=== PATIENT | male | born 1935 ===

== ENCOUNTER 2016-07-08 00:30 | Inpatient (IN) | payer MEDICARE ==
[2016-07-08] MEDS ORDERED: Phenylephrine 1% Nasal Spray (15 ml) ONE (00:44)
[2016-07-08 01:32] LABS: INR 1.1
[2016-07-08 01:35] LABS: BASO % 0.2 % (0.0-2.0); EOS % 0.2 % (0.0-4.0); HEMATOCRIT 38.2 % (35.0-51.0); LYMPH # 0.5 K/uL (1.0-4.3); LYMPH % 7.1 % (20.0-40.0); MEAN CELL VOLUME 94.1 fL (80.0-94.0); MEAN PLATELET VOLUME 8.5 fL (7.2-11.7); MONO # 0.5 K/uL (0.0-0.8); MONO % 6.3 % (0.0-10.0); NRBC % 0.1 % (0.0-2.0); PLATELET COUNT 200 K/uL (130-400); RED CELL DISTRIBUTION WIDTH 13.8 % (11.5-14.5); WHITE BLOOD COUNT 7.7 K/uL (4.8-10.8)
[2016-07-08] MEDS ORDERED: Bacitracin 500 Units/gm Oint Foilpak UD ONE (01:35)
[2016-07-08 01:38] LABS: CHLORIDE 97 mmol/L (98-107); POTASSIUM 4.9 mmol/L (3.6-5.2); SODIUM 140 mmol/L (132-148)
[2016-07-08 01:40] LABS: ALKALINE PHOSPHATASE 60 U/L (38-126); ALT/SGPT 26 U/L (21-72); AST/SGOT 28 U/L (17-59); BILIRUBIN,TOTAL 0.4 mg/dL (0.2-1.3); BLOOD UREA NITROGEN 18 mg/dL (9-20); CARBON DIOXIDE 27 mmol/L (22-30); GFR AFRICAN-AMERICAN > 60; TOTAL PROTEIN 7.7 g/dL (6.3-8.3)
[2016-07-08 01:41] LABS: CALCIUM 8.6 mg/dl (8.6-10.4); GLUCOSE,RANDOM 126 mg/dL (75-110)
--- NOTE | 2016-07-08 01:46 | C.PDOC ---
History Of Present Illness 80 year old patient presents to the ED complaining of epistaxis that began prior to arrival. Patient states he is currently taking Plavix. Patient denies shortness of breath, throat pain, cough, or vomiting. Time Seen by Provider: 07/08/16 01:06 Chief Complaint (Nursing): ENT Problem History Per: Patient History/Exam Limitations: None Onset/Duration Of Symptoms: Mins (prior to arrival) Current Symptoms Are (Timing): Still Present Symptoms Have Been: Continuous Severity: Mild Pain Scale Rating Of: 3 Past Medical History Reviewed: Historical Data, Nursing Documentation, Vital Signs Vital Signs: Last Vital Signs Temp 98.4 F 07/08/16 00:42 Pulse 82 07/08/16 05:12 Resp 18 07/08/16 05:12 BP 148/74 07/08/16 05:12 Pulse Ox 97 07/08/16 04:53 - Medical History PMH: HTN, Hypercholesterolemia Family History: States: Unknown Family Hx - Social History Hx Tobacco Use: No Hx Alcohol Use: No Hx Substance Use: No - Immunization History Hx Influenza Vaccination: Yes Review Of Systems Except As Marked, All Systems Reviewed And Found Negative. ENT: Positive for: Other (epistaxis). Negative for: Throat Pain Respiratory: Negative for: Cough, Shortness of Breath Gastrointestinal: Negative for: Vomiting Physical Exam - Physical Exam Appears: Non-toxic, No Acute Distress Skin: Warm, Dry Head: Atraumatic, Normacephalic Eye(s): bilateral: Normal Inspection, PERRL, EOMI Ear(s): Bilateral: Normal Nose: Epistaxis (left nare interiorly), No Deformity, No Septal Hematoma Oral Mucosa: Moist Tongue: Normal Appearing Lips: Normal Appearing Throat: Normal, No Erythema, No Exudate Neck: Normal ROM, Supple Chest: Symmetrical Cardiovascular: Rhythm Regular Respiratory: Normal Breath Sounds, No Rales, No Rhonchi, No Wheezing ED Course And Treatment - Laboratory Results Result Diagrams: 07/08/16 04:39 07/08/16 01:20 ECG: Interpreted By Me, Viewed By Me ECG Rhythm: Sinus Rhythm Rate From EC (bpm) O2 Sat by Pulse Oximetry: 97 (RA) Pulse Ox Interpretation: Normal Progress Note: Plan: -Labs. Progress: Topical Neosynephrine is used. Pressure is applied. Merocel nasal tampon used in left nostril. Bleeding is controlled. Patient notes he is feeling dizzing. Systolic pressure is 80 due to the bleeding from the left nostril. Balloon inserted to stop bleeding. Repeated EKG. 500 cc saline given. Blood pressure increased. 7.5 Rhino Rocket placed. Patient has subsequent bleeding. Patient has hypertension, systolic at 82. Case discussed with Dr. Tavarez, the ENT, who is notified and will try to follow up with the patient in the ED. Dr. Tavarez saw the patient and applied a posterior nasal packing. Case discussed the case with Ras Simmons who is aware of the plan and will evaluate the patient. She will admit the patient to the ICU. Disposition Discussed With Dr.: Lan Regalado Doctor Will See Patient In The: Hospital Counseled Patient/Family Regarding: Diagnosis - Disposition Disposition: HOSPITALIZED Disposition Time: 03:37 Condition: STABLE - POA Present On Arrival: None - Clinical Impression Clinical Impression: Nasal bleeding - Scribe Statement The provider has reviewed the documentation as recorded by the Tashi Matias Provider Attestation: All medical record entries made by the Tashi were at my direction and personally dictated by me. I have reviewed the chart and agree that the record accurately reflects my personal performance of the history, physical exam, medical decision making, and the department course for this patient. I have also personally directed, reviewed, and agree with the discharge instructions and disposition.
[2016-07-08] MEDS ORDERED: Sodium Chloride 0.9% 1,000 ML ONE (01:52)
[2016-07-08 02:37] LABS: BASO % 0.2 % (0.0-2.0); EOS % 0.2 % (0.0-4.0); HEMATOCRIT 33.9 % (35.0-51.0); LYMPH # 0.5 K/uL (1.0-4.3); MEAN CELL VOLUME 93.7 fL (80.0-94.0); MEAN CORPUSCULAR HEMOGLOBIN 31.2 pg (27.0-31.0); MEAN CORPUSCULAR HGB CONC 33.3 g/dL (33.0-37.0); MEAN PLATELET VOLUME 8.2 fL (7.2-11.7); MONO # 0.5 K/uL (0.0-0.8); MONO % 6.3 % (0.0-10.0); NRBC % 0.1 % (0.0-2.0); RED CELL DISTRIBUTION WIDTH 13.8 % (11.5-14.5); WHITE BLOOD COUNT 8.5 K/uL (4.8-10.8)
--- NOTE | 2016-07-08 04:23 | CP.PCM.HP ---
<Velma Albarado - Last Filed: 07/08/16 04:15> History of Present Illness - History of Present Illness History of Present Illness: CC: "nose bleed" HPI: Patient is an 80 year old male with medical history significant for CAD s/ p CABG in 2003, hypertension and BPH who presented to the ED due to uncontrolled epistaxis. Patient states he was going to take a shower at 11:00 PM on 07/07/16 when epistaxis occurred. Bleeding did not resolve which prompted patient to come to the hospital. He notes previous episode of epistaxis 4 years ago. Patient found to be hypotensive, 82/42, in ED and given bolus of normal saline. Patient takes Plavix and Aspirin daily since CABG in 2003. He denies dizziness, lightheadedness, chest pain, palpitations, shortness of breath, nausea, vomiting, abdominal pain. In ED, Merocel tampon placed to nostril and balloon inserted and inflated. 7.5 Rhino Rocket placed. Patient continues to actively have epistaxis. ENT, Dr. Tavarez, notified and will see patient. PMD: Dr. York PMH: as above Medications: ASA 162 mg po daily, Plavix 75 mg po daily, Atorvastatin 20 mg po daily, Metoprolol 50 mg po daily, Valsartan 80 mg po daily, Doxazosin 4 mg po daily Allergies: NKDA Surgical Hx: CABG 2003 Social: Previous smoker 1ppd, quit 2003. Denies alcohol and illicit drug use. Present on Admission - Present on Admission Any Indicators Present on Admission: No History of DVT/PE: No History of Uncontrolled Diabetes: No Urinary Catheter: No Decubitus Ulcer Present: No Review of Systems - Constitutional Constitutional: absent: Anorexia, Chills - EENT Additional comments: nasal bleed - Cardiovascular Cardiovascular: absent: Chest Pain, Dyspnea - Respiratory Respiratory: absent: Cough, Dyspnea, Dyspnea on Exertion - Gastrointestinal Gastrointestinal: absent: Abdominal Pain, Cramping, Nausea, Vomiting - Genitourinary Genitourinary: Other Additional comments: BPH - Musculoskeletal Musculoskeletal: absent: Arthralgias, Muscle Weakness - Integumentary Integumentary: absent: Changing Lesions, New Lesions - Neurological Neurological: Other Additional comments: decreased hearing Past Patient History - Past Social History Smoking Status: Former Smoker - CARDIAC Hx Hypercholesterolemia: Yes Hx Hypertension: Yes - PSYCHIATRIC Hx Substance Use: No - SURGICAL HISTORY Hx Surgeries: Yes Hx Open Heart Surgery: Yes (2004 bypass) - ANESTHESIA Hx Anesthesia: Yes Hx Anesthesia Reactions: No Meds Allergies/Adverse Reactions: Allergies Allergy/AdvReac Type Severity Reaction Status Date / Time No Known Allergies Allergy Verified 07/08/16 00:53 Physical Exam - Constitutional Appears: Non-toxic, Other Additional comments: active epistaxis - Head Exam Head Exam: ATRAUMATIC - Eye Exam Eye Exam: EOMI, Normal appearance, PERRL - ENT Exam ENT Exam: Mucous Membranes Moist Additional comments: active epistaxis from right nostril - Neck Exam Neck exam: Positive for: Normal Inspection - Respiratory Exam Respiratory Exam: Clear to Auscultation Bilateral, NORMAL BREATHING PATTERN - Cardiovascular Exam Cardiovascular Exam: +S1, +S2. absent: Tachycardia - GI/Abdominal Exam GI & Abdominal Exam: Normal Bowel Sounds, Soft. absent: Distended, Guarding - Extremities Exam Extremities exam: Positive for: normal inspection, pedal pulses present - Neurological Exam Neurological exam: Alert, Oriented x3 - Psychiatric Exam Psychiatric exam: Anxious Results - Vital Signs Recent Vital Signs: Last Vital Signs Temp 98.4 F 07/08/16 00:42 Pulse 90 07/08/16 03:34 Resp 16 07/08/16 03:34 BP 120/63 07/08/16 03:34 Pulse Ox 97 07/08/16 03:46 - Labs Result Diagrams: 07/08/16 02:35 07/08/16 01:20 Assessment & Plan - Assessment and Plan (Free Text) Assessment: 1. Epistaxis Rhino Rocket in place Initial hemoglobin 12.6 , repeat 11.3 Stat CBC, pending hemoglobin will transfuse Type and Screen ENT, Dr. Tavarez, consulted Monitor 2. Hypotension likely secondary to epistaxis 82/40 Normal Saline bolus given in ED Blood pressure improved to 142/72 Monitor 3. CAD s/p CABG 2003 ASA 162 mg po daily - held Plavix 25 mg po daily - held Atorvastatin 20 mg po daily Metoprolol Succinate 50 mg po daily, Valsartan 80 mg po daily - held due to hypotension 4. BPH Continue home medication Doxazosin 4 mg po daily 5. Prophylaxis SCD VTE CI due to epistaxis - Date & Time Date: 07/08/16 Time: 04:34 <Lan Regalado - Last Filed: 07/08/16 06:38> Results - Vital Signs Recent Vital Signs: Last Vital Signs Temp 97.4 F L 07/08/16 05:44 Pulse 84 07/08/16 05:44 Resp 16 07/08/16 05:44 BP 153/81 H 07/08/16 05:44 Pulse Ox 100 07/08/16 05:44 - Labs Result Diagrams: 07/08/16 04:39 07/08/16 01:20 Labs: Laboratory Results - last 24 hr 07/08/16 07/08/16 04:18 04:39 WBC 9.5 RBC 3.42 L Hgb 10.8 L Hct 32.3 L MCV 94.4 H MCH 31.5 H MCHC 33.4 RDW 13.8 Plt Count 189 MPV 8.2 Neut % (Auto) 85.9 H Lymph % (Auto) 6.7 L [place] % (Auto) 7.0 Eos % (Auto) 0.1 Baso % (Auto) 0.3 Neut # 8.2 H Lymph # 0.6 L [place] # 0.7 Eos # 0.0 Baso # 0.0 Blood Type A POSITIVE Blood Type Confirm A POSITIVE Antibody Screen Negative Assessment & Plan - Date & Time Date: 07/08/16 (I have seen and examined the patient. I agree with the findings and plan of care as documented by Dr. Albarado. Patient with epistaxis. History of CAD. Hold plavix and Aspirin. Dr. Tavarez Consulted. ICU consult due to hypotension and continued loss of blood. Type and cross 2 units. Transfuse as necessary. Hypotension improved with IV bolus. Monitor for acute changes.) Time: 06:36 Attending/Attestation - Attestation I have personally seen and examined this patient.: Yes I have fully participated in the care of the patient.: Yes I have reviewed all pertinent clinical information: Yes
[2016-07-08 04:45] LABS: BASO % 0.3 % (0.0-2.0); EOS % 0.1 % (0.0-4.0); HEMATOCRIT 32.3 % (35.0-51.0); LYMPH # 0.6 K/uL (1.0-4.3); LYMPH % 6.7 % (20.0-40.0); MEAN CELL VOLUME 94.4 fL (80.0-94.0); MEAN CORPUSCULAR HEMOGLOBIN 31.5 pg (27.0-31.0); MEAN CORPUSCULAR HGB CONC 33.4 g/dL (33.0-37.0); MEAN PLATELET VOLUME 8.2 fL (7.2-11.7); MONO # 0.7 K/uL (0.0-0.8); RED CELL DISTRIBUTION WIDTH 13.8 % (11.5-14.5); WHITE BLOOD COUNT 9.5 K/uL (4.8-10.8)
[2016-07-08] MEDS ORDERED: Tramadol 25 mg PO PRN (04:55)
[2016-07-08] MEDS ORDERED: Sodium Chloride 0.9% 1,000 ML IV ONE (05:54)
--- NOTE | 2016-07-08 06:32 | CP.PCM.CON ---
History of Present Illness - History of Present Illness History of Present Illness: This is an 80 year old male who comes to the hospital for epistaxis that started in this afternoon, despite maneuvers used in ER epistaxis continued. 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 BP and HR have been good, except for one episode of hypotension that I do not think is related to blood loss. There is a mild drop of hb, but patient feels well and vital sings are wnl. He takes plavix and aspirin at home for CABAG done in 2013. He denies any other cardiac interventions. 10 complete review of systems asked and negative except for above. PMH: CAD with CABAG in 2013 HTN Artritis on daily prednisone for the past 6 months FH: denies heart disease in the family social: ex-smoker, stopped in 2013 allergies: NKDA pe: bp 153/81 mmhg, hr 84 bpm, t 97.6 f, rr 16, O2 100% on room air aaox3 elderly male in excellent shape for his age, sitting in bed calm s1, s2 rrr lungs good bilateral air of entry abdomen global, soft, non tender good muscle tone strength a/p: epistaxis: hold anticoagulation, do not remove packing, ok for liquid diet, not desaturating, monitor cbc daily for now, no need for frequent checks, ok to start toprol since only one episode of low bp, hold diovan and imdur for now. HTN: BP wnl for now, monitor CAD: continue lipitor and toprol only. Arthritis: continue daily prednisone Past Patient History - Past Social History Smoking Status: Former Smoker - CARDIAC Hx Hypercholesterolemia: Yes Hx Hypertension: Yes - PSYCHIATRIC Hx Substance Use: No - SURGICAL HISTORY Hx Surgeries: Yes Hx Open Heart Surgery: Yes (2004 bypass) - ANESTHESIA Hx Anesthesia: Yes Hx Anesthesia Reactions: No Meds Allergies/Adverse Reactions: Allergies Allergy/AdvReac Type Severity Reaction Status Date / Time No Known Allergies Allergy Verified 07/08/16 00:53 - Medications Medications: Current Medications Acetaminophen (Tylenol 325mg Tab) 650 mg PO Q6 PRN PRN Reason: Pain, Mild (1-3) Doxazosin Mesylate (Cardura) 4 mg PO DAILY [facility] Cefazolin Sodium 500 mg/ (Sodium Chloride) 50 mls @ 100 mls/hr IVPB Q8H [facility] Last Admin: 07/08/16 05:30 Dose: 100 mls/hr Sodium Chloride (Sodium Chloride 0.9%) 1,000 mls @ 1,000 mls/hr IV .Q1H ONE Stop: 07/08/16 06:53 Last Admin: 07/08/16 03:15 Dose: 1,000 mls/hr Metoprolol Tartrate (Lopressor) 25 mg PO Q12H [facility] Rosuvastatin Calcium (Crestor) 10 mg PO HS [facility] Results - Vital Signs Recent Vital Signs: Last Vital Signs Temp 97.4 F L 07/08/16 05:44 Pulse 84 07/08/16 05:44 Resp 16 07/08/16 05:44 BP 153/81 H 07/08/16 05:44 Pulse Ox 100 07/08/16 05:44 - Labs Result Diagrams: 07/08/16 04:39 07/08/16 01:20 Labs: Laboratory Results - last 24 hr 07/08/16 07/08/16 04:18 04:39 WBC 9.5 RBC 3.42 L Hgb 10.8 L Hct 32.3 L MCV 94.4 H MCH 31.5 H MCHC 33.4 RDW 13.8 Plt Count 189 MPV 8.2 Neut % (Auto) 85.9 H Lymph % (Auto) 6.7 L [place] % (Auto) 7.0 Eos % (Auto) 0.1 Baso % (Auto) 0.3 Neut # 8.2 H Lymph # 0.6 L [place] # 0.7 Eos # 0.0 Baso # 0.0 Blood Type A POSITIVE Blood Type Confirm A POSITIVE Antibody Screen Negative
--- NOTE | 2016-07-08 08:31 | OP ---
PROCEDURE DATE: 07/08/2016 PREOPERATIVE DIAGNOSIS: Posterior epistaxis. POSTOPERATIVE DIAGNOSIS: Posterior epistaxis. SIGNIFICANT FINDINGS: Posterior packing. DESCRIPTION OF PROCEDURE: The patient was placed in a seated position. A Craft catheter was inserte d into the nasal cavity on the left. The balloon was inflated in the nasopharynx. The Vaseline gauz e was used to pack the nose on the left going from posterior to anterior direction. Vaseline gauze w as also used to pack the nose on the right side going from posterior to anterior direction. A clamp was placed on the Craft in order to secure it in place. Care was taken to make sure the clamp was no t touching the nasal ala. Bleeding was controlled. The patient tolerated the procedure. Stephon Tavarez MD cc: [phone] TT: 07/08/2016 08:31:19 ak
--- NOTE | 2016-07-08 09:18 | CP.PCM.PN ---
Subjective - Date & Time of Evaluation Date of Evaluation: 07/08/16 Time of Evaluation: 09:15 - Subjective Subjective: Medical Attending Note: Follow-up: Recurrent epistaxis, acute anemia secondary to acute blood loss, symptomatic hypotension secondary to blood loss, hx of CABG in 2003, hypelipidemeia Patient seen and examined at bedside. is present at bedside. Patient has nasal packing bilateral nares with catheter over left nostril and clamped with plier. Patient denies headache, denies dizziness, denies lightheadedness, denies cough, denies shortness of breathe, denies chest pain, denies palpitations, denies abdominal pain, denies nausea, denies vomitting, denies dysuria. patient is on aspirin/plavix given prior CABG 2003. Patient reports last episode of epistaxis was about 4 years ago. Objective - Vital Signs/Intake and Output Vital Signs (last 24 hours): Temp Pulse Resp BP Pulse Ox 97.7 F 90 18 142/70 98 07/08/16 08:00 07/08/16 09:00 07/08/16 09:00 07/08/16 09:00 07/08/16 09:00 Intake and Output: 07/08/16 07/08/16 06:59 18:59 Intake Total 1100 Output Total 750 0 Balance 350 0 - Medications Medications: Current Medications Acetaminophen (Tylenol 325mg Tab) 650 mg PO Q6 PRN PRN Reason: Pain, Mild (1-3) Last Admin: 07/08/16 07:58 Dose: 650 mg Doxazosin Mesylate (Cardura) 4 mg PO DAILY [facility] Cefazolin Sodium 500 mg/ (Sodium Chloride) 50 mls @ 100 mls/hr IVPB Q8H [facility] Last Admin: 07/08/16 05:30 Dose: 100 mls/hr Metoprolol Tartrate (Lopressor) 25 mg PO Q12H [facility] Last Admin: 07/08/16 08:06 Dose: 25 mg Prednisone (Prednisone Tab) 10 mg PO DAILY [facility] Rosuvastatin Calcium (Crestor) 10 mg PO HS [facility] - Labs Labs: 07/08/16 04:39 PT 12.0 SECONDS (9.7-12.2) 07/08/16 01:20 INR 1.1 07/08/16 01:20 APTT 30 SECONDS (21-34) 07/08/16 01:20 - Constitutional Appears: Non-toxic, No Acute Distress - Head Exam Head Exam: NORMAL INSPECTION - ENT Exam Additional comments: Nasal packing bilateral; has catheter from left nare, and clamped; dried blood - Respiratory Exam Respiratory Exam: Clear to Ausculation Bilateral, NORMAL BREATHING PATTERN. absent: Rales, Rhonchi - Cardiovascular Exam Cardiovascular Exam: REGULAR RHYTHM, +S1, +S2 - GI/Abdominal Exam GI & Abdominal Exam: Soft, Normal Bowel Sounds. absent: Distended, Firm, Guarding, Rigid, Tenderness, Rebound - Neurological Exam Neurological Exam: Alert, Awake, Oriented x3 - Psychiatric Exam Psychiatric exam: Normal Affect, Normal Mood - Skin Skin Exam: Dry, Normal Color, Warm Assessment and Plan (1) Epistaxis, recurrent Assessment & Plan: Posterior epistaxis Had posterior packing by ENT 07/08/16 Monitor H/H Patient is off aspirin/Plavix Cefazolin 500mg IV Q 6 hours (active since 07/08/16) Status: Acute (2) Acute blood loss anemia Assessment & Plan: Secondary to posterior epistaxis Patient denies hx of hypertension Patient went from hgb 11.7-->10.8 Monitor H/H Will check iron studies, b12, folate, hapto, ferritin Status: Acute (3) Symptomatic anemia Assessment & Plan: Secondary to posterior epistaxis Patient went from hgb 11.7-->10.8 Status: Acute (4) History of coronary artery bypass graft Assessment & Plan: In 2003 Crestor 10mg PO HS Off aspirin/plavix secondary to acute blood loss this morning (patient has a card at bedside of all meds) Lopressor 50mg PO bid Status: Chronic (5) CAD (coronary artery disease) Assessment & Plan: Crestor 10mg PO qHS Status: Chronic (6) Prophylactic measure Assessment & Plan: Pepcid 20mg IV Q 12hours VTE contraindications secondary to acute blood loss secondary to posterior epistaxis Status: Acute
[2016-07-08 09:30] LABS: NEUTROPHIL 81 % (50-75); TOTAL CELLS COUNTED 100
[2016-07-08 10:18] LABS: IRON 72 ug/dL (49-181)
[2016-07-08] MEDS: Saccharomyces Boulardi 250 mg Cap PO SCH ×2 (10:33→18:37)
[2016-07-08] MEDS: Vitamins A & D Oint UD Foilpak TOP PRN (10:33)
[2016-07-08 11:59] LABS: FOLATE 7.7 ng/mL
[2016-07-08] MEDS ORDERED: Oxycodone/Acetaminophen 5/325 mg Tab PO PRN (13:49)
[2016-07-08] MEDS ORDERED: Metoprolol 1 mg/ml Inj IVP ONE (22:15)
[2016-07-09] MEDS: Vitamins A & D Oint UD Foilpak TOP PRN (10:30)
[2016-07-09] MEDS: Saccharomyces Boulardi 250 mg Cap PO SCH ×2 (10:31→17:56)
[2016-07-09 11:02] LABS: BASO % 0.1 % (0.0-2.0); HEMATOCRIT 28.8 % (35.0-51.0); LYMPH % 6.8 % (20.0-40.0); MEAN CELL VOLUME 92.7 fL (80.0-94.0); MEAN CORPUSCULAR HEMOGLOBIN 30.9 pg (27.0-31.0); MEAN CORPUSCULAR HGB CONC 33.4 g/dL (33.0-37.0); MEAN PLATELET VOLUME 8.5 fL (7.2-11.7); MONO # 1.3 K/uL (0.0-0.8); MONO % 9.1 % (0.0-10.0); PLATELET COUNT 183 K/uL (130-400); WHITE BLOOD COUNT 13.9 K/uL (4.8-10.8)
[2016-07-09 11:07] LABS: CHLORIDE 96 mmol/L (98-107); SODIUM 138 mmol/L (132-148)
[2016-07-09 11:09] LABS: AST/SGOT 26 U/L (17-59); BILIRUBIN,TOTAL 0.7 mg/dL (0.2-1.3); CARBON DIOXIDE 30 mmol/L (22-30); GFR AFRICAN-AMERICAN > 60; TOTAL PROTEIN 6.7 g/dL (6.3-8.3)
[2016-07-09 11:10] LABS: ALKALINE PHOSPHATASE 52 U/L (38-126); ALT/SGPT 33 U/L (21-72); BLOOD UREA NITROGEN 28 mg/dL (9-20); CALCIUM 8.5 mg/dl (8.6-10.4); GLUCOSE,RANDOM 97 mg/dL (75-110); MAGNESIUM 2.1 mg/dL (1.6-2.3); PHOSPHOROUS 2.5 mg/dL (2.5-4.5)
[2016-07-09 11:47] LABS: NEUTROPHIL 83 % (50-75); REACTIVE LYMPHOCYTES 2 % (0-0); TOTAL CELLS COUNTED 100
--- NOTE | 2016-07-09 11:53 | CP.PCM.PN ---
Objective - Vital Signs/Intake and Output Vital Signs (last 24 hours): Temp Pulse Resp BP Pulse Ox 98.6 F 91 H 20 154/67 H 99 07/09/16 07:59 07/09/16 11:29 07/09/16 07:59 07/09/16 11:29 07/09/16 07:59 - Medications Medications: Current Medications Doxazosin Mesylate (Cardura) 4 mg PO DAILY [facility] Last Admin: 07/09/16 10:31 Dose: 4 mg Famotidine (Pepcid) 20 mg IVP Q12 [facility] Last Admin: 07/09/16 10:31 Dose: 20 mg Cefazolin Sodium 500 mg/ (Sodium Chloride) 50 mls @ 100 mls/hr IVPB Q8H [facility] Last Admin: 07/09/16 05:55 Dose: 100 mls/hr Losartan Potassium (Cozaar) 50 mg PO DAILY [facility] Last Admin: 07/09/16 10:31 Dose: 50 mg Metoprolol Tartrate (Lopressor) 25 mg PO Q12H [facility] Last Admin: 07/09/16 05:56 Dose: 25 mg Oxycodone/Acetaminophen (Percocet 5/325 Mg Tab) 1 tab PO Q6H PRN PRN Reason: Pain, moderate (4-7) Stop: 07/11/16 13:50 Last Admin: 07/08/16 13:54 Dose: 1 tab Rosuvastatin Calcium (Crestor) 10 mg PO HS [facility] Last Admin: 07/08/16 21:47 Dose: 10 mg Saccharomyces Boulardii (Florastor) 250 mg PO BID [facility] Last Admin: 07/09/16 10:31 Dose: 250 mg Saliva Substitute (Mouth Kote 236 Ml) 1 ml MM Q4H [facility] Last Admin: 07/09/16 10:40 Dose: 1 spray Vitamin A (Vitamin A & D Oint Ud Foilpak) 0.5 ea TOP Q4 PRN PRN Reason: Dry skin Last Admin: 07/09/16 10:30 Dose: 0.5 ea - Labs Labs: 07/09/16 10:48 07/09/16 10:48 PT 12.0 SECONDS (9.7-12.2) 07/08/16 01:20 INR 1.1 07/08/16 01:20 APTT 30 SECONDS (21-34) 07/08/16 01:20
--- NOTE | 2016-07-09 11:57 | CP.PCM.PN ---
Addendum entered and electronically signed by Annie Sullivan DO 07/09/16 17:12: patient to have nasal cauterization Thursday- echo ordered, cards consulted for cardiac clearance. Original Note: <Annie Sullivan - Last Filed: 07/09/16 15:20> Subjective - Date & Time of Evaluation Date of Evaluation: 07/09/16 Time of Evaluation: 07:45 - Subjective Subjective: Internal medicine progress note for Dr. Partida- Annie Sullivan, PGY-1 Pt [facility] & E at beside- daughter present to provide addition history. Daughter reports that yesterday evening, pt was given percocet with some agitation after administration, pt had brief recurrence of epistaxis. Pt uncomfortable with large clamp in place for tamponade. Complaining of SOB and dry mouth. Denies N/V/F/C, chest pain, abdominal pain. Tolerating liquid diet. 9:30am - pt reported transitent substernal "burning sensation" - told nursing. When re-evaluated, was not having symptoms - ordered EKG and ZHANNA. 10:30am- Per nursing, pt with recurrence of 4-5ml epistaxis. 1530: Patient had recurrence of bleeding from left nares- 3-5 mls - bright red, packing still in place, also coughed up 2 dime size dark clots Objective - Vital Signs/Intake and Output Vital Signs (last 24 hours): Temp Pulse Resp BP Pulse Ox 98.6 F 91 H 20 154/67 H 99 07/09/16 07:59 07/09/16 11:29 07/09/16 07:59 07/09/16 11:29 07/09/16 07:59 - Medications Medications: Current Medications Doxazosin Mesylate (Cardura) 4 mg PO DAILY [facility] Last Admin: 07/09/16 10:31 Dose: 4 mg Famotidine (Pepcid) 20 mg IVP Q12 [facility] Last Admin: 07/09/16 10:31 Dose: 20 mg Cefazolin Sodium 500 mg/ (Sodium Chloride) 50 mls @ 100 mls/hr IVPB Q8H [facility] Last Admin: 07/09/16 05:55 Dose: 100 mls/hr Losartan Potassium (Cozaar) 50 mg PO DAILY [facility] Last Admin: 07/09/16 10:31 Dose: 50 mg Metoprolol Tartrate (Lopressor) 25 mg PO Q12H [facility] Last Admin: 07/09/16 05:56 Dose: 25 mg Oxycodone/Acetaminophen (Percocet 5/325 Mg Tab) 1 tab PO Q6H PRN PRN Reason: Pain, moderate (4-7) Stop: 07/11/16 13:50 Last Admin: 07/08/16 13:54 Dose: 1 tab Rosuvastatin Calcium (Crestor) 10 mg PO HS [facility] Last Admin: 07/08/16 21:47 Dose: 10 mg Saccharomyces Boulardii (Florastor) 250 mg PO BID [facility] Last Admin: 07/09/16 10:31 Dose: 250 mg Saliva Substitute (Mouth Kote 236 Ml) 1 ml MM Q4H [facility] Last Admin: 07/09/16 10:40 Dose: 1 spray Vitamin A (Vitamin A & D Oint Ud Foilpak) 0.5 ea TOP Q4 PRN PRN Reason: Dry skin Last Admin: 07/09/16 10:30 Dose: 0.5 ea - Labs Labs: 07/09/16 10:48 07/09/16 10:48 PT 12.0 SECONDS (9.7-12.2) 07/08/16 01:20 INR 1.1 07/08/16 01:20 APTT 30 SECONDS (21-34) 07/08/16 01:20 - Constitutional Appears: Non-toxic, No Acute Distress - Head Exam Head Exam: ATRAUMATIC, NORMAL INSPECTION, NORMOCEPHALIC Additional comments: Vaso-occlusive dressings occluding nares, straight catheter in right nares with large forceps clamp in place at opening of nares. Some oxidized blood visible in posterior lata-pharynx and posterior tongue. - Eye Exam Eye Exam: EOMI, Normal appearance, PERRL Pupil Exam: NORMAL ACCOMODATION, PERRL - ENT Exam ENT Exam: Mucous Membranes Moist, Normal Exam - Neck Exam Neck Exam: Full ROM, Normal Inspection - Respiratory Exam Respiratory Exam: Clear to Ausculation Bilateral, NORMAL BREATHING PATTERN. absent: Rales, Rhonchi, Wheezes - Cardiovascular Exam Cardiovascular Exam: REGULAR RHYTHM, +S1, +S2 - GI/Abdominal Exam GI & Abdominal Exam: Soft, Normal Bowel Sounds. absent: Distended, Firm, Guarding, Rigid, Tenderness - Extremities Exam Extremities Exam: Full ROM, Normal Inspection. absent: Pedal Edema, Tenderness - Back Exam Back Exam: NORMAL INSPECTION - Neurological Exam Neurological Exam: Alert, Awake, CN II-XII Intact, Oriented x3 - Psychiatric Exam Psychiatric exam: Normal Affect, Normal Mood - Skin Skin Exam: Dry, Intact, Normal Color, Warm Assessment and Plan - Assessment and Plan (Free Text) Assessment: 1. Epistaxis Posterior packing in place by by ENT 07/08/16 Monitor H/H Off aspirin/Plavix Cefazolin 500mg IV Q 6 hours (active since 07/08/16) Florastor Saliva substitute FU CT head FU ENT recs 2. Chest pain EKG- no changes since previous EKG ZHANNA 0.069 Monitor 3. Acute blood loss anemia due to posterior epistaxis Hgb 9.6 from 10.8 Folate 7.7 B12 level 370 Fe 72 TIBC 352 % sat 29 Ferritin 40.7 Monitor 4. Symptomatic anemia due to posterior epistaxis Monitor 5. Hx CABG (2003) Crestor 10mg PO HS Off aspirin/plavix secondary to acute blood loss 6. HTN Lopressor 50mg PO bid Cozaar 50mg daily Doxazosin 4mg daily 7. CAD Crestor 10mg PO HS Lopressor 25mg Q12H 8. GI/DVT ppx Pepcid 20mg IV Q 12hours VTE contraindications secondary to acute blood loss secondary to posterior epistaxis 9. Dispo Awaiting ENT recs regarding epistaxis DW attending <Mariposa Partida V - Last Filed: 07/10/16 10:00> Objective - Vital Signs/Intake and Output Vital Signs (last 24 hours): Temp Pulse Resp BP Pulse Ox 98.7 F 90 20 174/71 H 97 07/10/16 07:22 07/10/16 09:10 07/10/16 07:22 07/10/16 09:10 07/10/16 07:22 Intake and Output: 07/10/16 07/10/16 06:59 18:59 Intake Total 350 Output Total 850 Balance -500 - Medications Medications: Current Medications Doxazosin Mesylate (Cardura) 4 mg PO DAILY [facility] Last Admin: 07/10/16 09:08 Dose: 4 mg Famotidine (Pepcid) 20 mg IVP Q12 [facility] Last Admin: 07/10/16 09:09 Dose: 20 mg Cefazolin Sodium 500 mg/ (Sodium Chloride) 100 mls @ 100 mls/hr IVPB Q8H [facility] Last Admin: 07/10/16 05:23 Dose: 100 mls/hr Losartan Potassium (Cozaar) 50 mg PO DAILY [facility] Last Admin: 07/10/16 09:12 Dose: 50 mg Metoprolol Tartrate (Lopressor) 25 mg PO Q12H [facility] Last Admin: 07/10/16 05:33 Dose: 25 mg Oxycodone/Acetaminophen (Percocet 5/325 Mg Tab) 1 tab PO Q6H PRN PRN Reason: Pain, moderate (4-7) Stop: 07/11/16 13:50 Last Admin: 07/08/16 13:54 Dose: 1 tab Rosuvastatin Calcium (Crestor) 10 mg PO HS [facility] Last Admin: 07/09/16 21:30 Dose: 10 mg Saccharomyces Boulardii (Florastor) 250 mg PO BID [facility] Last Admin: 07/10/16 09:08 Dose: 250 mg Saliva Substitute (Mouth Kote 236 Ml) 1 ml MM Q4H [facility] Last Admin: 07/10/16 09:07 Dose: 1 spray Vitamin A (Vitamin A & D Oint Ud Foilpak) 0.5 ea TOP Q4 PRN PRN Reason: Dry skin Last Admin: 07/09/16 10:30 Dose: 0.5 ea - Labs Labs: 07/10/16 08:01 07/10/16 08:01 PT 12.0 SECONDS (9.7-12.2) 07/08/16 01:20 INR 1.1 07/08/16 01:20 APTT 30 SECONDS (21-34) 07/08/16 01:20 Assessment and Plan (1) Epistaxis, recurrent Status: Acute (2) Acute blood loss anemia Status: Acute (3) Symptomatic anemia Status: Acute (4) History of coronary artery bypass graft Status: Chronic (5) CAD (coronary artery disease) Status: Chronic (6) Prophylactic measure Status: Acute Attending/Attestation - Attestation I have personally seen and examined this patient.: Yes I have fully participated in the care of the patient.: Yes I have reviewed all pertinent clinical information, including history, physical exam and plan: Yes Notes (Text): This is late computer entry for 07/09/16. Patient seen, examined and case discussed with day-time resident. Patient seen at bedside with family. Per overnight, patient had an episode of epistaxis and this morning, had second episode of epistaxis which resolved after few minutes. Patient has been off anticoagulation for 2 days. Patient appeared to have dressing coming out from left nare during my evaluation in the morning. Patient also reported episode of angina in the morning which had resolved. EKG ordered no changes compared to prior EKG. Troponin negative. During the day, patient continued to have additional episode of epistaxis. Ordered for CBC to trend. May need additional blood transfusion. Discussed with ENT, patient to have cauterization tomorrow. Patient ordered for CT head w/o contrast. No acute intracranial bleeding. Patient noted to have septal nasal fracture. ENT already on board. Recommended for cardiac clearance prior to ENT procedure. Echocardiogram ordered. Patient is considered high risk prior to cautherization given age, hx of CABG 2003, and abnormal heart rhythm.
--- NOTE | 2016-07-09 12:02 | CON ---
DATE: 07/09/2016 REASON FOR CONSULTATION AND FOLLOWUP HISTORY: This is an 80-year-old male who had a posterior pack d one by me yesterday morning. The patient reports one episode of mild bleeding out the left, which st opped by itself. No further episodes of bleeding. It was mild and this happened once and lasted 5 m inutes. PAST MEDICAL HISTORY: As noted on the chart by me. MEDICATIONS: As noted on the chart by me. PHYSICAL EXAMINATION: HEAD: Atraumatic, normocephalic. FACE: Good facial movements bilaterally. CONSTITUTIONAL: Well-developed, well-nourished. COMMUNICATION: Communicates very appropriately. EXTERNAL NOSE AND EARS: No masses, no lesions, no erythema, no edema. INTERNAL NOSE: Pack is noted. No epistaxis. ORAL CAVITY, OROPHARYNX: No bloody postnasal drip. No masses, no lesions, no erythema, no edema. LIPS, GUMS: No masses, no lesions, no erythema, no edema. NECK: Supple. THYROID: No thyromegaly, no goiter. LYMPH NODES: No lymphadenopathy of the neck. ASSESSMENT: Epistaxis, controlled. PLAN: Continue pack. We will remove pack in 2 days once more of the Plavix and aspirin have washed out of his system. Stephon Tavarez MD cc: [id number] TT: 07/09/2016 12:01:52 Confirmation # [id number] Dictation # [id number]
--- NOTE | 2016-07-09 14:34 | CT ---
PROCEDURE: CT HEAD WITHOUT CONTRAST. HISTORY: epistaxis COMPARISON: None available. TECHNIQUE: Axial computed tomography images were obtained through the head/brain without intravenous contrast. Radiation dose: Total exam DLP = 901.4 mGy-cm. FINDINGS: HEMORRHAGE: No intracranial hemorrhage. BRAIN: No mass effect or edema. No atrophy or chronic microvascular ischemic changes. VENTRICLES: Unremarkable. No hydrocephalus. CALVARIUM: Unremarkable. PARANASAL SINUSES: Air-fluid level seen in the left maxillary sinus. Partial opacification of the ethmoids and sphenoid sinuses. There is opacification of the nasal cavity. There is catheter in the left nasal cavity with inflated by alone at the posterior aspect of the nasal cavity. MASTOID AIR CELLS: Unremarkable as visualized. No inflammatory changes. OTHER FINDINGS: None. IMPRESSION: No evidence of acute intracranial pathology. Air-fluid level at the left maxillary sinus. Possible nasal septal fracture . Partial opacification of the ethmoid sinuses and sphenoid sinuses. Opacification of the nasal cavity and catheter with inflated balloon extending to the posterior aspect of the nasal cavity
[2016-07-09 17:07] LABS: HEMATOCRIT 28.1 % (35.0-51.0); MEAN CELL VOLUME 93.5 fL (80.0-94.0); MEAN CORPUSCULAR HEMOGLOBIN 30.6 pg (27.0-31.0); MEAN CORPUSCULAR HGB CONC 32.7 g/dL (33.0-37.0); MEAN PLATELET VOLUME 8.6 fL (7.2-11.7); RED CELL DISTRIBUTION WIDTH 14.2 % (11.5-14.5); WHITE BLOOD COUNT 12.2 K/uL (4.8-10.8)
--- NOTE | 2016-07-09 17:17 | CARD ---
APPROVED REPORT EKG Measurement Heart [id number] <Conclusion> Sinus rhythm with short AL Left axis deviation Incomplete right bundle branch block Nonspecific ST and T wave abnormality Abnormal ECG
[2016-07-10] MEDS ORDERED: Metoprolol 1 mg/ml Inj IVP ONE (01:20)
[2016-07-10 02:06] LABS: BASO # 0.1 K/uL (0.0-0.2); BASO % 0.6 % (0.0-2.0); EOS % 0.1 % (0.0-4.0); HEMATOCRIT 26.7 % (35.0-51.0); LYMPH # 0.9 K/uL (1.0-4.3); LYMPH % 7.6 % (20.0-40.0); MEAN CELL VOLUME 93.5 fL (80.0-94.0); MEAN CORPUSCULAR HEMOGLOBIN 31.8 pg (27.0-31.0); MEAN PLATELET VOLUME 8.1 fL (7.2-11.7); MONO # 0.9 K/uL (0.0-0.8); MONO % 7.5 % (0.0-10.0); PLATELET COUNT 162 K/uL (130-400); RED CELL DISTRIBUTION WIDTH 13.8 % (11.5-14.5); WHITE BLOOD COUNT 11.4 K/uL (4.8-10.8)
[2016-07-10 02:56] LABS: NEUTROPHIL 77 % (50-75); REACTIVE LYMPHOCYTES 2 % (0-0); TOTAL CELLS COUNTED 100
--- NOTE | 2016-07-10 04:52 | CP.PCM.PN ---
Subjective - Date & Time of Evaluation Date of Evaluation: 07/10/16 Time of Evaluation: 04:45 - Subjective Subjective: House Doctor Note Rapid Response Time: 1:44 AM Patient is an 80 y/o male with history of hypertension admitted for epistaxis. Patient currently has posterior packing in place. Rapid response was called by nurse due to active bleeding from nose and mouth. Patient vitals were stable: Temp 98.8, Pulse 88, Respirations 20, BP 158/76, and oxygen saturation 98%. Stat CBC was ordered. Hemoglobin stable at 9.1. Dr. Tavarez was called and message left to inform him of bleed. Will monitor. Objective - Vital Signs/Intake and Output Vital Signs (last 24 hours): Temp Pulse Resp BP Pulse Ox 98.8 F 82 20 157/70 H 97 07/10/16 02:20 07/10/16 02:20 07/10/16 02:20 07/10/16 02:20 07/10/16 02:20 Intake and Output: 07/09/16 07/10/16 18:59 06:59 Intake Total 400 150 Output Total 300 Balance 400 -150 - Medications Medications: Current Medications Doxazosin Mesylate (Cardura) 4 mg PO DAILY [facility] Last Admin: 07/09/16 10:31 Dose: 4 mg Famotidine (Pepcid) 20 mg IVP Q12 [facility] Last Admin: 07/09/16 21:29 Dose: 20 mg Cefazolin Sodium 500 mg/ (Sodium Chloride) 100 mls @ 100 mls/hr IVPB Q8H [facility] Last Admin: 07/09/16 20:37 Dose: 100 mls/hr Losartan Potassium (Cozaar) 50 mg PO DAILY [facility] Last Admin: 07/09/16 10:31 Dose: 50 mg Metoprolol Tartrate (Lopressor) 25 mg PO Q12H [facility] Last Admin: 07/09/16 17:56 Dose: 25 mg Oxycodone/Acetaminophen (Percocet 5/325 Mg Tab) 1 tab PO Q6H PRN PRN Reason: Pain, moderate (4-7) Stop: 07/11/16 13:50 Last Admin: 07/08/16 13:54 Dose: 1 tab Rosuvastatin Calcium (Crestor) 10 mg PO HS [facility] Last Admin: 07/09/16 21:30 Dose: 10 mg Saccharomyces Boulardii (Florastor) 250 mg PO BID [facility] Last Admin: 07/09/16 17:56 Dose: 250 mg Saliva Substitute (Mouth Kote 236 Ml) 1 ml MM Q4H [facility] Last Admin: 07/10/16 02:23 Dose: 1 spray Vitamin A (Vitamin A & D Oint Ud Foilpak) 0.5 ea TOP Q4 PRN PRN Reason: Dry skin Last Admin: 07/09/16 10:30 Dose: 0.5 ea - Labs Labs: 07/10/16 02:03 07/09/16 10:48 PT 12.0 SECONDS (9.7-12.2) 07/08/16 01:20 INR 1.1 07/08/16 01:20 APTT 30 SECONDS (21-34) 07/08/16 01:20 - Constitutional Appears: Non-toxic, No Acute Distress - Head Exam Head Exam: ATRAUMATIC, NORMAL INSPECTION, NORMOCEPHALIC - Eye Exam Eye Exam: EOMI, Normal appearance, PERRL - ENT Exam Additional comments: posterior packing in place, actively bleeding from nose - Respiratory Exam Respiratory Exam: Clear to Ausculation Bilateral, NORMAL BREATHING PATTERN. absent: Rales, Rhonchi, Wheezes - Cardiovascular Exam Cardiovascular Exam: +S1, +S2. absent: Tachycardia - GI/Abdominal Exam GI & Abdominal Exam: Soft, Normal Bowel Sounds - Extremities Exam Extremities Exam: Normal Inspection - Neurological Exam Neurological Exam: Alert, Awake, Oriented x3 - Psychiatric Exam Psychiatric exam: Anxious
[2016-07-10 08:13] LABS: BASO % 0.2 % (0.0-2.0); EOS % 0.1 % (0.0-4.0); HEMATOCRIT 26.6 % (35.0-51.0); LYMPH # 1.1 K/uL (1.0-4.3); LYMPH % 9.2 % (20.0-40.0); MEAN PLATELET VOLUME 8.5 fL (7.2-11.7); MONO # 1.2 K/uL (0.0-0.8); PLATELET COUNT 161 K/uL (130-400); RED CELL DISTRIBUTION WIDTH 14.2 % (11.5-14.5); WHITE BLOOD COUNT 11.7 K/uL (4.8-10.8)
[2016-07-10 08:39] LABS: CHLORIDE 96 mmol/L (98-107); POTASSIUM 4.1 mmol/L (3.6-5.2); SODIUM 138 mmol/L (132-148)
[2016-07-10 08:41] LABS: BILIRUBIN,TOTAL 0.6 mg/dL (0.2-1.3); GFR AFRICAN-AMERICAN > 60
[2016-07-10 08:42] LABS: ALB/GLOB RATIO 0.9 (1.0-2.1); ALKALINE PHOSPHATASE 49 U/L (38-126); ALT/SGPT 30 U/L (21-72); AST/SGOT 43 U/L (17-59); BLOOD UREA NITROGEN 20 mg/dL (9-20); CALCIUM 8.2 mg/dl (8.6-10.4); CARBON DIOXIDE 31 mmol/L (22-30); GLUCOSE,RANDOM 95 mg/dL (75-110); TOTAL PROTEIN 6.5 g/dL (6.3-8.3)
[2016-07-10 08:43] LABS: MAGNESIUM 2.1 mg/dL (1.6-2.3)
--- NOTE | 2016-07-10 09:04 | CP.PCM.CON ---
History of Present Illness - History of Present Illness History of Present Illness: Cardiology Consult for Dr. Noel Reason for Consult: Cardiac surgical clearance This is an 80Y M with PMH of HTN, HLD, BPH, CAD s/p CABG x 3 (last one 2003) admitted for recurrent epistaxis. The patient will need an cauterization for his epistaxis. He was noted to have anemia secondary to the epistaxis. His plavix and ASA are on hold for the past 5 days. Upon interview, patient reports feeling well. He denies having chest pain, SOB, palpitations, leg edema, vision changes. He reports having irritation where the packing is placed. Patient reports he can walk 3 blocks and up a flight of stairs without feeling SOB. Last EKG was noted to show incomplete RBBB, and L axis deviation. Could not find records of last echo. PMH: CAD, HLD, HTN, BPH PSH: CABG x 3 (2003) Home Meds: ASA, Plavix, Lipitor, Lopressor, Valsartan, Doxazosin All: NKDA SH: quit smoking 13yrs ago, denies drug or alcohol use Review of Systems - Review of Systems All systems: reviewed and no additional remarkable complaints except Review of Systems: as per HPI Past Patient History - Past Medical History & Family History Past Medical History?: Yes - Past Social History Smoking Status: Former Smoker Alcohol: None Drugs: Denies - CARDIAC Hx Hypercholesterolemia: Yes Hx Hypertension: Yes - HEENT Hx Epistaxis: Yes - MUSCULOSKELETAL/RHEUMATOLOGICAL Hx Falls: No - PSYCHIATRIC Hx Substance Use: No - SURGICAL HISTORY Hx Surgeries: Yes Hx Open Heart Surgery: Yes (2003 bypass) - ANESTHESIA Hx Anesthesia: Yes Hx Anesthesia Reactions: No Meds Allergies/Adverse Reactions: Allergies Allergy/AdvReac Type Severity Reaction Status Date / Time No Known Allergies Allergy Verified 07/08/16 00:53 - Medications Medications: Current Medications Doxazosin Mesylate (Cardura) 4 mg PO DAILY [facility] Last Admin: 07/09/16 10:31 Dose: 4 mg Famotidine (Pepcid) 20 mg IVP Q12 [facility] Last Admin: 07/09/16 21:29 Dose: 20 mg Cefazolin Sodium 500 mg/ (Sodium Chloride) 100 mls @ 100 mls/hr IVPB Q8H [facility] Last Admin: 07/10/16 05:23 Dose: 100 mls/hr Losartan Potassium (Cozaar) 50 mg PO DAILY [facility] Last Admin: 07/09/16 10:31 Dose: 50 mg Metoprolol Tartrate (Lopressor) 25 mg PO Q12H [facility] Last Admin: 07/10/16 05:33 Dose: 25 mg Oxycodone/Acetaminophen (Percocet 5/325 Mg Tab) 1 tab PO Q6H PRN PRN Reason: Pain, moderate (4-7) Stop: 07/11/16 13:50 Last Admin: 07/08/16 13:54 Dose: 1 tab Rosuvastatin Calcium (Crestor) 10 mg PO HS [facility] Last Admin: 07/09/16 21:30 Dose: 10 mg Saccharomyces Boulardii (Florastor) 250 mg PO BID [facility] Last Admin: 07/09/16 17:56 Dose: 250 mg Saliva Substitute (Mouth Kote 236 Ml) 1 ml MM Q4H [facility] Last Admin: 07/10/16 05:21 Dose: 1 spray Vitamin A (Vitamin A & D Oint Ud Foilpak) 0.5 ea TOP Q4 PRN PRN Reason: Dry skin Last Admin: 07/09/16 10:30 Dose: 0.5 ea Physical Exam - Constitutional Appears: No Acute Distress - Head Exam Head Exam: ATRAUMATIC, NORMAL INSPECTION, NORMOCEPHALIC - Eye Exam Eye Exam: Normal appearance Pupil Exam: NORMAL ACCOMODATION - ENT Exam Additional comments: Packing in bilateral nares with drain in L nare - Neck Exam Neck exam: Positive for: Normal Inspection - Respiratory Exam Respiratory Exam: Clear to Auscultation Bilateral, NORMAL BREATHING PATTERN. absent: Rhonchi, Wheezes, Respiratory Distress, Stridor - Cardiovascular Exam Cardiovascular Exam: REGULAR RHYTHM, +S1, +S2. absent: Gallop, Rubs, Systolic Murmur - GI/Abdominal Exam GI & Abdominal Exam: Normal Bowel Sounds, Soft. absent: Guarding, Mass, Rigid, Tenderness - Extremities Exam Extremities exam: Positive for: normal inspection. Negative for: calf tenderness, pedal edema - Neurological Exam Neurological exam: Alert, CN II-XII Intact, Oriented x3 - Psychiatric Exam Psychiatric exam: Normal Affect, Normal Mood - Skin Skin Exam: Dry, Intact Results - Vital Signs Recent Vital Signs: Last Vital Signs Temp 98.7 F 07/10/16 07:22 Pulse 89 07/10/16 07:22 Resp 20 07/10/16 07:22 BP 168/69 H 07/10/16 07:22 Pulse Ox 97 07/10/16 07:22 - Labs Result Diagrams: 07/10/16 08:01 07/10/16 08:01 Labs: Laboratory Results - last 24 hr 07/08/16 07/09/16 07/09/16 09:57 09:26 10:48 WBC 13.9 H RBC 3.10 L Hgb 9.6 L Hct 28.8 L MCV 92.7 MCH 30.9 MCHC 33.4 RDW 14.0 Plt Count 183 MPV 8.5 Neut % (Auto) 84.0 H Lymph % (Auto) 6.8 L Beckham % (Auto) 9.1 Eos % (Auto) 0.0 Baso % (Auto) 0.1 Neut # 11.7 H Lymph # 1.0 Beckham # 1.3 H Eos # 0.0 Baso # 0.0 Neutrophils % (Manual) 83 H Band Neutrophils % 3 H Lymphocytes % (Manual) 5 L Reactive Lymphs % 2 H Monocytes % (Manual) 7 Platelet Estimate Normal Ovalocytes Slight Sodium 138 Potassium 4.0 Chloride 96 L Carbon Dioxide 30 Anion Gap 16 BUN 28 H Creatinine 0.8 Est GFR ( Amer) > 60 Est GFR (Non-Af Amer) > 60 Random Glucose 97 Hemoglobin A1c 6.4 Calcium 8.5 L Phosphorus 2.5 Magnesium 2.1 Total Bilirubin 0.7 AST 26 ALT 33 Alkaline Phosphatase 52 Total Creatine Kinase 188 H CK-MB (Mass) 2.14 Troponin I, Quant 0.0690 Total Protein 6.7 Albumin 3.3 L Globulin 3.4 Albumin/Globulin Ratio 1.0 07/09/16 07/10/16 07/10/16 17:01 02:03 08:01 WBC 12.2 H 11.4 H 11.7 H RBC 3.01 L 2.85 L 2.83 L Hgb 9.2 L 9.1 L 9.1 L Hct 28.1 L 26.7 L 26.6 L MCV 93.5 93.5 94.0 MCH 30.6 31.8 H 32.0 H MCHC 32.7 L 34.0 34.0 RDW 14.2 13.8 14.2 Plt Count 171 162 161 MPV 8.6 8.1 8.5 Neut % (Auto) 84.2 H 80.5 H Lymph % (Auto) 7.6 L 9.2 L Beckham % (Auto) 7.5 10.0 Eos % (Auto) 0.1 0.1 Baso % (Auto) 0.6 0.2 Neut # 9.6 H 9.4 H Lymph # 0.9 L 1.1 Beckham # 0.9 H 1.2 H Eos # 0.0 0.0 Baso # 0.1 0.0 Neutrophils % (Manual) 77 H Band Neutrophils % 2 Lymphocytes % (Manual) 8 L Reactive Lymphs % 2 H Monocytes % (Manual) 11 H Platelet Estimate Normal Ovalocytes Sodium 138 Potassium 4.1 Chloride 96 L Carbon Dioxide 31 H Anion Gap 15 BUN 20 Creatinine 0.9 Est GFR ( Amer) > 60 Est GFR (Non-Af Amer) > 60 Random Glucose 95 Hemoglobin A1c Calcium 8.2 L Phosphorus 3.0 Magnesium 2.1 Total Bilirubin 0.6 AST 43 ALT 30 Alkaline Phosphatase 49 Total Creatine Kinase CK-MB (Mass) Troponin I, Quant Total Protein 6.5 Albumin 3.1 L Globulin 3.4 Albumin/Globulin Ratio 0.9 L Assessment & Plan - Assessment and Plan (Free Text) Assessment: This is an 80Y M with PMH of HTN, HLD, BPH, CAD s/p CABG x 3 (last one 2003) admitted for 1) Recurrent epistaxis 2) Anemia 3) HTN 4) CAD Plan: - Pt has Revised Cardiac Risk Index score of 1 for his history of ischemic heart disease- risk of 0.9% for major cardiac complications for non-cardiac surgery - Mets > 4 - good functional status - last echo unknown - Patient can proceed with procedure - ASA, Plavix on hold - Continue Crestor, Cozaar, Lopressor GI ppx: Protonix DVT ppx: SCDs Case seen, reviewed and discussed with attending - Date & Time Date: 07/10/16 Time: 09:35
[2016-07-10] MEDS: Saccharomyces Boulardi 250 mg Cap PO SCH ×2 (09:08→17:39)
--- NOTE | 2016-07-10 09:23 | CP.PCM.PN ---
Subjective - Date & Time of Evaluation Date of Evaluation: 07/10/16 Time of Evaluation: 07:00 - Subjective Subjective: Internal medicine progress note for Dr. Laith Sullivan, PGY-1 Pt S & E at bedside. Per nursing- pt with epistaxis overnight, OR RN was called. Pt w/BP in 190's - given Lopressor PO and IV, with decrease in BP. Pt reports continued SOB and difficulty eating due to nasal packing. Continues to cough out blood clots. Denies N/V/F/C, CP, abdominal pain- is tolerating at liquid diet. Slept ok. Objective - Vital Signs/Intake and Output Vital Signs (last 24 hours): Temp Pulse Resp BP Pulse Ox 98.7 F 89 20 168/69 H 97 07/10/16 07:22 07/10/16 07:22 07/10/16 07:22 07/10/16 07:22 07/10/16 07:22 Intake and Output: 07/10/16 07/10/16 06:59 18:59 Intake Total 350 Output Total 850 Balance -500 - Medications Medications: Current Medications Doxazosin Mesylate (Cardura) 4 mg PO DAILY [facility] Last Admin: 07/10/16 09:08 Dose: 4 mg Famotidine (Pepcid) 20 mg IVP Q12 [facility] Last Admin: 07/10/16 09:09 Dose: 20 mg Cefazolin Sodium 500 mg/ (Sodium Chloride) 100 mls @ 100 mls/hr IVPB Q8H [facility] Last Admin: 07/10/16 05:23 Dose: 100 mls/hr Losartan Potassium (Cozaar) 50 mg PO DAILY [facility] Last Admin: 07/10/16 09:12 Dose: 50 mg Metoprolol Tartrate (Lopressor) 25 mg PO Q12H [facility] Last Admin: 07/10/16 05:33 Dose: 25 mg Oxycodone/Acetaminophen (Percocet 5/325 Mg Tab) 1 tab PO Q6H PRN PRN Reason: Pain, moderate (4-7) Stop: 07/11/16 13:50 Last Admin: 07/08/16 13:54 Dose: 1 tab Rosuvastatin Calcium (Crestor) 10 mg PO HS [facility] Last Admin: 07/09/16 21:30 Dose: 10 mg Saccharomyces Boulardii (Florastor) 250 mg PO BID [facility] Last Admin: 07/10/16 09:08 Dose: 250 mg Saliva Substitute (Mouth Kote 236 Ml) 1 ml MM Q4H [facility] Last Admin: 07/10/16 09:07 Dose: 1 spray Vitamin A (Vitamin A & D Oint Ud Foilpak) 0.5 ea TOP Q4 PRN PRN Reason: Dry skin Last Admin: 07/09/16 10:30 Dose: 0.5 ea - Labs Labs: 07/10/16 08:01 07/10/16 08:01 PT 12.0 SECONDS (9.7-12.2) 07/08/16 01:20 INR 1.1 07/08/16 01:20 APTT 30 SECONDS (21-34) 07/08/16 01:20 - Constitutional Appears: Non-toxic, No Acute Distress - Head Exam Head Exam: NORMOCEPHALIC Additional comments: Nares with vaso-occlusive packing in place bilaterally, right nares with crandall catheter and large forceps clamp in place. Dried blood on dressing/packing, over lower face/chin/chest. Posterior lata-pharynx with oxidized blood. - Eye Exam Eye Exam: EOMI, Normal appearance, PERRL Pupil Exam: NORMAL ACCOMODATION, PERRL - ENT Exam ENT Exam: Mucous Membranes Moist, Normal Exam - Neck Exam Neck Exam: Full ROM, Normal Inspection - Respiratory Exam Respiratory Exam: Clear to Ausculation Bilateral, NORMAL BREATHING PATTERN - Cardiovascular Exam Cardiovascular Exam: REGULAR RHYTHM, +S1, +S2 - GI/Abdominal Exam GI & Abdominal Exam: Soft, Normal Bowel Sounds. absent: Distended, Firm, Guarding, Rigid, Tenderness - Extremities Exam Extremities Exam: Normal Inspection. absent: Pedal Edema, Tenderness - Neurological Exam Neurological Exam: Alert, Awake, CN II-XII Intact, Oriented x3 - Psychiatric Exam Psychiatric exam: Normal Affect, Normal Mood - Skin Skin Exam: Dry, Intact, Normal Color, Warm Assessment and Plan - Assessment and Plan (Free Text) Assessment: 1. Epistaxis Posterior packing in place by by ENT 07/08/16 Monitor H/H Off aspirin/Plavix Cefazolin 500mg IV Q 6 hours (active since 07/08/16) Florastor Saliva substitute CT head w/No evidence of acute intracranial pathology. Air-fluid level at the left maxillary sinus. Possible nasal septal fracture . Partial opacification of the ethmoid sinuses and sphenoid sinuses. Opacification of the nasal cavity and catheter with inflated balloon extending to the posterior aspect of the nasal cavity ENT recs- cauterization today after cardiac clearance 2. Chest pain- resolved EKG- no changes since previous EKG ZHANNA 0.069 Monitor FU cards recs 3. Acute blood loss anemia due to posterior epistaxis Hgb 9.1 from 9.6 Folate 7.7 B12 level 370 Fe 72 TIBC 352 % sat 29 Ferritin 40.7 Monitor 4. Symptomatic anemia due to posterior epistaxis Monitor 5. Hx CABG (2003) Crestor 10mg PO HS Off aspirin/plavix secondary to acute blood loss 6. HTN Lopressor 50mg PO bid Cozaar 50mg daily Doxazosin 4mg daily Started Imdur -gave 10mg 7. CAD Crestor 10mg PO HS Lopressor 25mg Q12H 8. GI/DVT ppx Pepcid 20mg IV Q 12hours VTE contraindications secondary to acute blood loss secondary to posterior epistaxis 9. Dispo For cauterization at 5:30pm today NPO CESAR attending
--- NOTE | 2016-07-10 10:22 | CARD ---
APPROVED REPORT EKG Measurement Heart [id number] MT [id number] <Conclusion> Sinus rhythm with short MT Left axis deviation RSR' or QR pattern in V1 suggests right ventricular conduction delay Abnormal ECG
[2016-07-10 11:32] LABS: NEUTROPHIL 84 % (50-75); TOTAL CELLS COUNTED 100
[2016-07-10 12:53] LABS: FUNCTIONING PLTS 96 K/uL; PLT BASE COUNT 159 K/uL; PLT(ADP) 63 K/uL
--- NOTE | 2016-07-10 16:04 | CARD ---
APPROVED REPORT EXAM: Two-dimensional and M-mode echocardiogram with Doppler and color Doppler. INDICATION CAD CABG, HYPOTENSIVE 2D DIMENSIONS LVOT Diameter2.0 (1.8-2.4cm) M-Mode DIMENSIONS RVDd1.70 (2.1-3.2cm)Left Atrium (MM)4.03 (2.5-4.0cm) IVSd1.25 (0.7-1.1cm)Aortic Root3.19 (2.2-3.7cm) LVDd4.79 (4.0-5.6cm)Aortic Cusp Exc.1.35 (1.5-2.0cm) PWd1.25 (0.7-1.1cm)FS (%) 57 % LVDs2.08 (2.0-3.8cm)LVEF (%)87 (>50%) Aortic Valve AoV Peak Lpegnmah885.1cm/sAoV VTI52.0cmAO Peak GR.35mmHg LVOT Peak Nxxzhnck644.9cm/sLVOT VTI26.92cmAO Mean GR.16mmHg OCTAVIO (VMAX)1.91ly2AWF (VTI)1.59cm2 Mitral Valve MV E Bxnrrtuk18.1cm/sMV A Gtsbnvto352.8cm/sE/A ratio0.7 TDI E/Lateral E'0.0E/Medial E'0.0 Tricuspid Valve TR Peak Ywhvrnys078dz/sTR Peak Gr.88qcVtGNTG65cnJs LEFT VENTRICLE The left ventricle is normal size. There is mild to moderate concentric left ventricular hypertrophy. The left ventricular ejection fraction is within the normal range. Septal hypokinesis Transmitral Doppler flow pattern is Grade I-abnormal relaxation pattern. RIGHT VENTRICLE The right ventricle is normal size. There is normal right ventricular wall thickness. The right ventricular systolic function is normal. ATRIA The left atrium is borderline dilated. The right atrium size is normal. AORTIC VALVE The aortic valve is moderately sclerotic. There is mild valvular aortic stenosis. MITRAL VALVE The mitral valve is mildly thickened. TRICUSPID VALVE There is trace tricuspid regurgitation. There is mild pulmonary hypertension. GREAT VESSELS The aortic root is normal in size. The IVC is normal in size and collapses >50% with inspiration. <Conclusion> The left ventricle is normal size. There is mild to moderate concentric left ventricular hypertrophy. The left ventricular ejection fraction is within the normal range. Septal hypokinesis Transmitral Doppler flow pattern is Grade I-abnormal relaxation pattern. The aortic valve is moderately sclerotic. There is mild valvular aortic stenosis. There is mild pulmonary hypertension.
[2016-07-10] MEDS ORDERED: Propofol 10 mg/ml Inj (20 ML) ONE (17:58)
[2016-07-10] MEDS ORDERED: Oxymetazoline 0.05% Nasal Spray (30 ml) NS ONE (18:07)
[2016-07-10] MEDS ORDERED: HYDROmorphone 0.5 mg/0.5 ml ISec IVP PRN (19:02)
--- NOTE | 2016-07-10 20:13 | OP ---
PROCEDURE DATE: 07/10/2016 PREOPERATIVE DIAGNOSIS: Left epistaxis. POSTOPERATIVE DIAGNOSIS: Left epistaxis. PROCEDURE: Endoscopic cauterization of epistaxis, endoscopic inferior turbinate reduction. PROCEDURE: The patient was brought in room, placed in supine position. Anesthesia was initiated thr ough an ET tube. The patient was draped in the usual manner. The posterior pack was removed. Afrin -soaked pledgets were inserted in the left nasal cavity and remained there for at least 5 minutes, th en removed. The posterior portion of the inferior turbinate was reduced using a straight scissdeandre liao from an inferior to superior, anterior to posterior direction. Suction cautery was used to caut erize the posterior lateral wall in order to cauterize the area of the sphenopalatine artery. The se ptum was also cauterized in the mid septum superiorly due to the fact that possible bleeding areas we re noted there. No bleeding was noted. The scope was removed. The patient was taken off anesthesia and taken to recovery room in stable manner. Stephon Tavarez MD cc: [phone] TT: 07/10/2016 20:13:00 jn
[2016-07-10 22:51] LABS: HEPATITIS C VIRAL RNA QUAL Not detected (())
[2016-07-11 07:05] LABS: CHLORIDE 98 mmol/L (98-107); POTASSIUM 4.1 mmol/L (3.6-5.2); SODIUM 135 mmol/L (132-148)
[2016-07-11 07:07] LABS: ALKALINE PHOSPHATASE 45 U/L (38-126); AST/SGOT 33 U/L (17-59); BILIRUBIN,TOTAL 0.6 mg/dL (0.2-1.3); BLOOD UREA NITROGEN 22 mg/dL (9-20); CARBON DIOXIDE 29 mmol/L (22-30); GFR AFRICAN-AMERICAN > 60; TOTAL PROTEIN 5.6 g/dL (6.3-8.3)
--- NOTE | 2016-07-11 07:07 | CP.PCM.PN ---
Subjective - Date & Time of Evaluation Date of Evaluation: 07/11/16 Time of Evaluation: 07:05 - Subjective Subjective: s/p cauterization of epistaxis nose: no bleeding, deviated septum a/p: epistaxis controled deviated septum ok to d/c home from ent point. f/u in office [address] on antibiotics (augmentin) for 1 week as well as nasal saline spray 3 sprays each side tid for 1 week Objective - Vital Signs/Intake and Output Vital Signs (last 24 hours): Temp Pulse Resp BP Pulse Ox 99.8 F H 93 H 20 119/52 L 95 07/11/16 04:33 07/11/16 05:45 07/11/16 04:33 07/11/16 05:51 07/11/16 04:33 Intake and Output: 07/11/16 07/11/16 06:59 18:59 Intake Total 160 Balance 160 - Medications Medications: Current Medications Doxazosin Mesylate (Cardura) 4 mg PO DAILY [facility] Last Admin: 07/10/16 09:08 Dose: 4 mg Famotidine (Pepcid) 20 mg IVP Q12 [facility] Last Admin: 07/10/16 21:45 Dose: 20 mg Cefazolin Sodium 500 mg/ (Sodium Chloride) 100 mls @ 100 mls/hr IVPB Q8H [facility] Last Admin: 07/11/16 04:23 Dose: 100 mls/hr Isosorbide Dinitrate (Isordil) 10 mg PO 0800 [facility] Isosorbide Dinitrate (Isordil) 20 mg PO 2000 [facility] Losartan Potassium (Cozaar) 50 mg PO DAILY [facility] Last Admin: 07/10/16 09:12 Dose: 50 mg Metoprolol Tartrate (Lopressor) 25 mg PO Q12H [facility] Last Admin: 07/11/16 05:51 Dose: 25 mg Oxycodone/Acetaminophen (Percocet 5/325 Mg Tab) 1 tab PO Q6H PRN PRN Reason: Pain, moderate (4-7) Stop: 07/11/16 13:50 Last Admin: 07/08/16 13:54 Dose: 1 tab Rosuvastatin Calcium (Crestor) 10 mg PO HS [facility] Last Admin: 07/10/16 21:45 Dose: 10 mg Saccharomyces Boulardii (Florastor) 250 mg PO BID [facility] Last Admin: 07/10/16 17:39 Dose: Not Given Saliva Substitute (Mouth Kote 236 Ml) 1 ml MM Q4H [facility] Last Admin: 07/11/16 05:16 Dose: 1 spray Vitamin A (Vitamin A & D Oint Ud Foilpak) 0.5 ea TOP Q4 PRN PRN Reason: Dry skin Last Admin: 07/09/16 10:30 Dose: 0.5 ea - Labs Labs: 07/10/16 08:01 07/10/16 08:01 PT 12.0 SECONDS (9.7-12.2) 07/08/16 01:20 INR 1.1 07/08/16 01:20 APTT 30 SECONDS (21-34) 07/08/16 01:20
[2016-07-11 07:08] LABS: ALT/SGPT 28 U/L (21-72); CALCIUM 7.6 mg/dl (8.6-10.4); GLUCOSE,RANDOM 74 mg/dL (75-110); PHOSPHOROUS 3.5 mg/dL (2.5-4.5)
[2016-07-11 07:20] LABS: BASO % 0.2 % (0.0-2.0); EOS % 0.2 % (0.0-4.0); HEMATOCRIT 23.1 % (35.0-51.0); LYMPH # 0.9 K/uL (1.0-4.3); LYMPH % 12.5 % (20.0-40.0); MEAN PLATELET VOLUME 8.8 fL (7.2-11.7); MONO # 0.7 K/uL (0.0-0.8); MONO % 9.8 % (0.0-10.0); NRBC % 0.1 % (0.0-2.0); RED CELL DISTRIBUTION WIDTH 14.3 % (11.5-14.5)
--- NOTE | 2016-07-11 08:31 | CP.PCM.PN ---
Subjective - Date & Time of Evaluation Date of Evaluation: 07/11/16 Time of Evaluation: 08:30 - Subjective Subjective: Cardiology Progress Note for Dr. Noel Patient seen and examined at bedside. There were no acute overnight events. He is POD #1 s/p nasal cauterization. There were no complications during the procedure. He reports feeling well. He denies having CP, SOB, n/v/d, numbness/ tingling, vision changes. He reports his L nare is still mildly bleeding. Objective - Vital Signs/Intake and Output Vital Signs (last 24 hours): Temp Pulse Resp BP Pulse Ox 98.6 F 85 20 141/62 95 07/11/16 07:00 07/11/16 07:00 07/11/16 07:00 07/11/16 07:00 07/11/16 07:00 Intake and Output: 07/11/16 07/11/16 06:59 18:59 Intake Total 500 Output Total 350 Balance 150 - Medications Medications: Current Medications Doxazosin Mesylate (Cardura) 4 mg PO DAILY [facility] Last Admin: 07/10/16 09:08 Dose: 4 mg Famotidine (Pepcid) 20 mg IVP Q12 [facility] Last Admin: 07/10/16 21:45 Dose: 20 mg Cefazolin Sodium 500 mg/ (Sodium Chloride) 100 mls @ 100 mls/hr IVPB Q8H [facility] Last Admin: 07/11/16 04:23 Dose: 100 mls/hr Isosorbide Dinitrate (Isordil) 10 mg PO 0800 [facility] Isosorbide Dinitrate (Isordil) 20 mg PO 2000 [facility] Losartan Potassium (Cozaar) 50 mg PO DAILY [facility] Last Admin: 07/10/16 09:12 Dose: 50 mg Metoprolol Tartrate (Lopressor) 25 mg PO Q12H [facility] Last Admin: 07/11/16 05:51 Dose: 25 mg Oxycodone/Acetaminophen (Percocet 5/325 Mg Tab) 1 tab PO Q6H PRN PRN Reason: Pain, moderate (4-7) Stop: 07/11/16 13:50 Last Admin: 07/08/16 13:54 Dose: 1 tab Rosuvastatin Calcium (Crestor) 10 mg PO HS [facility] Last Admin: 07/10/16 21:45 Dose: 10 mg Saccharomyces Boulardii (Florastor) 250 mg PO BID [facility] Last Admin: 07/10/16 17:39 Dose: Not Given Saliva Substitute (Mouth Kote 236 Ml) 1 ml MM Q4H [facility] Last Admin: 07/11/16 05:16 Dose: 1 spray Vitamin A (Vitamin A & D Oint Ud Foilpak) 0.5 ea TOP Q4 PRN PRN Reason: Dry skin Last Admin: 07/09/16 10:30 Dose: 0.5 ea - Labs Labs: 07/11/16 06:39 07/11/16 06:39 PT 12.0 SECONDS (9.7-12.2) 07/08/16 01:20 INR 1.1 07/08/16 01:20 APTT 30 SECONDS (21-34) 07/08/16 01:20 - Constitutional Appears: No Acute Distress - Head Exam Head Exam: ATRAUMATIC, NORMAL INSPECTION, NORMOCEPHALIC - Eye Exam Eye Exam: Normal appearance, PERRL Pupil Exam: NORMAL ACCOMODATION - ENT Exam ENT Exam: Mucous Membranes Moist Additional comments: L nostril has dried blood around the opening - Neck Exam Neck Exam: Full ROM, Normal Inspection - Respiratory Exam Respiratory Exam: Clear to Ausculation Bilateral, NORMAL BREATHING PATTERN. absent: Rales, Rhonchi, Wheezes - Cardiovascular Exam Cardiovascular Exam: REGULAR RHYTHM, +S1, +S2. absent: Gallop, Rubs, Murmur - GI/Abdominal Exam GI & Abdominal Exam: Soft, Normal Bowel Sounds. absent: Rigid, Tenderness, Mass , Rebound - Extremities Exam Extremities Exam: Normal Inspection. absent: Calf Tenderness, Pedal Edema - Neurological Exam Neurological Exam: Alert, Awake, CN II-XII Intact, Oriented x3 - Psychiatric Exam Psychiatric exam: Normal Affect, Normal Mood - Skin Skin Exam: Dry, Intact, Normal Color, Warm Assessment and Plan - Assessment and Plan (Free Text) Assessment: This is an 80Y M with PMH of HTN, HLD, BPH, CAD s/p CABG x 3 (last one 2003) admitted for 1) Recurrent epistaxis s/p Cauterization 2) Anemia 3) HTN 4) CAD Plan: - POD #1 s/p cauterization - Echo showed EF of 87%, septal hypokinesis, mild-mod LVH, moderate aortic sclerosis with mild aortic stenosis and mild pulmonary HTN - ASA, Plavix on hold - Hgb noted to drop from 9.1 to 7.6 after procedure - Continue Crestor, Cozaar, Lopressor GI ppx: Protonix DVT ppx: SCDs Case seen, reviewed and discussed with Dr. Bert Viveros PGY1
[2016-07-11] MEDS ORDERED: Sodium Chloride 0.9% 1,000 ML IV ONE (09:50)
[2016-07-11 10:44] LABS: BASO % 0.3 % (0.0-2.0); EOS % 0.3 % (0.0-4.0); HEMATOCRIT 23.2 % (35.0-51.0); LYMPH # 1.3 K/uL (1.0-4.3); LYMPH % 14.5 % (20.0-40.0); MEAN CELL VOLUME 92.8 fL (80.0-94.0); MEAN CORPUSCULAR HEMOGLOBIN 31.2 pg (27.0-31.0); MEAN CORPUSCULAR HGB CONC 33.7 g/dL (33.0-37.0); MEAN PLATELET VOLUME 8.8 fL (7.2-11.7); MONO # 0.8 K/uL (0.0-0.8); MONO % 9.7 % (0.0-10.0); NRBC % 0.1 % (0.0-2.0); RED CELL DISTRIBUTION WIDTH 13.9 % (11.5-14.5); WHITE BLOOD COUNT 8.7 K/uL (4.8-10.8)
[2016-07-11 10:53] LABS: CHLORIDE 98 mmol/L (98-107)
[2016-07-11 10:54] LABS: POTASSIUM 3.4 mmol/L (3.6-5.2); SODIUM 136 mmol/L (132-148)
[2016-07-11] MEDS: Saccharomyces Boulardi 250 mg Cap PO SCH ×2 (10:54→17:47)
[2016-07-11 10:56] LABS: AST/SGOT 41 U/L (17-59); BILIRUBIN,TOTAL 0.3 mg/dL (0.2-1.3); BLOOD UREA NITROGEN 25 mg/dL (9-20); CARBON DIOXIDE 26 mmol/L (22-30); GFR AFRICAN-AMERICAN > 60; TOTAL PROTEIN 5.6 g/dL (6.3-8.3)
[2016-07-11 10:57] LABS: ALKALINE PHOSPHATASE 41 U/L (38-126); ALT/SGPT 26 U/L (21-72); CALCIUM 7.5 mg/dl (8.6-10.4); GLUCOSE,RANDOM 122 mg/dL (75-110)
--- NOTE | 2016-07-11 16:17 | CP.PCM.PN ---
<Marcello Ramachandran - Last Filed: 07/11/16 16:12> Subjective - Date & Time of Evaluation Date of Evaluation: 07/11/16 Time of Evaluation: 16:14 - Subjective Subjective: PGY-1 note for medicine service Pt seen and examined this morning. He states that his only complaint is that he cant breathe out of his nose well. He also reports that he had some blood on his towel from the night. He thought that he might have felt some blood going down the back of this throat as well. He denies any headaches, dizziness, chest pain, palpitations, sob, nausea or vomiting. FIELD NURSE called at 09:33 Reason: Syncopal episode A rapid response was called after I had seen the pt for a syncopal episode that occurred while the pt was sitting on the toilet. Of note, he had a marked drop in hgb this morning, down to 7.6 from 9.1 yesterday. He states that he remembers bearing down and then nothing after that until he woke up on the floor. Staff was there with the pt and helped him down to the floor avoiding any trauma. The pts vital signs remained stable with systolic BP maintained in the 120's and HR in the 80's. He was saturating well throughout the whole code > 94%. His BG was >150 and his respirations were unlabored. Pt was given a bolus of IV fluids. Labs were obtained including a type a screen with orders for transfusion of 2 units. Pt was stable at the resolution of the rapid response. Objective - Vital Signs/Intake and Output Vital Signs (last 24 hours): Temp Pulse Resp BP Pulse Ox 98.3 F 79 20 166/70 H 98 07/11/16 15:52 07/11/16 15:52 07/11/16 15:52 07/11/16 15:52 07/11/16 15:52 Intake and Output: 07/11/16 07/11/16 06:59 18:59 Intake Total 500 1500 Output Total 350 Balance 150 1500 - Medications Medications: Current Medications Doxazosin Mesylate (Cardura) 4 mg PO DAILY [facility] Last Admin: 07/11/16 10:46 Dose: Not Given Famotidine (Pepcid) 20 mg IVP Q12 [facility] Last Admin: 07/11/16 10:54 Dose: 20 mg Cefazolin Sodium 500 mg/ (Sodium Chloride) 100 mls @ 100 mls/hr IVPB Q8H [facility] Last Admin: 07/11/16 13:50 Dose: 100 mls/hr Isosorbide Dinitrate (Isordil) 10 mg PO 0800 [facility] Last Admin: 07/11/16 08:41 Dose: 10 mg Isosorbide Dinitrate (Isordil) 20 mg PO 2000 [facility] Losartan Potassium (Cozaar) 50 mg PO DAILY [facility] Last Admin: 07/11/16 10:46 Dose: Not Given Metoprolol Tartrate (Lopressor) 25 mg PO Q12H [facility] Last Admin: 07/11/16 05:51 Dose: 25 mg Rosuvastatin Calcium (Crestor) 10 mg PO HS [facility] Last Admin: 07/10/16 21:45 Dose: 10 mg Saccharomyces Boulardii (Florastor) 250 mg PO BID [facility] Last Admin: 07/11/16 10:54 Dose: 250 mg Saliva Substitute (Mouth Kote 236 Ml) 1 ml MM Q4H [facility] Last Admin: 07/11/16 13:49 Dose: 1 spray Vitamin A (Vitamin A & D Oint Ud Foilpak) 0.5 ea TOP Q4 PRN PRN Reason: Dry skin Last Admin: 07/09/16 10:30 Dose: 0.5 ea - Labs Labs: 07/11/16 10:34 07/11/16 10:34 PT 12.0 SECONDS (9.7-12.2) 07/08/16 01:20 INR 1.1 07/08/16 01:20 APTT 30 SECONDS (21-34) 07/08/16 01:20 - Constitutional Appears: Non-toxic, No Acute Distress - Head Exam Head Exam: ATRAUMATIC, NORMOCEPHALIC - Eye Exam Eye Exam: Normal appearance Pupil Exam: PERRL - ENT Exam ENT Exam: Mucous Membranes Moist - Respiratory Exam Respiratory Exam: Clear to Ausculation Bilateral, NORMAL BREATHING PATTERN - Cardiovascular Exam Cardiovascular Exam: +S1, +S2 - GI/Abdominal Exam GI & Abdominal Exam: Soft, Normal Bowel Sounds - Extremities Exam Extremities Exam: Normal Capillary Refill, Normal Inspection - Neurological Exam Neurological Exam: Alert, Awake - Skin Skin Exam: Dry, Pallor Assessment and Plan - Assessment and Plan (Free Text) Assessment: 1. Epistaxis POD #1 from nasal cauterization Hgb 7.6, down from 9.1 Transfusing 2 units today Off aspirin/Plavix Cefazolin 500mg IV Q 6 hours (active since 07/08/16) Florastor Saliva substitute CT head w/No evidence of acute intracranial pathology. Air-fluid level at the left maxillary sinus. Possible nasal septal fracture . Partial opacification of the ethmoid sinuses and sphenoid sinuses. Opacification of the nasal cavity and catheter with inflated balloon extending to the posterior aspect of the nasal cavity ENT cleared pt fro discharge home but also unaware of FIELD NURSE and drop in Hgb. Called placed, will wait for further recs - help appreciated 2. Chest pain- resolved EKG- no changes since previous EKG ZHANNA 0.069 Monitor FU cards recs - continue present regimen 3. Acute blood loss anemia due to posterior epistaxis Hgb 7.6 from 9.1 Transfusing 2 units today Folate 7.7 B12 level 370 Fe 72 TIBC 352 % sat 29 Ferritin 40.7 Monitor 4. Symptomatic anemia due to posterior epistaxis Monitor 5. Hx CABG (2003) Crestor 10mg PO HS Off aspirin/plavix secondary to acute blood loss 6. HTN Lopressor 50mg PO bid Cozaar 50mg daily Doxazosin 4mg daily Started Imdur -gave 10mg 7. CAD Crestor 10mg PO HS Lopressor 25mg Q12H 8. GI/DVT ppx Pepcid 20mg IV Q 12hours VTE contraindications secondary to acute blood loss secondary to posterior epistaxis <Marshall Lyons - Last Filed: 07/12/16 10:53> Objective - Vital Signs/Intake and Output Vital Signs (last 24 hours): Temp Pulse Resp BP Pulse Ox 98.0 F 76 20 154/63 H 96 07/12/16 07:47 07/12/16 07:47 07/12/16 07:47 07/12/16 07:47 07/12/16 07:47 Intake and Output: 07/12/16 07/12/16 06:59 18:59 Intake Total 1225 Output Total 840 Balance 385 - Medications Medications: Current Medications Doxazosin Mesylate (Cardura) 4 mg PO DAILY [facility] Last Admin: 07/12/16 09:40 Dose: 4 mg Famotidine (Pepcid) 20 mg IVP Q12 [facility] Last Admin: 07/12/16 09:40 Dose: 20 mg Cefazolin Sodium 500 mg/ (Sodium Chloride) 100 mls @ 100 mls/hr IVPB Q8H [facility] Last Admin: 07/12/16 04:10 Dose: 100 mls/hr Isosorbide Dinitrate (Isordil) 10 mg PO 0800 [facility] Last Admin: 07/12/16 08:41 Dose: 10 mg Isosorbide Dinitrate (Isordil) 20 mg PO 2000 [facility] Last Admin: 07/11/16 20:38 Dose: 20 mg Losartan Potassium (Cozaar) 50 mg PO DAILY [facility] Last Admin: 07/12/16 09:40 Dose: 50 mg Metoprolol Tartrate (Lopressor) 25 mg PO Q12H [facility] Last Admin: 07/12/16 05:35 Dose: 25 mg Rosuvastatin Calcium (Crestor) 10 mg PO HS [facility] Last Admin: 07/11/16 21:44 Dose: 10 mg Saccharomyces Boulardii (Florastor) 250 mg PO BID [facility] Last Admin: 07/12/16 09:40 Dose: 250 mg Saliva Substitute (Mouth Kote 236 Ml) 1 ml MM Q4H [facility] Last Admin: 07/12/16 10:01 Dose: 1 spray Vitamin A (Vitamin A & D Oint Ud Foilpak) 0.5 ea TOP Q4 PRN PRN Reason: Dry skin Last Admin: 07/09/16 10:30 Dose: 0.5 ea - Labs Labs: 07/12/16 07:45 07/12/16 07:45 PT 12.0 SECONDS (9.7-12.2) 07/08/16 01:20 INR 1.1 07/08/16 01:20 APTT 30 SECONDS (21-34) 07/08/16 01:20 Attending/Attestation - Attestation I have personally seen and examined this patient.: Yes I have fully participated in the care of the patient.: Yes I have reviewed all pertinent clinical information, including history, physical exam and plan: Yes Notes (Text): Patient with CAD s/p CABG (2003), htn, admitted with severe epistaxis; underwent successful endoscopic cauterization yesterday; Today had FIELD NURSE called after brief syncopal episode in bathroom, did not fall but was helped down; possibly just vasovagal; otherwise hemodynamically stable; Hgb found to have dropped from 9.1 -> 7.6, no significant overt bleeding reported; drop likely reflects previous losses; -2 u prbc ordered -holding am BP meds (losartan and cardura, imdur already given earlier) -restart ASA and plavix when cleared by ENT
[2016-07-12 00:25] VITALS: RESP 20
[2016-07-12 07:57] LABS: BASO % 0.3 % (0.0-2.0); EOS % 0.6 % (0.0-4.0); HEMATOCRIT 29.1 % (35.0-51.0); LYMPH % 14.3 % (20.0-40.0); MEAN CELL VOLUME 91.2 fL (80.0-94.0); MEAN PLATELET VOLUME 8.1 fL (7.2-11.7); MONO # 0.7 K/uL (0.0-0.8); MONO % 9.9 % (0.0-10.0); NRBC % 0.1 % (0.0-2.0); RED CELL DISTRIBUTION WIDTH 14.9 % (11.5-14.5); WHITE BLOOD COUNT 6.9 K/uL (4.8-10.8)
[2016-07-12 08:06] LABS: CHLORIDE 99 mmol/L (98-107); POTASSIUM 3.8 mmol/L (3.6-5.2); SODIUM 139 mmol/L (132-148)
--- NOTE | 2016-07-12 08:06 | CP.PCM.PN ---
Subjective - Date & Time of Evaluation Date of Evaluation: 07/12/16 Time of Evaluation: 07:48 Objective - Vital Signs/Intake and Output Vital Signs (last 24 hours): Temp Pulse Resp BP Pulse Ox 98.0 F 76 20 154/63 H 96 07/12/16 07:47 07/12/16 07:47 07/12/16 07:47 07/12/16 07:47 07/12/16 07:47 Intake and Output: 07/12/16 07/12/16 06:59 18:59 Intake Total 1225 Output Total 840 Balance 385 - Medications Medications: Current Medications Doxazosin Mesylate (Cardura) 4 mg PO DAILY [facility] Last Admin: 07/11/16 10:46 Dose: Not Given Famotidine (Pepcid) 20 mg IVP Q12 [facility] Last Admin: 07/11/16 21:45 Dose: 20 mg Cefazolin Sodium 500 mg/ (Sodium Chloride) 100 mls @ 100 mls/hr IVPB Q8H [facility] Last Admin: 07/12/16 04:10 Dose: 100 mls/hr Isosorbide Dinitrate (Isordil) 10 mg PO 0800 [facility] Last Admin: 07/11/16 08:41 Dose: 10 mg Isosorbide Dinitrate (Isordil) 20 mg PO 2000 [facility] Last Admin: 07/11/16 20:38 Dose: 20 mg Losartan Potassium (Cozaar) 50 mg PO DAILY [facility] Last Admin: 07/11/16 10:46 Dose: Not Given Metoprolol Tartrate (Lopressor) 25 mg PO Q12H [facility] Last Admin: 07/12/16 05:35 Dose: 25 mg Rosuvastatin Calcium (Crestor) 10 mg PO HS [facility] Last Admin: 07/11/16 21:44 Dose: 10 mg Saccharomyces Boulardii (Florastor) 250 mg PO BID [facility] Last Admin: 07/11/16 17:47 Dose: 250 mg Saliva Substitute (Mouth Kote 236 Ml) 1 ml MM Q4H [facility] Last Admin: 07/12/16 05:35 Dose: 1 spray Vitamin A (Vitamin A & D Oint Ud Foilpak) 0.5 ea TOP Q4 PRN PRN Reason: Dry skin Last Admin: 07/09/16 10:30 Dose: 0.5 ea - Labs Labs: 07/12/16 07:45 07/11/16 10:34 PT 12.0 SECONDS (9.7-12.2) 07/08/16 01:20 INR 1.1 07/08/16 01:20 APTT 30 SECONDS (21-34) 07/08/16 01:20
[2016-07-12 08:08] LABS: ALKALINE PHOSPHATASE 46 U/L (38-126); AST/SGOT 43 U/L (17-59); BILIRUBIN,TOTAL 0.5 mg/dL (0.2-1.3); CARBON DIOXIDE 28 mmol/L (22-30); GFR AFRICAN-AMERICAN > 60; TOTAL PROTEIN 5.8 g/dL (6.3-8.3)
[2016-07-12 08:09] LABS: ALT/SGPT 25 U/L (21-72); BLOOD UREA NITROGEN 16 mg/dL (9-20); CALCIUM 7.7 mg/dl (8.6-10.4); GLUCOSE,RANDOM 72 mg/dL (75-110); MAGNESIUM 2.1 mg/dL (1.6-2.3); PHOSPHOROUS 3.1 mg/dL (2.5-4.5)
[2016-07-12] MEDS: Saccharomyces Boulardi 250 mg Cap PO SCH ×2 (09:40→17:54)
[2016-07-12] MEDS ORDERED: Amoxicillin-Clav 875-125 mg Tab PO SCH (11:00)
[2016-07-12] MEDS: Sodium Chloride Nasal 0.65% Soln (30ml) NAS SCH ×3 (12:20→17:55)
[2016-07-12 17:25] VITALS: PULSE 92; TEMP 98.7; O2SAT 95
[2016-07-12 17:54] VITALS: BP 123/76
--- NOTE | 2016-07-12 20:50 | CP.PCM.DIS ---
Provider - Provider Date of Admission: 07/08/16 03:44 Attending physician: Lan Regalado MD Time Spent in preparation of Discharge (in minutes): 35 Hospital Course - Lab Results Lab Results: Most Recent Lab Values WBC 6.9 K/uL (4.8-10.8) 07/12/16 07:45 RBC 3.19 Mil/uL (4.40-5.90) L 07/12/16 07:45 Hgb 9.9 g/dL (12.0-18.0) L D 07/12/16 07:45 Hct 29.1 % (35.0-51.0) L 07/12/16 07:45 MCV 91.2 fL (80.0-94.0) 07/12/16 07:45 MCH 31.0 pg (27.0-31.0) 07/12/16 07:45 MCHC 34.0 g/dL (33.0-37.0) 07/12/16 07:45 RDW 14.9 % (11.5-14.5) H 07/12/16 07:45 Plt Count 137 K/uL (130-400) 07/12/16 07:45 MPV 8.1 fL (7.2-11.7) 07/12/16 07:45 Neut % (Auto) 74.9 % (50.0-75.0) 07/12/16 07:45 Lymph % (Auto) 14.3 % (20.0-40.0) L 07/12/16 07:45 Citrus % (Auto) 9.9 % (0.0-10.0) 07/12/16 07:45 Eos % (Auto) 0.6 % (0.0-4.0) 07/12/16 07:45 Baso % (Auto) 0.3 % (0.0-2.0) 07/12/16 07:45 Neut # 5.2 K/uL (1.8-7.0) 07/12/16 07:45 Lymph # 1.0 K/uL (1.0-4.3) 07/12/16 07:45 Citrus # 0.7 K/uL (0.0-0.8) 07/12/16 07:45 Eos # 0.0 K/uL (0.0-0.7) 07/12/16 07:45 Baso # 0.0 K/uL (0.0-0.2) 07/12/16 07:45 Neutrophils % (Manual) 84 % (50-75) H 07/10/16 08:01 Band Neutrophils % 2 % (0-2) 07/10/16 02:03 Lymphocytes % (Manual) 8 % (20-40) L 07/10/16 08:01 Reactive Lymphs % 2 % (0-0) H 07/10/16 02:03 Monocytes % (Manual) 8 % (0-10) 07/10/16 08:01 Platelet Estimate Normal (NORMAL) 07/10/16 08:01 RBC Morphology Normal 07/10/16 08:01 Ovalocytes Slight 07/09/16 10:48 PT 12.0 SECONDS (9.7-12.2) 07/08/16 01:20 INR 1.1 07/08/16 01:20 APTT 30 SECONDS (21-34) 07/08/16 01:20 Plt Function Assay 96 K/uL 07/10/16 12:42 Sodium 139 mmol/L (132-148) 07/12/16 07:45 Potassium 3.8 mmol/L (3.6-5.2) 07/12/16 07:45 Chloride 99 mmol/L (98-107) 07/12/16 07:45 Carbon Dioxide 28 mmol/L (22-30) 07/12/16 07:45 Anion Gap 17 (10-20) 07/12/16 07:45 BUN 16 mg/dL (9-20) 07/12/16 07:45 Creatinine 0.9 MG/DL (0.8-1.5) 07/12/16 07:45 Est GFR ( Amer) > 60 07/12/16 07:45 Est GFR (Non-Af Amer) > 60 07/12/16 07:45 POC Glucose (mg/dL) 157 mg/dL (65-110) H 07/11/16 09:37 Random Glucose 72 mg/dL (75-110) L 07/12/16 07:45 Hemoglobin A1c 6.4 % (4.2-6.5) 07/08/16 09:57 Calcium 7.7 mg/dl (8.6-10.4) L 07/12/16 07:45 Phosphorus 3.1 mg/dL (2.5-4.5) 07/12/16 07:45 Magnesium 2.1 mg/dL (1.6-2.3) 07/12/16 07:45 Iron 72 ug/dL (49-181) 07/08/16 09:57 TIBC 252 ug/dL (250-450) 07/08/16 09:57 % Saturation 29 (20-55) 07/08/16 09:57 Ferritin 40.7 ng/mL 07/08/16 09:57 Total Bilirubin 0.5 mg/dL (0.2-1.3) 07/12/16 07:45 AST 43 U/L (17-59) 07/12/16 07:45 ALT 25 U/L (21-72) 07/12/16 07:45 Alkaline Phosphatase 46 U/L (38-126) 07/12/16 07:45 Total Creatine Kinase 420 U/L (55-170) H 07/11/16 16:24 CK-MB (Mass) 2.71 ng/mL (0.0-3.38) 07/11/16 16:24 Troponin I < 0.0120 ng/mL (0.00-0.120) 07/08/16 01:20 Troponin I, Quant 0.0990 ng/mL (0.00-0.120) 07/11/16 16:24 Total Protein 5.8 g/dL (6.3-8.3) L 07/12/16 07:45 Albumin 3.0 g/dL (3.5-5.0) L 07/12/16 07:45 Globulin 2.9 gm/dL (2.2-3.9) 07/12/16 07:45 Albumin/Globulin Ratio 1.0 (1.0-2.1) 07/12/16 07:45 Triglycerides 63 mg/dL (0-149) 07/08/16 09:57 Cholesterol 118 mg/dL (0-199) 07/08/16 09:57 LDL Cholesterol Direct 61 mg/dL (0-129) 07/08/16 09:57 HDL Cholesterol 39 mg/dL (30-70) 07/08/16 09:57 Vitamin B12 370 pg/mL (239-931) 03/14/17 09:57 Folate 7.7 ng/mL 07/08/16 09:57 Hepatitis C Antibody Negative (NEGATIVE) 07/08/16 11:50 HCV RNA Qual (TMA) Not detected (()) 07/08/16 11:50 Blood Type A POSITIVE 07/11/16 10:34 Blood Type Confirm A POSITIVE 07/08/16 04:18 Antibody Screen Negative 07/11/16 10:34 - Hospital Course Hospital Course: Patient is an 80 year old male with medical history significant for CAD s/p CABG in 2003, hypertension and BPH who presented to the ED due to uncontrolled epistaxis. Patient found to be hypotensive, 82/42, in ED and given bolus of normal saline. In ED, Merocel tampon placed to nostril and balloon inserted and inflated. ENT, Dr. Tavarez, notified and will see patient. Nasal Cauterization scheduled for Thursday the . CT head showed no evidence of acute intracranial pathology. His surgery was uneventful. The next day a rapid response was called for a syncopal episode in the bathroom. His Hgb at that time was 7.6, down from 9.1. 2 units were transfused. The next day, patient had not complaints and was medically stable for discharge and advised to f/u with his PMD, [employer], and ENT. - Date & Time of H&P Date of H&P: 07/12/16 Time of H&P: 09:40 Discharge Exam - Head Exam Head Exam: ATRAUMATIC, NORMOCEPHALIC - Eye Exam Eye Exam: EOMI, Normal appearance - ENT Exam ENT Exam: Mucous Membranes Moist - Respiratory Exam Respiratory Exam: Clear to PA & Lateral, NORMAL BREATHING PATTERN - Cardiovascular Exam Cardiovascular Exam: +S1, +S2 - GI/Abdominal Exam GI & Abdominal Exam: Normal Bowel Sounds, Soft - Back Exam Back exam: NORMAL INSPECTION - Neurological Exam Neurological exam: Alert, Oriented x3 - Psychiatric Exam Psychiatric exam: Normal Affect, Normal Mood - Skin Skin Exam: Dry, Intact, Normal Color, Warm Discharge Plan - Discharge Medications Prescriptions: Amoxicillin/Clavulanate [Augmentin 875 MG-125 MG] 1 tab PO BID #14 tab Sodium Chloride [Saline Nasal [place]] 90 ml NS TID #1 spray - Follow Up Plan Condition: STABLE Disposition: HOME/ ROUTINE Instructions: Nosebleed (GEN), Anemia (DC) Additional Instructions: Patient is medically stable to be discharged home. Please follow up with your primary care doctor within 1 week. Please follow up with [facility], Dr. Tavarez within 1 week. Please follow up with your credit collections rep within as soon as possible. You can resume your aspirin and Plavix on Thursday, but please follow up with your credit collections rep. Please fill the following prescriptions: 1. Augmentin 875mg, please take two times daily for 1 week. 2. Saline Nasal spray, please use 1 spray in each nostril three times a day for 5 days Please return to the hospital if your symptoms return or any other concerning symptoms arise. Referrals: Stephon Tavarez MD [Staff Provider] -
--- NOTE | 2016-07-13 23:51 | CARD ---
APPROVED REPORT EKG Measurement Heart [id number] MD 130P57 [id number] <Conclusion> Sinus rhythm with premature supraventricular complexes Left axis deviation Incomplete right bundle branch block Nonspecific T wave abnormality Prolonged QT Abnormal ECG
== END 2016-07-12 19:38 | disposition home or self-care (01) | DRG 133 ==
LOC: C.ER 00:30 → C.6T 03:44 → C.9I 05:38 → C.6T 16:30
PROVIDERS: ADMIT Family Medicine; ATTEND Family Medicine
PROC: 0W3Q7ZZ Control Bleeding in Respiratory Tract, Via Natural or Artificial Opening (ICD-10-PCS; principal; 2016-07-08)
PROC: 2Y41X5Z Packing of Nasal Region using Packing Material (ICD-10-PCS; 2016-07-08)
PROC: 09TL8ZZ Resection of Nasal Turbinate, Via Natural or Artificial Opening Endoscopic (ICD-10-PCS; 2016-07-10)
PROC: 30233N1 Transfusion of Nonautologous Red Blood Cells into Peripheral Vein, Percutaneous Approach (ICD-10-PCS; 2016-07-11)
DX: R04.0 Epistaxis (principal); D62 Acute posthemorrhagic anemia; I95.89 Other hypotension; T45.525A Adverse effect of antithrombotic drugs, initial encounter; J34.2 Deviated nasal septum; R07.2 Precordial pain; R55 Syncope and collapse; I25.10 Atherosclerotic heart disease of native coronary artery without angina pectoris; I10 Essential (primary) hypertension; M19.90 Unspecified osteoarthritis, unspecified site; E78.00 Pure hypercholesterolemia, unspecified; N40.0 Benign prostatic hyperplasia without lower urinary tract symptoms; Z79.02 Long term (current) use of antithrombotics/antiplatelets; Z95.1 Presence of aortocoronary bypass graft; Z79.82 Long term (current) use of aspirin; Z87.891 Personal history of nicotine dependence

== ENCOUNTER 2016-11-24 12:43 | Emergency (ER) | payer MEDICARE, OTHER ==
[2016-11-24 14:34] LABS: BASO % 0.4 % (0.0-2.0); EOS % 0.6 % (0.0-4.0); HEMATOCRIT 33.2 % (35.0-51.0); LYMPH # 0.8 K/uL (1.0-4.3); LYMPH % 10.7 % (20.0-40.0); MEAN CELL VOLUME 85.3 fL (80.0-94.0); MEAN CORPUSCULAR HEMOGLOBIN 27.9 pg (27.0-31.0); MEAN CORPUSCULAR HGB CONC 32.7 g/dL (33.0-37.0); MEAN PLATELET VOLUME 7.7 fL (7.2-11.7); MONO # 0.7 K/uL (0.0-0.8); MONO % 9.2 % (0.0-10.0); NRBC % 0.1 % (0.0-2.0); RED CELL DISTRIBUTION WIDTH 17.4 % (11.5-14.5); WHITE BLOOD COUNT 7.6 K/uL (4.8-10.8)
[2016-11-24 14:42] LABS: INR 1.1
[2016-11-24 14:50] LABS: CHLORIDE 95 mmol/L (98-107); SODIUM 134 mmol/L (132-148)
[2016-11-24 14:52] LABS: ALB/GLOB RATIO 0.9 (1.0-2.1); ALKALINE PHOSPHATASE 69 U/L (38-126); AST/SGOT 39 U/L (17-59); BILIRUBIN,TOTAL 0.6 mg/dL (0.2-1.3); BLOOD UREA NITROGEN 17 mg/dL (9-20); CARBON DIOXIDE 27 mmol/L (22-30); CHOLESTEROL 109 mg/dL (0-199); GFR AFRICAN-AMERICAN > 60
[2016-11-24 14:53] LABS: ALT/SGPT 23 U/L (21-72); CALCIUM 8.2 mg/dl (8.6-10.4); GLUCOSE,RANDOM 95 mg/dL (75-110)
--- NOTE | 2016-11-24 14:54 | RAD ---
HISTORY: syncope COMPARISON: Chest x-ray performed 03/08/15 TECHNIQUE: Chest, one view. FINDINGS: Examination limited by habitus. LUNGS: No focal consolidation. Please note that chest x-ray has limited sensitivity for the detection of pulmonary masses. PLEURA: No significant pleural effusion identified. No definite pneumothorax . CARDIOVASCULAR: Median sternotomy wires. Cardiomegaly. Atherosclerotic calcifications of the aorta. OSSEOUS STRUCTURES: Degenerative changes. VISUALIZED UPPER ABDOMEN: Unremarkable. OTHER FINDINGS: None. IMPRESSION: Cardiomegaly.
[2016-11-24 14:56] LABS: POTASSIUM 4.5 mmol/L (3.6-5.2)
[2016-11-24 15:21] VITALS: O2SAT 100
--- NOTE | 2016-11-24 15:30 | CT ---
PROCEDURE: CT HEAD WITHOUT CONTRAST. HISTORY: SYNCOPE, no JONES, +HTN, plavix COMPARISON: None available. TECHNIQUE: Axial computed tomography images were obtained through the head/brain without intravenous contrast. Radiation dose: Total exam DLP = 954.72 MGy-cm. This CT exam was performed using one or more of the following dose reduction techniques: Automated exposure control, adjustment of the mA and/or kV according to patient size, and/or use of iterative reconstruction technique. FINDINGS: HEMORRHAGE: No intracranial hemorrhage. BRAIN: Diffuse atrophy with prominence of the ventricles and sulci noted. No mass effect or edema. Intracranial atherosclerosis. Scattered periventricular and subcortical white matter hypodensities, which are nonspecific, but often seen with chronic microvascular ischemic disease. Please note that MRI with diffusion imaging is more sensitive in the detection of acute ischemic event. VENTRICLES: No hydrocephalus. CALVARIUM: Unremarkable. PARANASAL SINUSES: Partial opacification of the left maxillary sinus with evidence of high-density material. Partial opacification of the posterior right ethmoid air cells. MASTOID AIR CELLS: Unremarkable as visualized. No inflammatory changes. OTHER FINDINGS: None. IMPRESSION: Generalized atrophy. Nonspecific white matter changes. Partial opacification of the left maxillary sinus and posterior right ethmoid air cells. Increased attenuation of the left maxillary sinus contents may indicate proteinaceous material or fungal colonization.Correlate clinically for sinusitis.
--- NOTE | 2016-11-24 15:53 | C.PDOC ---
History Of Present Illness 81 y/o male brought to ED by ems s/p syncope episode at [facility]. Patient states he was sitting during [employer] and 5 min into service felt dizzy and then woke up with epistaxis to nares . Patient denies palpitations, chest pain, fever, n/v/d, trauma or any other complaint at this time. Time Seen by Provider: 11/24/16 13:48 Chief Complaint (Nursing): Syncope History Per: Patient History/Exam Limitations: no limitations Onset/Duration Of Symptoms: Hrs Past Medical History Reviewed: Historical Data, Nursing Documentation, Vital Signs Vital Signs: Last Vital Signs Temp 98.7 F 11/24/16 15:55 Pulse 65 11/24/16 15:55 Resp 16 11/24/16 15:55 BP 103/50 L 11/24/16 16:00 Pulse Ox 100 11/24/16 17:28 - Medical History PMH: HTN, Hypercholesterolemia - [facility] Procedures CONTROL BLEEDING IN RESPIRATORY TRACT, VIA OPENING (07/08/16) PACKING OF NASAL REGION USING PACKING MATERIAL (07/08/16) RESECTION OF NASAL TURBINATE, ENDO (07/08/16) TRANSFUSE NONAUT RED BLOOD CELLS IN PERIPH VEIN, PERC (07/08/16) Family History: States: Unknown Family Hx - Social History Hx Tobacco Use: No Hx Alcohol Use: No Hx Substance Use: No - Immunization History Hx Influenza Vaccination: Yes Review Of Systems Except As Marked, All Systems Reviewed And Found Negative. Constitutional: Negative for: Fever, Chills Eyes: Negative for: Vision Change Cardiovascular: Negative for: Chest Pain Respiratory: Negative for: Shortness of Breath Gastrointestinal: Negative for: Nausea, Vomiting, Diarrhea Neurological: Negative for: Weakness, Numbness, Dizziness Physical Exam - Physical Exam Appears: Non-toxic, No Acute Distress Skin: Normal Color, Warm Head: Atraumatic, Normacephalic Eye(s): bilateral: Normal Inspection, EOMI Nose: Other (Dried blood to left nares) Oral Mucosa: Moist Throat: Normal, No Erythema Chest: Symmetrical Cardiovascular: Rhythm Regular Respiratory: Normal Breath Sounds, No Rales, No Rhonchi, No Wheezing Gastrointestinal/Abdominal: Soft, No Tenderness, No Guarding, No Rebound Neurological/Psych: Oriented x3, Normal Speech, Normal Cognition ED Course And Treatment - Laboratory Results Result Diagrams: 11/24/16 14:29 11/24/16 14:29 Lab Interpretation: Normal (trop neg.) ECG: Interpreted By Me ECG Rhythm: Sinus Rhythm, R BBB ECG Interpretation: Normal O2 Sat by Pulse Oximetry: 100 (RA) Pulse Ox Interpretation: Normal - Radiology CXR: Interpreted by Me CXR Interpretation: Yes: No Acute Disease - Other Rad head CT X-Ray: Interpreted by Me, Read By Radiologist (no acute brain injury, ? fungus/ blood L max sinus. Prob blood from epistaxis today) Medical Decision Making Medical Decision Making: brief near-syncope @ [employer] with L nares epistaxis also noted blood in L max sinus on head CT On Plavix chronically- continue same as bleeding controlled. ok to d/c home Disposition Doctor Will See Patient In The: Office Counseled Patient/Family Regarding: Studies Performed, Diagnosis - Disposition Referrals: Ned York [Staff Provider] - Disposition: HOME/ ROUTINE Disposition Time: 15:55 Condition: GOOD Additional Instructions: sigue robert medicamentos ismael normal Sigue con Dr. York y Dr. Tavarez (ENT) Instructions: Nosebleed (ED), Near Syncope (ED) Forms: [facility] (Syrian) Print Language: SLOVENIAN - Clinical Impression Clinical Impression: Near syncope, Epistaxis, recurrent - Scribe Statement The provider has reviewed the documentation as recorded by the Gerardoibjuve Peña All medical record entries made by the Scribjuve were at my direction and personally dictated by me. I have reviewed the chart and agree that the record accurately reflects my personal performance of the history, physical exam, medical decision making, and the department course for this patient. I have also personally directed, reviewed, and agree with the discharge instructions and disposition.
[2016-11-24 16:05] VITALS: PULSE 65; RESP 16
[2016-11-24 16:11] VITALS: BP 103/50; TEMP 98.7
--- NOTE | 2016-11-25 19:04 | CARD ---
APPROVED REPORT EKG Measurement Heart [id number] [place] 130P54 [id number] <Conclusion> Normal sinus rhythm Incomplete right bundle branch block Left anterior fascicular block Abnormal ECG
== END 2016-11-24 16:11 | disposition home or self-care (01) ==
LOC: C.ER 12:43
DX: R55 Syncope and collapse (principal); R04.0 Epistaxis

== ENCOUNTER 2017-06-18 20:08 | Emergency (ER) | payer MEDICARE ==
[2017-06-18 20:51] VITALS: TEMP 98.2
--- NOTE | 2017-06-18 20:59 | C.PDOC ---
History Of Present Illness The patient presents to the ED for evaluation of cough and shortness of breath. Patient was evaluated by his PMD for cough 4 days ago and prescribed antibiotic treatment. Patient's family noticed he seemed fatigued today and brought him to the ED for further evaluation. Patient is speaking in complete sentences and denies fever, chills, nausea, vomiting, chest pain, and palpitations. Time Seen by Provider: 06/18/17 20:58 Chief Complaint (Nursing): Shortness Of Breath History Per: Patient History/Exam Limitations: no limitations Onset/Duration Of Symptoms: Hrs Current Symptoms Are (Timing): Still Present Quality: denies: "Pain" Current Respiratory Medications: See Home Med List Severity: None Pain Scale Rating Of: 0 Associated Symptoms: Productive Cough. denies: Fever, Chills Recent travel outside of the [place]: No Additional History Per: Patient Past Medical History Reviewed: Historical Data, Nursing Documentation, Vital Signs Vital Signs: Last Vital Signs Temp 98.2 F 06/18/17 20:46 Pulse 88 06/18/17 21:33 Resp 20 06/18/17 21:33 BP 196/89 H 06/18/17 21:33 Pulse Ox 98 06/18/17 22:19 - Medical History PMH: HTN, Hypercholesterolemia Surgical History: No Surg Hx - [facility] Procedures CONTROL BLEEDING IN RESPIRATORY TRACT, VIA OPENING (07/08/16) PACKING OF NASAL REGION USING PACKING MATERIAL (07/08/16) RESECTION OF NASAL TURBINATE, ENDO (07/08/16) TRANSFUSE NONAUT RED BLOOD CELLS IN PERIPH VEIN, PERC (07/08/16) Family History: States: Unknown Family Hx - Social History Hx Tobacco Use: No Hx Alcohol Use: No Hx Substance Use: No - Immunization History Hx Influenza Vaccination: Yes Review Of Systems Constitutional: Positive for: Other (fatigue). Negative for: Fever, Chills Eyes: Negative for: Redness ENT: Negative for: Throat Pain Cardiovascular: Negative for: Chest Pain, Palpitations Respiratory: Positive for: Cough, Shortness of Breath Gastrointestinal: Negative for: Nausea, Abdominal Pain, Diarrhea Skin: Negative for: Rash, Lesions, Jaundice, Bruising Neurological: Negative for: Weakness, Numbness Psych: Negative for: Anxiety Physical Exam - Physical Exam Appears: Non-toxic, No Acute Distress Skin: Warm, Dry Head: Normacephalic Eye(s): bilateral: Normal Inspection Oral Mucosa: Moist Throat: No Erythema Neck: Trachea Midline, Supple Chest: Symmetrical, No Deformity, No Tenderness, Other (CABG scar) Cardiovascular: Rhythm Regular, No Murmur Respiratory: No Rales, Rhonchi (scattered, right>left ), No Wheezing Gastrointestinal/Abdominal: Bowel Sounds (present ), Soft, No Tenderness, No Guarding, No Rebound Back: No CVA Tenderness Extremity: Normal ROM, Capillary Refill (less than 2 seconds ) Extremity: Bilateral: Atraumatic Pulses: Left Dorsalis Pedis: Normal, Right Dorsalis Pedis: Normal Neurological/Psych: Oriented x3 Gait: Steady ED Course And Treatment - Laboratory Results Result Diagrams: 06/18/17 21:22 06/18/17 21:22 ECG: Interpreted By Me, Viewed By Me ECG Rhythm: Sinus Rhythm (66), Nonspecific Changes (lad) O2 Sat by Pulse Oximetry: 98 (on RA) Pulse Ox Interpretation: Normal Progress Note: Bloodwork, urinalysis, CXR, EKG, Flu swab ordered and reviewed. Reevaluation Time: 22:35 Reassessment Condition: Improved Disposition Counseled Patient/Family Regarding: Studies Performed, Diagnosis, Need For Followup - Disposition Referrals: Ned York [Staff Provider] - Disposition: HOME/ ROUTINE Disposition Time: 20:58 Condition: FAIR Additional Instructions: Please return if symptoms recur Instructions: Shortness of Breath (Dyspnea) (DC) Forms: [facility] (Bulgarian) - Clinical Impression Clinical Impression: Dyspnea, URI (upper respiratory infection) - Scribe Statement The provider has reviewed the documentation as recorded by the Scribe (Kayli Matias) Provider Attestation: All medical record entries made by the Scribe were at my direction and personally dictated by me. I have reviewed the chart and agree that the record accurately reflects my personal performance of the history, physical exam, medical decision making, and the department course for this patient. I have also personally directed, reviewed, and agree with the discharge instructions and disposition.
[2017-06-18 21:26] LABS: BASO % 0.2 % (0.0-2.0); EOS % 0.5 % (0.0-4.0); HEMOGLOBIN 11.7 g/dL (12.0-18.0); LYMPH # 0.6 K/uL (1.0-4.3); LYMPH % 9.9 % (20.0-40.0); MEAN CELL VOLUME 88.7 fL (80.0-94.0); MEAN CORPUSCULAR HEMOGLOBIN 30.1 pg (27.0-31.0); MEAN CORPUSCULAR HGB CONC 33.9 g/dL (33.0-37.0); MEAN PLATELET VOLUME 8.1 fL (7.2-11.7); MONO # 0.4 K/uL (0.0-0.8); MONO % 7.3 % (0.0-10.0); NEUT # 4.8 K/uL (1.8-7.0); NEUT % 82.1 % (50.0-75.0); PLATELET COUNT 191 K/uL (130-400); RBC 3.88 Mil/uL (4.40-5.90); WHITE BLOOD COUNT 5.8 K/uL (4.8-10.8)
[2017-06-18 21:36] LABS: INR 1.1; PROTHROMBIN TIME 12.5 SECONDS (9.7-12.2)
[2017-06-18 21:40] LABS: ALB/GLOB RATIO 0.9 (1.0-2.1); ALBUMIN 3.7 g/dL (3.5-5.0); ALT/SGPT 31 U/L (21-72); AST/SGOT 32 U/L (17-59); BLOOD UREA NITROGEN 19 mg/dL (9-20); CALCIUM 8.7 mg/dl (8.6-10.4); GFR AFRICAN-AMERICAN > 60; GFR NON-AFRICAN AMERICAN > 60; MAGNESIUM 2.1 mg/dL (1.6-2.3)
[2017-06-18 21:51] LABS: ANISOCYTOSIS SLIGHT; LYMPHOCYTE 9 % (20-40); MONOCYTE 7 % (0-10); NEUTROPHIL 84 % (50-75); PLATELET ESTIMATE NORMAL (NORMAL); TOTAL CELLS COUNTED 100
[2017-06-18 21:54] LABS: VENOUS BLOOD GAS BASE EXCESS 2.9 mmol/L (0.0-2.0); VENOUS BLOOD GAS PCO2 54 mmHg (40-60); VENOUS BLOOD GAS PO2 18 mm/Hg (30-55); VENOUS BLOOD PH 7.35 (7.32-7.43)
[2017-06-18 22:44] VITALS: BP 185/86; PULSE 65; RESP 22; O2SAT 97
--- NOTE | 2017-06-19 08:51 | RAD ---
PROCEDURE: CHEST RADIOGRAPH, 1 VIEW HISTORY: SOB COMPARISON: 11/24/2016 FINDINGS: LUNGS: Clear. PLEURA: No pneumothorax or pleural fluid seen. CARDIOVASCULAR: Normal heart size. Sternotomy wires. Possible prior CABG. No congestive change. OSSEOUS STRUCTURES: No significant abnormalities. VISUALIZED UPPER ABDOMEN: Normal. OTHER FINDINGS: None. IMPRESSION: No active disease.
--- NOTE | 2017-06-19 13:46 | CARD ---
APPROVED REPORT EKG Measurement Heart [id number] [place] 132P66 [id number] <Conclusion> Normal sinus rhythm Possible Left atrial enlargement Left axis deviation Abnormal ECG
== END 2017-06-18 22:43 | disposition home or self-care (01) ==
LOC: C.ER 20:08
DX: J06.9 Acute upper respiratory infection, unspecified (principal); R06.00 Dyspnea, unspecified; I10 Essential (primary) hypertension; E78.00 Pure hypercholesterolemia, unspecified

== ENCOUNTER 2017-08-30 15:09 | Inpatient (IN) | payer MEDICARE ==
[2017-08-30 15:42] LABS: BASO % 0.2 % (0.0-2.0); HEMOGLOBIN 10.5 g/dL (12.0-18.0); LYMPH # 0.2 K/uL (1.0-4.3); LYMPH % 2.8 % (20.0-40.0); MEAN CELL VOLUME 89.2 fL (80.0-94.0); MEAN CORPUSCULAR HEMOGLOBIN 30.7 pg (27.0-31.0); MEAN CORPUSCULAR HGB CONC 34.4 g/dL (33.0-37.0); MEAN PLATELET VOLUME 8.3 fL (7.2-11.7); MONO # 0.5 K/uL (0.0-0.8); MONO % 5.8 % (0.0-10.0); NEUT # 7.2 K/uL (1.8-7.0); NEUT % 91.2 % (50.0-75.0); PLATELET COUNT 157 K/uL (130-400); RBC 3.42 Mil/uL (4.40-5.90); RED CELL DISTRIBUTION WIDTH 15.3 % (11.5-14.5); WHITE BLOOD COUNT 7.9 K/uL (4.8-10.8)
[2017-08-30 15:46] LABS: VENOUS BLOOD GAS BASE EXCESS 1.5 mmol/L (0.0-2.0); VENOUS BLOOD GAS PCO2 39 mmHg (40-60); VENOUS BLOOD GAS PO2 35 mm/Hg (30-55); VENOUS BLOOD PH 7.43 (7.32-7.43)
[2017-08-30 15:53] LABS: ALB/GLOB RATIO 0.8 (1.0-2.1); ALBUMIN 3.1 g/dL (3.5-5.0); ALT/SGPT 13 U/L (21-72); AST/SGOT 38 U/L (17-59); BLOOD UREA NITROGEN 22 mg/dL (9-20); CALCIUM 7.9 mg/dl (8.6-10.4); GFR AFRICAN-AMERICAN > 60; GFR NON-AFRICAN AMERICAN > 60
--- NOTE | 2017-08-30 15:59 | CT ---
PROCEDURE: CT HEAD WITHOUT CONTRAST. HISTORY: Dizziness COMPARISON: Made with prior study 11/24/2016. TECHNIQUE: Axial computed tomography images were obtained through the head/brain without intravenous contrast. Radiation dose: Total exam DLP = 796.21 move mGy-cm. This CT exam was performed using one or more of the following dose reduction techniques: Automated exposure control, adjustment of the mA and/or kV according to patient size, and/or use of iterative reconstruction technique. FINDINGS: HEMORRHAGE: No acute parenchymal, subarachnoid or extra-axial hemorrhage. BRAIN: No evidence of large acute infarct. Mild chronic periventricular white matter ischemic changes seen extending peripherally into the deep white matter both cerebral hemispheres. Changes are most conspicuous in the perifrontal horn white matter. There are also a few scattered chronic bilateral basal nuclei lacunar type infarcts as well. . Note however that the possibility of a small hyperacute infarct cannot be excluded on this study. Ventricular and sulcal size are within range of normal for this patient's stated age. Vascular calcifications involving the cavernous carotid and vertebral arteries again noted. VENTRICLES: No obstructive hydrocephalus. CALVARIUM: There are no acute calvarial fractures. PARANASAL SINUSES: Frontal sinuses are slightly underpneumatized. Remaining visualized paranasal sinuses well-developed. There is mild mucosal thickening right maxillary antrum as well as several ethmoid air cells. Minor mucosal thickening also seen in the left chamber sphenoid sinus. MASTOID AIR CELLS: Unremarkable as visualized. No inflammatory changes. OTHER FINDINGS: Orbits and contents unremarkable. IMPRESSION: No acute intracranial hemorrhage or large acute infarct seen. . Mild chronic periventricular white matter ischemic changes seen extending peripherally into the deep white matter both cerebral hemispheres. Changes are most conspicuous in the perifrontal horn white matter. There are also a few scattered chronic bilateral basal nuclei lacunar type infarcts as well. . Note however that the possibility of a small hyperacute infarct cannot be excluded on this study.
--- NOTE | 2017-08-30 16:02 | RAD ---
PROCEDURE: CHEST RADIOGRAPH, 1 VIEW HISTORY: SOB COMPARISON: 08/04/2017. FINDINGS: LUNGS: There may be some minor bibasilar linear atelectasis or scarring. Lung rubio otherwise clear. PLEURA: No pneumothorax or pleural fluid seen. CARDIOVASCULAR: Heart remains enlarged. Sternotomy wires again noted. OSSEOUS STRUCTURES: No significant abnormalities. VISUALIZED UPPER ABDOMEN: Normal. OTHER FINDINGS: None. IMPRESSION: There may be some minor bibasilar linear atelectasis or scarring. Lung rubio otherwise clear. Cardiomegaly.
--- NOTE | 2017-08-30 16:05 | C.PDOC ---
History Of Present Illness 82 year old male is brought to ED by family for evaluation of syncopal episode in the bathroom today. Family reports fever of 101. Notes he recently had indwelling crandall placed. Pt denies SOB, chest pain, or any other symptoms at present time. Time Seen by Provider: 08/30/17 15:10 Chief Complaint (Nursing): Syncope History Per: Patient History/Exam Limitations: no limitations Onset/Duration Of Symptoms: Days Current Symptoms Are (Timing): Still Present Recent travel outside of the [place]: No Additional History Per: Family Past Medical History Reviewed: Historical Data, Nursing Documentation, Vital Signs Vital Signs: Last Vital Signs Temp 98.7 F 08/30/17 16:28 Pulse 72 08/30/17 16:28 Resp 18 08/30/17 16:28 BP 150/57 L 08/30/17 16:28 Pulse Ox 98 08/30/17 16:32 - Medical History PMH: Benign Prostatic Hyperplasia, HTN, Hypercholesterolemia - [facility] Procedures CONTROL BLEEDING IN RESPIRATORY TRACT, VIA OPENING (07/08/16) PACKING OF NASAL REGION USING PACKING MATERIAL (07/08/16) RESECTION OF NASAL TURBINATE, ENDO (07/08/16) TRANSFUSE NONAUT RED BLOOD CELLS IN PERIPH VEIN, PERC (07/08/16) Family History: States: Unknown Family Hx - Social History Hx Tobacco Use: No Hx Alcohol Use: No Hx Substance Use: No - Immunization History Hx Tetanus Toxoid Vaccination: No Hx Influenza Vaccination: Yes Hx Pneumococcal Vaccination: No Review Of Systems Except As Marked, All Systems Reviewed And Found Negative. Constitutional: Positive for: Fever Cardiovascular: Negative for: Chest Pain, Palpitations Respiratory: Negative for: Cough, Shortness of Breath Neurological: Positive for: Other (syncope). Negative for: Weakness, Numbness, Headache, Dizziness Physical Exam - Physical Exam Appears: Non-toxic, No Acute Distress Skin: Normal Color, Warm, Dry Head: Atraumatic, Normacephalic Eye(s): bilateral: Normal Inspection Oral Mucosa: Moist Chest: Symmetrical Cardiovascular: Rhythm Regular, No Murmur Respiratory: Normal Breath Sounds, No Rales, No Rhonchi, No Wheezing Gastrointestinal/Abdominal: Soft, No Tenderness Male Genital: Other ((+)indwelling crandall in place) Extremity: Normal ROM Neurological/Psych: Oriented x3, Normal Speech ED Course And Treatment - Laboratory Results Result Diagrams: 08/30/17 15:36 08/30/17 15:36 ECG: Interpreted By Me, Viewed By Me ECG Rhythm: Sinus Rhythm Interpretation Of ECG: incomplete RBBB, left anterior fascicular block. No ST/T wave changes. Rate From EC (bpm) O2 Sat by Pulse Oximetry: 98 (RA) Pulse Ox Interpretation: Normal - CT Scan/US Head CT Other Rad Studies (CT/US): Read By Radiologist, Radiology Report Reviewed CT/US Interpretation: IMPRESSION: No acute intracranial hemorrhage or large acute infarct seen. . Mild chronic periventricular white matter ischemic changes seen extending peripherally into the deep white matter both cerebral hemispheres. Changes are most conspicuous in the perifrontal horn white matter. There are also a few scattered chronic bilateral basal nuclei lacunar type infarcts as well. . Note however that the possibility of a small hyperacute infarct cannot be excluded on this study. Medical Decision Making Medical Decision Making: Plan: Blood work Urinalysis EKG CXR Head CT Reassess Case discussed with Dr. Patino who agrees upon telemetry admission for NSTEMI and syncope. Disposition Discussed With Dr.: Earnest Matias Doctor Will See Patient In The: Hospital Counseled Patient/Family Regarding: Studies Performed, Diagnosis - Disposition Disposition: HOSPITALIZED Disposition Time: 16:32 Condition: FAIR Forms: [facility] (Kyrgyz) - Clinical Impression Clinical Impression: Syncope, NSTEMI (non-ST elevated myocardial infarction) - Scribe Statement The provider has reviewed the documentation as recorded by the Scribe Courtney Matias All medical record entries made by the Scribe were at my direction and personally dictated by me. I have reviewed the chart and agree that the record accurately reflects my personal performance of the history, physical exam, medical decision making, and the department course for this patient. I have also personally directed, reviewed, and agree with the discharge instructions and disposition.
[2017-08-30 16:10] LABS: BANDS 8 % (0-2); LYMPHOCYTE 2 % (20-40); MONOCYTE 5 % (0-10); NEUTROPHIL 85 % (50-75); PLATELET ESTIMATE NORMAL (NORMAL); TOTAL CELLS COUNTED 100
[2017-08-30 16:11] LABS: ANISOCYTOSIS SLIGHT; HYPOCHROMIC SLIGHT; LARGE PLATELETS PRESENT; POLYCHROMIC SLIGHT
[2017-08-30] MEDS ORDERED: cefTRIAXone IV 1 gm in Dextros 50 ML IVPB ONE (16:37)
[2017-08-30] MEDS ORDERED: Heparin25000 units/250ml 1/2NS 25,000 UNITS/250 ML BAG IV ONE (16:49)
[2017-08-30 16:59] LABS: SQUAMOUS EPITHIAL 1 /hpf (0-5); URINE BACTERIA MANY (<OCC); URINE BILIRUBIN NEGATIVE (NEGATIVE); URINE BLOOD 3+ (NEGATIVE); URINE CLARITY Hazy (Clear); URINE COLOR YELLOW (YELLOW); URINE GLUCOSE (UA) NORMAL (Normal); URINE LEUKOCYTE ESTERASE 2+ Leu/uL (Negative); URINE PROTEIN 2+ mg/dL (NEGATIVE); URINE UROBILINOGEN NORMAL mg/dL (0.2-1.0)
[2017-08-30 17:01] LABS: INR 1.5
[2017-08-30] MEDS: Heparin25000 units/250ml 1/2NS 25,000 UNITS/250 ML BAG IV PRN (17:16)
--- NOTE | 2017-08-30 19:58 | CP.PCM.HP ---
History of Present Illness - History of Present Illness History of Present Illness: CC: syncope HPI: Patient is an 82 y/o M with PMHx of CABG 2003, HTN, HLD, BPH who presents today for syncope. Patient yesterday got up to go to the bathroom and felt everything get dark and he slumped to the floor. Patient did not lose consciousness. Today family was more worried about him and when he tried to get up from his chair at about noon they went over to help him and he lost consciousness for a few seconds and they helped get him down to the floor. Patient did not remember what happened. Patient says he was not dizzy or lightheaded before he passed out and says it just happened randomly. Family also checked patient's temperature today which was 101. Patient does not feel like he has been having any fevers or chills recently. Patient had a urinary stent and crandall placed on by Dr. Noreen Wilson for BPH. Patient says he has not noticed any hematuria. Patient had one loose stool this morning but said it was normal in color with no blood. Patient denies abdominal pain. Patient denies any shortness of breath, chest pain, palpitations, headaches, vision changes, nausea, vomiting, constipation. Patient did not eat anything today because he had no appetite. PMD: Dr. York Cardio: Dr. Caban Uro: Dr. Cody Wilson PMHx: CABG 2003, HTN, HLD, BPH Psurg: CABG 2003, urinary stent 08/27/17, indwelling crandall 08/27/17 Fam hx: father's side: CAD Social: 50 years of 1.5 packs of cigarettes per day - quit in 2003, no alcohol, no drugs, lives with in [facility] community performs ADLs home meds: morning: Isosorbide 30mg, Toprol XL 50mg. Noon: Plavix 75mg, diovan 80mg, ASA 162mg, Evening: flomax .4mg bedtime: lipitor 20mg nexium 40mg Present on Admission - Present on Admission Any Indicators Present on Admission: No History of DVT/PE: No History of Uncontrolled Diabetes: No Urinary Catheter: No Decubitus Ulcer Present: No Review of Systems - Constitutional Constitutional: Fatigue, Fever, Lethargy. absent: Chills, Headache - EENT Eyes: absent: Blurred Vision, Change in Vision Ears: absent: Decreased Hearing, Dizziness - Cardiovascular Cardiovascular: Syncope. absent: Chest Pain, Dyspnea, Leg Edema, Palpitations, Pedal Edema - Respiratory Respiratory: absent: Cough, Dyspnea, Dyspnea on Exertion, Wheezing, Stridor, Chest Congestion - Gastrointestinal Gastrointestinal: Loose Stools. absent: Constipation, Hematochezia, Melena, Nausea, Vomiting - Genitourinary Genitourinary: Difficulty Urinating. absent: Dysuria, Hematuria - Musculoskeletal Musculoskeletal: absent: Numbness, Tingling - Integumentary Integumentary: absent: Rash - Neurological Neurological: Syncope. absent: Tingling, Weakness Past Patient History - Past Medical History & Family History Past Medical History?: Yes - Past Social History Smoking Status: Former Smoker - CARDIAC Hx Hypercholesterolemia: Yes Hx Hypertension: Yes - HEENT Hx HEENT Problems: Yes Hx Epistaxis: Yes - MUSCULOSKELETAL/RHEUMATOLOGICAL Hx Falls: No - PSYCHIATRIC Hx Substance Use: No - SURGICAL HISTORY Hx Surgeries: Yes Hx Open Heart Surgery: Yes (2004 bypass) - ANESTHESIA Hx Anesthesia: Yes Hx Anesthesia Reactions: No Meds Allergies/Adverse Reactions: Allergies Allergy/AdvReac Type Severity Reaction Status Date / Time No Known Allergies Allergy Verified 08/30/17 15:21 Physical Exam - Constitutional Appears: Non-toxic, No Acute Distress - Head Exam Head Exam: ATRAUMATIC, NORMAL INSPECTION, NORMOCEPHALIC - Eye Exam Eye Exam: EOMI, Normal appearance - ENT Exam ENT Exam: Mucous Membranes Moist - Respiratory Exam Respiratory Exam: Clear to Auscultation Bilateral, NORMAL BREATHING PATTERN. absent: Rales, Rhonchi, Wheezes, Respiratory Distress, Stridor - Cardiovascular Exam Cardiovascular Exam: REGULAR RHYTHM, RRR, +S1, +S2 - GI/Abdominal Exam GI & Abdominal Exam: Normal Bowel Sounds, Soft. absent: Tenderness - Exam Additional comments: indwelling crandall catheter hypospadias - Extremities Exam Extremities exam: Positive for: normal inspection. Negative for: pedal edema, tenderness - Back Exam Back exam: NORMAL INSPECTION. absent: rash noted - Neurological Exam Neurological exam: Alert, Oriented x3 - Psychiatric Exam Psychiatric exam: Normal Affect, Normal Mood - Skin Skin Exam: Intact, Normal Color, Warm Results - Vital Signs Recent Vital Signs: Last Vital Signs Temp 98.0 F 08/30/17 18:23 Pulse 76 08/30/17 18:23 Resp 18 08/30/17 18:23 BP 140/56 L 08/30/17 18:23 Pulse Ox 99 08/30/17 18:23 - Labs Result Diagrams: 08/31/17 05:59 08/31/17 05:59 Labs: Laboratory Results - last 24 hr 08/30/17 08/30/17 08/30/17 15:36 15:36 15:39 WBC 7.9 RBC 3.42 L Hgb 10.5 L Hct 30.5 L MCV 89.2 MCH 30.7 MCHC 34.4 RDW 15.3 H Plt Count 157 MPV 8.3 Neut % (Auto) 91.2 H Lymph % (Auto) 2.8 L [place] % (Auto) 5.8 Eos % (Auto) 0.0 Baso % (Auto) 0.2 Neut # (Auto) 7.2 H Lymph # (Auto) 0.2 L [place] # (Auto) 0.5 Eos # (Auto) 0.0 Baso # (Auto) 0.0 Neutrophils % (Manual) 85 H Band Neutrophils % 8 H Lymphocytes % (Manual) 2 L Monocytes % (Manual) 5 Platelet Estimate Normal Large Platelets Present Polychromasia Slight Hypochromasia (manual) Slight Anisocytosis (manual) Slight PT INR APTT pO2 35 VBG pH 7.43 VBG pCO2 39 L VBG HCO3 25.3 VBG Total CO2 27.1 VBG O2 Sat (Calc) 72.7 H VBG Base Excess 1.5 VBG Potassium 3.0 L Glucose 123 H Lactate 1.4 Sodium 137 135.0 Potassium 3.4 L Chloride 99 102.0 Carbon Dioxide 27 Anion Gap 14 BUN 22 H Creatinine 1.1 Est GFR ( Amer) > 60 Est GFR (Non-Af Amer) > 60 Random Glucose 121 H Calcium 7.9 L Total Bilirubin 0.7 AST 38 ALT 13 L D Alkaline Phosphatase 68 Troponin I 0.2820 H* NT-Pro-B Natriuret Pep Total Protein 6.9 Albumin 3.1 L Globulin 3.8 Albumin/Globulin Ratio 0.8 L Venous Blood Potassium 3.0 L Urine Color Urine Clarity Urine pH Ur Specific Lambert Urine Protein Urine Glucose (UA) Urine Ketones Urine Blood Urine Nitrate Urine Bilirubin Urine Urobilinogen Ur Leukocyte Esterase Urine WBC (Auto) Urine RBC (Auto) Ur Squamous Epith Cells Urine Bacteria 08/30/17 08/30/17 08/30/17 16:17 16:30 16:50 WBC RBC Hgb Hct MCV MCH MCHC RDW Plt Count MPV Neut % (Auto) Lymph % (Auto) [place] % (Auto) Eos % (Auto) Baso % (Auto) Neut # (Auto) Lymph # (Auto) [place] # (Auto) Eos # (Auto) Baso # (Auto) Neutrophils % (Manual) Band Neutrophils % Lymphocytes % (Manual) Monocytes % (Manual) Platelet Estimate Large Platelets Polychromasia Hypochromasia (manual) Anisocytosis (manual) PT 16.0 H INR 1.5 APTT 32 pO2 VBG pH VBG pCO2 VBG HCO3 VBG Total CO2 VBG O2 Sat (Calc) VBG Base Excess VBG Potassium Glucose Lactate Sodium Potassium Chloride Carbon Dioxide Anion Gap BUN Creatinine Est GFR ( Amer) Est GFR (Non-Af Amer) Random Glucose Calcium Total Bilirubin AST ALT Alkaline Phosphatase Troponin I NT-Pro-B Natriuret Pep 5550 H Total Protein Albumin Globulin Albumin/Globulin Ratio Venous Blood Potassium Urine Color Yellow Urine Clarity Hazy Urine pH 5.0 Ur Specific [place] 1.028 Urine Protein 2+ H Urine Glucose (UA) Normal Urine Ketones Negative Urine Blood 3+ H Urine Nitrate Negative Urine Bilirubin Negative Urine Urobilinogen Normal Ur Leukocyte Esterase 2+ H Urine WBC (Auto) 484 H Urine RBC (Auto) 51 H Ur Squamous Epith Cells 1 Urine Bacteria Many H Assessment & Plan - Assessment and Plan (Free Text) Assessment: Syncope MRA head and neck MRI brain ECHO EEG TSH + T4 RPR Vit B12, Folate Dr. Keane, neuro, consulted- help appreciated fall precautions, seizure precautions Elevated Troponin Trop I .2820 ZHANNA x 3 with EKGs Heparin Drip Cardio consulted, Dr. Ron, help appreciated Hypertensive Urgency Labetalol 5mg iv given in ED BP came down to 182/100 Hypokalemia 3.4 KDUR 40 meq given monitor Anemia 2/2 ? stool occult stat iron panel peripheral blood smear Left shift with increased bands blood culture, urine culture Vanco x 1 dose given, beginnings of sepsis? ICU evaluation as per Dr. Urrutia, help appreciated UA positive- start Rocephin 1g q24h CXR: no acute process Abnormal EKG Findings L atrial enlargement with incomplete RBBB on ekg unchanged from 06/18/17 ECHO Indwelling Crandall for Hx BPH Urology consulted, Dr. Noreen Wilson, help appreciated f/u urine culture continue Flomax .4mg po daily HTN continue home meds: Isosorbide Mononitrate 30 mg daily at 7pm Diovan NF, Cozaar 50mg po daily at 1pm Metoprolol 50mg po daily at 7am HLD Crestor 10mg po HS CAD continue home meds: Isosorbide Mononitrate 30 mg daily at 7pm Diovan NF, Cozaar 50mg po daily at 1pm Metoprolol 50mg po daily at 7am Plavix 75mg po daily ECHO GERD Pepcid 20mg po BID Prophylaxis Florastor BID on Heparin Drip Pepcid 20mg po BID Heart Healthy diet low sodium and low carb
[2017-08-30] MEDS ORDERED: Ipratropium 0.02% Inhal Soln (0.5 mg/2.5 ml) UD IH ONE ×2 (20:07→20:17)
[2017-08-30] MEDS ORDERED: Labetalol 25mg/5ml Syringe IVP STA (20:07)
[2017-08-30] MEDS ORDERED: Vancomycin 1 gm/NS 200 ml 1 GM/200 ML BAG IVPB ONE (20:31)
[2017-08-30 21:37] LABS: CK-MB 1.25 ng/mL (0.0-3.38); TROPONIN I 0.22 ng/mL (0.00-0.120)
--- NOTE | 2017-08-30 22:05 | CP.PCM.CON ---
History of Present Illness - History of Present Illness History of Present Illness: Patient is an 82 y/o M with PMHx of CABG 2004, HTN, HLD, BPH who presents today for syncope. patient was unsteady today, family assisted him to sit,he lost consciousness for a few seconds. Patient did not remember what happened. Patient says he was not dizzy or lightheaded before he passed out and says it just happened randomly.Yesterday got up to go to the bathroom and felt everything get dark and he slumped to the floor. Patient did not lose consciousness. Family also checked patient's temperature today which was 101. Patient does not feel like he has been having any fevers or chills recently. Patient had a crandall placed on by Dr. Noreen Wilson for BPH. Patient says he has not noticed any hematuria. Patient had one loose stool this morning but said it was normal in color with no blood. Patient denies abdominal pain, chest pain,difficulty breathing,palpitations, headaches, vision changes, nausea , vomiting, constipation. Patient did not eat anything today because he had no appetite. Labs revealked elevated troponin,started on heparin.Ct head negative Review of Systems - Constitutional Constitutional: Fatigue, Fever, Weakness. absent: Frequent Falls - EENT Eyes: absent: Change in Vision, Pain Ears: absent: Decreased Hearing, Dizziness Nose/Mouth/Throat: absent: Nasal Congestion, Nasal Discharge, Hoarsness, Sore Throat, Neck Pain - Cardiovascular Cardiovascular: absent: Chest Pain, Dyspnea, Leg Edema, Palpitations - Respiratory Respiratory: absent: Cough, Dyspnea - Gastrointestinal Gastrointestinal: absent: Abdominal Pain, Heartburn, Nausea, Vomiting - Genitourinary Genitourinary: Change in Urinary Stream. absent: Dysuria - Musculoskeletal Musculoskeletal: absent: Joint Swelling, Neck Pain - Integumentary Integumentary: absent: Dry Skin, Swelling - Neurological Neurological: Weakness. absent: Dizziness - Endocrine Endocrine: absent: Polydipsia, Polyphagia - Hematologic/Lymphatic Hematologic: absent: Easy Bleeding Past Patient History - Past Medical History & Family History Past Medical History?: Yes - Past Social History Smoking Status: Former Smoker Alcohol: None Drugs: Denies Home Situation {Lives}: With Family - CARDIAC Hx Hypercholesterolemia: Yes Hx Hypertension: Yes - HEENT Hx HEENT Problems: Yes Hx Epistaxis: Yes - MUSCULOSKELETAL/RHEUMATOLOGICAL Hx Falls: No - PSYCHIATRIC Hx Substance Use: No - SURGICAL HISTORY Hx Surgeries: Yes Hx Open Heart Surgery: Yes (2004 bypass) - ANESTHESIA Hx Anesthesia: Yes Hx Anesthesia Reactions: No Meds Allergies/Adverse Reactions: Allergies Allergy/AdvReac Type Severity Reaction Status Date / Time No Known Allergies Allergy Verified 08/30/17 15:21 - Medications Medications: Current Medications Aspirin (Aspirin Chewable) 162 mg PO DAILY [facility] Clopidogrel Bisulfate (Plavix) 75 mg PO DAILY [facility] Famotidine (Pepcid) 20 mg PO BID [facility] Ceftriaxone Sodium (Rocephin Iv 1 Gm Duplex) 50 mls @ 100 mls/hr IVPB DAILY [facility] PRN Reason: Protocol Vancomycin/Sodium Chloride (Vancomycin 1 Gm/Ns 200 Ml) 1 gm in 200 mls @ 133 mls/hr IVPB ONCE ONE PRN Reason: Protocol Stop: 08/30/17 22:01 Last Admin: 08/30/17 21:11 Dose: 133 mls/hr Ipratropium Haynes (Atrovent) 0.5 mg IH RQ6 PRN PRN Reason: Shortness of Breath Isosorbide Mononitrate (Imdur Er) 30 mg PO Q24H [facility] Losartan Potassium (Cozaar) 50 mg PO Q24H [facility] Metoprolol Succinate (Toprol Xl) 50 mg PO Q24H [facility] Potassium Chloride (K-Dur 20 Meq Er Tab) 40 meq PO ONCE ONE Stop: 08/31/17 20:17 Rosuvastatin Calcium (Crestor) 10 mg PO [facility] Last Admin: 08/30/17 21:11 Dose: 10 mg Saccharomyces Boulardii (Florastor) 250 mg PO BID [facility] Tamsulosin HCl (Flomax) 0.4 mg PO DAILY [facility] Physical Exam - Constitutional Appears: No Acute Distress - Head Exam Head Exam: ATRAUMATIC, NORMAL INSPECTION, NORMOCEPHALIC - Eye Exam Eye Exam: EOMI, Normal appearance, PERRL - ENT Exam ENT Exam: Mucous Membranes Moist - Neck Exam Neck exam: Positive for: Normal Inspection. Negative for: Tenderness - Respiratory Exam Respiratory Exam: Clear to Auscultation Bilateral, NORMAL BREATHING PATTERN - Cardiovascular Exam Cardiovascular Exam: Tachycardia. absent: JVD - GI/Abdominal Exam GI & Abdominal Exam: Normal Bowel Sounds, Soft. absent: Tenderness - Extremities Exam Extremities exam: Positive for: normal inspection. Negative for: calf tenderness, pedal edema - Back Exam Back exam: NORMAL INSPECTION - Neurological Exam Neurological exam: Alert, Oriented x3 - Psychiatric Exam Psychiatric exam: Normal Affect - Skin Skin Exam: Normal Color, Warm Results - Vital Signs Recent Vital Signs: Last Vital Signs Temp 102.9 F H 08/30/17 21:53 Pulse 106 H 08/30/17 21:53 Resp 26 H 08/30/17 21:53 BP 150/69 08/30/17 21:53 Pulse Ox 96 08/30/17 21:53 - Labs Result Diagrams: 08/30/17 15:36 08/30/17 15:36 Labs: Laboratory Results - last 24 hr 08/30/17 08/30/17 08/30/17 15:36 15:36 15:39 WBC 7.9 RBC 3.42 L Hgb 10.5 L Hct 30.5 L MCV 89.2 MCH 30.7 MCHC 34.4 RDW 15.3 H Plt Count 157 MPV 8.3 Neut % (Auto) 91.2 H Lymph % (Auto) 2.8 L [place] % (Auto) 5.8 Eos % (Auto) 0.0 Baso % (Auto) 0.2 Neut # (Auto) 7.2 H Lymph # (Auto) 0.2 L [place] # (Auto) 0.5 Eos # (Auto) 0.0 Baso # (Auto) 0.0 Neutrophils % (Manual) 85 H Band Neutrophils % 8 H Lymphocytes % (Manual) 2 L Monocytes % (Manual) 5 Platelet Estimate Normal Large Platelets Present Polychromasia Slight Hypochromasia (manual) Slight Anisocytosis (manual) Slight PT INR APTT pO2 35 VBG pH 7.43 VBG pCO2 39 L VBG HCO3 25.3 VBG Total CO2 27.1 VBG O2 Sat (Calc) 72.7 H VBG Base Excess 1.5 VBG Potassium 3.0 L Glucose 123 H Lactate 1.4 Sodium 137 135.0 Potassium 3.4 L Chloride 99 102.0 Carbon Dioxide 27 Anion Gap 14 BUN 22 H Creatinine 1.1 Est GFR ( Amer) > 60 Est GFR (Non-Af Amer) > 60 Random Glucose 121 H Calcium 7.9 L Phosphorus Total Bilirubin 0.7 AST 38 ALT 13 L D Alkaline Phosphatase 68 Total Creatine Kinase CK-MB (Mass) Troponin I 0.2820 H* NT-Pro-B Natriuret Pep Total Protein 6.9 Albumin 3.1 L Globulin 3.8 Albumin/Globulin Ratio 0.8 L TSH 3rd Generation Venous Blood Potassium 3.0 L Urine Color Urine Clarity Urine pH Ur Specific Combs Urine Protein Urine Glucose (UA) Urine Ketones Urine Blood Urine Nitrate Urine Bilirubin Urine Urobilinogen Ur Leukocyte Esterase Urine WBC (Auto) Urine RBC (Auto) Ur Squamous Epith Cells Urine Bacteria Influenza Typ A,B (EIA) 08/30/17 08/30/17 08/30/17 16:17 16:30 16:50 WBC RBC Hgb Hct MCV MCH MCHC RDW Plt Count MPV Neut % (Auto) Lymph % (Auto) [place] % (Auto) Eos % (Auto) Baso % (Auto) Neut # (Auto) Lymph # (Auto) [place] # (Auto) Eos # (Auto) Baso # (Auto) Neutrophils % (Manual) Band Neutrophils % Lymphocytes % (Manual) Monocytes % (Manual) Platelet Estimate Large Platelets Polychromasia Hypochromasia (manual) Anisocytosis (manual) PT 16.0 H INR 1.5 APTT 32 pO2 VBG pH VBG pCO2 VBG HCO3 VBG Total CO2 VBG O2 Sat (Calc) VBG Base Excess VBG Potassium Glucose Lactate Sodium Potassium Chloride Carbon Dioxide Anion Gap BUN Creatinine Est GFR ( Amer) Est GFR (Non-Af Amer) Random Glucose Calcium Phosphorus Total Bilirubin AST ALT Alkaline Phosphatase Total Creatine Kinase CK-MB (Mass) Troponin I NT-Pro-B Natriuret Pep 5550 H Total Protein Albumin Globulin Albumin/Globulin Ratio TSH 3rd Generation Venous Blood Potassium Urine Color Yellow Urine Clarity Hazy Urine pH 5.0 Ur Specific [place] 1.028 Urine Protein 2+ H Urine Glucose (UA) Normal Urine Ketones Negative Urine Blood 3+ H Urine Nitrate Negative Urine Bilirubin Negative Urine Urobilinogen Normal Ur Leukocyte Esterase 2+ H Urine WBC (Auto) 484 H Urine RBC (Auto) 51 H Ur Squamous Epith Cells 1 Urine Bacteria Many H Influenza Typ A,B (EIA) 08/30/17 08/30/17 20:14 21:02 WBC RBC Hgb Hct MCV MCH MCHC RDW Plt Count MPV Neut % (Auto) Lymph % (Auto) [place] % (Auto) Eos % (Auto) Baso % (Auto) Neut # (Auto) Lymph # (Auto) [place] # (Auto) Eos # (Auto) Baso # (Auto) Neutrophils % (Manual) Band Neutrophils % Lymphocytes % (Manual) Monocytes % (Manual) Platelet Estimate Large Platelets Polychromasia Hypochromasia (manual) Anisocytosis (manual) PT INR APTT pO2 VBG pH VBG pCO2 VBG HCO3 VBG Total CO2 VBG O2 Sat (Calc) VBG Base Excess VBG Potassium Glucose Lactate Sodium Potassium Chloride Carbon Dioxide Anion Gap BUN Creatinine Est GFR ( Amer) Est GFR (Non-Af Amer) Random Glucose Calcium Phosphorus 3.2 Total Bilirubin AST ALT Alkaline Phosphatase Total Creatine Kinase 512 H CK-MB (Mass) 1.25 Troponin I 0.2200 H* NT-Pro-B Natriuret Pep Total Protein Albumin Globulin Albumin/Globulin Ratio TSH 3rd Generation 1.68 Venous Blood Potassium Urine Color Urine Clarity Urine pH Ur Specific Combs Urine Protein Urine Glucose (UA) Urine Ketones Urine Blood Urine Nitrate Urine Bilirubin Urine Urobilinogen Ur Leukocyte Esterase Urine WBC (Auto) Urine RBC (Auto) Ur Squamous Epith Cells Urine Bacteria Influenza Typ A,B (EIA) Negative for flu a/b - EKG Data EKG Interpreted by: Myself - Imaging and Cardiology CT scan - head Status: Image reviewed by me, Report reviewed by me Assessment & Plan - Assessment and Plan (Free Text) Assessment: 1.CAD/CABG/HTN/Hyperlipidemia,elevated troponin on IV heparin continue current meds 2.Syncope MRI pending 3.Fever,leucocytosis with left shift,Urinary retension,BPH with crandall catheter Possible UTI on antibiotics f/u cultures 4.Anemia 5.Hypokalemia potassium replaced,f/u lytes
[2017-08-31 01:25] LABS: CK-MB 1.95 ng/mL (0.0-3.38)
[2017-08-31 01:30] LABS: TROPONIN I 0.32 ng/mL (0.00-0.120)
[2017-08-31] MEDS ORDERED: cefTRIAXone IV 1 gm in Dextros 50 ML IVPB SCH ×2 (05:00→10:00)
[2017-08-31 06:12] LABS: BASO % 0.3 % (0.0-2.0); LYMPH # 0.1 K/uL (1.0-4.3); LYMPH % 1.6 % (20.0-40.0); MEAN CELL VOLUME 89.4 fL (80.0-94.0); MEAN CORPUSCULAR HEMOGLOBIN 30.4 pg (27.0-31.0); MEAN PLATELET VOLUME 8.7 fL (7.2-11.7); MONO # 0.1 K/uL (0.0-0.8); MONO % 1.9 % (0.0-10.0); NEUT # 3.6 K/uL (1.8-7.0); NEUT % 96.2 % (50.0-75.0); PLATELET COUNT 143 K/uL (130-400); RBC 3.61 Mil/uL (4.40-5.90); RED CELL DISTRIBUTION WIDTH 15.6 % (11.5-14.5); WHITE BLOOD COUNT 3.8 K/uL (4.8-10.8)
[2017-08-31 06:28] LABS: IRON 10 ug/dL (49-181)
[2017-08-31] MEDS: Metoprolol Succinate 50 mg XL Tab PO SCH (06:31)
[2017-08-31 06:38] LABS: % IRON SATURATION 5 (20-55); TOTAL IRON BINDING CAPACITY 208 ug/dL (250-450)
[2017-08-31 06:39] LABS: LDL CHOLESTEROL 37 mg/dL (0-129)
[2017-08-31 06:52] LABS: ALB/GLOB RATIO 0.8 (1.0-2.1); ALBUMIN 3.1 g/dL (3.5-5.0); ALT/SGPT 28 U/L (21-72); AST/SGOT 61 U/L (17-59); BLOOD UREA NITROGEN 23 mg/dL (9-20); GFR AFRICAN-AMERICAN > 60; GFR NON-AFRICAN AMERICAN 58; HDL CHOLESTEROL 17 mg/dL (30-70)
[2017-08-31 08:21] LABS: CK-MB 4.48 ng/mL (0.0-3.38)
[2017-08-31 08:34] LABS: BANDS 11 % (0-2); HYPOCHROMIC SLIGHT; LYMPHOCYTE 2 % (20-40); MONOCYTE 1 % (0-10); NEUTROPHIL 86 % (50-75); PLATELET ESTIMATE NORMAL (NORMAL); TOTAL CELLS COUNTED 100
--- NOTE | 2017-08-31 08:44 | CP.PCM.PN ---
Subjective - Date & Time of Evaluation Date of Evaluation: 08/31/17 Time of Evaluation: 08:40 - Subjective Subjective: Medical Attending: Patient denies headache, denies chest pain, denies palpitations, denies lightheadedness, denies abdominal pain, denies nausea, denies vomitting, denies dysuria, denies frequency. Patient has not been out of bed since coming into the hospital yesterday. Patient is pending follow-up with urology on 09/17. Patient reports he had completed stress with Dr Caban in July 2017. Patient switched to Dr. Caban about 6 weeks ago. Patient used to see a different certified ophthalmic medical technician but recently switched due to distance. Objective - Vital Signs/Intake and Output Vital Signs (last 24 hours): Temp Pulse Resp BP Pulse Ox 98.4 F 88 22 139/71 99 08/31/17 04:00 08/31/17 07:00 08/31/17 07:00 08/31/17 06:59 08/31/17 07:00 Intake and Output: 08/31/17 08/31/17 06:59 18:59 Intake Total 442 154 Output Total 420 70 Balance 22 84 - Medications Medications: Current Medications Aspirin (Aspirin Chewable) 162 mg PO DAILY [facility] Clopidogrel Bisulfate (Plavix) 75 mg PO DAILY [facility] Famotidine (Pepcid) 20 mg PO BID [facility] Heparin Sodium/Sodium Chloride (Heparin 82652 Units/250ml 1/2 Normal Saline) 25 ,000 units in 250 mls @ 8.981 mls/hr IV .Q24H PRN; Protocol; 12 UNITS/KG/HR PRN Reason: PROTOCOL Last Titration: 08/31/17 08:25 Dose: 14 units/kg/hr, 10.478 mls/hr Ceftriaxone Sodium (Rocephin Iv 1 Gm Duplex) 50 mls @ 100 mls/hr IVPB Q12H [facility] PRN Reason: Protocol Last Admin: 08/31/17 04:26 Dose: 100 mls/hr Ipratropium Tea (Atrovent) 0.5 mg IH RQ6 PRN PRN Reason: Shortness of Breath Isosorbide Mononitrate (Imdur Er) 30 mg PO Q24H [facility] Losartan Potassium (Cozaar) 50 mg PO Q24H [facility] Metoprolol Succinate (Toprol Xl) 50 mg PO Q24H [facility] Last Admin: 08/31/17 06:31 Dose: 50 mg Potassium Chloride (K-Dur 20 Meq Er Tab) 40 meq PO ONCE ONE Stop: 08/31/17 20:17 Rosuvastatin Calcium (Crestor) 10 mg PO HS [facility] Last Admin: 08/30/17 21:11 Dose: 10 mg Saccharomyces Boulardii (Florastor) 250 mg PO BID [facility] Tamsulosin HCl (Flomax) 0.4 mg PO DAILY [facility] - Labs Labs: 08/31/17 05:59 08/31/17 05:59 PT 16.0 SECONDS (9.7-12.2) H 08/30/17 16:50 INR 1.5 08/30/17 16:50 APTT 44 SECONDS (21-34) H 08/31/17 05:59 - Constitutional Appears: Non-toxic, No Acute Distress - Head Exam Head Exam: NORMAL INSPECTION - Eye Exam Eye Exam: EOMI - ENT Exam ENT Exam: Mucous Membranes Moist - Respiratory Exam Respiratory Exam: Clear to Ausculation Bilateral, NORMAL BREATHING PATTERN. absent: Rales, Rhonchi, Wheezes - Cardiovascular Exam Cardiovascular Exam: REGULAR RHYTHM, +S1, +S2 - GI/Abdominal Exam GI & Abdominal Exam: Soft, Normal Bowel Sounds. absent: Distended, Firm, Guarding, Rigid, Tenderness, Rebound - Extremities Exam Extremities Exam: absent: Pedal Edema, Tenderness - Neurological Exam Neurological Exam: Alert, Awake, Oriented x3 - Psychiatric Exam Psychiatric exam: Normal Affect, Normal Mood - Skin Skin Exam: Dry, Normal Color, Warm Assessment and Plan (1) Syncope Status: Acute (2) NSTEMI (non-ST elevated myocardial infarction) Status: Acute (3) CAD (coronary artery disease) Status: Chronic (4) History of coronary artery bypass graft Status: Chronic (5) Prophylactic measure Status: Acute Attending/Attestation - Attestation I have personally seen and examined this patient.: Yes I have fully participated in the care of the patient.: Yes I have reviewed all pertinent clinical information, including history, physical exam and plan: Yes Notes (Text): Assessment/Plan 1) Syncope Assessment/Plan * Cardiology (Dr. Ron) on the case-->help appreciated * Neurology (Dr. Keane) on the case-->help appreciated * CT Head (08/30/17): no acute intracrnial hemorrhage, or large acute infract seen. Mild chronic perventricular white matter ischemic changes seen estending peripherally into the deep white matter both cerebral hemisphere. few scatter chronic bilateral basal nuclei lacunar type infarcts as well. * Troponins: 0.2820, 0.2200, 0.3200, 0.3240 * pending: MRA head and neck, MRI brain, ECHO, EEG * TSH, Free T4 within normal limits * RPR * Vit B12: 917 * Folate: 5.0 * Fall precautions, seizure precautions 2) Nonstemi * Cardiology consulted, Dr. Ron, help appreciated * L atrial enlargement with incomplete RBBB on ekg unchanged from 06/18/17 * Heparin Drip * Troponins: 0.2820, 0.2200, 0.3200, 0.3240 * Aspirin 162mg PO daily (Home medication) * Plavix 75mg PO daily * Has had a recent stress test in July 2017 completed-->will need to follow-up for reports. 3) Uncontrolled Hypertension * Cardiology (Dr. Ron) on the case-->help appreciated * Labetalol 5mg iv given in ED on admission * IMdur 30mg PO Q24H * Cozaar 50mg PO Q24H * Toprol XL 50mg PO24H 4) Hypokalemia * Normalized 5) Anemia * low iron, low iron stores; ferritin normal * Vit B12: 917 , Folate: 5.0 * Patient is on Aspirin and Plavix, known hx of cabg and triple bypass 6) , Neutropenia, Bandemia * Monitor for possible sepsis * Pending blood culture, urine culture * UA positive- start Rocephin 1g q24h * CXR: no acute process 7) Indwelling Craft for Hx BPH Recent urologic procedure with urologic stent * Urology consulted, Dr. 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
[2017-08-31] MEDS ORDERED: Iodixanol 320 MG/ML 100 ML BOTTLE IV ONE (08:57)
[2017-08-31] MEDS: Saccharomyces Boulardi 250 mg Cap PO SCH ×2 (09:59→18:13)
[2017-08-31] MEDS ORDERED: Home Med 1 UNIT (Esomeprazole Magnesium [Nexium] 40 MG) PO SCH (10:00)
--- NOTE | 2017-08-31 10:38 | CT ---
COMPARISON: Comparison made CT scan brain dated 08/30/2017 TECHNIQUE: Contiguous helical/transaxial images of the neck were obtained from the level of the skull-base to the superior mediastinum in the arteriographic phase of enhancement. Coronal and sagittal reformats or also generated. IV contrast dose: 100 cc Visipaque 320 Radiation Dose - DLP: 593.03 mGy-cm This CT exam was performed using one or more of the following dose reduction techniques: Automated exposure control, adjustment of the mA and/or kV according to patient size, and/or use of iterative reconstruction technique. . . FINDINGS: There are several pulmonary emboli seen in the right middle and right lower lobe lobar and proximal segmental branches of the pulmonary arteries. Additionally, there are also filling defects seen within the left upper and lower lobe branches as well. Note these findings were discussed with ICU physician Dr. Flores at 10:13 a.m. with written down and read back verification. The aortic arch exhibits partially calcified atherosclerotic plaque which extend into the origins of the left subclavian and common trunk from which arise the right brachiocephalic and left common carotid artery. Both common carotid arteries are patent throughout despite some minor calcified atherosclerotic plaque along the mid left common carotid artery and bifurcation as well as right distal common carotid artery and bifurcation. Plaque changes extending to the proximal margins of both internal carotid artery. There is mild narrowing at the level of the proximal margins of both internal carotid artery's carotid artery due to the aforementioned plaque. Carotid Doppler could be performed for further assessment. . Minor calcified plaque also seen along the distal internal carotid arteries before and just as they enter the petrous canal. There are partially calcified plaque changes seen along the cavernous carotid arteries. . 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 The distal branches of the anterior cerebral arteries appear symmetric. The middle cerebral arteries are also patent with symmetric appearing distal branches the. The vertebral arteries are patent throughout and appear relatively symmetric. The basilar artery is patent. There is origin of the right posterior cerebral artery with mild asymmetry of the P1 segments right-sided which is slightly smaller in caliber than the left. Distal branches are patent. No evidence of large aneurysm nor vascular malformation. Postoperative changes left nasal cavity which includes resection of the left inferior turbinate and antrostomy defect medial wall left maxillary antrum. Note also made of mild mucosal thickening in the left maxillary sinus as well as multiple ethmoid air cells with aerosolized mucosal thickening left chamber sphenoid sinus IMPRESSION: pulmonary emboli as detailed above. Findings discussed with ICU physician Dr. Liu at 10:15 a.m. with written down and read back verification. Mild partially calcified atherosclerotic plaque seen along the aortic arch, origins of the great vessels as above. There are also mild croup partially calcified plaque changes seen along the left common carotid artery, both distal common carotid arteries with extension into the bifurcations and internal carotid arteries. . No evidence of occlusion however there is narrowing of both proximal internal carotid arteries. Consider follow-up carotid Doppler for further assessment seen along the distal internal carotid arteries just before and as they enter the petrous canal as well as both cavernous carotid segments.
[2017-08-31] MEDS: Sodium Chloride 0.9% 1,000 ML IV SCH (11:05)
--- NOTE | 2017-08-31 11:33 | CP.CCUPN ---
CCU Subjective - Physician Review Subjective (Free Text): Patient seen and examined at bedside. No overnight events reported. Patient has no complaints at this time. He denies any fever, chills, SOB, chest pain, palpitations, abdominal pain, changes in bowel habits or urinary symptoms. CCU Objective - Vital Signs / Intake & Output Vital Signs (Last 4 hours): Vital Signs Temp Pulse Resp BP Pulse Ox 08/31/17 10:00 78 21 98 08/31/17 09:59 79 16 133/66 97 08/31/17 09:00 93 H 23 96 08/31/17 08:58 90 21 147/66 96 08/31/17 08:00 99.5 F Intake and Output (Last 8hrs): Intake & Output 08/30/17 08/31/17 08/31/17 22:59 06:59 14:59 Intake Total 442 435.5 Output Total 420 190 Balance 22 245.5 Weight 165 lb 163 lb 2.273 oz Intake: IV 136 Intake, IV Amount 72 49.5 left AC 72 49.5 Oral 370 250 Output: Urine 420 190 Urethral (Craft) 420 190 Other: Voiding Method Indwelling Catheter # Bowel Movements 0 0 - Physical Exam Head: Positive for: Atraumatic, Normocephalic Extroacular Muscles: Positive for: EOMI Conjunctiva: Positive for: Normal Mouth: Positive for: Moist Mucous Membranes Respiratory/Chest: Positive for: Clear to Auscultation. Negative for: Accessory Muscle Use, Wheezes, Rales, Rhonchi Cardiovascular: Positive for: Regular Rate and Rhythm, Normal S1, S2 Abdomen: Positive for: Normal Bowel Sounds. Negative for: Tenderness Neurological: Positive for: GCS=15 Skin: Positive for: Warm, Dry, Normal Color Psychiatric: Positive for: Alert, Oriented x 3 - Medications Active Medications: Active Medications Generic Name Dose Route Start Last Admin Trade Name Freq PRN Reason Stop Dose Admin Aspirin 162 mg 08/31/17 10:00 08/31/17 09:59 Aspirin Chewable PO 162 mg DAILY BIRGIT Administration Clopidogrel Bisulfate 75 mg 08/31/17 10:00 08/31/17 09:59 Plavix PO 75 mg DAILY BIRGIT Administration Famotidine 20 mg 08/31/17 10:00 08/31/17 10:00 Pepcid PO 20 mg BID BIRGIT Administration Heparin Sodium/Sodium Chloride 25,000 units in 250 mls @ 8.981 mls/hr 22:45 08/31/17 08:25 Heparin 65550 Units/250ml 1/2 Normal Saline IV 14 units/kg/hr .Q24H PRN 10.478 mls/hr PROTOCOL Titration Protocol 12 UNITS/KG/HR Imipenem/Cilastatin Sodium 500 100 mls @ 100 mls/hr 08/31/17 11:00 mg/ Sodium Chloride IVPB Q8H BIRGIT Protocol Sodium Chloride 1,000 mls @ 75 mls/hr 08/31/17 11:00 08/31/17 11:05 Sodium Chloride 0.9% IV 75 mls/hr .[id number] BIRGIT Administration Ipratropium [place] 0.5 mg 08/30/17 21:10 Atrovent IH RQ6 PRN Shortness of Breath Isosorbide Mononitrate 30 mg 08/31/17 19:00 Imdur Er PO Q24H BIRGIT Losartan Potassium 50 mg 08/31/17 13:00 Cozaar PO Q24H BIRGIT Metoprolol Succinate 50 mg 08/31/17 07:00 08/31/17 06:31 Toprol Xl PO 50 mg Q24H BIRGIT Administration Potassium Chloride 40 meq 08/31/17 20:16 K-Dur 20 Meq Er Tab PO 08/31/17 20:17 ONCE ONE Rosuvastatin Calcium 10 mg 08/30/17 22:00 08/30/17 21:11 Crestor PO 10 mg HS BIRGIT Administration Saccharomyces Boulardii 250 mg 08/31/17 10:00 08/31/17 09:59 Florastor PO 250 mg BID BIRGIT Administration Tamsulosin HCl 0.4 mg 08/31/17 10:00 08/31/17 09:58 Flomax PO 0.4 mg DAILY BIRGIT Administration - Patient Studies Lab Studies: Microbiology Studies 08/30/17 15:35 Urine Culture - Preliminary Urine,Catheterized Gram Negative Matthew 08/30/17 16:10 Gram Stain - Final Blood Lab Studies 08/31/17 08/31/17 08/31/17 Range/Units 05:59 05:59 05:59 WBC (4.8-10.8) K/uL RBC (4.40-5.90) Mil/uL Hgb (12.0-18.0) g/dL Hct (35.0-51.0) % MCV (80.0-94.0) fL MCH (27.0-31.0) pg MCHC (33.0-37.0) g/dL RDW (11.5-14.5) % Plt Count (130-400) K/uL MPV (7.2-11.7) fL Neut % (Auto) (50.0-75.0) % Lymph % (Auto) (20.0-40.0) % [place] % (Auto) (0.0-10.0) % Eos % (Auto) (0.0-4.0) % Baso % (Auto) (0.0-2.0) % Neut # (Auto) (1.8-7.0) K/uL Lymph # (Auto) (1.0-4.3) K/uL [place] # (Auto) (0.0-0.8) K/uL Eos # (Auto) (0.0-0.7) K/uL Baso # (Auto) (0.0-0.2) K/uL Neutrophils % (Manual) (50-75) % Band Neutrophils % (0-2) % Lymphocytes % (Manual) (20-40) % Monocytes % (Manual) (0-10) % Platelet Estimate (NORMAL) Large Platelets Polychromasia Hypochromasia (manual) Anisocytosis (manual) PT (9.7-12.2) SECONDS INR APTT 44 H (21-34) SECONDS pO2 (30-55) mm/Hg VBG pH (7.32-7.43) VBG pCO2 (40-60) mmHg VBG HCO3 mmol/L VBG Total CO2 (22-28) mmol/L VBG O2 Sat (Calc) (40-65) % VBG Base Excess (0.0-2.0) mmol/L VBG Potassium (3.6-5.2) mmol/L Glucose (75-110) mg/dl Lactate (0.7-2.1) mmol/L Sodium (132-148) mmol/L Potassium (3.6-5.2) mmol/L Chloride (98-107) mmol/L Carbon Dioxide (22-30) mmol/L Anion Gap (10-20) BUN (9-20) mg/dL Creatinine (0.8-1.5) mg/dL Est GFR ( Amer) Est GFR (Non-Af Amer) Random Glucose (75-110) mg/dL Calcium (8.6-10.4) mg/dl Phosphorus (2.5-4.5) mg/dL Magnesium (1.6-2.3) mg/dL Iron 10 L (49-181) ug/dL TIBC 208 L (250-450) ug/dL % Saturation 5 L (20-55) Ferritin ng/mL Total Bilirubin (0.2-1.3) mg/dL AST (17-59) U/L ALT (21-72) U/L Alkaline Phosphatase (38-126) U/L Total Creatine Kinase (55-170) U/L CK-MB (Mass) (0.0-3.38) ng/mL Troponin I (0.00-0.120) ng/mL NT-Pro-B Natriuret Pep (0-900) pg/mL Total Protein (6.3-8.3) g/dL Albumin (3.5-5.0) g/dL Globulin (2.2-3.9) gm/dL Albumin/Globulin Ratio (1.0-2.1) Triglycerides (0-149) mg/dL Cholesterol (0-199) mg/dL LDL Cholesterol Direct (0-129) mg/dL HDL Cholesterol (30-70) mg/dL Vitamin B12 (239-931) pg/mL Folate ng/mL Free T4 1.38 (0.78-2.19) ng/dL TSH 3rd Generation (0.46-4.68) mIU/L Venous Blood Potassium (3.6-5.2) mmol/L Urine Color (YELLOW) Urine Clarity (Clear) Urine pH (5.0-8.0) Ur Specific [place] (1.003-1.030) Urine Protein (NEGATIVE) mg/dL Urine Glucose (UA) (Normal) mg/dL Urine Ketones (NEGATIVE) mg/dL Urine Blood (NEGATIVE) Urine Nitrate (NEGATIVE) Urine Bilirubin (NEGATIVE) Urine Urobilinogen (0.2-1.0) mg/dL Ur Leukocyte Esterase (Negative) Virginie/uL Urine WBC (Auto) (0-5) /hpf Urine RBC (Auto) (0-3) /hpf Ur Squamous Epith Cells (0-5) /hpf Urine Bacteria (<OCC) Influenza Typ A,B (EIA) (NEGATIVE) 08/31/17 08/31/17 08/31/17 Range/Units 05:59 05:59 00:43 WBC 3.8 L D (4.8-10.8) K/uL RBC 3.61 L (4.40-5.90) Mil/uL Hgb 11.0 L (12.0-18.0) g/dL Hct 32.3 L (35.0-51.0) % MCV 89.4 (80.0-94.0) fL MCH 30.4 (27.0-31.0) pg MCHC 34.0 (33.0-37.0) g/dL RDW 15.6 H (11.5-14.5) % Plt Count 143 (130-400) K/uL MPV 8.7 (7.2-11.7) fL Neut % (Auto) 96.2 H (50.0-75.0) % Lymph % (Auto) 1.6 L (20.0-40.0) % [place] % (Auto) 1.9 (0.0-10.0) % Eos % (Auto) 0.0 (0.0-4.0) % Baso % (Auto) 0.3 (0.0-2.0) % Neut # (Auto) 3.6 (1.8-7.0) K/uL Lymph # (Auto) 0.1 L (1.0-4.3) K/uL [place] # (Auto) 0.1 (0.0-0.8) K/uL Eos # (Auto) 0.0 (0.0-0.7) K/uL Baso # (Auto) 0.0 (0.0-0.2) K/uL Neutrophils % (Manual) 86 H (50-75) % Band Neutrophils % 11 H* (0-2) % Lymphocytes % (Manual) 2 L (20-40) % Monocytes % (Manual) 1 (0-10) % Platelet Estimate Normal (NORMAL) Large Platelets Polychromasia Hypochromasia (manual) Slight Anisocytosis (manual) PT (9.7-12.2) SECONDS INR APTT (21-34) SECONDS pO2 (30-55) mm/Hg VBG pH (7.32-7.43) VBG pCO2 (40-60) mmHg VBG HCO3 mmol/L VBG Total CO2 (22-28) mmol/L VBG O2 Sat (Calc) (40-65) % VBG Base Excess (0.0-2.0) mmol/L VBG Potassium (3.6-5.2) mmol/L Glucose (75-110) mg/dl Lactate (0.7-2.1) mmol/L Sodium 136 (132-148) mmol/L Potassium 4.0 (3.6-5.2) mmol/L Chloride 97 L (98-107) mmol/L Carbon Dioxide 29 (22-30) mmol/L Anion Gap 14 (10-20) BUN 23 H (9-20) mg/dL Creatinine 1.2 (0.8-1.5) mg/dL Est GFR ( Amer) > 60 Est GFR (Non-Af Amer) 58 Random Glucose 121 H (75-110) mg/dL Calcium 8.0 L (8.6-10.4) mg/dl Phosphorus 3.2 (2.5-4.5) mg/dL Magnesium 2.1 (1.6-2.3) mg/dL Iron (49-181) ug/dL TIBC (250-450) ug/dL % Saturation (20-55) Ferritin 360.0 ng/mL Total Bilirubin 0.6 (0.2-1.3) mg/dL AST 61 H D (17-59) U/L ALT 28 (21-72) U/L Alkaline Phosphatase 76 (38-126) U/L Total Creatine Kinase 1368 H 879 H (55-170) U/L CK-MB (Mass) 4.48 H 1.95 (0.0-3.38) ng/mL Troponin I 0.3240 H* 0.3200 H* (0.00-0.120) ng/mL NT-Pro-B Natriuret Pep (0-900) pg/mL Total Protein 6.9 (6.3-8.3) g/dL Albumin 3.1 L (3.5-5.0) g/dL Globulin 3.8 (2.2-3.9) gm/dL Albumin/Globulin Ratio 0.8 L (1.0-2.1) Triglycerides 94 D (0-149) mg/dL Cholesterol 86 (0-199) mg/dL LDL Cholesterol Direct 37 (0-129) mg/dL HDL Cholesterol 17 L (30-70) mg/dL Vitamin B12 (239-931) pg/mL Folate 5.0 ng/mL Free T4 (0.78-2.19) ng/dL TSH 3rd Generation (0.46-4.68) mIU/L Venous Blood Potassium (3.6-5.2) mmol/L Urine Color (YELLOW) Urine Clarity (Clear) Urine pH (5.0-8.0) Ur Specific [place] (1.003-1.030) Urine Protein (NEGATIVE) mg/dL Urine Glucose (UA) (Normal) mg/dL Urine Ketones (NEGATIVE) mg/dL Urine Blood (NEGATIVE) Urine Nitrate (NEGATIVE) Urine Bilirubin (NEGATIVE) Urine Urobilinogen (0.2-1.0) mg/dL Ur Leukocyte Esterase (Negative) Virginie/uL Urine WBC (Auto) (0-5) /hpf Urine RBC (Auto) (0-3) /hpf Ur Squamous Epith Cells (0-5) /hpf Urine Bacteria (<OCC) Influenza Typ A,B (EIA) (NEGATIVE) 08/31/17 08/30/17 08/30/17 Range/Units 00:43 21:02 21:02 WBC (4.8-10.8) K/uL RBC (4.40-5.90) Mil/uL Hgb (12.0-18.0) g/dL Hct (35.0-51.0) % MCV (80.0-94.0) fL MCH (27.0-31.0) pg MCHC (33.0-37.0) g/dL RDW (11.5-14.5) % Plt Count (130-400) K/uL MPV (7.2-11.7) fL Neut % (Auto) (50.0-75.0) % Lymph % (Auto) (20.0-40.0) % [place] % (Auto) (0.0-10.0) % Eos % (Auto) (0.0-4.0) % Baso % (Auto) (0.0-2.0) % Neut # (Auto) (1.8-7.0) K/uL Lymph # (Auto) (1.0-4.3) K/uL [place] # (Auto) (0.0-0.8) K/uL Eos # (Auto) (0.0-0.7) K/uL Baso # (Auto) (0.0-0.2) K/uL Neutrophils % (Manual) (50-75) % Band Neutrophils % (0-2) % Lymphocytes % (Manual) (20-40) % Monocytes % (Manual) (0-10) % Platelet Estimate (NORMAL) Large Platelets Polychromasia Hypochromasia (manual) Anisocytosis (manual) PT (9.7-12.2) SECONDS INR APTT 47 H D (21-34) SECONDS pO2 (30-55) mm/Hg VBG pH (7.32-7.43) VBG pCO2 (40-60) mmHg VBG HCO3 mmol/L VBG Total CO2 (22-28) mmol/L VBG O2 Sat (Calc) (40-65) % VBG Base Excess (0.0-2.0) mmol/L VBG Potassium (3.6-5.2) mmol/L Glucose (75-110) mg/dl Lactate (0.7-2.1) mmol/L Sodium (132-148) mmol/L Potassium (3.6-5.2) mmol/L Chloride (98-107) mmol/L Carbon Dioxide (22-30) mmol/L Anion Gap (10-20) BUN (9-20) mg/dL Creatinine (0.8-1.5) mg/dL Est GFR ( Amer) Est GFR (Non-Af Amer) Random Glucose (75-110) mg/dL Calcium (8.6-10.4) mg/dl Phosphorus 3.2 (2.5-4.5) mg/dL Magnesium (1.6-2.3) mg/dL Iron (49-181) ug/dL TIBC (250-450) ug/dL % Saturation (20-55) Ferritin ng/mL Total Bilirubin (0.2-1.3) mg/dL AST (17-59) U/L ALT (21-72) U/L Alkaline Phosphatase (38-126) U/L Total Creatine Kinase 512 H (55-170) U/L CK-MB (Mass) 1.25 (0.0-3.38) ng/mL Troponin I 0.2200 H* (0.00-0.120) ng/mL NT-Pro-B Natriuret Pep (0-900) pg/mL Total Protein (6.3-8.3) g/dL Albumin (3.5-5.0) g/dL Globulin (2.2-3.9) gm/dL Albumin/Globulin Ratio (1.0-2.1) Triglycerides (0-149) mg/dL Cholesterol (0-199) mg/dL LDL Cholesterol Direct (0-129) mg/dL HDL Cholesterol (30-70) mg/dL Vitamin B12 917 (239-931) pg/mL Folate ng/mL Free T4 (0.78-2.19) ng/dL TSH 3rd Generation 1.68 (0.46-4.68) mIU/L Venous Blood Potassium (3.6-5.2) mmol/L Urine Color (YELLOW) Urine Clarity (Clear) Urine pH (5.0-8.0) Ur Specific [place] (1.003-1.030) Urine Protein (NEGATIVE) mg/dL Urine Glucose (UA) (Normal) mg/dL Urine Ketones (NEGATIVE) mg/dL Urine Blood (NEGATIVE) Urine Nitrate (NEGATIVE) Urine Bilirubin (NEGATIVE) Urine Urobilinogen (0.2-1.0) mg/dL Ur Leukocyte Esterase (Negative) Virginie/uL Urine WBC (Auto) (0-5) /hpf Urine RBC (Auto) (0-3) /hpf Ur Squamous Epith Cells (0-5) /hpf Urine Bacteria (<OCC) Influenza Typ A,B (EIA) (NEGATIVE) 08/30/17 08/30/17 08/30/17 Range/Units 20:14 16:50 16:30 WBC (4.8-10.8) K/uL RBC (4.40-5.90) Mil/uL Hgb (12.0-18.0) g/dL Hct (35.0-51.0) % MCV (80.0-94.0) fL MCH (27.0-31.0) pg MCHC (33.0-37.0) g/dL RDW (11.5-14.5) % Plt Count (130-400) K/uL MPV (7.2-11.7) fL Neut % (Auto) (50.0-75.0) % Lymph % (Auto) (20.0-40.0) % [place] % (Auto) (0.0-10.0) % Eos % (Auto) (0.0-4.0) % Baso % (Auto) (0.0-2.0) % Neut # (Auto) (1.8-7.0) K/uL Lymph # (Auto) (1.0-4.3) K/uL [place] # (Auto) (0.0-0.8) K/uL Eos # (Auto) (0.0-0.7) K/uL Baso # (Auto) (0.0-0.2) K/uL Neutrophils % (Manual) (50-75) % Band Neutrophils % (0-2) % Lymphocytes % (Manual) (20-40) % Monocytes % (Manual) (0-10) % Platelet Estimate (NORMAL) Large Platelets Polychromasia Hypochromasia (manual) Anisocytosis (manual) PT 16.0 H (9.7-12.2) SECONDS INR 1.5 APTT 32 (21-34) SECONDS pO2 (30-55) mm/Hg VBG pH (7.32-7.43) VBG pCO2 (40-60) mmHg VBG HCO3 mmol/L VBG Total CO2 (22-28) mmol/L VBG O2 Sat (Calc) (40-65) % VBG Base Excess (0.0-2.0) mmol/L VBG Potassium (3.6-5.2) mmol/L Glucose (75-110) mg/dl Lactate (0.7-2.1) mmol/L Sodium (132-148) mmol/L Potassium (3.6-5.2) mmol/L Chloride (98-107) mmol/L Carbon Dioxide (22-30) mmol/L Anion Gap (10-20) BUN (9-20) mg/dL Creatinine (0.8-1.5) mg/dL Est GFR ( Amer) Est GFR (Non-Af Amer) Random Glucose (75-110) mg/dL Calcium (8.6-10.4) mg/dl Phosphorus (2.5-4.5) mg/dL Magnesium (1.6-2.3) mg/dL Iron (49-181) ug/dL TIBC (250-450) ug/dL % Saturation (20-55) Ferritin ng/mL Total Bilirubin (0.2-1.3) mg/dL AST (17-59) U/L ALT (21-72) U/L Alkaline Phosphatase (38-126) U/L Total Creatine Kinase (55-170) U/L CK-MB (Mass) (0.0-3.38) ng/mL Troponin I (0.00-0.120) ng/mL NT-Pro-B Natriuret Pep (0-900) pg/mL Total Protein (6.3-8.3) g/dL Albumin (3.5-5.0) g/dL Globulin (2.2-3.9) gm/dL Albumin/Globulin Ratio (1.0-2.1) Triglycerides (0-149) mg/dL Cholesterol (0-199) mg/dL LDL Cholesterol Direct (0-129) mg/dL HDL Cholesterol (30-70) mg/dL Vitamin B12 (239-931) pg/mL Folate ng/mL Free T4 (0.78-2.19) ng/dL TSH 3rd Generation (0.46-4.68) mIU/L Venous Blood Potassium (3.6-5.2) mmol/L Urine Color Yellow (YELLOW) Urine Clarity Hazy (Clear) Urine pH 5.0 (5.0-8.0) Ur Specific [place] 1.028 (1.003-1.030) Urine Protein 2+ H (NEGATIVE) mg/dL Urine Glucose (UA) Normal (Normal) mg/dL Urine Ketones Negative (NEGATIVE) mg/dL Urine Blood 3+ H (NEGATIVE) Urine Nitrate Negative (NEGATIVE) Urine Bilirubin Negative (NEGATIVE) Urine Urobilinogen Normal (0.2-1.0) mg/dL Ur Leukocyte Esterase 2+ H (Negative) Virginie/uL Urine WBC (Auto) 484 H (0-5) /hpf Urine RBC (Auto) 51 H (0-3) /hpf Ur Squamous Epith Cells 1 (0-5) /hpf Urine Bacteria Many H (<OCC) Influenza Typ A,B (EIA) Negative for flu a/b (NEGATIVE) 08/30/17 08/30/17 08/30/17 Range/Units 16:17 15:39 15:36 WBC 7.9 (4.8-10.8) K/uL RBC 3.42 L (4.40-5.90) Mil/uL Hgb 10.5 L (12.0-18.0) g/dL Hct 30.5 L (35.0-51.0) % MCV 89.2 (80.0-94.0) fL MCH 30.7 (27.0-31.0) pg MCHC 34.4 (33.0-37.0) g/dL RDW 15.3 H (11.5-14.5) % Plt Count 157 (130-400) K/uL MPV 8.3 (7.2-11.7) fL Neut % (Auto) 91.2 H (50.0-75.0) % Lymph % (Auto) 2.8 L (20.0-40.0) % [place] % (Auto) 5.8 (0.0-10.0) % Eos % (Auto) 0.0 (0.0-4.0) % Baso % (Auto) 0.2 (0.0-2.0) % Neut # (Auto) 7.2 H (1.8-7.0) K/uL Lymph # (Auto) 0.2 L (1.0-4.3) K/uL [place] # (Auto) 0.5 (0.0-0.8) K/uL Eos # (Auto) 0.0 (0.0-0.7) K/uL Baso # (Auto) 0.0 (0.0-0.2) K/uL Neutrophils % (Manual) 85 H (50-75) % Band Neutrophils % 8 H (0-2) % Lymphocytes % (Manual) 2 L (20-40) % Monocytes % (Manual) 5 (0-10) % Platelet Estimate Normal (NORMAL) Large Platelets Present Polychromasia Slight Hypochromasia (manual) Slight Anisocytosis (manual) Slight PT (9.7-12.2) SECONDS INR APTT (21-34) SECONDS pO2 35 (30-55) mm/Hg VBG pH 7.43 (7.32-7.43) VBG pCO2 39 L (40-60) mmHg VBG HCO3 25.3 mmol/L VBG Total CO2 27.1 (22-28) mmol/L VBG O2 Sat (Calc) 72.7 H (40-65) % VBG Base Excess 1.5 (0.0-2.0) mmol/L VBG Potassium 3.0 L (3.6-5.2) mmol/L Glucose 123 H (75-110) mg/dl Lactate 1.4 (0.7-2.1) mmol/L Sodium 135.0 (132-148) mmol/L Potassium (3.6-5.2) mmol/L Chloride 102.0 (98-107) mmol/L Carbon Dioxide (22-30) mmol/L Anion Gap (10-20) BUN (9-20) mg/dL Creatinine (0.8-1.5) mg/dL Est GFR ( Amer) Est GFR (Non-Af Amer) Random Glucose (75-110) mg/dL Calcium (8.6-10.4) mg/dl Phosphorus (2.5-4.5) mg/dL Magnesium (1.6-2.3) mg/dL Iron (49-181) ug/dL TIBC (250-450) ug/dL % Saturation (20-55) Ferritin ng/mL Total Bilirubin (0.2-1.3) mg/dL AST (17-59) U/L ALT (21-72) U/L Alkaline Phosphatase (38-126) U/L Total Creatine Kinase (55-170) U/L CK-MB (Mass) (0.0-3.38) ng/mL Troponin I (0.00-0.120) ng/mL NT-Pro-B Natriuret Pep 5550 H (0-900) pg/mL Total Protein (6.3-8.3) g/dL Albumin (3.5-5.0) g/dL Globulin (2.2-3.9) gm/dL Albumin/Globulin Ratio (1.0-2.1) Triglycerides (0-149) mg/dL Cholesterol (0-199) mg/dL LDL Cholesterol Direct (0-129) mg/dL HDL Cholesterol (30-70) mg/dL Vitamin B12 (239-931) pg/mL Folate ng/mL Free T4 (0.78-2.19) ng/dL TSH 3rd Generation (0.46-4.68) mIU/L Venous Blood Potassium 3.0 L (3.6-5.2) mmol/L Urine Color (YELLOW) Urine Clarity (Clear) Urine pH (5.0-8.0) Ur Specific [place] (1.003-1.030) Urine Protein (NEGATIVE) mg/dL Urine Glucose (UA) (Normal) mg/dL Urine Ketones (NEGATIVE) mg/dL Urine Blood (NEGATIVE) Urine Nitrate (NEGATIVE) Urine Bilirubin (NEGATIVE) Urine Urobilinogen (0.2-1.0) mg/dL Ur Leukocyte Esterase (Negative) Virginie/uL Urine WBC (Auto) (0-5) /hpf Urine RBC (Auto) (0-3) /hpf Ur Squamous Epith Cells (0-5) /hpf Urine Bacteria (<OCC) Influenza Typ A,B (EIA) (NEGATIVE) 08/30/17 Range/Units 15:36 WBC (4.8-10.8) K/uL RBC (4.40-5.90) Mil/uL Hgb (12.0-18.0) g/dL Hct (35.0-51.0) % MCV (80.0-94.0) fL MCH (27.0-31.0) pg MCHC (33.0-37.0) g/dL RDW (11.5-14.5) % Plt Count (130-400) K/uL MPV (7.2-11.7) fL Neut % (Auto) (50.0-75.0) % Lymph % (Auto) (20.0-40.0) % [place] % (Auto) (0.0-10.0) % Eos % (Auto) (0.0-4.0) % Baso % (Auto) (0.0-2.0) % Neut # (Auto) (1.8-7.0) K/uL Lymph # (Auto) (1.0-4.3) K/uL [place] # (Auto) (0.0-0.8) K/uL Eos # (Auto) (0.0-0.7) K/uL Baso # (Auto) (0.0-0.2) K/uL Neutrophils % (Manual) (50-75) % Band Neutrophils % (0-2) % Lymphocytes % (Manual) (20-40) % Monocytes % (Manual) (0-10) % Platelet Estimate (NORMAL) Large Platelets Polychromasia Hypochromasia (manual) Anisocytosis (manual) PT (9.7-12.2) SECONDS INR APTT (21-34) SECONDS pO2 (30-55) mm/Hg VBG pH (7.32-7.43) VBG pCO2 (40-60) mmHg VBG HCO3 mmol/L VBG Total CO2 (22-28) mmol/L VBG O2 Sat (Calc) (40-65) % VBG Base Excess (0.0-2.0) mmol/L VBG Potassium (3.6-5.2) mmol/L Glucose (75-110) mg/dl Lactate (0.7-2.1) mmol/L Sodium 137 (132-148) mmol/L Potassium 3.4 L (3.6-5.2) mmol/L Chloride 99 (98-107) mmol/L Carbon Dioxide 27 (22-30) mmol/L Anion Gap 14 (10-20) BUN 22 H (9-20) mg/dL Creatinine 1.1 (0.8-1.5) mg/dL Est GFR ( Amer) > 60 Est GFR (Non-Af Amer) > 60 Random Glucose 121 H (75-110) mg/dL Calcium 7.9 L (8.6-10.4) mg/dl Phosphorus (2.5-4.5) mg/dL Magnesium (1.6-2.3) mg/dL Iron (49-181) ug/dL TIBC (250-450) ug/dL % Saturation (20-55) Ferritin ng/mL Total Bilirubin 0.7 (0.2-1.3) mg/dL AST 38 (17-59) U/L ALT 13 L D (21-72) U/L Alkaline Phosphatase 68 (38-126) U/L Total Creatine Kinase (55-170) U/L CK-MB (Mass) (0.0-3.38) ng/mL Troponin I 0.2820 H* (0.00-0.120) ng/mL NT-Pro-B Natriuret Pep (0-900) pg/mL Total Protein 6.9 (6.3-8.3) g/dL Albumin 3.1 L (3.5-5.0) g/dL Globulin 3.8 (2.2-3.9) gm/dL Albumin/Globulin Ratio 0.8 L (1.0-2.1) Triglycerides (0-149) mg/dL Cholesterol (0-199) mg/dL LDL Cholesterol Direct (0-129) mg/dL HDL Cholesterol (30-70) mg/dL Vitamin B12 (239-931) pg/mL Folate ng/mL Free T4 (0.78-2.19) ng/dL TSH 3rd Generation (0.46-4.68) mIU/L Venous Blood Potassium (3.6-5.2) mmol/L Urine Color (YELLOW) Urine Clarity (Clear) Urine pH (5.0-8.0) Ur Specific [place] (1.003-1.030) Urine Protein (NEGATIVE) mg/dL Urine Glucose (UA) (Normal) mg/dL Urine Ketones (NEGATIVE) mg/dL Urine Blood (NEGATIVE) Urine Nitrate (NEGATIVE) Urine Bilirubin (NEGATIVE) Urine Urobilinogen (0.2-1.0) mg/dL Ur Leukocyte Esterase (Negative) [place]ie/uL Urine WBC (Auto) (0-5) /hpf Urine RBC (Auto) (0-3) /hpf Ur Squamous Epith Cells (0-5) /hpf Urine Bacteria (<OCC) Influenza Typ A,B (EIA) (NEGATIVE) Laboratory Results - last 24 hr 08/30/17 08/30/17 08/30/17 15:36 15:36 15:39 WBC 7.9 RBC 3.42 L Hgb 10.5 L Hct 30.5 L MCV 89.2 MCH 30.7 MCHC 34.4 RDW 15.3 H Plt Count 157 MPV 8.3 Neut % (Auto) 91.2 H Lymph % (Auto) 2.8 L [place] % (Auto) 5.8 Eos % (Auto) 0.0 Baso % (Auto) 0.2 Neut # (Auto) 7.2 H Lymph # (Auto) 0.2 L [place] # (Auto) 0.5 Eos # (Auto) 0.0 Baso # (Auto) 0.0 Neutrophils % (Manual) 85 H Band Neutrophils % 8 H Lymphocytes % (Manual) 2 L Monocytes % (Manual) 5 Platelet Estimate Normal Large Platelets Present Polychromasia Slight Hypochromasia (manual) Slight Anisocytosis (manual) Slight PT INR APTT pO2 35 VBG pH 7.43 VBG pCO2 39 L VBG HCO3 25.3 VBG Total CO2 27.1 VBG O2 Sat (Calc) 72.7 H VBG Base Excess 1.5 VBG Potassium 3.0 L Glucose 123 H Lactate 1.4 Sodium 137 135.0 Potassium 3.4 L Chloride 99 102.0 Carbon Dioxide 27 Anion Gap 14 BUN 22 H Creatinine 1.1 Est GFR ( Amer) > 60 Est GFR (Non-Af Amer) > 60 Random Glucose 121 H Calcium 7.9 L Phosphorus Magnesium Iron TIBC % Saturation Ferritin Total Bilirubin 0.7 AST 38 ALT 13 L D Alkaline Phosphatase 68 Total Creatine Kinase CK-MB (Mass) Troponin I 0.2820 H* NT-Pro-B Natriuret Pep Total Protein 6.9 Albumin 3.1 L Globulin 3.8 Albumin/Globulin Ratio 0.8 L Triglycerides Cholesterol LDL Cholesterol Direct HDL Cholesterol Vitamin B12 Folate Free T4 TSH 3rd Generation Venous Blood Potassium 3.0 L Urine Color Urine Clarity Urine pH Ur Specific [place] Urine Protein Urine Glucose (UA) Urine Ketones Urine Blood Urine Nitrate Urine Bilirubin Urine Urobilinogen Ur Leukocyte Esterase Urine WBC (Auto) Urine RBC (Auto) Ur Squamous Epith Cells Urine Bacteria Influenza Typ A,B (EIA) 08/30/17 08/30/17 08/30/17 16:17 16:30 16:50 WBC RBC Hgb Hct MCV MCH MCHC RDW Plt Count MPV Neut % (Auto) Lymph % (Auto) [place] % (Auto) Eos % (Auto) Baso % (Auto) Neut # (Auto) Lymph # (Auto) [place] # (Auto) Eos # (Auto) Baso # (Auto) Neutrophils % (Manual) Band Neutrophils % Lymphocytes % (Manual) Monocytes % (Manual) Platelet Estimate Large Platelets Polychromasia Hypochromasia (manual) Anisocytosis (manual) PT 16.0 H INR 1.5 APTT 32 pO2 VBG pH VBG pCO2 VBG HCO3 VBG Total CO2 VBG O2 Sat (Calc) VBG Base Excess VBG Potassium Glucose Lactate Sodium Potassium Chloride Carbon Dioxide Anion Gap BUN Creatinine Est GFR ( Amer) Est GFR (Non-Af Amer) Random Glucose Calcium Phosphorus Magnesium Iron TIBC % Saturation Ferritin Total Bilirubin AST ALT Alkaline Phosphatase Total Creatine Kinase CK-MB (Mass) Troponin I NT-Pro-B Natriuret Pep 5550 H Total Protein Albumin Globulin Albumin/Globulin Ratio Triglycerides Cholesterol LDL Cholesterol Direct HDL Cholesterol Vitamin B12 Folate Free T4 TSH 3rd Generation Venous Blood Potassium Urine Color Yellow Urine Clarity Hazy Urine pH 5.0 Ur Specific [place] 1.028 Urine Protein 2+ H Urine Glucose (UA) Normal Urine Ketones Negative Urine Blood 3+ H Urine Nitrate Negative Urine Bilirubin Negative Urine Urobilinogen Normal Ur Leukocyte Esterase 2+ H Urine WBC (Auto) 484 H Urine RBC (Auto) 51 H Ur Squamous Epith Cells 1 Urine Bacteria Many H Influenza Typ A,B (EIA) 08/30/17 08/30/17 08/30/17 20:14 21:02 21:02 WBC RBC Hgb Hct MCV MCH MCHC RDW Plt Count MPV Neut % (Auto) Lymph % (Auto) [place] % (Auto) Eos % (Auto) Baso % (Auto) Neut # (Auto) Lymph # (Auto) [place] # (Auto) Eos # (Auto) Baso # (Auto) Neutrophils % (Manual) Band Neutrophils % Lymphocytes % (Manual) Monocytes % (Manual) Platelet Estimate Large Platelets Polychromasia Hypochromasia (manual) Anisocytosis (manual) PT INR APTT pO2 VBG pH VBG pCO2 VBG HCO3 VBG Total CO2 VBG O2 Sat (Calc) VBG Base Excess VBG Potassium Glucose Lactate Sodium Potassium Chloride Carbon Dioxide Anion Gap BUN Creatinine Est GFR ( Amer) Est GFR (Non-Af Amer) Random Glucose Calcium Phosphorus 3.2 Magnesium Iron TIBC % Saturation Ferritin Total Bilirubin AST ALT Alkaline Phosphatase Total Creatine Kinase 512 H CK-MB (Mass) 1.25 Troponin I 0.2200 H* NT-Pro-B Natriuret Pep Total Protein Albumin Globulin Albumin/Globulin Ratio Triglycerides Cholesterol LDL Cholesterol Direct HDL Cholesterol Vitamin B12 917 Folate Free T4 TSH 3rd Generation 1.68 Venous Blood Potassium Urine Color Urine Clarity Urine pH Ur Specific [place] Urine Protein Urine Glucose (UA) Urine Ketones Urine Blood Urine Nitrate Urine Bilirubin Urine Urobilinogen Ur Leukocyte Esterase Urine WBC (Auto) Urine RBC (Auto) Ur Squamous Epith Cells Urine Bacteria Influenza Typ A,B (EIA) Negative for flu a/b 08/31/17 08/31/17 08/31/17 00:43 00:43 05:59 WBC 3.8 L D RBC 3.61 L Hgb 11.0 L Hct 32.3 L MCV 89.4 MCH 30.4 MCHC 34.0 RDW 15.6 H Plt Count 143 MPV 8.7 Neut % (Auto) 96.2 H Lymph % (Auto) 1.6 L [place] % (Auto) 1.9 Eos % (Auto) 0.0 Baso % (Auto) 0.3 Neut # (Auto) 3.6 Lymph # (Auto) 0.1 L [place] # (Auto) 0.1 Eos # (Auto) 0.0 Baso # (Auto) 0.0 Neutrophils % (Manual) 86 H Band Neutrophils % 11 H* Lymphocytes % (Manual) 2 L Monocytes % (Manual) 1 Platelet Estimate Normal Large Platelets Polychromasia Hypochromasia (manual) Slight Anisocytosis (manual) PT INR APTT 47 H D pO2 VBG pH VBG pCO2 VBG HCO3 VBG Total CO2 VBG O2 Sat (Calc) VBG Base Excess VBG Potassium Glucose Lactate Sodium Potassium Chloride Carbon Dioxide Anion Gap BUN Creatinine Est GFR ( Amer) Est GFR (Non-Af Amer) Random Glucose Calcium Phosphorus Magnesium Iron TIBC % Saturation Ferritin Total Bilirubin AST ALT Alkaline Phosphatase Total Creatine Kinase 879 H CK-MB (Mass) 1.95 Troponin I 0.3200 H* NT-Pro-B Natriuret Pep Total Protein Albumin Globulin Albumin/Globulin Ratio Triglycerides Cholesterol LDL Cholesterol Direct HDL Cholesterol Vitamin B12 Folate Free T4 TSH 3rd Generation Venous Blood Potassium Urine Color Urine Clarity Urine pH Ur Specific [place] Urine Protein Urine Glucose (UA) Urine Ketones Urine Blood Urine Nitrate Urine Bilirubin Urine Urobilinogen Ur Leukocyte Esterase Urine WBC (Auto) Urine RBC (Auto) Ur Squamous Epith Cells Urine Bacteria Influenza Typ A,B (EIA) 08/31/17 08/31/17 08/31/17 05:59 05:59 05:59 WBC RBC Hgb Hct MCV MCH MCHC RDW Plt Count MPV Neut % (Auto) Lymph % (Auto) [place] % (Auto) Eos % (Auto) Baso % (Auto) Neut # (Auto) Lymph # (Auto) [place] # (Auto) Eos # (Auto) Baso # (Auto) Neutrophils % (Manual) Band Neutrophils % Lymphocytes % (Manual) Monocytes % (Manual) Platelet Estimate Large Platelets Polychromasia Hypochromasia (manual) Anisocytosis (manual) PT INR APTT pO2 VBG pH VBG pCO2 VBG HCO3 VBG Total CO2 VBG O2 Sat (Calc) VBG Base Excess VBG Potassium Glucose Lactate Sodium 136 Potassium 4.0 Chloride 97 L Carbon Dioxide 29 Anion Gap 14 BUN 23 H Creatinine 1.2 Est GFR ( Amer) > 60 Est GFR (Non-Af Amer) 58 Random Glucose 121 H Calcium 8.0 L Phosphorus 3.2 Magnesium 2.1 Iron 10 L TIBC 208 L % Saturation 5 L Ferritin 360.0 Total Bilirubin 0.6 AST 61 H D ALT 28 Alkaline Phosphatase 76 Total Creatine Kinase 1368 H CK-MB (Mass) 4.48 H Troponin I 0.3240 H* NT-Pro-B Natriuret Pep Total Protein 6.9 Albumin 3.1 L Globulin 3.8 Albumin/Globulin Ratio 0.8 L Triglycerides 94 D Cholesterol 86 LDL Cholesterol Direct 37 HDL Cholesterol 17 L Vitamin B12 Folate 5.0 Free T4 1.38 TSH 3rd Generation Venous Blood Potassium Urine Color Urine Clarity Urine pH Ur Specific [place] Urine Protein Urine Glucose (UA) Urine Ketones Urine Blood Urine Nitrate Urine Bilirubin Urine Urobilinogen Ur Leukocyte Esterase Urine WBC (Auto) Urine RBC (Auto) Ur Squamous Epith Cells Urine Bacteria Influenza Typ A,B (EIA) 08/31/17 05:59 WBC RBC Hgb Hct MCV MCH MCHC RDW Plt Count MPV Neut % (Auto) Lymph % (Auto) [place] % (Auto) Eos % (Auto) Baso % (Auto) Neut # (Auto) Lymph # (Auto) [place] # (Auto) Eos # (Auto) Baso # (Auto) Neutrophils % (Manual) Band Neutrophils % Lymphocytes % (Manual) Monocytes % (Manual) Platelet Estimate Large Platelets Polychromasia Hypochromasia (manual) Anisocytosis (manual) PT INR APTT 44 H pO2 VBG pH VBG pCO2 VBG HCO3 VBG Total CO2 VBG O2 Sat (Calc) VBG Base Excess VBG Potassium Glucose Lactate Sodium Potassium Chloride Carbon Dioxide Anion Gap BUN Creatinine Est GFR ( Amer) Est GFR (Non-Af Amer) Random Glucose Calcium Phosphorus Magnesium Iron TIBC % Saturation Ferritin Total Bilirubin AST ALT Alkaline Phosphatase Total Creatine Kinase CK-MB (Mass) Troponin I NT-Pro-B Natriuret Pep Total Protein Albumin Globulin Albumin/Globulin Ratio Triglycerides Cholesterol LDL Cholesterol Direct HDL Cholesterol Vitamin B12 Folate Free T4 TSH 3rd Generation Venous Blood Potassium Urine Color Urine Clarity Urine pH Ur Specific [place] Urine Protein Urine Glucose (UA) Urine Ketones Urine Blood Urine Nitrate Urine Bilirubin Urine Urobilinogen Ur Leukocyte Esterase Urine WBC (Auto) Urine RBC (Auto) Ur Squamous Epith Cells Urine Bacteria Influenza Typ A,B (EIA) EKG/Cardiology Studies: Cardiology / EKG Studies 08/30/17 15:17 ELECTROCARDIOGRAM Stat Comment: Mode Of Transportation: BED Reason For Exam: SOB 08/30/17 15:22 ELECTROCARDIOGRAM Stat Comment: Mode Of Transportation: BED Reason For Exam: SOB 08/30/17 19:48 EKG [ELECTROCARDIOGRAM] Q4H Comment: Mode Of Transportation: Reason For Exam: r/o ACS 08/30/17 23:48 EKG [ELECTROCARDIOGRAM] Q4H Comment: Mode Of Transportation: Reason For Exam: r/o ACS 08/31/17 03:48 EKG [ELECTROCARDIOGRAM] Q4H Comment: Mode Of Transportation: Reason For Exam: r/o ACS Review of Systems - Review of Systems All systems: reviewed and no additional remarkable complaints except (As per HPI ) Review of Systems: As per HPI Critical Care Progress Note - Nutrition Nutrition: Nutrition Category Date Time Status Heart Healthy Diet [DIET] Diets 08/30/17 Dinner Active Assessment/Plan - Assessment and Plan (Free Text) Assessment: 82 y/o M with PMHx of CABG 2004, HTN, HLD, BPH admitted presented with syncope. Admitted to ICU for evaluation and treatment of NSTEMI and PE. Plan: Neuro: A: Syncopy CT Head (08/30/17): no acute intracrnial hemorrhage, or large acute infract seen. Mild chronic perventricular white matter ischemic changes seen estending peripherally into the deep white matter both cerebral hemisphere. few scatter chronic bilateral basal nuclei lacunar type infarcts as well. CTA (Head/Neck): PE found. Carotid Plaques with no occlusion. Doppler Recommended. Head/Neck MRA: PENDING GSC 15 Sedation: None Neurology Consulted (Dr. Keane), Recs Appreciated. Cardio A: NSTEMI, HTN, HLD Troponins 0.33>0.32>0.324 Cardiolog Consulted (Dr. Ron), Recs Appreciated Cont. Home Metoprolol 50 Daily Cont. Losartan 50mg PO Daily Cont. Home ASA/Plavix /Crestor 10 HS Stress Test Faxed from Dr. Caban's Office revealed Preserved EF @ 68%. Impression: There is no definite evidence of reversible myocardial ischemia noted in this study. Imdur ER 30mg PO Q24H Pulm A: PE On therapeutic Heparin Cont. PRN Atrovent Venous Duplex to rule out DVT GI A: HLD : A: BPH, UTI UC: Gram Negative Rods Cont. Home Flomax Urology Consulted. Nephro/electrolytes A: Hypokalemia: Potassium Replenished. I/O: 1313/[id number] ID A: UTI, Bacteremia UC: Gram Negative Rods Blood Cultures: Gram Negative Rods F/U Sensitivity Start Primaxin (Imipenem/Cilastatin) 500mg Q8H NS @ 75mls/hr Endo TSH/Free T4 WNL MSK A: Distal lower extremity and upper extremity join pain. 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) Toradol 30 Q6H PRN Prophylaxis On Heparin Drip for PE/NSTEMI Florastor Pepcid BID Heart Healthy Diet Patient seen and discussed with ICU Attending Ilda Boyer, PGY-1
--- NOTE | 2017-08-31 16:17 | CARD ---
APPROVED REPORT EKG Measurement Heart [id number] 126P26 [id number] <Conclusion> Sinus tachycardia with premature atrial complexes Incomplete right bundle branch block Left anterior fascicular block Abnormal ECG
--- NOTE | 2017-08-31 16:18 | CARD ---
APPROVED REPORT EKG Measurement Heart [id number] CT 116P31 [id number] <Conclusion> Normal sinus rhythm Incomplete right bundle branch block Left anterior fascicular block Abnormal ECG
--- NOTE | 2017-08-31 17:11 | CARD ---
APPROVED REPORT EXAM: Two-dimensional and M-mode echocardiogram with Doppler and color Doppler. Other Information Quality : GoodRhythm : INDICATION Syncope Surgery/Intervention CABD DIMENSIONS IVSd1.3 (0.7-1.1cm)LVDd4.3 (3.9-5.9cm) LVOT Diameter2.1 (1.8-2.4cm)PWd1.0 (0.7-1.1cm) LVDs3.5 (2.5-4.0cm)FS (%) 19.4 % M-Mode DIMENSIONS RVDd1.89 (2.1-3.2cm)Left Atrium (MM)3.76 (2.5-4.0cm) IVSd1.32 (0.7-1.1cm)Aortic Root2.50 (2.2-3.7cm) LVDd5.10 (4.0-5.6cm)Aortic Cusp Exc.1.39 (1.5-2.0cm) PWd1.39 (0.7-1.1cm)FS (%) 37 % LVDs3.21 (2.0-3.8cm)LVEF (%)67 (>50%) Aortic Valve AoV Peak Iiwpfunf427.9cm/sAoV VTI46.3cmAO Peak GR.23mmHg LVOT Peak Xxbkfmyy38.4cm/sLVOT VTI18.50cmAO Mean GR.11mmHg OCTAVIO (VMAX)1.74ng3VZL (VTI)1.39cm2 Mitral Valve MV E Umjaabbb78.6cm/sMV A Zrjwrsno37.7cm/sE/A ratio0.8 TDI E/Lateral E'0.0E/Medial E'0.0 Tricuspid Valve TR Peak Opxfnqaw443di/sTR Peak Gr.63crExTIUO65auZn LEFT VENTRICLE The left ventricle is normal size. There is mild concentric left ventricular hypertrophy. The Ejection Fraction is 55-60%. There is normal LV segmental wall motion. Transmitral Doppler flow pattern is Grade I-abnormal relaxation pattern. RIGHT VENTRICLE The right ventricle is normal size. The right ventricular systolic function is normal. ATRIA The left atrium size is normal. The right atrium size is normal. suspicious for pfo AORTIC VALVE The aortic valve is trileaflet. The aortic valve is moderately calcified. There is trace aortic regurgitation. There is mild valvular aortic stenosis. Calculated aortic valve area is 1.3 cm2 with maximum pressure gradient of 23 mmHg and mean pressure gradient of 11 mmHg. MITRAL VALVE Mitral annular calcification is moderate. Mitral regurgitation is mild. TRICUSPID VALVE The tricuspid valve is normal in structure. There is moderate tricuspid regurgitation. Right ventricular systolic pressure is estimated at 50 mmHg. There is moderate pulmonary hypertension. PULMONIC VALVE The pulmonary valve is normal in structure. There is trace pulmonic valvular regurgitation. GREAT VESSELS The aortic root is normal in size. The aortic root displays moderate sclerocalcific changes of the aortic root. ivc is mildly dilated. PERICARDIAL EFFUSION There is no pericardial effusion. <Conclusion> The left ventricle is normal size. There is mild concentric left ventricular hypertrophy. The Ejection Fraction is 55-60%. Transmitral Doppler flow pattern is Grade I-abnormal relaxation pattern. suspicious for pfo There is mild valvular aortic stenosis. Calculated aortic valve area is 1.3 cm2 with maximum pressure gradient of 23 mmHg and mean pressure gradient of 11 mmHg. The aortic valve is trileaflet. The aortic valve is moderately calcified. There is trace aortic regurgitation. Mitral annular calcification is moderate. Mitral regurgitation is mild. There is moderate tricuspid regurgitation. Right ventricular systolic pressure is estimated at 50 mmHg. There is moderate pulmonary hypertension. The aortic root is normal in size. The aortic root displays moderate sclerocalcific changes of the aortic root. ivc is mildly dilated.
[2017-08-31] MEDS: Ipratropium 0.02% Inhal Soln (0.5 mg/2.5 ml) UD IH PRN (18:31)
[2017-08-31] MEDS ORDERED: Potassium Chloride 20 mEq ER Tab PO ONE (20:16)
[2017-08-31] MEDS: Heparin25000 units/250ml 1/2NS 25,000 UNITS/250 ML BAG IV PRN (21:26)
--- NOTE | 2017-08-31 21:41 | CARD ---
APPROVED REPORT EKG Measurement Heart [id number] LA 124P45 [id number] <Conclusion> Normal sinus rhythm Left anterior fascicular block Abnormal ECG
[2017-08-31] MEDS ORDERED: Heparin25000 units/250ml 1/2NS 25,000 UNITS/250 ML BAG IV PRN (22:19)
--- NOTE | 2017-08-31 22:59 | CON ---
DATE: REASON FOR CONSULTATION: Recurrent falls and elevated troponin as well as coronary artery disease. HISTORY OF PRESENT ILLNESS: The patient is an 82-year-old male who has a history of hypertension, coronary artery disease, status post triple bypass surgery in 2003 at [facility]. Since then, the patient did not require any coronary intervention, and he has been doing well. The patient presented because of two falling episodes on the day of admission. The patient has got the first one at around 7 a.m. when he got dizzy, and his assisted him to fall on his buttocks, but did not lose consciousness. Few hours later around noon time, another episode was witnessed by the patient's daughter as the patient walking to the bathroom in the hallway of the house. Again, it is the advice of his daughter and , he felt dizzy and sought help. They came and assisted him back to the floor. Apparently, the patient lost consciousness for few seconds but recovered immediately after he was lying on the floor. There was no speech difficulty. No seizure activity and no incontinence. The patient denies any chest pain during the entire time. The patient last week went to Dr. Wilson's office and required a Craft catheter insertion. The patient is reported to have a low-grade fever. SOCIAL HISTORY: Nonsmoker. , lives with his . MEDICATIONS: Aspirin 162 mg once a day, Atrovent inhaler every 6 hours, Cozaar 50 mg once a day, Crestor 10 mg once a day, Flomax 0.4 mg once a day, intravenous heparin in a therapeutic regimen for acute coronary syndrome protocol, imipenem 500 mg intravenously every 8 hours, K-Dur 40 mEq given single dose today, Toprol XL 50 mg daily, normal saline 75 mL an hour. REVIEW OF SYSTEMS: No hematuria. The patient does have benign prostatic hypertrophy. No history of cancer. No prior history of DVT or pulmonary embolus. PHYSICAL EXAMINATION: GENERAL: The patient is an elderly male who does not appear to be in acute distress. VITAL SIGNS: Blood pressure 150/66, heart rate 93, respirations 21, temperature 99.5. HEENT: Normocephalic. CHEST: Clear. HEART: S1 and S2, regular. ABDOMEN: Soft. EXTREMITIES: No edema. LABORATORY DATA: Hemoglobin and Hematocrit 11 and 32.3. White count 3.8, platelet count 143,000. SMA-7: Sodium 136, potassium 4, chloride 97, CO2 of 29, glucose 121, BUN 23, creatinine 1.2. Troponin was 0.22, 0.32, and 0.324 respectively. TSH level is within normal limits at 1.68. Most recent PTT is 44. INR is 1.5. EKG, reveals sinus rhythm with APCs, incomplete right bundle branch block, left anterior fascicular block. Head CT scan without contrast, no acute intracranial hemorrhage or large acute infarct seen. Mild chronic periventricular white matter ischemic changes. Head and neck CTA, reported pulmonary emboli, mild partial calcified atherosclerotic plaque along the aortic arch. ASSESSMENT: 1. Recurrent falls. 2. Pulmonary embolism. 3. Coronary artery disease, status post coronary triple bypass surgery in 2003. 4. Hypertension. 5. Bladder neck obstruction. 6. Fever and gram negative bacteremia. RECOMMENDATION: Continue current intravenous heparin at therapeutic regimen. Continue aspirin 162 mg once a day, Toprol-XL 60 mg once a day, Plavix 75 mg once a day. Continue IV Imipenem. Obtain bedside echocardiographic study as well as venous Doppler of lower extremities. I recommend having a full CT angio study for complete visualization of the entire pulmonary vasculature as the reported ELISA was only limited to visualizing the upper parts of both lungs. Klever Ron MD
--- NOTE | 2017-08-31 23:26 | PCM.EEG ---
Electroencephalogram Report - Electroencephalogram Report Procedure Date: 08/31/17 Interpretation: Prelim report. EEG shows normal posterior dominantrhythm. NOrmal sleep Impression: THis EEG shows metabolic encephalopathy. there were no seizures or interictal discharges noted,
--- NOTE | 2017-09-01 00:28 | CP.PCM.CON ---
Past Patient History - Past Medical History & Family History Past Medical History?: Yes - Past Social History Smoking Status: Former Smoker - CARDIAC Hx Hypercholesterolemia: Yes Hx Hypertension: Yes - PULMONARY Hx Respiratory Disorders: No - NEUROLOGICAL Hx Neurological Disorder: Yes Hx Syncope: Yes - HEENT Hx HEENT Problems: Yes Hx Epistaxis: Yes - RENAL Hx Chronic Kidney Disease: No - ENDOCRINE/METABOLIC Hx Endocrine Disorders: No - HEMATOLOGICAL/ONCOLOGICAL Hx Blood Disorders: Yes Hx Anemia: Yes Hx Blood Transfusions: Yes Other/Comment: uncontrolled epistaxis 2017 - INTEGUMENTARY Hx Dermatological Problems: No - MUSCULOSKELETAL/RHEUMATOLOGICAL Hx Falls: No - GASTROINTESTINAL Hx Gastrointestinal Disorders: No - GENITOURINARY/GYNECOLOGICAL Hx Genitourinary Disorders: Yes Other/Comment: BPH,. unable to void for 36 hours -had FC inserted last by Dr. Wilson - PSYCHIATRIC Hx Substance Use: No - SURGICAL HISTORY Hx Surgeries: Yes Hx Open Heart Surgery: Yes (2004 bypass) - ANESTHESIA Hx Anesthesia: Yes Hx Anesthesia Reactions: No Meds Allergies/Adverse Reactions: Allergies Allergy/AdvReac Type Severity Reaction Status Date / Time No Known Allergies Allergy Verified 08/30/17 15:21 - Medications Medications: Current Medications Aspirin (Aspirin Chewable) 162 mg PO DAILY [facility] Last Admin: 08/31/17 09:59 Dose: 162 mg Clopidogrel Bisulfate (Plavix) 75 mg PO DAILY [facility] Last Admin: 08/31/17 09:59 Dose: 75 mg Famotidine (Pepcid) 20 mg PO BID [facility] Last Admin: 08/31/17 18:13 Dose: 20 mg Imipenem/Cilastatin Sodium 500 (mg/ Sodium Chloride) 100 mls @ 100 mls/hr IVPB Q8H [facility] PRN Reason: Protocol Last Admin: 08/31/17 18:13 Dose: 100 mls/hr Sodium Chloride (Sodium Chloride 0.9%) 1,000 mls @ 75 mls/hr IV .[id number] [facility] Last Admin: 08/31/17 11:05 Dose: 75 mls/hr Heparin Sodium/Sodium Chloride (Heparin 26249 Units/250ml 1/2 Normal Saline) 25 ,000 units in 250 mls @ 9.434 mls/hr IV .Q24H PRN; Protocol; 14 UNITS/KG/HR PRN Reason: PROTOCOL Ipratropium [place] (Atrovent) 0.5 mg IH RQ6 PRN PRN Reason: Shortness of Breath Last Admin: 08/31/17 18:31 Dose: 0.5 mg Isosorbide Mononitrate (Imdur Er) 30 mg PO Q24H [facility] Last Admin: 08/31/17 18:13 Dose: 30 mg Losartan Potassium (Cozaar) 50 mg PO Q24H [facility] Last Admin: 08/31/17 21:39 Dose: 50 mg Metoprolol Succinate (Toprol Xl) 50 mg PO Q24H [facility] Last Admin: 08/31/17 06:31 Dose: 50 mg Rosuvastatin Calcium (Crestor) 10 mg PO HS [facility] Last Admin: 08/31/17 21:39 Dose: 10 mg Saccharomyces Boulardii (Florastor) 250 mg PO BID [facility] Last Admin: 08/31/17 18:13 Dose: 250 mg Tamsulosin HCl (Flomax) 0.4 mg PO DAILY [facility] Last Admin: 08/31/17 09:58 Dose: 0.4 mg Results - Vital Signs Recent Vital Signs: Last Vital Signs Temp 97.9 F 08/31/17 20:00 Pulse 94 H 08/31/17 22:00 Resp 20 08/31/17 22:00 BP 108/51 L 08/31/17 21:55 Pulse Ox 99 08/31/17 22:00 - Labs Result Diagrams: 08/31/17 05:59 08/31/17 05:59 Labs: Laboratory Results - last 24 hr 08/31/17 08/31/17 08/31/17 00:43 00:43 05:59 WBC 3.8 L D RBC 3.61 L Hgb 11.0 L Hct 32.3 L MCV 89.4 MCH 30.4 MCHC 34.0 RDW 15.6 H Plt Count 143 MPV 8.7 Neut % (Auto) 96.2 H Lymph % (Auto) 1.6 L [place] % (Auto) 1.9 Eos % (Auto) 0.0 Baso % (Auto) 0.3 Neut # (Auto) 3.6 Lymph # (Auto) 0.1 L [place] # (Auto) 0.1 Eos # (Auto) 0.0 Baso # (Auto) 0.0 Neutrophils % (Manual) 86 H Band Neutrophils % 11 H* Lymphocytes % (Manual) 2 L Monocytes % (Manual) 1 Platelet Estimate Normal Hypochromasia (manual) Slight APTT 47 H D Sodium Potassium Chloride Carbon Dioxide Anion Gap BUN Creatinine Est GFR ( Amer) Est GFR (Non-Af Amer) Random Glucose Calcium Phosphorus Magnesium Iron TIBC % Saturation Ferritin Total Bilirubin AST ALT Alkaline Phosphatase Total Creatine Kinase 879 H CK-MB (Mass) 1.95 Troponin I 0.3200 H* Total Protein Albumin Globulin Albumin/Globulin Ratio Triglycerides Cholesterol LDL Cholesterol Direct HDL Cholesterol Folate Free T4 Stool Occult Blood RPR 08/31/17 08/31/17 08/31/17 05:59 05:59 05:59 WBC RBC Hgb Hct MCV MCH MCHC RDW Plt Count MPV Neut % (Auto) Lymph % (Auto) [place] % (Auto) Eos % (Auto) Baso % (Auto) Neut # (Auto) Lymph # (Auto) [place] # (Auto) Eos # (Auto) Baso # (Auto) Neutrophils % (Manual) Band Neutrophils % Lymphocytes % (Manual) Monocytes % (Manual) Platelet Estimate Hypochromasia (manual) APTT Sodium 136 Potassium 4.0 Chloride 97 L Carbon Dioxide 29 Anion Gap 14 BUN 23 H Creatinine 1.2 Est GFR ( Amer) > 60 Est GFR (Non-Af Amer) 58 Random Glucose 121 H Calcium 8.0 L Phosphorus 3.2 Magnesium 2.1 Iron TIBC % Saturation Ferritin 360.0 Total Bilirubin 0.6 AST 61 H D ALT 28 Alkaline Phosphatase 76 Total Creatine Kinase 1368 H CK-MB (Mass) 4.48 H Troponin I 0.3240 H* Total Protein 6.9 Albumin 3.1 L Globulin 3.8 Albumin/Globulin Ratio 0.8 L Triglycerides 94 D Cholesterol 86 LDL Cholesterol Direct 37 HDL Cholesterol 17 L Folate 5.0 Free T4 1.38 Stool Occult Blood RPR Nonreactive 08/31/17 08/31/17 08/31/17 05:59 05:59 14:28 WBC RBC Hgb Hct MCV MCH MCHC RDW Plt Count MPV Neut % (Auto) Lymph % (Auto) [place] % (Auto) Eos % (Auto) Baso % (Auto) Neut # (Auto) Lymph # (Auto) [place] # (Auto) Eos # (Auto) Baso # (Auto) Neutrophils % (Manual) Band Neutrophils % Lymphocytes % (Manual) Monocytes % (Manual) Platelet Estimate Hypochromasia (manual) APTT 44 H Sodium Potassium Chloride Carbon Dioxide Anion Gap BUN Creatinine Est GFR ( Amer) Est GFR (Non-Af Amer) Random Glucose Calcium Phosphorus Magnesium Iron 10 L TIBC 208 L % Saturation 5 L Ferritin Total Bilirubin AST ALT Alkaline Phosphatase Total Creatine Kinase CK-MB (Mass) Troponin I Total Protein Albumin Globulin Albumin/Globulin Ratio Triglycerides Cholesterol LDL Cholesterol Direct HDL Cholesterol Folate Free T4 Stool Occult Blood Negative RPR 08/31/17 08/31/17 14:28 20:55 WBC RBC Hgb Hct MCV MCH MCHC RDW Plt Count MPV Neut % (Auto) Lymph % (Auto) [place] % (Auto) Eos % (Auto) Baso % (Auto) Neut # (Auto) Lymph # (Auto) [place] # (Auto) Eos # (Auto) Baso # (Auto) Neutrophils % (Manual) Band Neutrophils % Lymphocytes % (Manual) Monocytes % (Manual) Platelet Estimate Hypochromasia (manual) APTT 55 H D 48 H D Sodium Potassium Chloride Carbon Dioxide Anion Gap BUN Creatinine Est GFR ( Amer) Est GFR (Non-Af Amer) Random Glucose Calcium Phosphorus Magnesium Iron TIBC % Saturation Ferritin Total Bilirubin AST ALT Alkaline Phosphatase Total Creatine Kinase CK-MB (Mass) Troponin I Total Protein Albumin Globulin Albumin/Globulin Ratio Triglycerides Cholesterol LDL Cholesterol Direct HDL Cholesterol Folate Free T4 Stool Occult Blood RPR Assessment & Plan - Assessment and Plan (Free Text) Assessment: IMP: urinary retention BPH UTI Anemia Syncope Coronay artery disease Rec/p: Craft catheter ICU care Antibiotic RX Blood and urine cultures Plan: see above - Date & Time Date: 08/31/17 Time: 10:20
[2017-09-01] MEDS: Sodium Chloride 0.9% 1,000 ML IV SCH ×2 (02:39→18:25)
[2017-09-01 06:24] LABS: BASO % 0.1 % (0.0-2.0); EOS % 0.2 % (0.0-4.0); LYMPH # 0.3 K/uL (1.0-4.3); LYMPH % 6.3 % (20.0-40.0); MEAN CELL VOLUME 89.4 fL (80.0-94.0); MEAN CORPUSCULAR HGB CONC 34.7 g/dL (33.0-37.0); MONO # 0.5 K/uL (0.0-0.8); MONO % 12.3 % (0.0-10.0); NEUT # 3.5 K/uL (1.8-7.0); NEUT % 81.1 % (50.0-75.0); PLATELET COUNT 125 K/uL (130-400); RBC 3.23 Mil/uL (4.40-5.90); RED CELL DISTRIBUTION WIDTH 15.8 % (11.5-14.5); WHITE BLOOD COUNT 4.3 K/uL (4.8-10.8)
[2017-09-01] MEDS: Metoprolol Succinate 50 mg XL Tab PO SCH (06:39)
[2017-09-01 06:46] LABS: ALB/GLOB RATIO 0.7 (1.0-2.1); ALBUMIN 2.5 g/dL (3.5-5.0); ALT/SGPT 25 U/L (21-72); AST/SGOT 61 U/L (17-59); BLOOD UREA NITROGEN 20 mg/dL (9-20); CALCIUM 7.3 mg/dl (8.6-10.4); GFR AFRICAN-AMERICAN > 60; GFR NON-AFRICAN AMERICAN 58
[2017-09-01] MEDS: Heparin25000 units/250ml 1/2NS 25,000 UNITS/250 ML BAG IV PRN (07:30)
[2017-09-01 08:36] LABS: ANISOCYTOSIS SLIGHT; BANDS 8 % (0-2); BURR CELLS SLIGHT; HYPOCHROMIC SLIGHT; LYMPHOCYTE 4 % (20-40); MONOCYTE 11 % (0-10); NEUTROPHIL 77 % (50-75); PLATELET ESTIMATE SLIGHTLY DECREASED (NORMAL); POIKILOCYTOSIS SLIGHT; TOTAL CELLS COUNTED 100
[2017-09-01 08:37] LABS: OVALOCYTES SLIGHT
[2017-09-01] MEDS: Saccharomyces Boulardi 250 mg Cap PO SCH ×2 (11:04→18:27)
[2017-09-01] MEDS ORDERED: Iodixanol 320 MG/ML 100 ML BOTTLE IV ONE (13:21)
--- NOTE | 2017-09-01 14:51 | CT ---
PROCEDURE: CT Chest with contrast (Pulmonary Angiogram) HISTORY: pe (noted in ct head and neck) COMPARISON: None available. TECHNIQUE: Axial computed tomography images were obtained of the chest in the pulmonary arterial phase of enhancement. Coronal and sagittal reformatted images were created and reviewed. Intravenous contrast dose: 433.30 Radiation dose: Total exam DLP = mGy-cm. This CT exam was performed using one or more of the following dose reduction techniques: Automated exposure control, adjustment of the mA and/or kV according to patient size, and/or use of iterative reconstruction technique. FINDINGS: PULMONARY ARTERIES: Bilateral pulmonary arterial filling defects including anterior and posterior segments of the right upper lobe, left lower lobe and anterior and apical posterior segments of the left upper lobe. No large central pulmonary embolus. AORTA: No acute findings. No thoracic aortic aneurysm. LUNGS: Centrilobular pulmonary emphysema. No pulmonary infiltrate. No pulmonary mass. PLEURAL SPACES: Minimal dependent bilateral pleural thickening. No pleural effusion or pneumothorax. HEART: Cardiomegaly. CABG. LYMPH NODES: No lymphadenopathy. BONES, CHEST WALL: Unremarkable. No fracture or destructive lesion OTHER FINDINGS: Unremarkable. IMPRESSION: Bilateral pulmonary embolism. No evidence of pulmonary infiltrate or pulmonary infarction. Mild centrilobular pulmonary emphysema. Cardiomegaly. CABG.
--- NOTE | 2017-09-01 16:35 | CP.PCM.PN ---
Subjective - Date & Time of Evaluation Date of Evaluation: 09/01/17 Time of Evaluation: 14:45 - Subjective Subjective: Medical Attending Note: Patient seen and examined at bedside this afternoon. Patient present with , son-in-law, and daughter at bedside. Patient report he had bowel movement yesterday. Patient denies acute complaints. He reports he worked with physical therapy this morning. Patient reports he is feeling better. Discussed CT head/neck/chest findings with the family; we are awaiting blood culture results to finalize. Discussed with patient is on blood thinner and patient about to have venous doppler at bedside. Objective - Vital Signs/Intake and Output Vital Signs (last 24 hours): Temp Pulse Resp BP Pulse Ox 98.7 F 78 15 147/70 98 09/01/17 04:00 09/01/17 15:55 09/01/17 15:55 09/01/17 15:55 09/01/17 15:55 Intake and Output: 09/01/17 09/01/17 06:59 18:59 Intake Total 1687.2 Output Total 540 Balance 1147.2 - Medications Medications: Current Medications Aspirin (Aspirin Chewable) 162 mg PO DAILY [facility] Last Admin: 09/01/17 11:05 Dose: 162 mg Famotidine (Pepcid) 20 mg PO BID [facility] Last Admin: 09/01/17 11:04 Dose: 20 mg Imipenem/Cilastatin Sodium 500 (mg/ Sodium Chloride) 100 mls @ 100 mls/hr IVPB Q8H [facility] PRN Reason: Protocol Last Admin: 09/01/17 11:18 Dose: 100 mls/hr Sodium Chloride (Sodium Chloride 0.9%) 1,000 mls @ 75 mls/hr IV .[id number] [facility] Last Admin: 09/01/17 02:39 Dose: 75 mls/hr Heparin Sodium/Sodium Chloride (Heparin 36765 Units/250ml 1/2 Normal Saline) 25 ,000 units in 250 mls @ 9.434 mls/hr IV .Q24H PRN; Protocol; 14 UNITS/KG/HR PRN Reason: PROTOCOL Ipratropium [place] (Atrovent) 0.5 mg IH RQ6 PRN PRN Reason: Shortness of Breath Last Admin: 08/31/17 18:31 Dose: 0.5 mg Isosorbide Mononitrate (Imdur Er) 30 mg PO Q24H [facility] Last Admin: 08/31/17 18:13 Dose: 30 mg Losartan Potassium (Cozaar) 50 mg PO Q24H [facility] Last Admin: 09/01/17 14:04 Dose: 50 mg Metoprolol Succinate (Toprol Xl) 50 mg PO Q24H [facility] Last Admin: 09/01/17 06:39 Dose: 50 mg Rosuvastatin Calcium (Crestor) 10 mg PO HS [facility] Last Admin: 08/31/17 21:39 Dose: 10 mg Saccharomyces Boulardii (Florastor) 250 mg PO BID [facility] Last Admin: 09/01/17 11:04 Dose: 250 mg Tamsulosin HCl (Flomax) 0.4 mg PO DAILY [facility] Last Admin: 09/01/17 11:04 Dose: 0.4 mg - Labs Labs: 09/01/17 06:05 09/01/17 06:05 PT 16.0 SECONDS (9.7-12.2) H 08/30/17 16:50 INR 1.5 08/30/17 16:50 APTT 52 SECONDS (21-34) H 09/01/17 06:05 - Constitutional Appears: Non-toxic, No Acute Distress - Head Exam Head Exam: NORMAL INSPECTION - Eye Exam Eye Exam: EOMI - ENT Exam ENT Exam: Mucous Membranes Moist - Respiratory Exam Respiratory Exam: Decreased Breath Sounds, NORMAL BREATHING PATTERN. absent: Rales, Rhonchi, Respiratory Distress - Cardiovascular Exam Cardiovascular Exam: REGULAR RHYTHM, +S1, +S2 - GI/Abdominal Exam GI & Abdominal Exam: Distended (obese habitus), Soft, Normal Bowel Sounds. absent: Firm, Guarding, Rigid, Tenderness, Rebound - Extremities Exam Extremities Exam: absent: Pedal Edema, Tenderness - Neurological Exam Neurological Exam: Alert, Awake, Oriented x3 Neuro motor strength exam: Left Upper Extremity: 5, Right Upper Extremity: 5, Left Lower Extremity: 5, Right Lower Extremity: 5 - Psychiatric Exam Psychiatric exam: Normal Affect, Normal Mood - Skin Skin Exam: Dry, Intact, Normal Color, Warm Assessment and Plan (1) Pulmonary embolus Status: Acute (2) Deep vein thrombosis Status: Acute (3) Syncope Status: Acute (4) NSTEMI (non-ST elevated myocardial infarction) Status: Acute (5) CAD (coronary artery disease) Status: Chronic (6) History of coronary artery bypass graft Status: Chronic (7) Prophylactic measure Status: Acute Attending/Attestation - Attestation I have personally seen and examined this patient.: Yes I have fully participated in the care of the patient.: Yes I have reviewed all pertinent clinical information, including history, physical exam and plan: Yes Notes (Text): 1) Pulmonary Embolus Deep Vein Thrombus Assessment/Plan * Pulmonary (Dr. Dsouza) on board-->help appreciated * Seen on CT head and neck * Completed CT Angio: bilateral PE * Dopplers venous: right peroneal DVT+ * On heparin drip * Risk: recent urologic procedure and fall 2) Neutropenia, Bandemia, Bacteremia * Monitor for possible sepsis * Awaiting for final blood cultures which are positive * CXR: no acute process * Blood culture (08/30/17): gram negative ary X2 * Urine culture (08/30/17): Ecoli * Primaxin 500mg IV Q 8H * Will repeat blood cultures in AM 3) Syncope Assessment/Plan * Cardiology (Dr. Ron) on the case-->help appreciated * Neurology (Dr. Keane) on the case-->help appreciated * CT Head (08/30/17): no acute intracrnial hemorrhage, or large acute infract seen. Mild chronic perventricular white matter ischemic changes seen estending peripherally into the deep white matter both cerebral hemisphere. few scatter chronic bilateral basal nuclei lacunar type infarcts as well. * Troponins: 0.2820, 0.2200, 0.3200, 0.3240 * pending: MRA head and neck, MRI brain, ECHO, EEG * TSH, Free T4 within normal limits * RPR * Vit B12: 917 * Folate: 5.0 * Fall precautions, seizure precautions 4) Nonstemi * Cardiology consulted, Dr. Ron, help appreciated * L atrial enlargement with incomplete RBBB on ekg unchanged from 06/18/17 * Heparin Drip * Troponins: 0.2820, 0.2200, 0.3200, 0.3240 * Aspirin 162mg PO daily (Home medication) * Plavix 75mg PO daily * Has had a recent stress test in July 2017 completed-->will need to follow-up for reports. 5) Uncontrolled Hypertension * Cardiology (Dr. Ron) on the case-->help appreciated * Labetalol 5mg iv given in ED on admission * IMdur 30mg PO Q24H * Cozaar 50mg PO Q24H * Toprol XL 50mg PO24H 6) Hypokalemia * Normalized 7) Anemia * low iron, low iron stores; ferritin normal * Vit B12: 917 , Folate: 5.0 * Patient is on Aspirin and Plavix, known hx of cabg and triple bypass 8) Indwelling Craft for Hx BPH Recent urologic procedure with urologic stent * Urology consulted, Dr. 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
--- NOTE | 2017-09-01 17:08 | CON ---
INPATIENT UROLOGY CONSULTATION DATE: 08/31/2017 LOCATION: The patient is currently in the ICU. HISTORY OF PRESENT ILLNESS: The patient is an 82-year-old male. The patient is admitted to the hospital with syncope. The patient is in otherwise fair health. The patient has history of BPH. He was treated with medication therapy for BPH. Last week, the patient developed urinary retention. A Craft catheter was inserted in the office with relief of retention. The retention was approximately 600 mL. At that time, the patient was able to void only small amount and was dribbling. The patient reports no recent fever or rigors. No abdominal pain. No flank pain. No hematuria. The patient developed syncope. He presented to the emergency room. He is admitted to the ICU now with possible sepsis. The patient has fair appetite. The patient reports that he is improving since admission. He reports that he is in fact feeling well. The chart is reviewed. Lab data reviewed. PHYSICAL EXAMINATION: GENERAL: The patient is a well-developed, well-nourished elderly male. The patient is awake and alert. The patient's family is in attendance including his and daughter. ABDOMEN: Soft, nontender, and nondistended. No mass or organomegaly. BACK: No CVA tenderness. GENITALIA: Without inflammation. Scrotal contents without inflammation. The urine is clear via the Craft catheter. IMPRESSION: Urinary retention. Benign prostatic hypertrophy. Urinary tract infection. Urosepsis. RECOMMENDATIONS/PLAN: Antibiotic therapy. Craft catheter indwelling. Further therapy to follow according to the patient's clinical course. Possible need for cystoscopy. Possible trial of voiding during this admission. I recommend Flomax 0.4 mg b.i.d. Thank you for recommending the patient for Urology consultation. Further therapy to follow according to the patient's clinical course as well as the results of above. Noreen Wilson MD
--- NOTE | 2017-09-01 17:18 | CP.CCUPN ---
<Ilda Boyer - Last Filed: 09/01/17 17:15> CCU Subjective - Physician Review Subjective (Free Text): Patient seen and examined at bedside. No overnight events reported. Patient has no complaints at this time. He denies any fever, chills, SOB, chest pain, palpitations, abdominal pain, changes in bowel habits or urinary symptoms. CCU Objective - Vital Signs / Intake & Output Vital Signs (Last 4 hours): Vital Signs Pulse Resp BP Pulse Ox 09/01/17 15:55 78 15 147/70 98 09/01/17 14:55 73 35 H 121/56 L 98 09/01/17 13:55 86 11 L 132/58 L 96 Intake and Output (Last 8hrs): Intake & Output 09/01/17 09/01/17 09/01/17 06:59 14:59 22:59 Intake Total 841.2 Output Total 350 Balance 491.2 Weight 148 lb 9 oz Intake: Intake, IV Amount 841.2 Right Antecubital 91.2 Right Hand 675 right hand 75 Output: Urine 350 Urethral (Craft) 350 Other: # Bowel Movements 0 - Physical Exam Head: Positive for: Atraumatic, Normocephalic Extroacular Muscles: Positive for: EOMI Conjunctiva: Positive for: Normal Mouth: Positive for: Moist Mucous Membranes Respiratory/Chest: Positive for: Clear to Auscultation. Negative for: Accessory Muscle Use, Wheezes, Rales, Rhonchi Cardiovascular: Positive for: Regular Rate and Rhythm, Normal S1, S2 Abdomen: Positive for: Normal Bowel Sounds. Negative for: Tenderness Neurological: Positive for: GCS=15 Skin: Positive for: Warm, Dry, Normal Color Psychiatric: Positive for: Alert, Oriented x 3 - Medications Active Medications: Active Medications Generic Name Dose Route Start Last Admin Trade Name Freq PRN Reason Stop Dose Admin Aspirin 162 mg 08/31/17 10:00 09/01/17 11:05 Aspirin Chewable PO 162 mg DAILY BIRGIT Administration Famotidine 20 mg 08/31/17 10:09/01/17 11:04 Pepcid PO 20 mg BID BIRGIT Administration Imipenem/Cilastatin Sodium 500 100 mls @ 100 mls/hr 08/31/17 11:00 09/01/17 11:18 mg/ Sodium Chloride IVPB 100 mls/hr Q8H BIRGIT Administration Protocol Sodium Chloride 1,000 mls @ 75 mls/hr 08/31/17 11:00 09/01/17 02:39 Sodium Chloride 0.9% IV 75 mls/hr .[id number] BIRGIT Administration Heparin Sodium/Sodium Chloride 25,000 units in 250 mls @ 9.434 mls/hr 22:47 Heparin 89628 Units/250ml 1/2 Normal Saline IV .Q24H PRN PROTOCOL Protocol 14 UNITS/KG/HR Ipratropium Ralph 0.5 mg 08/30/17 21:10 08/31/17 18:31 Atrovent IH 0.5 mg RQ6 PRN Administration Shortness of Breath Isosorbide Mononitrate 30 mg 08/31/17 19:00 08/31/17 18:13 Imdur Er PO 30 mg Q24H BIRGIT Administration Losartan Potassium 50 mg 08/31/17 13:00 09/01/17 14:04 Cozaar PO 50 mg Q24H BIRGIT Administration Metoprolol Succinate 50 mg 08/31/17 07:00 09/01/17 06:39 Toprol Xl PO 50 mg Q24H BIRGIT Administration Rosuvastatin Calcium 10 mg 08/30/17 22:00 08/31/17 21:39 Crestor PO 10 mg HS BIRGIT Administration Saccharomyces Boulardii 250 mg 08/31/17 10:00 09/01/17 11:04 Florastor PO 250 mg BID BIRGIT Administration Tamsulosin HCl 0.4 mg 08/31/17 10:00 09/01/17 11:04 Flomax PO 0.4 mg DAILY BIRGIT Administration - Patient Studies Lab Studies: Microbiology Studies 08/30/17 19:35 MRSA Culture (Admit) - Final Naris MRSA NOT DETECTED 08/30/17 15:35 Urine Culture - Final Urine,Catheterized Escherichia Coli 08/30/17 16:10 Blood Culture - Preliminary Blood Gram Negative Matthew Gram Stain - Final 08/30/17 15:30 Blood Culture - Preliminary Blood Gram Negative Matthew Gram Stain - Final Lab Studies 09/01/17 09/01/17 09/01/17 Range/Units 06:05 06:05 06:05 WBC 4.3 L (4.8-10.8) K/uL RBC 3.23 L (4.40-5.90) Mil/uL Hgb 10.0 L (12.0-18.0) g/dL Hct 28.9 L (35.0-51.0) % MCV 89.4 (80.0-94.0) fL MCH 31.0 (27.0-31.0) pg MCHC 34.7 (33.0-37.0) g/dL RDW 15.8 H (11.5-14.5) % Plt Count 125 L (130-400) K/uL MPV 9.0 (7.2-11.7) fL Neut % (Auto) 81.1 H (50.0-75.0) % Lymph % (Auto) 6.3 L (20.0-40.0) % [place] % (Auto) 12.3 H (0.0-10.0) % Eos % (Auto) 0.2 (0.0-4.0) % Baso % (Auto) 0.1 (0.0-2.0) % Neut # (Auto) 3.5 (1.8-7.0) K/uL Lymph # (Auto) 0.3 L (1.0-4.3) K/uL [place] # (Auto) 0.5 (0.0-0.8) K/uL Eos # (Auto) 0.0 (0.0-0.7) K/uL Baso # (Auto) 0.0 (0.0-0.2) K/uL Neutrophils % (Manual) 77 H (50-75) % Band Neutrophils % 8 H (0-2) % Lymphocytes % (Manual) 4 L (20-40) % Monocytes % (Manual) 11 H (0-10) % Platelet Estimate Slightly decreased L (NORMAL) Hypochromasia (manual) Slight Poikilocytosis (manual Slight Anisocytosis (manual) Slight Ovalocytes Slight Artur Cells Slight APTT 52 H (21-34) SECONDS Sodium 135 (132-148) mmol/L Potassium 3.9 (3.6-5.2) mmol/L Chloride 101 (98-107) mmol/L Carbon Dioxide 27 (22-30) mmol/L Anion Gap 12 (10-20) BUN 20 (9-20) mg/dL Creatinine 1.2 (0.8-1.5) mg/dL Est GFR ( Amer) > 60 Est GFR (Non-Af Amer) 58 Random Glucose 82 (75-110) mg/dL Calcium 7.3 L (8.6-10.4) mg/dl Phosphorus 2.0 L (2.5-4.5) mg/dL Magnesium 2.1 (1.6-2.3) mg/dL Total Bilirubin 0.4 (0.2-1.3) mg/dL AST 61 H (17-59) U/L ALT 25 (21-72) U/L Alkaline Phosphatase 55 (38-126) U/L Total Protein 6.0 L (6.3-8.3) g/dL Albumin 2.5 L (3.5-5.0) g/dL Globulin 3.4 (2.2-3.9) gm/dL Albumin/Globulin Ratio 0.7 L (1.0-2.1) RPR (NONREACTIVE) 08/31/17 08/31/17 Range/Units 20:55 05:59 WBC (4.8-10.8) K/uL RBC (4.40-5.90) Mil/uL Hgb (12.0-18.0) g/dL Hct (35.0-51.0) % MCV (80.0-94.0) fL MCH (27.0-31.0) pg MCHC (33.0-37.0) g/dL RDW (11.5-14.5) % Plt Count (130-400) K/uL MPV (7.2-11.7) fL Neut % (Auto) (50.0-75.0) % Lymph % (Auto) (20.0-40.0) % [place] % (Auto) (0.0-10.0) % Eos % (Auto) (0.0-4.0) % Baso % (Auto) (0.0-2.0) % Neut # (Auto) (1.8-7.0) K/uL Lymph # (Auto) (1.0-4.3) K/uL [place] # (Auto) (0.0-0.8) K/uL Eos # (Auto) (0.0-0.7) K/uL Baso # (Auto) (0.0-0.2) K/uL Neutrophils % (Manual) (50-75) % Band Neutrophils % (0-2) % Lymphocytes % (Manual) (20-40) % Monocytes % (Manual) (0-10) % Platelet Estimate (NORMAL) Hypochromasia (manual) Poikilocytosis (manual Anisocytosis (manual) Ovalocytes [place] Cells APTT 48 H D (21-34) SECONDS Sodium (132-148) mmol/L Potassium (3.6-5.2) mmol/L Chloride (98-107) mmol/L Carbon Dioxide (22-30) mmol/L Anion Gap (10-20) BUN (9-20) mg/dL Creatinine (0.8-1.5) mg/dL Est GFR ( Amer) Est GFR (Non-Af Amer) Random Glucose (75-110) mg/dL Calcium (8.6-10.4) mg/dl Phosphorus (2.5-4.5) mg/dL Magnesium (1.6-2.3) mg/dL Total Bilirubin (0.2-1.3) mg/dL AST (17-59) U/L ALT (21-72) U/L Alkaline Phosphatase (38-126) U/L Total Protein (6.3-8.3) g/dL Albumin (3.5-5.0) g/dL Globulin (2.2-3.9) gm/dL Albumin/Globulin Ratio (1.0-2.1) RPR Nonreactive (NONREACTIVE) Laboratory Results - last 24 hr 08/31/17 08/31/17 09/01/17 05:59 20:55 06:05 WBC RBC Hgb Hct MCV MCH MCHC RDW Plt Count MPV Neut % (Auto) Lymph % (Auto) [place] % (Auto) Eos % (Auto) Baso % (Auto) Neut # (Auto) Lymph # (Auto) [place] # (Auto) Eos # (Auto) Baso # (Auto) Neutrophils % (Manual) Band Neutrophils % Lymphocytes % (Manual) Monocytes % (Manual) Platelet Estimate Hypochromasia (manual) Poikilocytosis (manual Anisocytosis (manual) Ovalocytes Artur Cells APTT 48 H D 52 H Sodium Potassium Chloride Carbon Dioxide Anion Gap BUN Creatinine Est GFR ( Amer) Est GFR (Non-Af Amer) Random Glucose Calcium Phosphorus Magnesium Total Bilirubin AST ALT Alkaline Phosphatase Total Protein Albumin Globulin Albumin/Globulin Ratio RPR Nonreactive 09/01/17 09/01/17 06:05 06:05 WBC 4.3 L RBC 3.23 L Hgb 10.0 L Hct 28.9 L MCV 89.4 MCH 31.0 MCHC 34.7 RDW 15.8 H Plt Count 125 L MPV 9.0 Neut % (Auto) 81.1 H Lymph % (Auto) 6.3 L [place] % (Auto) 12.3 H Eos % (Auto) 0.2 Baso % (Auto) 0.1 Neut # (Auto) 3.5 Lymph # (Auto) 0.3 L [place] # (Auto) 0.5 Eos # (Auto) 0.0 Baso # (Auto) 0.0 Neutrophils % (Manual) 77 H Band Neutrophils % 8 H Lymphocytes % (Manual) 4 L Monocytes % (Manual) 11 H Platelet Estimate Slightly decreased L Hypochromasia (manual) Slight Poikilocytosis (manual Slight Anisocytosis (manual) Slight Ovalocytes Slight Artur Cells Slight APTT Sodium 135 Potassium 3.9 Chloride 101 Carbon Dioxide 27 Anion Gap 12 BUN 20 Creatinine 1.2 Est GFR ( Amer) > 60 Est GFR (Non-Af Amer) 58 Random Glucose 82 Calcium 7.3 L Phosphorus 2.0 L Magnesium 2.1 Total Bilirubin 0.4 AST 61 H ALT 25 Alkaline Phosphatase 55 Total Protein 6.0 L Albumin 2.5 L Globulin 3.4 Albumin/Globulin Ratio 0.7 L RPR Review of Systems - EENT Eyes: As Per HPI Ears: As Per HPI - Cardiovascular Cardiovascular: As Per HPI - Respiratory Respiratory: As Per HPI - Gastrointestinal Gastrointestinal: As Per HPI - Genitourinary Genitourinary: As Per HPI - Neurological Neurological: As Per HPI Critical Care Progress Note - Nutrition Nutrition: Nutrition Category Date Time Status Heart Healthy Diet [DIET] Diets 08/30/17 Dinner Active Assessment/Plan - Assessment and Plan (Free Text) Assessment: 82 y/o M with PMHx of CABG 2003, HTN, HLD, BPH admitted presented with syncope. Admitted to ICU for evaluation and treatment of NSTEMI and PE. Plan: Neuro: A: Syncopy CT Head (08/30/17): no acute intracrnial hemorrhage, or large acute infract seen. Mild chronic perventricular white matter ischemic changes seen estending peripherally into the deep white matter both cerebral hemisphere. few scatter chronic bilateral basal nuclei lacunar type infarcts as well. CTA (Head/Neck): PE found. Carotid Plaques with no occlusion. Doppler Recommended. Head/Neck MRA: PENDING GSC 15 Sedation: None Neurology Consulted (Dr. Keane), Recs Appreciated. Cardio A: NSTEMI, HTN, HLD Troponins 0.33>0.32>0.324 ECHO (08/30/17): Mild LVH, Mild Valvular aortic stenosis, EF=55-60% Cardiology Consulted (Dr. Ron), Recs Appreciated Cont. Home Metoprolol 50 Daily Cont. Losartan 50mg PO Daily Cont. Home ASA/Plavix /Crestor 10 HS Stress Test Faxed from Dr. aCban's Office revealed Preserved EF @ 68%. Impression: There is no definite evidence of reversible myocardial ischemia noted in this study. Imdur ER 30mg PO Q24H Venous Doppler (09/01/17): DVT in right perineal vein. Pulm A: PE CTA (09/01/17) On therapeutic Heparin Cont. PRN Atrovent GI A: HLD Cont. Crestor 10mg PO HS : A: BPH, UTI UC: Gram Negative Rods Cont. Home Flomax Urology Consulted. Nephro/electrolytes A: Hypokalemia: Potassium Replenished. I/O: [id number] ID A: UTI, Bacteremia UC: Gram Negative Rods Blood Cultures: Gram Negative Rods Start Primaxin (Imipenem/Cilastatin) 500mg Q8H NS @ 75mls/hr Endo TSH/Free T4 WNL MSK A: Distal lower extremity and upper extremity join pain. 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) Toradol 30 Q6H PRN Prophylaxis On Heparin Drip for PE/NSTEMI Florastor Pepcid BID Heart Healthy Diet Patient seen and discussed with ICU Attending Ilda Boyer, PGY-1 <Devin Dsouza S - Last Filed: 09/01/17 18:01> CCU Objective - Vital Signs / Intake & Output Vital Signs (Last 4 hours): Vital Signs Temp Pulse Resp BP Pulse Ox 09/01/17 16:55 74 27 H 153/68 H 98 09/01/17 16:00 98.6 F 100 09/01/17 15:55 78 15 147/70 98 09/01/17 14:55 73 35 H 121/56 L 98 Intake and Output (Last 8hrs): Intake & Output 09/01/17 09/01/17 09/01/17 06:59 14:59 22:59 Intake Total 841.2 598.5 256.5 Output Total 350 650 215 Balance 491.2 -51.5 41.5 Weight 148 lb 9 oz Intake: Intake, IV Amount 841.2 598.5 256.5 Right Antecubital 91.2 Right Distal Port Hand 73.5 31.5 Right Hand 675 525 225 right hand 75 Output: Urine 350 650 215 Urethral (Craft) 350 650 215 Other: # Bowel Movements 0 - Medications Active Medications: Active Medications Generic Name Dose Route Start Last Admin Trade Name Freq PRN Reason Stop Dose Admin Aspirin 162 mg 08/31/17 10:00 09/01/17 11:05 Aspirin Chewable PO 162 mg DAILY BIRGIT Administration Famotidine 20 mg 08/31/17 10:00 09/01/17 11:04 Pepcid PO 20 mg BID BIRGIT Administration Imipenem/Cilastatin Sodium 500 100 mls @ 100 mls/hr 08/31/17 11:00 09/01/17 11:18 mg/ Sodium Chloride IVPB 100 mls/hr Q8H BIRGIT Administration Protocol Sodium Chloride 1,000 mls @ 75 mls/hr 08/31/17 11:00 09/01/17 02:39 Sodium Chloride 0.9% IV 75 mls/hr .[id number] BIRGIT Administration Heparin Sodium/Sodium Chloride 25,000 units in 250 mls @ 9.434 mls/hr 22:47 09/01/17 07:30 Heparin 43067 Units/250ml 1/2 Normal Saline IV 15.58 units/kg/hr .Q24H PRN 10.5 mls/hr PROTOCOL Administration Protocol 14 UNITS/KG/HR Ipratropium Ralph 0.5 mg 08/30/17 21:10 08/31/17 18:31 Atrovent IH 0.5 mg RQ6 PRN Administration Shortness of Breath Isosorbide Mononitrate 30 mg 08/31/17 19:00 08/31/17 18:13 Imdur Er PO 30 mg Q24H BIRGIT Administration Losartan Potassium 50 mg 08/31/17 13:00 09/01/17 14:04 Cozaar PO 50 mg Q24H BIRGIT Administration Metoprolol Succinate 50 mg 08/31/17 07:00 09/01/17 06:39 Toprol Xl PO 50 mg Q24H BIRGIT Administration Rosuvastatin Calcium 10 mg 08/30/17 22:00 08/31/17 21:39 Crestor PO 10 mg HS BIRGIT Administration Saccharomyces Boulardii 250 mg 08/31/17 10:00 09/01/17 11:04 Florastor PO 250 mg BID BIRGIT Administration Tamsulosin HCl 0.4 mg 08/31/17 10:00 09/01/17 11:04 Flomax PO 0.4 mg DAILY BIRGIT Administration - Patient Studies Lab Studies: Microbiology Studies 08/30/17 19:35 MRSA Culture (Admit) - Final Naris MRSA NOT DETECTED 08/30/17 15:35 Urine Culture - Final Urine,Catheterized Escherichia Coli 08/30/17 16:10 Blood Culture - Preliminary Blood Gram Negative Matthew Gram Stain - Final 08/30/17 15:30 Blood Culture - Preliminary Blood Gram Negative Matthew Gram Stain - Final Lab Studies 09/01/17 09/01/17 09/01/17 Range/Units 06:05 06:05 06:05 WBC 4.3 L (4.8-10.8) K/uL RBC 3.23 L (4.40-5.90) Mil/uL Hgb 10.0 L (12.0-18.0) g/dL Hct 28.9 L (35.0-51.0) % MCV 89.4 (80.0-94.0) fL MCH 31.0 (27.0-31.0) pg MCHC 34.7 (33.0-37.0) g/dL RDW 15.8 H (11.5-14.5) % Plt Count 125 L (130-400) K/uL MPV 9.0 (7.2-11.7) fL Neut % (Auto) 81.1 H (50.0-75.0) % Lymph % (Auto) 6.3 L (20.0-40.0) % [place] % (Auto) 12.3 H (0.0-10.0) % Eos % (Auto) 0.2 (0.0-4.0) % Baso % (Auto) 0.1 (0.0-2.0) % Neut # (Auto) 3.5 (1.8-7.0) K/uL Lymph # (Auto) 0.3 L (1.0-4.3) K/uL [place] # (Auto) 0.5 (0.0-0.8) K/uL Eos # (Auto) 0.0 (0.0-0.7) K/uL Baso # (Auto) 0.0 (0.0-0.2) K/uL Neutrophils % (Manual) 77 H (50-75) % Band Neutrophils % 8 H (0-2) % Lymphocytes % (Manual) 4 L (20-40) % Monocytes % (Manual) 11 H (0-10) % Platelet Estimate Slightly decreased L (NORMAL) Hypochromasia (manual) Slight Poikilocytosis (manual Slight Anisocytosis (manual) Slight Ovalocytes Slight Artur Cells Slight APTT 52 H (21-34) SECONDS Sodium 135 (132-148) mmol/L Potassium 3.9 (3.6-5.2) mmol/L Chloride 101 (98-107) mmol/L Carbon Dioxide 27 (22-30) mmol/L Anion Gap 12 (10-20) BUN 20 (9-20) mg/dL Creatinine 1.2 (0.8-1.5) mg/dL Est GFR ( Amer) > 60 Est GFR (Non-Af Amer) 58 Random Glucose 82 (75-110) mg/dL Calcium 7.3 L (8.6-10.4) mg/dl Phosphorus 2.0 L (2.5-4.5) mg/dL Magnesium 2.1 (1.6-2.3) mg/dL Total Bilirubin 0.4 (0.2-1.3) mg/dL AST 61 H (17-59) U/L ALT 25 (21-72) U/L Alkaline Phosphatase 55 (38-126) U/L Total Protein 6.0 L (6.3-8.3) g/dL Albumin 2.5 L (3.5-5.0) g/dL Globulin 3.4 (2.2-3.9) gm/dL Albumin/Globulin Ratio 0.7 L (1.0-2.1) RPR (NONREACTIVE) 05/07/18 05/07/18 Range/Units 20:55 05:59 WBC (4.8-10.8) K/uL RBC (4.40-5.90) Mil/uL Hgb (12.0-18.0) g/dL Hct (35.0-51.0) % MCV (80.0-94.0) fL MCH (27.0-31.0) pg MCHC (33.0-37.0) g/dL RDW (11.5-14.5) % Plt Count (130-400) K/uL MPV (7.2-11.7) fL Neut % (Auto) (50.0-75.0) % Lymph % (Auto) (20.0-40.0) % [place] % (Auto) (0.0-10.0) % Eos % (Auto) (0.0-4.0) % Baso % (Auto) (0.0-2.0) % Neut # (Auto) (1.8-7.0) K/uL Lymph # (Auto) (1.0-4.3) K/uL [place] # (Auto) (0.0-0.8) K/uL Eos # (Auto) (0.0-0.7) K/uL Baso # (Auto) (0.0-0.2) K/uL Neutrophils % (Manual) (50-75) % Band Neutrophils % (0-2) % Lymphocytes % (Manual) (20-40) % Monocytes % (Manual) (0-10) % Platelet Estimate (NORMAL) Hypochromasia (manual) Poikilocytosis (manual Anisocytosis (manual) Ovalocytes [place] Cells APTT 48 H D (21-34) SECONDS Sodium (132-148) mmol/L Potassium (3.6-5.2) mmol/L Chloride (98-107) mmol/L Carbon Dioxide (22-30) mmol/L Anion Gap (10-20) BUN (9-20) mg/dL Creatinine (0.8-1.5) mg/dL Est GFR ( Amer) Est GFR (Non-Af Amer) Random Glucose (75-110) mg/dL Calcium (8.6-10.4) mg/dl Phosphorus (2.5-4.5) mg/dL Magnesium (1.6-2.3) mg/dL Total Bilirubin (0.2-1.3) mg/dL AST (17-59) U/L ALT (21-72) U/L Alkaline Phosphatase (38-126) U/L Total Protein (6.3-8.3) g/dL Albumin (3.5-5.0) g/dL Globulin (2.2-3.9) gm/dL Albumin/Globulin Ratio (1.0-2.1) RPR Nonreactive (NONREACTIVE) Laboratory Results - last 24 hr 08/31/17 08/31/17 09/01/17 05:59 20:55 06:05 WBC RBC Hgb Hct MCV MCH MCHC RDW Plt Count MPV Neut % (Auto) Lymph % (Auto) [place] % (Auto) Eos % (Auto) Baso % (Auto) Neut # (Auto) Lymph # (Auto) [place] # (Auto) Eos # (Auto) Baso # (Auto) Neutrophils % (Manual) Band Neutrophils % Lymphocytes % (Manual) Monocytes % (Manual) Platelet Estimate Hypochromasia (manual) Poikilocytosis (manual Anisocytosis (manual) Ovalocytes Artur Cells APTT 48 H D 52 H Sodium Potassium Chloride Carbon Dioxide Anion Gap BUN Creatinine Est GFR ( Amer) Est GFR (Non-Af Amer) Random Glucose Calcium Phosphorus Magnesium Total Bilirubin AST ALT Alkaline Phosphatase Total Protein Albumin Globulin Albumin/Globulin Ratio RPR Nonreactive 09/01/17 09/01/17 06:05 06:05 WBC 4.3 L RBC 3.23 L Hgb 10.0 L Hct 28.9 L MCV 89.4 MCH 31.0 MCHC 34.7 RDW 15.8 H Plt Count 125 L MPV 9.0 Neut % (Auto) 81.1 H Lymph % (Auto) 6.3 L [place] % (Auto) 12.3 H Eos % (Auto) 0.2 Baso % (Auto) 0.1 Neut # (Auto) 3.5 Lymph # (Auto) 0.3 L [place] # (Auto) 0.5 Eos # (Auto) 0.0 Baso # (Auto) 0.0 Neutrophils % (Manual) 77 H Band Neutrophils % 8 H Lymphocytes % (Manual) 4 L Monocytes % (Manual) 11 H Platelet Estimate Slightly decreased L Hypochromasia (manual) Slight Poikilocytosis (manual Slight Anisocytosis (manual) Slight Ovalocytes Slight [place] Cells Slight APTT Sodium 135 Potassium 3.9 Chloride 101 Carbon Dioxide 27 Anion Gap 12 BUN 20 Creatinine 1.2 Est GFR ( Amer) > 60 Est GFR (Non-Af Amer) 58 Random Glucose 82 Calcium 7.3 L Phosphorus 2.0 L Magnesium 2.1 Total Bilirubin 0.4 AST 61 H ALT 25 Alkaline Phosphatase 55 Total Protein 6.0 L Albumin 2.5 L Globulin 3.4 Albumin/Globulin Ratio 0.7 L RPR Critical Care Progress Note - Nutrition Nutrition: Nutrition Category Date Time Status Heart Healthy Diet [DIET] Diets 08/30/17 Dinner Active Attending/Attestation - Attestation I have personally seen and examined this patient.: Yes I have fully participated in the care of the patient.: Yes I have reviewed all pertinent clinical information: Yes Notes (Text): 09/01/17 18:00 patient seen and examined in the intensive care unit. CT angiogram consistent with bilateral pulmonary embolism Positive DVT Continue heparin Switch to Eliquis continue antibiotics for bacteremia
--- NOTE | 2017-09-01 19:31 | PN ---
DATE: 09/01/2017 SUBJECTIVE: The patient denies any chest pain or shortness of breath. PHYSICAL EXAMINATION: VITAL SIGNS: Blood pressure 125/53, heart rate 83, temperature 98.7, respirations 24. HEENT: Normocephalic. CHEST: Clear. HEART: S1, S2 regular. EXTREMITIES: No edema. LABORATORY DATA: Hemoglobin and hematocrit 10 and 28.9, white count 4.2, platelet count 125,000. Today's SMA-7 is within normal limits. Calcium slightly within normal at 7.3, normal at 2. Echocardiographic study revealed mild concentric LVH with normal ejection fraction, suspicious for PFO. Mild valvular aortic stenosis. [id number] pulmonary hypertension. ASSESSMENT: 1. Bilateral pulmonary embolism. 2. Dizziness and recurrent falls. 3. Coronary artery disease, status post coronary artery bypass surgery in 2003. 4. Anemia. 5. Mild thrombocytopenia today, the platelet count is 125. 6. Mild aortic stenosis. 7. [id number] pulmonary hypertension. 8. Possible patent foramen ovale. RECOMMENDATIONS: Continue current aspirin 162 mg once a day, Cozaar 60 mg once a day, Crestor 10 mg once a day, intravenous heparin in a therapeutic regimen. For pulmonary embolus, continue IV imipenem at 1000 mg every 8 hours, Toprol-XL at 50 mg once a day. Discontinue Plavix. I will follow venous Doppler of the lower extremities. Klever Ron MD
--- NOTE | 2017-09-01 23:18 | PCM.URO ---
Urology Progress Note - General General: No Complaints, Tolerating Diet - Subjective Abdominal Pain: No Flank Pain: No Nausea: No Vomiting: No Voiding Well: No (crandall cath in place) Hematuria: No Dsypnea: No Chest Pain: No Fever & Chills: No - Objective Lab Results Last 24 Hours: Laboratory Results - last 24 hr 09/01/17 09/01/17 09/01/17 06:05 06:05 06:05 WBC 4.3 L RBC 3.23 L Hgb 10.0 L Hct 28.9 L MCV 89.4 MCH 31.0 MCHC 34.7 RDW 15.8 H Plt Count 125 L MPV 9.0 Neut % (Auto) 81.1 H Lymph % (Auto) 6.3 L [place] % (Auto) 12.3 H Eos % (Auto) 0.2 Baso % (Auto) 0.1 Neut # (Auto) 3.5 Lymph # (Auto) 0.3 L [place] # (Auto) 0.5 Eos # (Auto) 0.0 Baso # (Auto) 0.0 Neutrophils % (Manual) 77 H Band Neutrophils % 8 H Lymphocytes % (Manual) 4 L Monocytes % (Manual) 11 H Platelet Estimate Slightly decreased L Hypochromasia (manual) Slight Poikilocytosis (manual Slight Anisocytosis (manual) Slight Ovalocytes Slight Artur Cells Slight APTT 52 H Sodium 135 Potassium 3.9 Chloride 101 Carbon Dioxide 27 Anion Gap 12 BUN 20 Creatinine 1.2 Est GFR ( Amer) > 60 Est GFR (Non-Af Amer) 58 Random Glucose 82 Calcium 7.3 L Phosphorus 2.0 L Magnesium 2.1 Total Bilirubin 0.4 AST 61 H ALT 25 Alkaline Phosphatase 55 Total Protein 6.0 L Albumin 2.5 L Globulin 3.4 Albumin/Globulin Ratio 0.7 L Intake & Output: Intake & Output 09/01/17 09/01/17 09/02/17 06:59 18:59 06:59 Intake Total 1687.2 965.5 342.0 Output Total 540 1090 225 Balance 1147.2 -124.5 117.0 Weight 148 lb 9 oz Intake: IV 114 Intake, IV Amount 1183.2 965.5 342.0 Right Antecubital 133.2 Right Distal Port Hand 115.5 42.0 Right Hand 975 850 300 right hand 75 Oral 390 Output: Urine 540 1090 225 Urethral (Crandall) 540 1090 225 Other: # Bowel Movements 0 0 Vital Signs: Vital Signs - 24 hr 08/31/17 09/01/17 09/01/17 23:54 00:00 00:55 Temperature 99.1 F Pulse Rate 97 H 99 H 96 H Respiratory 24 29 H 25 H Rate Blood Pressure 119/57 L 126/65 O2 Sat by Pulse 99 98 99 Oximetry 09/01/17 09/01/17 09/01/17 00:56 01:54 02:00 Temperature Pulse Rate 91 H 90 Respiratory 24 19 Rate Blood Pressure 120/52 L O2 Sat by Pulse 100 99 Oximetry 09/01/17 09/01/17 09/01/17 02:54 03:00 03:55 Temperature Pulse Rate 73 87 Respiratory 20 21 Rate Blood Pressure 123/56 L 128/64 O2 Sat by Pulse 99 Oximetry 09/01/17 09/01/17 09/01/17 04:00 04:54 05:00 Temperature 98.7 F Pulse Rate 96 H 99 H Respiratory 24 24 Rate Blood Pressure 123/60 O2 Sat by Pulse 99 99 Oximetry 09/01/17 09/01/17 09/01/17 05:55 06:00 06:55 Temperature Pulse Rate 78 83 Respiratory 26 H 15 Rate Blood Pressure 130/54 L 125/53 L O2 Sat by Pulse 98 98 Oximetry 09/01/17 09/01/17 09/01/17 07:54 08:00 09:00 Temperature 99.5 F Pulse Rate 77 83 Respiratory 19 13 Rate Blood Pressure 137/53 L O2 Sat by Pulse 99 100 98 Oximetry 09/01/17 09/01/17 09/01/17 09:55 10:14 10:55 Temperature Pulse Rate 75 95 H 89 Respiratory 20 20 22 Rate Blood Pressure 144/60 128/69 130/60 O2 Sat by Pulse 99 99 98 Oximetry 09/01/17 09/01/17 09/01/17 11:55 12:00 12:05 Temperature 99.1 F Pulse Rate 76 Respiratory 22 Rate Blood Pressure 138/62 O2 Sat by Pulse 100 100 100 Oximetry 09/01/17 09/01/17 09/01/17 12:54 13:55 14:55 Temperature Pulse Rate 86 86 73 Respiratory 21 11 L 35 H Rate Blood Pressure 133/70 132/58 L 121/56 L O2 Sat by Pulse 99 96 98 Oximetry 09/01/17 09/01/17 09/01/17 15:55 16:00 16:55 Temperature 98.6 F Pulse Rate 78 74 Respiratory 15 27 H Rate Blood Pressure 147/70 153/68 H O2 Sat by Pulse 98 100 98 Oximetry 09/01/17 09/01/17 09/01/17 17:55 18:55 19:00 Temperature Pulse Rate 79 82 84 Respiratory 23 24 30 H Rate Blood Pressure 160/73 H 181/70 H O2 Sat by Pulse 99 98 86 L Oximetry 09/01/17 09/01/17 09/01/17 19:18 19:55 20:00 Temperature 99.5 F Pulse Rate 95 H 90 Respiratory 21 13 Rate Blood Pressure 141/75 156/101 H O2 Sat by Pulse 97 99 Oximetry 09/01/17 09/01/17 09/01/17 20:55 21:00 21:56 Temperature Pulse Rate 101 H Respiratory 25 H Rate Blood Pressure 147/63 186/86 H O2 Sat by Pulse 100 Oximetry 09/01/17 22:00 Temperature Pulse Rate 108 H Respiratory 19 Rate Blood Pressure O2 Sat by Pulse 95 Oximetry - Physical Exam Abdominal Exam: Soft, Non-Tender, Non-Distended Back: No CVA Tenderness Genitalia: Without Inflammation Urinary Catheter Draining Well: Yes Urine Color: Clear, Yellow - Male Phallus: Normal Scrotum: Normal Testes: Normal: Bilateral - Plan Intake & Output: Yes Additional Information: Imp: UTI. Retention. Pulmonary embolus. BPH. Rec/p : Flomax. Trial of voiding. Discussed w ICU staff. - Date & Time of Note Date: 09/01/17 Time: 10:40
[2017-09-02] MEDS: Heparin25000 units/250ml 1/2NS 25,000 UNITS/250 ML BAG IV PRN (01:31)
[2017-09-02] MEDS: Ipratropium 0.02% Inhal Soln (0.5 mg/2.5 ml) UD IH PRN (02:35)
[2017-09-02] MEDS: Sodium Chloride 0.9% 1,000 ML IV SCH (03:00)
[2017-09-02] MEDS: Metoprolol Succinate 50 mg XL Tab PO SCH (06:20)
[2017-09-02 06:21] LABS: BASO % 0.3 % (0.0-2.0); EOS % 0.1 % (0.0-4.0); HEMOGLOBIN 9.6 g/dL (12.0-18.0); LYMPH # 0.4 K/uL (1.0-4.3); MEAN CELL VOLUME 89.7 fL (80.0-94.0); MEAN CORPUSCULAR HEMOGLOBIN 29.9 pg (27.0-31.0); MEAN CORPUSCULAR HGB CONC 33.3 g/dL (33.0-37.0); MEAN PLATELET VOLUME 8.8 fL (7.2-11.7); MONO # 0.7 K/uL (0.0-0.8); MONO % 13.8 % (0.0-10.0); NEUT % 78.8 % (50.0-75.0); PLATELET COUNT 122 K/uL (130-400); RED CELL DISTRIBUTION WIDTH 15.9 % (11.5-14.5); WHITE BLOOD COUNT 5.1 K/uL (4.8-10.8)
[2017-09-02 06:38] LABS: ALB/GLOB RATIO 0.8 (1.0-2.1); ALBUMIN 2.6 g/dL (3.5-5.0); ALT/SGPT 31 U/L (21-72); AST/SGOT 67 U/L (17-59); BLOOD UREA NITROGEN 18 mg/dL (9-20); CALCIUM 7.5 mg/dl (8.6-10.4); GFR AFRICAN-AMERICAN > 60; GFR NON-AFRICAN AMERICAN > 60; SQUAMOUS EPITHIAL 1 /hpf (0-5); URINE BACTERIA OCC (<OCC); URINE BILIRUBIN NEGATIVE (NEGATIVE); URINE BLOOD 3+ (NEGATIVE); URINE CLARITY Hazy (Clear); URINE COLOR Amber (YELLOW); URINE GLUCOSE (UA) 1+ mg/dL (Normal); URINE LEUKOCYTE ESTERASE TRACE Leu/uL (Negative); URINE PROTEIN 2+ mg/dL (NEGATIVE)
[2017-09-02 08:35] LABS: BANDS 2 % (0-2); LYMPHOCYTE 6 % (20-40); MONOCYTE 15 % (0-10); NEUTROPHIL 77 % (50-75); TOTAL CELLS COUNTED 100
[2017-09-02 08:36] LABS: ANISOCYTOSIS SLIGHT; HYPOCHROMIC SLIGHT; PLATELET ESTIMATE SLIGHTLY DECREASED (NORMAL); POIKILOCYTOSIS SLIGHT
[2017-09-02 08:37] LABS: OVALOCYTES SLIGHT; TARGET CELLS SLIGHT
--- NOTE | 2017-09-02 08:56 | CP.PCM.PN ---
Subjective - Date & Time of Evaluation Date of Evaluation: 09/02/17 Time of Evaluation: 08:50 - Subjective Subjective: Medical Attending Note: Patient seen and examined. Patient denies headache, denies chest pain, denies cough, denies shortness of breathe, denies abdominal pain, had a bowel movement this morning. Patient has crandall. Objective - Vital Signs/Intake and Output Vital Signs (last 24 hours): Temp Pulse Resp BP Pulse Ox 98.9 F 68 23 138/60 99 09/02/17 04:00 09/02/17 07:00 09/02/17 07:00 09/02/17 06:55 09/02/17 07:00 Intake and Output: 09/02/17 09/02/17 06:59 18:59 Intake Total 1461.5 Output Total 775 Balance 686.5 - Medications Medications: Current Medications Aspirin (Aspirin Chewable) 162 mg PO DAILY [facility] Last Admin: 09/01/17 11:05 Dose: 162 mg Famotidine (Pepcid) 20 mg PO BID [facility] Last Admin: 09/01/17 18:27 Dose: 20 mg Imipenem/Cilastatin Sodium 500 (mg/ Sodium Chloride) 100 mls @ 100 mls/hr IVPB Q8H [facility] PRN Reason: Protocol Last Admin: 09/02/17 02:26 Dose: 100 mls/hr Sodium Chloride (Sodium Chloride 0.9%) 1,000 mls @ 75 mls/hr IV .[id number] [facility] Last Admin: 09/02/17 03:00 Dose: Not Given Heparin Sodium/Sodium Chloride (Heparin 79841 Units/250ml 1/2 Normal Saline) 25 ,000 units in 250 mls @ 9.434 mls/hr IV .Q24H PRN; Protocol; 14 UNITS/KG/HR PRN Reason: PROTOCOL Last Admin: 09/02/17 01:31 Dose: 15.58 units/kg/hr, 10.5 mls/hr Ipratropium [place] (Atrovent) 0.5 mg IH RQ6 PRN PRN Reason: Shortness of Breath Last Admin: 09/02/17 02:35 Dose: 0.5 mg Isosorbide Mononitrate (Imdur Er) 30 mg PO Q24H [facility] Last Admin: 09/01/17 18:27 Dose: 30 mg Losartan Potassium (Cozaar) 50 mg PO Q24H [facility] Last Admin: 09/01/17 14:04 Dose: 50 mg Metoprolol Succinate (Toprol Xl) 50 mg PO Q24H [facility] Last Admin: 09/02/17 06:20 Dose: 50 mg Rosuvastatin Calcium (Crestor) 10 mg PO HS [facility] Last Admin: 09/01/17 21:34 Dose: 10 mg Saccharomyces Boulardii (Florastor) 250 mg PO BID [facility] Last Admin: 09/01/17 18:27 Dose: 250 mg Tamsulosin HCl (Flomax) 0.4 mg PO DAILY [facility] Last Admin: 09/01/17 11:04 Dose: 0.4 mg - Labs Labs: 09/02/17 06:14 09/02/17 06:14 PT 16.0 SECONDS (9.7-12.2) H 08/30/17 16:50 INR 1.5 08/30/17 16:50 APTT 55 SECONDS (21-34) H 09/02/17 06:14 - Constitutional Appears: Non-toxic, No Acute Distress - Head Exam Head Exam: NORMAL INSPECTION - Eye Exam Eye Exam: EOMI - ENT Exam ENT Exam: Mucous Membranes Moist - Respiratory Exam Respiratory Exam: Decreased Breath Sounds, NORMAL BREATHING PATTERN. absent: Rales, Rhonchi, Wheezes - Cardiovascular Exam Cardiovascular Exam: REGULAR RHYTHM, +S1, +S2 - GI/Abdominal Exam GI & Abdominal Exam: Soft, Normal Bowel Sounds. absent: Distended, Firm, Guarding, Rigid, Tenderness, Rebound - Extremities Exam Extremities Exam: absent: Pedal Edema, Tenderness - Neurological Exam Neurological Exam: Alert, Awake, Oriented x3 - Psychiatric Exam Psychiatric exam: Normal Affect, Normal Mood - Skin Skin Exam: Dry, Intact, Normal Color, Warm Assessment and Plan (1) Pulmonary embolus Status: Acute (2) Deep vein thrombosis Status: Acute (3) Syncope Status: Acute (4) NSTEMI (non-ST elevated myocardial infarction) Status: Acute (5) CAD (coronary artery disease) Status: Chronic (6) History of coronary artery bypass graft Status: Chronic (7) Prophylactic measure Status: Acute Attending/Attestation - Attestation I have personally seen and examined this patient.: Yes I have fully participated in the care of the patient.: Yes I have reviewed all pertinent clinical information, including history, physical exam and plan: Yes Notes (Text): 1) Pulmonary Embolus Right LLE Deep Vein Thrombus Assessment/Plan * Pulmonary (Dr. Dsouza) on board-->help appreciated * Seen on CT head and neck * Completed CT Angio: bilateral PE * Dopplers venous: right peroneal DVT+ * On heparin drip * Risk: recent urologic procedure and fall 2) Neutropenia Assessment/Plan * normalized today 3) Anemia Assessment/Plan * Stool occult blood: negative * Downtrending while on blood thinner * Low iron, low TIBC, low iron saturation, ferritin normal * Will order for reticulocyte count * Noted: patient has hematuria; has had in office procedure with urology last 4) Thrombocytopenia Assessment/Plan * Patient is on heparin drip for PE/DVT * Ordered for HIT and DALLIN since platelets are slowly coming down to rule out HIT 5) Sepsis E.Coli- Bacteremia Urinary Tract Infection-E.Coli * Criteria: 103.1 F, neutropenia source of infection: Bacteremia and urinary tract infection * ID consult: Dr. Contreras-->Awaiting consult * CXR: no acute process * Blood culture (08/30/17): E. Coli * Pending repeat blood cultures-->09/02/17 * Urine culture (08/30/17): Ecoli * Primaxin 500mg IV Q 8H * Echocardiogram (08/31/17): left ventricle is normal size, mild concentric left ventricular hypertrophy, EF: 55-60%, suspicious for PFO, mild valvular artoci stensosi, aortic valve moderately calcified, trace aortic regurgitation, moderate pulmonary hypertension 6) Syncope Assessment/Plan * Cardiology (Dr. Ron) on the case-->help appreciated * Neurology (Dr. Keaen) on the case-->help appreciated * CT Head (08/30/17): no acute intracrnial hemorrhage, or large acute infract seen. Mild chronic perventricular white matter ischemic changes seen estending peripherally into the deep white matter both cerebral hemisphere. few scatter chronic bilateral basal nuclei lacunar type infarcts as well. * Troponins: 0.2820, 0.2200, 0.3200, 0.3240 * pending: MRA head and neck, MRI brain, ECHO, EEG * TSH, Free T4 within normal limits * RPR * Vit B12: 917 * Folate: 5.0 * Fall precautions, seizure precautions 7) Nonstemi * Cardiology consulted, Dr. Ron, help appreciated * L atrial enlargement with incomplete RBBB on ekg unchanged from 06/18/17 * Heparin Drip * Troponins: 0.2820, 0.2200, 0.3200, 0.3240 * Aspirin 162mg PO daily (Home medication) * Cardiology advised to d/c Plavix 75mg PO daily * Has had a recent stress test in July 2017 completed-->copy in the chart 8) Hypertension * Cardiology (Dr. Ron) on the case-->help appreciated * Labetalol 5mg iv given in ED on admission * IMdur 30mg PO Q24H * Cozaar 50mg PO Q24H * Toprol XL 50mg PO24H 9) Hypokalemia * Normalized 10) Indwelling Crandall for Hx BPH Recent urologic procedure with urologic stent * Urology consulted, Dr. 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
--- NOTE | 2017-09-02 10:25 | CP.CCUPN ---
<MerlinPorschecheryl - Last Filed: 09/02/17 10:22> CCU Subjective - Physician Review Subjective (Free Text): Patient seen and examined at bedside. Patient was wheezing last night requiring nebulizer treatment. Patient has no complaints at this time. He denies any fever , chills, chest pain, palpitations, abdominal pain, changes in bowel habits or urinary symptoms. States that his Shortness of Breath has improved. Patient states he wants to go home. CCU Objective - Vital Signs / Intake & Output Vital Signs (Last 4 hours): Vital Signs Pulse Resp BP Pulse Ox 09/02/17 07:00 68 23 99 09/02/17 06:55 138/60 Intake and Output (Last 8hrs): Intake & Output 09/01/17 09/02/17 09/02/17 22:59 06:59 14:59 Intake Total 709.0 1119.5 Output Total 665 550 Balance 44.0 569.5 Intake: IV 250 Intake, IV Amount 709.0 869.5 Right Antecubital 100 Right Distal Port Hand 84.0 84.0 Right Hand 625 600 right AC 10.5 right hand 75 Output: Urine 665 550 Urethral (Craft) 665 550 Other: # Bowel Movements 0 0 - Physical Exam Head: Positive for: Atraumatic, Normocephalic Extroacular Muscles: Positive for: EOMI Conjunctiva: Positive for: Normal Mouth: Positive for: Moist Mucous Membranes Respiratory/Chest: Positive for: Wheezes. Negative for: Accessory Muscle Use, Rales, Rhonchi Cardiovascular: Positive for: Regular Rate and Rhythm, Normal S1, S2 Abdomen: Positive for: Normal Bowel Sounds. Negative for: Tenderness Neurological: Positive for: GCS=15 Skin: Positive for: Warm, Dry, Normal Color Psychiatric: Positive for: Alert, Oriented x 3 - Medications Active Medications: Active Medications Generic Name Dose Route Start Last Admin Trade Name Freq PRN Reason Stop Dose Admin Aspirin 162 mg 08/31/17 10:00 09/01/17 11:05 Aspirin Chewable PO 162 mg DAILY BIRGIT Administration Famotidine 20 mg 08/31/17 10:00 09/01/17 18:27 Pepcid PO 20 mg BID BIRGIT Administration Imipenem/Cilastatin Sodium 500 100 mls @ 100 mls/hr 08/31/17 11:00 09/02/17 02:26 mg/ Sodium Chloride IVPB 100 mls/hr Q8H BIRGIT Administration Protocol Heparin Sodium/Sodium Chloride 25,000 units in 250 mls @ 9.434 mls/hr 22:47 09/02/17 01:31 Heparin 47963 Units/250ml 1/2 Normal Saline IV 15.58 units/kg/hr .Q24H PRN 10.5 mls/hr PROTOCOL Administration Protocol 14 UNITS/KG/HR Ipratropium [place] 0.5 mg 08/30/17 21:10 09/02/17 02:35 Atrovent IH 0.5 mg RQ6 PRN Administration Shortness of Breath Isosorbide Mononitrate 30 mg 08/31/17 19:00 09/01/17 18:27 Imdur Er PO 30 mg Q24H BIRGIT Administration Losartan Potassium 50 mg 08/31/17 13:00 09/01/17 14:04 Cozaar PO 50 mg Q24H BIRGIT Administration Metoprolol Succinate 50 mg 08/31/17 07:00 09/02/17 06:20 Toprol Xl PO 50 mg Q24H BIRGIT Administration Rosuvastatin Calcium 10 mg 08/30/17 22:00 09/01/17 21:34 Crestor PO 10 mg HS BIRGIT Administration Saccharomyces Boulardii 250 mg 08/31/17 10:00 09/01/17 18:27 Florastor PO 250 mg BID BIRGIT Administration Tamsulosin HCl 0.4 mg 08/31/17 10:00 09/01/17 11:04 Flomax PO 0.4 mg DAILY BIRGIT Administration - Patient Studies Lab Studies: Microbiology Studies 08/30/17 16:10 Blood Culture - Final Blood Escherichia Coli Gram Stain - Final 08/30/17 15:30 Blood Culture - Final Blood Escherichia Coli Gram Stain - Final 08/30/17 19:35 MRSA Culture (Admit) - Final Naris MRSA NOT DETECTED 08/30/17 15:35 Urine Culture - Final Urine,Catheterized Escherichia Coli Lab Studies 09/02/17 09/02/17 09/02/17 Range/Units 06:14 06:14 06:14 WBC 5.1 (4.8-10.8) K/uL RBC 3.20 L (4.40-5.90) Mil/uL Hgb 9.6 L (12.0-18.0) g/dL Hct 28.7 L (35.0-51.0) % MCV 89.7 (80.0-94.0) fL MCH 29.9 (27.0-31.0) pg MCHC 33.3 (33.0-37.0) g/dL RDW 15.9 H (11.5-14.5) % Plt Count 122 L (130-400) K/uL MPV 8.8 (7.2-11.7) fL Neut % (Auto) 78.8 H (50.0-75.0) % Lymph % (Auto) 7.0 L (20.0-40.0) % [place] % (Auto) 13.8 H (0.0-10.0) % Eos % (Auto) 0.1 (0.0-4.0) % Baso % (Auto) 0.3 (0.0-2.0) % Neut # (Auto) 4.0 (1.8-7.0) K/uL Lymph # (Auto) 0.4 L (1.0-4.3) K/uL [place] # (Auto) 0.7 (0.0-0.8) K/uL Eos # (Auto) 0.0 (0.0-0.7) K/uL Baso # (Auto) 0.0 (0.0-0.2) K/uL Neutrophils % (Manual) 77 H (50-75) % Band Neutrophils % 2 (0-2) % Lymphocytes % (Manual) 6 L (20-40) % Monocytes % (Manual) 15 H (0-10) % Platelet Estimate Slightly decreased L (NORMAL) Hypochromasia (manual) Slight Poikilocytosis (manual Slight Anisocytosis (manual) Slight Target Cells Slight Ovalocytes Slight APTT 55 H (21-34) SECONDS Sodium 139 (132-148) mmol/L Potassium 3.6 (3.6-5.2) mmol/L Chloride 102 (98-107) mmol/L Carbon Dioxide 27 (22-30) mmol/L Anion Gap 14 (10-20) BUN 18 (9-20) mg/dL Creatinine 1.1 (0.8-1.5) mg/dL Est GFR ( Amer) > 60 Est GFR (Non-Af Amer) > 60 Random Glucose 79 (75-110) mg/dL Calcium 7.5 L (8.6-10.4) mg/dl Phosphorus 2.4 L (2.5-4.5) mg/dL Magnesium 2.3 (1.6-2.3) mg/dL Total Bilirubin 0.4 (0.2-1.3) mg/dL AST 67 H (17-59) U/L ALT 31 (21-72) U/L Alkaline Phosphatase 57 (38-126) U/L Total Protein 6.0 L (6.3-8.3) g/dL Albumin 2.6 L (3.5-5.0) g/dL Globulin 3.4 (2.2-3.9) gm/dL Albumin/Globulin Ratio 0.8 L (1.0-2.1) Urine Color (YELLOW) Urine Clarity (Clear) Urine pH (5.0-8.0) Ur Specific [place] (1.003-1.030) Urine Protein (NEGATIVE) mg/dL Urine Glucose (UA) (Normal) mg/dL Urine Ketones (NEGATIVE) mg/dL Urine Blood (NEGATIVE) Urine Nitrate (NEGATIVE) Urine Bilirubin (NEGATIVE) Urine Urobilinogen (0.2-1.0) mg/dL Ur Leukocyte Esterase (Negative) Virginie/uL Urine WBC (Auto) (0-5) /hpf Urine RBC (Auto) (0-3) /hpf Ur Squamous Epith Cells (0-5) /hpf Urine Bacteria (<OCC) Urine Yeast (Budding) (NEGATIVE) /hpf 09/02/17 Range/Units 06:14 WBC (4.8-10.8) K/uL RBC (4.40-5.90) Mil/uL Hgb (12.0-18.0) g/dL Hct (35.0-51.0) % MCV (80.0-94.0) fL MCH (27.0-31.0) pg MCHC (33.0-37.0) g/dL RDW (11.5-14.5) % Plt Count (130-400) K/uL MPV (7.2-11.7) fL Neut % (Auto) (50.0-75.0) % Lymph % (Auto) (20.0-40.0) % [place] % (Auto) (0.0-10.0) % Eos % (Auto) (0.0-4.0) % Baso % (Auto) (0.0-2.0) % Neut # (Auto) (1.8-7.0) K/uL Lymph # (Auto) (1.0-4.3) K/uL [place] # (Auto) (0.0-0.8) K/uL Eos # (Auto) (0.0-0.7) K/uL Baso # (Auto) (0.0-0.2) K/uL Neutrophils % (Manual) (50-75) % Band Neutrophils % (0-2) % Lymphocytes % (Manual) (20-40) % Monocytes % (Manual) (0-10) % Platelet Estimate (NORMAL) Hypochromasia (manual) Poikilocytosis (manual Anisocytosis (manual) Target Cells Ovalocytes APTT (21-34) SECONDS Sodium (132-148) mmol/L Potassium (3.6-5.2) mmol/L Chloride (98-107) mmol/L Carbon Dioxide (22-30) mmol/L Anion Gap (10-20) BUN (9-20) mg/dL Creatinine (0.8-1.5) mg/dL Est GFR ( Amer) Est GFR (Non-Af Amer) Random Glucose (75-110) mg/dL Calcium (8.6-10.4) mg/dl Phosphorus (2.5-4.5) mg/dL Magnesium (1.6-2.3) mg/dL Total Bilirubin (0.2-1.3) mg/dL AST (17-59) U/L ALT (21-72) U/L Alkaline Phosphatase (38-126) U/L Total Protein (6.3-8.3) g/dL Albumin (3.5-5.0) g/dL Globulin (2.2-3.9) gm/dL Albumin/Globulin Ratio (1.0-2.1) Urine Color Syl[place] (YELLOW) Urine Clarity Hazy (Clear) Urine pH 5.0 (5.0-8.0) Ur Specific [place] 1.029 (1.003-1.030) Urine Protein 2+ H (NEGATIVE) mg/dL Urine Glucose (UA) 1+ H (Normal) mg/dL Urine Ketones 1+ H (NEGATIVE) mg/dL Urine Blood 3+ H (NEGATIVE) Urine Nitrate Negative (NEGATIVE) Urine Bilirubin Negative (NEGATIVE) Urine Urobilinogen 4.0 (0.2-1.0) mg/dL Ur Leukocyte Esterase Trace (Negative) Virginie/uL Urine WBC (Auto) 53 H (0-5) /hpf Urine RBC (Auto) 1224 H (0-3) /hpf Ur Squamous Epith Cells 1 (0-5) /hpf Urine Bacteria Occ H (<OCC) Urine Yeast (Budding) Many H (NEGATIVE) /hpf Laboratory Results - last 24 hr 09/02/17 09/02/17 09/02/17 06:14 06:14 06:14 WBC 5.1 RBC 3.20 L Hgb 9.6 L Hct 28.7 L MCV 89.7 MCH 29.9 MCHC 33.3 RDW 15.9 H Plt Count 122 L MPV 8.8 Neut % (Auto) 78.8 H Lymph % (Auto) 7.0 L [place] % (Auto) 13.8 H Eos % (Auto) 0.1 Baso % (Auto) 0.3 Neut # (Auto) 4.0 Lymph # (Auto) 0.4 L [place] # (Auto) 0.7 Eos # (Auto) 0.0 Baso # (Auto) 0.0 Neutrophils % (Manual) 77 H Band Neutrophils % 2 Lymphocytes % (Manual) 6 L Monocytes % (Manual) 15 H Platelet Estimate Slightly decreased L Hypochromasia (manual) Slight Poikilocytosis (manual Slight Anisocytosis (manual) Slight Target Cells Slight Ovalocytes Slight APTT 55 H Sodium Potassium Chloride Carbon Dioxide Anion Gap BUN Creatinine Est GFR ( Amer) Est GFR (Non-Af Amer) Random Glucose Calcium Phosphorus Magnesium Total Bilirubin AST ALT Alkaline Phosphatase Total Protein Albumin Globulin Albumin/Globulin Ratio Urine Color Sylvia Urine Clarity Hazy Urine pH 5.0 Ur Specific [place] 1.029 Urine Protein 2+ H Urine Glucose (UA) 1+ H Urine Ketones 1+ H Urine Blood 3+ H Urine Nitrate Negative Urine Bilirubin Negative Urine Urobilinogen 4.0 Ur Leukocyte Esterase Trace Urine WBC (Auto) 53 H Urine RBC (Auto) 1224 H Ur Squamous Epith Cells 1 Urine Bacteria Occ H Urine Yeast (Budding) Many H 09/02/17 06:14 WBC RBC Hgb Hct MCV MCH MCHC RDW Plt Count MPV Neut % (Auto) Lymph % (Auto) [place] % (Auto) Eos % (Auto) Baso % (Auto) Neut # (Auto) Lymph # (Auto) [place] # (Auto) Eos # (Auto) Baso # (Auto) Neutrophils % (Manual) Band Neutrophils % Lymphocytes % (Manual) Monocytes % (Manual) Platelet Estimate Hypochromasia (manual) Poikilocytosis (manual Anisocytosis (manual) Target Cells Ovalocytes APTT Sodium 139 Potassium 3.6 Chloride 102 Carbon Dioxide 27 Anion Gap 14 BUN 18 Creatinine 1.1 Est GFR ( Amer) > 60 Est GFR (Non-Af Amer) > 60 Random Glucose 79 Calcium 7.5 L Phosphorus 2.4 L Magnesium 2.3 Total Bilirubin 0.4 AST 67 H ALT 31 Alkaline Phosphatase 57 Total Protein 6.0 L Albumin 2.6 L Globulin 3.4 Albumin/Globulin Ratio 0.8 L Urine Color Urine Clarity Urine pH Ur Specific [place] Urine Protein Urine Glucose (UA) Urine Ketones Urine Blood Urine Nitrate Urine Bilirubin Urine Urobilinogen Ur Leukocyte Esterase Urine WBC (Auto) Urine RBC (Auto) Ur Squamous Epith Cells Urine Bacteria Urine Yeast (Budding) Review of Systems - Constitutional Constitutional: absent: Fever, Chills - Cardiovascular Cardiovascular: absent: Chest Pain, Palpitations - Respiratory Respiratory: Dyspnea (Improved). absent: Pain on Inspiration - Gastrointestinal Gastrointestinal: absent: Abdominal Pain, Change in Bowel Habits - Genitourinary Genitourinary: absent: Difficulty Urinating, Dysuria - Psychiatric Psychiatric: UNREMARKABLE - Hematologic/Lymphatic Hematologic: UNREMARKABLE Critical Care Progress Note - Nutrition Nutrition: Nutrition Category Date Time Status Heart Healthy Diet [DIET] Diets 08/30/17 Dinner Active Assessment/Plan - Assessment and Plan (Free Text) Assessment: 82 y/o M with PMHx of CABG 2004, HTN, HLD, BPH admitted presented with syncope. Admitted to ICU for evaluation and treatment of NSTEMI and PE. Plan: Neuro: A: Syncopy CT Head (08/30/17): no acute intracrnial hemorrhage, or large acute infract seen. Mild chronic perventricular white matter ischemic changes seen estending peripherally into the deep white matter both cerebral hemisphere. few scatter chronic bilateral basal nuclei lacunar type infarcts as well. CTA (Head/Neck): PE found. Carotid Plaques with no occlusion. Doppler Recommended. Head/Neck MRA: PENDING GSC 15 Sedation: None Neurology Consulted (Dr. Keane), Recs Appreciated. MRI recommended by Neuro and Ordered Cardio A: NSTEMI, HTN, HLD Troponins 0.33>0.32>0.324 ECHO (08/30/17): Mild LVH, Mild Valvular aortic stenosis, EF=55-60% Cardiology Consulted (Dr. Ron), Recs Appreciated Cont. Home Metoprolol 50 Daily Cont. Losartan 50mg PO Daily Cont. Home ASA/Plavix /Crestor 10 HS Stress Test Faxed from Dr. Caban's Office revealed Preserved EF @ 68%. Impression: There is no definite evidence of reversible myocardial ischemia noted in this study. Imdur ER 30mg PO Q24H Venous Doppler (09/01/17): DVT in right perineal vein. Pulm A: PE, Emphysema (Mild) Chest CT(09/01/17): B/L PE, Mild Centrilobar Emphysema On therapeutic Heparin BIRGIT Duonebs today then PRN tomorrow DC'd Ipatropium. GI A: HLD Cont. Crestor 10mg PO HS /Nephro/electrolytes A: BPH, UTI, Hematuria UC: E.Coli Cont. Home Flomax Urology Consulted (Dr. Wilson), Recs Appreciated DC Venancio for voiding Trial . I/O: 2427/1865 Cont. Antibiotics ID A: UTI, Bacteremia UC: E.Coli Blood Cultures: E.Coli Continue Primaxin (Imipenem/Cilastatin) 500mg Q8H Endo TSH/Free T4 WNL MSK A: Distal lower extremity and upper extremity join pain. 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) Toradol 30 Q6H PRN Prophylaxis On Heparin Drip for PE/NSTEMI Florastor Pepcid BID Heart Healthy Diet Patient seen and discussed with ICU Attending Ilda Boyer, PGY-1 <Devin Dsouza S - Last Filed: 09/02/17 16:41> CCU Objective - Vital Signs / Intake & Output Vital Signs (Last 4 hours): Vital Signs Temp Pulse Resp BP Pulse Ox 09/02/17 16:30 72 16 174/71 H 96 09/02/17 16:16 90 17 173/74 H 96 09/02/17 16:15 77 16 173/74 H 97 09/02/17 16:01 81 12 166/74 H 09/02/17 16:00 99.3 F 92 H 13 166/74 H 96 09/02/17 13:56 75 16 163/63 H 95 09/02/17 12:55 72 17 146/63 100 Intake and Output (Last 8hrs): Intake & Output 09/02/17 09/02/17 09/02/17 06:59 14:59 22:59 Intake Total 1119.5 549.0 21.0 Output Total 550 410 Balance 569.5 139.0 21.0 Intake: IV 250 Intake, IV Amount 869.5 309.0 21.0 Right Antecubital 100 84.0 21.0 Right Distal Port Hand 84.0 Right Hand 600 225 right AC 10.5 right hand 75 Oral 240 Output: Urine 550 410 Urethral (Craft) 550 410 Other: # Bowel Movements 0 - Medications Active Medications: Active Medications Generic Name Dose Route Start Last Admin Trade Name Freq PRN Reason Stop Dose Admin Albuterol/Ipratropium 3 ml 09/02/17 14:00 09/02/17 13:26 Duoneb 3 Mg/0.5 Mg (3 Ml) Ud INH 09/03/17 02:01 3 ml RQ6 BIRGIT Administration Albuterol/Ipratropium 3 ml 09/03/17 10:00 09/02/17 16:12 Duoneb 3 Mg/0.5 Mg (3 Ml) Ud INH 3 ml RQ4 PRN Administration Shortness of Breath Aspirin 162 mg 08/31/17 10:00 09/02/17 10:29 Aspirin Chewable PO 162 mg DAILY BIRGIT Administration Famotidine 20 mg 08/31/17 10:00 09/02/17 10:29 Pepcid PO 20 mg BID BIRGIT Administration Imipenem/Cilastatin Sodium 500 100 mls @ 100 mls/hr 08/31/17 11:00 09/02/17 10:29 mg/ Sodium Chloride IVPB 100 mls/hr Q8H BIRGIT Administration Protocol Heparin Sodium/Sodium Chloride 25,000 units in 250 mls @ 9.434 mls/hr 22:47 09/02/17 01:31 Heparin 48726 Units/250ml 1/2 Normal Saline IV 15.58 units/kg/hr .Q24H PRN 10.5 mls/hr PROTOCOL Administration Protocol 14 UNITS/KG/HR Isosorbide Mononitrate 30 mg 08/31/17 19:00 09/01/17 18:27 Imdur Er PO 30 mg Q24H BIRGIT Administration Losartan Potassium 50 mg 08/31/17 13:00 09/01/17 14:04 Cozaar PO 50 mg Q24H BIRGIT Administration Metoprolol Succinate 50 mg 08/31/17 07:00 09/02/17 06:20 Toprol Xl PO 50 mg Q24H BIRGIT Administration Rosuvastatin Calcium 10 mg 08/30/17 22:00 09/01/17 21:34 Crestor PO 10 mg HS BIRGIT Administration Saccharomyces Boulardii 250 mg 08/31/17 10:00 09/02/17 10:29 Florastor PO 250 mg BID BIRGIT Administration Tamsulosin HCl 0.4 mg 09/02/17 18:00 Flomax PO BID BIRGIT - Patient Studies Lab Studies: Microbiology Studies 08/30/17 16:10 Blood Culture - Final Blood Escherichia Coli Gram Stain - Final 08/30/17 15:30 Blood Culture - Final Blood Escherichia Coli Gram Stain - Final Lab Studies 09/02/17 09/02/17 09/02/17 Range/Units 06:14 06:14 06:14 WBC 5.1 (4.8-10.8) K/uL RBC 3.20 L (4.40-5.90) Mil/uL Hgb 9.6 L (12.0-18.0) g/dL Hct 28.7 L (35.0-51.0) % MCV 89.7 (80.0-94.0) fL MCH 29.9 (27.0-31.0) pg MCHC 33.3 (33.0-37.0) g/dL RDW 15.9 H (11.5-14.5) % Plt Count 122 L (130-400) K/uL MPV 8.8 (7.2-11.7) fL Neut % (Auto) 78.8 H (50.0-75.0) % Lymph % (Auto) 7.0 L (20.0-40.0) % [place] % (Auto) 13.8 H (0.0-10.0) % Eos % (Auto) 0.1 (0.0-4.0) % Baso % (Auto) 0.3 (0.0-2.0) % Neut # (Auto) 4.0 (1.8-7.0) K/uL Lymph # (Auto) 0.4 L (1.0-4.3) K/uL [place] # (Auto) 0.7 (0.0-0.8) K/uL Eos # (Auto) 0.0 (0.0-0.7) K/uL Baso # (Auto) 0.0 (0.0-0.2) K/uL Neutrophils % (Manual) 77 H (50-75) % Band Neutrophils % 2 (0-2) % Lymphocytes % (Manual) 6 L (20-40) % Monocytes % (Manual) 15 H (0-10) % Platelet Estimate Slightly decreased L (NORMAL) Hypochromasia (manual) Slight Poikilocytosis (manual Slight Anisocytosis (manual) Slight Target Cells Slight Ovalocytes Slight APTT 55 H (21-34) SECONDS Sodium 139 (132-148) mmol/L Potassium 3.6 (3.6-5.2) mmol/L Chloride 102 (98-107) mmol/L Carbon Dioxide 27 (22-30) mmol/L Anion Gap 14 (10-20) BUN 18 (9-20) mg/dL Creatinine 1.1 (0.8-1.5) mg/dL Est GFR ( Amer) > 60 Est GFR (Non-Af Amer) > 60 Random Glucose 79 (75-110) mg/dL Calcium 7.5 L (8.6-10.4) mg/dl Phosphorus 2.4 L (2.5-4.5) mg/dL Magnesium 2.3 (1.6-2.3) mg/dL Total Bilirubin 0.4 (0.2-1.3) mg/dL AST 67 H (17-59) U/L ALT 31 (21-72) U/L Alkaline Phosphatase 57 (38-126) U/L Total Protein 6.0 L (6.3-8.3) g/dL Albumin 2.6 L (3.5-5.0) g/dL Globulin 3.4 (2.2-3.9) gm/dL Albumin/Globulin Ratio 0.8 L (1.0-2.1) Urine Color (YELLOW) Urine Clarity (Clear) Urine pH (5.0-8.0) Ur Specific [place] (1.003-1.030) Urine Protein (NEGATIVE) mg/dL Urine Glucose (UA) (Normal) mg/dL Urine Ketones (NEGATIVE) mg/dL Urine Blood (NEGATIVE) Urine Nitrate (NEGATIVE) Urine Bilirubin (NEGATIVE) Urine Urobilinogen (0.2-1.0) mg/dL Ur Leukocyte Esterase (Negative) Virginie/uL Urine WBC (Auto) (0-5) /hpf Urine RBC (Auto) (0-3) /hpf Ur Squamous Epith Cells (0-5) /hpf Urine Bacteria (<OCC) Urine Yeast (Budding) (NEGATIVE) /hpf 09/02/17 Range/Units 06:14 WBC (4.8-10.8) K/uL RBC (4.40-5.90) Mil/uL Hgb (12.0-18.0) g/dL Hct (35.0-51.0) % MCV (80.0-94.0) fL MCH (27.0-31.0) pg MCHC (33.0-37.0) g/dL RDW (11.5-14.5) % Plt Count (130-400) K/uL MPV (7.2-11.7) fL Neut % (Auto) (50.0-75.0) % Lymph % (Auto) (20.0-40.0) % [place] % (Auto) (0.0-10.0) % Eos % (Auto) (0.0-4.0) % Baso % (Auto) (0.0-2.0) % Neut # (Auto) (1.8-7.0) K/uL Lymph # (Auto) (1.0-4.3) K/uL [place] # (Auto) (0.0-0.8) K/uL Eos # (Auto) (0.0-0.7) K/uL Baso # (Auto) (0.0-0.2) K/uL Neutrophils % (Manual) (50-75) % Band Neutrophils % (0-2) % Lymphocytes % (Manual) (20-40) % Monocytes % (Manual) (0-10) % Platelet Estimate (NORMAL) Hypochromasia (manual) Poikilocytosis (manual Anisocytosis (manual) Target Cells Ovalocytes APTT (21-34) SECONDS Sodium (132-148) mmol/L Potassium (3.6-5.2) mmol/L Chloride (98-107) mmol/L Carbon Dioxide (22-30) mmol/L Anion Gap (10-20) BUN (9-20) mg/dL Creatinine (0.8-1.5) mg/dL Est GFR ( Amer) Est GFR (Non-Af Amer) Random Glucose (75-110) mg/dL Calcium (8.6-10.4) mg/dl Phosphorus (2.5-4.5) mg/dL Magnesium (1.6-2.3) mg/dL Total Bilirubin (0.2-1.3) mg/dL AST (17-59) U/L ALT (21-72) U/L Alkaline Phosphatase (38-126) U/L Total Protein (6.3-8.3) g/dL Albumin (3.5-5.0) g/dL Globulin (2.2-3.9) gm/dL Albumin/Globulin Ratio (1.0-2.1) Urine Color Sylvia (YELLOW) Urine Clarity Hazy (Clear) Urine pH 5.0 (5.0-8.0) Ur Specific [place] 1.029 (1.003-1.030) Urine Protein 2+ H (NEGATIVE) mg/dL Urine Glucose (UA) 1+ H (Normal) mg/dL Urine Ketones 1+ H (NEGATIVE) mg/dL Urine Blood 3+ H (NEGATIVE) Urine Nitrate Negative (NEGATIVE) Urine Bilirubin Negative (NEGATIVE) Urine Urobilinogen 4.0 (0.2-1.0) mg/dL Ur Leukocyte Esterase Trace (Negative) Virginie/uL Urine WBC (Auto) 53 H (0-5) /hpf Urine RBC (Auto) 1224 H (0-3) /hpf Ur Squamous Epith Cells 1 (0-5) /hpf Urine Bacteria Occ H (<OCC) Urine Yeast (Budding) Many H (NEGATIVE) /hpf Laboratory Results - last 24 hr 09/02/17 09/02/17 09/02/17 06:14 06:14 06:14 WBC 5.1 RBC 3.20 L Hgb 9.6 L Hct 28.7 L MCV 89.7 MCH 29.9 MCHC 33.3 RDW 15.9 H Plt Count 122 L MPV 8.8 Neut % (Auto) 78.8 H Lymph % (Auto) 7.0 L [place] % (Auto) 13.8 H Eos % (Auto) 0.1 Baso % (Auto) 0.3 Neut # (Auto) 4.0 Lymph # (Auto) 0.4 L [place] # (Auto) 0.7 Eos # (Auto) 0.0 Baso # (Auto) 0.0 Neutrophils % (Manual) 77 H Band Neutrophils % 2 Lymphocytes % (Manual) 6 L Monocytes % (Manual) 15 H Platelet Estimate Slightly decreased L Hypochromasia (manual) Slight Poikilocytosis (manual Slight Anisocytosis (manual) Slight Target Cells Slight Ovalocytes Slight APTT 55 H Sodium Potassium Chloride Carbon Dioxide Anion Gap BUN Creatinine Est GFR ( Amer) Est GFR (Non-Af Amer) Random Glucose Calcium Phosphorus Magnesium Total Bilirubin AST ALT Alkaline Phosphatase Total Protein Albumin Globulin Albumin/Globulin Ratio Urine Color Sylvia Urine Clarity Hazy Urine pH 5.0 Ur Specific [place] 1.029 Urine Protein 2+ H Urine Glucose (UA) 1+ H Urine Ketones 1+ H Urine Blood 3+ H Urine Nitrate Negative Urine Bilirubin Negative Urine Urobilinogen 4.0 Ur Leukocyte Esterase Trace Urine WBC (Auto) 53 H Urine RBC (Auto) 1224 H Ur Squamous Epith Cells 1 Urine Bacteria Occ H Urine Yeast (Budding) Many H 09/02/17 06:14 WBC RBC Hgb Hct MCV MCH MCHC RDW Plt Count MPV Neut % (Auto) Lymph % (Auto) [place] % (Auto) Eos % (Auto) Baso % (Auto) Neut # (Auto) Lymph # (Auto) [place] # (Auto) Eos # (Auto) Baso # (Auto) Neutrophils % (Manual) Band Neutrophils % Lymphocytes % (Manual) Monocytes % (Manual) Platelet Estimate Hypochromasia (manual) Poikilocytosis (manual Anisocytosis (manual) Target Cells Ovalocytes APTT Sodium 139 Potassium 3.6 Chloride 102 Carbon Dioxide 27 Anion Gap 14 BUN 18 Creatinine 1.1 Est GFR ( Amer) > 60 Est GFR (Non-Af Amer) > 60 Random Glucose 79 Calcium 7.5 L Phosphorus 2.4 L Magnesium 2.3 Total Bilirubin 0.4 AST 67 H ALT 31 Alkaline Phosphatase 57 Total Protein 6.0 L Albumin 2.6 L Globulin 3.4 Albumin/Globulin Ratio 0.8 L Urine Color Urine Clarity Urine pH Ur Specific [place] Urine Protein Urine Glucose (UA) Urine Ketones Urine Blood Urine Nitrate Urine Bilirubin Urine Urobilinogen Ur Leukocyte Esterase Urine WBC (Auto) Urine RBC (Auto) Ur Squamous Epith Cells Urine Bacteria Urine Yeast (Budding) Critical Care Progress Note - Nutrition Nutrition: Nutrition Category Date Time Status Heart Healthy Diet [DIET] Diets 08/30/17 Dinner Active Attending/Attestation - Attestation I have personally seen and examined this patient.: Yes I have fully participated in the care of the patient.: Yes I have reviewed all pertinent clinical information: Yes Notes (Text): 09/02/17 16:38 patient seen and examined in the intensive care unit. Status post IVC filter placement as pt has hematuria Seen by nephrology MRI of head eliquis once cleared by urology Continue to monitor in ICU
[2017-09-02] MEDS: Saccharomyces Boulardi 250 mg Cap PO SCH ×2 (10:29→18:19)
--- NOTE | 2017-09-02 10:56 | VASCLAB ---
PROCEDURE: Bilateral Lower Extremity Venous Duplex Exam. HISTORY: PE PRIORS: None. TECHNIQUE: Bilateral common femoral, femoral, popliteal and posterior tibial, peroneal and great saphenous veins were evaluated. Flow was assessed with color Doppler, compressibility, assessment of phasic flow and augmentation response. Report prepared by MALATHI Downing FINDINGS: RIGHT: 1. Common Femoral Vein: 1.1. Compressibility - Fully compressible: Thrombus - None : Flow - Phasic: Augmentation -Normal: Reflux - None. 2. Femoral Vein: 2.1. Compressibility - Fully compressible: Thrombus - None : Flow - Phasic: Augmentation -Normal: Reflux - None. 3. Popliteal Vein: 3.1. Compressibility - Fully compressible: Thrombus - None : Flow - Phasic: Augmentation -Normal: Reflux - None. 4. Posterior Tibial Vein: 4.1. Compressibility - Fully compressible: Thrombus - None: Flow - Phasic: Augmentation -Normal: Reflux - None. 5. Peroneal Vein: 5.1. Compressibility - Incompressible: Thrombus - Acute: Flow - Reduced : Augmentation -Normal: Reflux - None. 6. Great Saphenous Vein: 6.1. Compressibility - Fully compressible: Thrombus - None: Flow - Phasic: Augmentation - Normal: Reflux - None. LEFT: 1. Common Femoral Vein: 1.1. Compressibility - Fully compressible: Thrombus - None: Flow - Phasic: Augmentation -Normal: Reflux - None. 2. Femoral Vein: 2.1. Compressibility - Fully compressible: Thrombus - None: Flow - Phasic: Augmentation -Normal: Reflux - None. 3. Popliteal Vein: 3.1. Compressibility - Fully compressible: Thrombus - None : Flow - Phasic: Augmentation -Normal: Reflux - None. 4. Posterior Tibial Vein: 4.1. Compressibility - Fully compressible: Thrombus - None: Flow - Phasic: Augmentation -Normal: Reflux - None. 5. Peroneal Vein: 5.1. Compressibility - Fully compressible: Thrombus - None: Flow - Phasic: Augmentation -Normal: Reflux - None. 6. Great Saphenous Vein: 6.1. Compressibility - Fully compressible: Thrombus - None: Flow - Phasic: Augmentation - Normal: Reflux - None. OTHER FINDINGS: Findings were reported by the senior technologist to [facility] [place] at 4:10 p.m. IMPRESSION: Right: Acute deep vein thrombosis of the right peroneal veins, at the mid calf. Left: No evidence of deep or superficial vein thrombosis of the left lower extremity. Normal valve function noted of the left side.
[2017-09-02] MEDS ORDERED: Albuterol-Ipratrop 3 mg / 0.5 (3 ml) UD INH PRN (11:03)
--- NOTE | 2017-09-02 11:28 | PCM.URO ---
Urology Progress Note - Objective Lab Results Last 24 Hours: Laboratory Results - last 24 hr 09/02/17 09/02/17 09/02/17 06:14 06:14 06:14 WBC 5.1 RBC 3.20 L Hgb 9.6 L Hct 28.7 L MCV 89.7 MCH 29.9 MCHC 33.3 RDW 15.9 H Plt Count 122 L MPV 8.8 Neut % (Auto) 78.8 H Lymph % (Auto) 7.0 L [place] % (Auto) 13.8 H Eos % (Auto) 0.1 Baso % (Auto) 0.3 Neut # (Auto) 4.0 Lymph # (Auto) 0.4 L [place] # (Auto) 0.7 Eos # (Auto) 0.0 Baso # (Auto) 0.0 Neutrophils % (Manual) 77 H Band Neutrophils % 2 Lymphocytes % (Manual) 6 L Monocytes % (Manual) 15 H Platelet Estimate Slightly decreased L Hypochromasia (manual) Slight Poikilocytosis (manual Slight Anisocytosis (manual) Slight Target Cells Slight Ovalocytes Slight APTT 55 H Sodium Potassium Chloride Carbon Dioxide Anion Gap BUN Creatinine Est GFR ( Amer) Est GFR (Non-Af Amer) Random Glucose Calcium Phosphorus Magnesium Total Bilirubin AST ALT Alkaline Phosphatase Total Protein Albumin Globulin Albumin/Globulin Ratio Urine Color Sylvia Urine Clarity Hazy Urine pH 5.0 Ur Specific [place] 1.029 Urine Protein 2+ H Urine Glucose (UA) 1+ H Urine Ketones 1+ H Urine Blood 3+ H Urine Nitrate Negative Urine Bilirubin Negative Urine Urobilinogen 4.0 Ur Leukocyte Esterase Trace Urine WBC (Auto) 53 H Urine RBC (Auto) 1224 H Ur Squamous Epith Cells 1 Urine Bacteria Occ H Urine Yeast (Budding) Many H 09/02/17 06:14 WBC RBC Hgb Hct MCV MCH MCHC RDW Plt Count MPV Neut % (Auto) Lymph % (Auto) [place] % (Auto) Eos % (Auto) Baso % (Auto) Neut # (Auto) Lymph # (Auto) [place] # (Auto) Eos # (Auto) Baso # (Auto) Neutrophils % (Manual) Band Neutrophils % Lymphocytes % (Manual) Monocytes % (Manual) Platelet Estimate Hypochromasia (manual) Poikilocytosis (manual Anisocytosis (manual) Target Cells Ovalocytes APTT Sodium 139 Potassium 3.6 Chloride 102 Carbon Dioxide 27 Anion Gap 14 BUN 18 Creatinine 1.1 Est GFR ( Amer) > 60 Est GFR (Non-Af Amer) > 60 Random Glucose 79 Calcium 7.5 L Phosphorus 2.4 L Magnesium 2.3 Total Bilirubin 0.4 AST 67 H ALT 31 Alkaline Phosphatase 57 Total Protein 6.0 L Albumin 2.6 L Globulin 3.4 Albumin/Globulin Ratio 0.8 L Urine Color Urine Clarity Urine pH Ur Specific [place] Urine Protein Urine Glucose (UA) Urine Ketones Urine Blood Urine Nitrate Urine Bilirubin Urine Urobilinogen Ur Leukocyte Esterase Urine WBC (Auto) Urine RBC (Auto) Ur Squamous Epith Cells Urine Bacteria Urine Yeast (Budding) Intake & Output: Intake & Output 09/01/17 09/02/17 09/02/17 18:59 06:59 18:59 Intake Total 965.5 1461.5 Output Total 1090 775 Balance -124.5 686.5 Intake: IV 250 Intake, IV Amount 965.5 1211.5 Right Antecubital 100 Right Distal Port Hand 115.5 126.0 Right Hand 850 900 right AC 10.5 right hand 75 Output: Urine 1090 775 Urethral (Craft) 1090 775 Other: # Bowel Movements 0 Vital Signs: Vital Signs - 24 hr 09/01/17 09/01/17 09/01/17 11:55 12:00 12:05 Temperature 99.1 F Pulse Rate 76 Respiratory 22 Rate Blood Pressure 138/62 O2 Sat by Pulse 100 100 100 Oximetry 09/01/17 09/01/17 09/01/17 12:54 13:55 14:55 Temperature Pulse Rate 86 86 73 Respiratory 21 11 L 35 H Rate Blood Pressure 133/70 132/58 L 121/56 L O2 Sat by Pulse 99 96 98 Oximetry 09/01/17 09/01/17 09/01/17 15:55 16:00 16:55 Temperature 98.6 F Pulse Rate 78 74 Respiratory 15 27 H Rate Blood Pressure 147/70 153/68 H O2 Sat by Pulse 98 100 98 Oximetry 09/01/17 09/01/17 09/01/17 17:55 18:55 19:00 Temperature Pulse Rate 79 82 84 Respiratory 23 24 30 H Rate Blood Pressure 160/73 H 181/70 H O2 Sat by Pulse 99 98 86 L Oximetry 09/01/17 09/01/17 09/01/17 19:18 19:55 20:00 Temperature 99.5 F Pulse Rate 95 H 90 Respiratory 21 13 Rate Blood Pressure 141/75 156/101 H O2 Sat by Pulse 97 99 Oximetry 09/01/17 09/01/17 09/01/17 20:55 21:00 21:56 Temperature Pulse Rate 101 H Respiratory 25 H Rate Blood Pressure 147/63 186/86 H O2 Sat by Pulse 100 Oximetry 09/01/17 09/01/17 09/01/17 22:00 22:55 23:00 Temperature Pulse Rate 108 H 74 Respiratory 19 21 Rate Blood Pressure 140/51 L O2 Sat by Pulse 95 97 Oximetry 09/01/17 09/02/17 09/02/17 23:55 00:00 00:55 Temperature 98.7 F Pulse Rate 79 Respiratory 19 Rate Blood Pressure 162/72 H 152/64 H O2 Sat by Pulse 99 Oximetry 09/02/17 09/02/17 09/02/17 01:00 01:54 02:00 Temperature Pulse Rate 69 71 Respiratory 18 20 Rate Blood Pressure 137/52 L O2 Sat by Pulse 99 99 Oximetry 09/02/17 09/02/17 09/02/17 02:55 03:00 03:55 Temperature Pulse Rate 88 Respiratory 22 Rate Blood Pressure 143/53 L 119/52 L O2 Sat by Pulse 98 Oximetry 09/02/17 09/02/17 09/02/17 04:00 04:55 05:00 Temperature 98.9 F Pulse Rate 77 71 Respiratory 20 9 L Rate Blood Pressure 130/52 L O2 Sat by Pulse 99 99 Oximetry 09/02/17 09/02/17 09/02/17 05:55 06:00 06:55 Temperature Pulse Rate 82 Respiratory 22 Rate Blood Pressure 129/60 138/60 O2 Sat by Pulse 99 Oximetry 09/02/17 07:00 Temperature Pulse Rate 68 Respiratory 23 Rate Blood Pressure O2 Sat by Pulse 99 Oximetry
--- NOTE | 2017-09-02 12:34 | CP.PCM.CON ---
History of Present Illness - History of Present Illness History of Present Illness: Vascular Surgery- Dr. Baldwin 82M pmhx significant for CABG, HTN, HLD, BPH, admitted for syncope and diagnosed w/ NSTEMI and PE. Vascular surgery was consulted for IVC filter placement. +in dwelling [place]. Denies current: fevers, chills, nausea, vomiting, diarrhea PMH: HTN, HLD, CAD, BPH PSH: CABG (2003), urinary stent (2017), indwelling crandall (2018) ALL: NKDA SocialHx: former tobacco use 1.5ppd > 50+ years- quit 2003. denies ETOH and recreational drug use Review of Systems - Review of Systems All systems: reviewed and no additional remarkable complaints except - Constitutional Constitutional: As Per HPI Past Patient History - Past Medical History & Family History Past Medical History?: Yes - Past Social History Smoking Status: Former Smoker - CARDIAC Hx Hypercholesterolemia: Yes Hx Hypertension: Yes - PULMONARY Hx Respiratory Disorders: No - NEUROLOGICAL Hx Neurological Disorder: Yes Hx Syncope: Yes - HEENT Hx HEENT Problems: Yes Hx Epistaxis: Yes - RENAL Hx Chronic Kidney Disease: No - ENDOCRINE/METABOLIC Hx Endocrine Disorders: No - HEMATOLOGICAL/ONCOLOGICAL Hx Blood Disorders: Yes Hx Anemia: Yes Hx Blood Transfusions: Yes Other/Comment: uncontrolled epistaxis 2017 - INTEGUMENTARY Hx Dermatological Problems: No - MUSCULOSKELETAL/RHEUMATOLOGICAL Hx Falls: No - GASTROINTESTINAL Hx Gastrointestinal Disorders: No - GENITOURINARY/GYNECOLOGICAL Hx Genitourinary Disorders: Yes Other/Comment: BPH,. unable to void for 36 hours -had FC inserted last by Dr. Wilson - PSYCHIATRIC Hx Substance Use: No - SURGICAL HISTORY Hx Surgeries: Yes Hx Open Heart Surgery: Yes (2003 bypass) - ANESTHESIA Hx Anesthesia: Yes Hx Anesthesia Reactions: No Meds Allergies/Adverse Reactions: Allergies Allergy/AdvReac Type Severity Reaction Status Date / Time No Known Allergies Allergy Verified 08/30/17 15:21 - Medications Medications: Current Medications Albuterol/Ipratropium (Duoneb 3 Mg/0.5 Mg (3 Ml) Ud) 3 ml INH RQ6 BIRGIT Stop: 09/03/17 02:01 Albuterol/Ipratropium (Duoneb 3 Mg/0.5 Mg (3 Ml) Ud) 3 ml INH RQ4 PRN PRN Reason: Shortness of Breath Aspirin (Aspirin Chewable) 162 mg PO DAILY [facility] Last Admin: 09/02/17 10:29 Dose: 162 mg Famotidine (Pepcid) 20 mg PO BID [facility] Last Admin: 09/02/17 10:29 Dose: 20 mg Imipenem/Cilastatin Sodium 500 (mg/ Sodium Chloride) 100 mls @ 100 mls/hr IVPB Q8H [facility] PRN Reason: Protocol Last Admin: 09/02/17 10:29 Dose: 100 mls/hr Heparin Sodium/Sodium Chloride (Heparin 77134 Units/250ml 1/2 Normal Saline) 25 ,000 units in 250 mls @ 9.434 mls/hr IV .Q24H PRN; Protocol; 14 UNITS/KG/HR PRN Reason: PROTOCOL Last Admin: 09/02/17 01:31 Dose: 15.58 units/kg/hr, 10.5 mls/hr Isosorbide Mononitrate (Imdur Er) 30 mg PO Q24H [facility] Last Admin: 09/01/17 18:27 Dose: 30 mg Losartan Potassium (Cozaar) 50 mg PO Q24H [facility] Last Admin: 09/01/17 14:04 Dose: 50 mg Metoprolol Succinate (Toprol Xl) 50 mg PO Q24H [facility] Last Admin: 09/02/17 06:20 Dose: 50 mg Rosuvastatin Calcium (Crestor) 10 mg PO HS [facility] Last Admin: 09/01/17 21:34 Dose: 10 mg Saccharomyces Boulardii (Florastor) 250 mg PO BID [facility] Last Admin: 09/02/17 10:29 Dose: 250 mg Tamsulosin HCl (Flomax) 0.4 mg PO BID [facility] Physical Exam - Constitutional Appears: Non-toxic, No Acute Distress - Eye Exam Eye Exam: EOMI - Respiratory Exam Respiratory Exam: NORMAL BREATHING PATTERN. absent: Accessory Muscle Use, Respiratory Distress - Cardiovascular Exam Cardiovascular Exam: +S1, +S2. absent: Bradycardia, Tachycardia - GI/Abdominal Exam GI & Abdominal Exam: Soft. absent: Firm, Guarding, Rigid, Tenderness - Neurological Exam Neurological exam: Alert, Oriented x3 - Skin Skin Exam: Dry, Warm Results - Vital Signs Recent Vital Signs: Last Vital Signs Temp 98.9 F 09/02/17 04:00 Pulse 68 09/02/17 07:00 Resp 23 09/02/17 07:00 BP 138/60 09/02/17 06:55 Pulse Ox 99 09/02/17 07:00 - Labs Result Diagrams: 09/02/17 06:14 09/02/17 06:14 Labs: Laboratory Results - last 24 hr 09/02/17 09/02/17 09/02/17 06:14 06:14 06:14 WBC 5.1 RBC 3.20 L Hgb 9.6 L Hct 28.7 L MCV 89.7 MCH 29.9 MCHC 33.3 RDW 15.9 H Plt Count 122 L MPV 8.8 Neut % (Auto) 78.8 H Lymph % (Auto) 7.[address] [place] % (Auto) 13.8 H Eos % (Auto) 0.1 Baso % (Auto) 0.3 Neut # (Auto) 4.0 Lymph # (Auto) 0.[address] [place] # (Auto) 0.7 Eos # (Auto) 0.0 Baso # (Auto) 0.0 Neutrophils % (Manual) 77 H Band Neutrophils % 2 Lymphocytes % (Manual) 6 L Monocytes % (Manual) 15 H Platelet Estimate Slightly decreased L Hypochromasia (manual) Slight Poikilocytosis (manual Slight Anisocytosis (manual) Slight Target Cells Slight Ovalocytes Slight APTT 55 H Sodium Potassium Chloride Carbon Dioxide Anion Gap BUN Creatinine Est GFR ( Amer) Est GFR (Non-Af Amer) Random Glucose Calcium Phosphorus Magnesium Total Bilirubin AST ALT Alkaline Phosphatase Total Protein Albumin Globulin Albumin/Globulin Ratio Urine Color Sylvia Urine Clarity Hazy Urine pH 5.0 Ur Specific [place] 1.029 Urine Protein 2+ H Urine Glucose (UA) 1+ H Urine Ketones 1+ H Urine Blood 3+ H Urine Nitrate Negative Urine Bilirubin Negative Urine Urobilinogen 4.0 Ur Leukocyte Esterase Trace Urine WBC (Auto) 53 H Urine RBC (Auto) 1224 H Ur Squamous Epith Cells 1 Urine Bacteria Occ H Urine Yeast (Budding) Many H 09/02/17 06:14 WBC RBC Hgb Hct MCV MCH MCHC RDW Plt Count MPV Neut % (Auto) Lymph % (Auto) [place] % (Auto) Eos % (Auto) Baso % (Auto) Neut # (Auto) Lymph # (Auto) [place] # (Auto) Eos # (Auto) Baso # (Auto) Neutrophils % (Manual) Band Neutrophils % Lymphocytes % (Manual) Monocytes % (Manual) Platelet Estimate Hypochromasia (manual) Poikilocytosis (manual Anisocytosis (manual) Target Cells Ovalocytes APTT Sodium 139 Potassium 3.6 Chloride 102 Carbon Dioxide 27 Anion Gap 14 BUN 18 Creatinine 1.1 Est GFR ( Amer) > 60 Est GFR (Non-Af Amer) > 60 Random Glucose 79 Calcium 7.5 L Phosphorus 2.4 L Magnesium 2.3 Total Bilirubin 0.4 AST 67 H ALT 31 Alkaline Phosphatase 57 Total Protein 6.0 L Albumin 2.6 L Globulin 3.4 Albumin/Globulin Ratio 0.8 L Urine Color Urine Clarity Urine pH Ur Specific [place] Urine Protein Urine Glucose (UA) Urine Ketones Urine Blood Urine Nitrate Urine Bilirubin Urine Urobilinogen Ur Leukocyte Esterase Urine WBC (Auto) Urine RBC (Auto) Ur Squamous Epith Cells Urine Bacteria Urine Yeast (Budding) Assessment & Plan - Assessment and Plan (Free Text) Assessment: 82F hx of CAD, CABG, admitted for NSTEMI and PE on heparin drip Plan: - Plan for IVC filter placement today - NPO - discussed w/ Dr. Baldwin surgical attending PGY1
[2017-09-02] MEDS: Albuterol-Ipratrop 3 mg / 0.5 (3 ml) UD INH SCH ×2 (13:26→20:43)
[2017-09-02] MEDS ORDERED: Midazolam 2 MG/2 ML VIAL ONE (15:05)
--- NOTE | 2017-09-02 15:48 | PCM.SURG1 ---
Surgeon's Initial Post Op Note - Surgeon's Notes Surgeon: Dr. Baldwin Band Sawmill Operator: PGY1 Pre-Operative Diagnosis: DVT PE Operative Findings: renal veins and iliac confluence identified. for details see op note Post-Operative Diagnosis: as above Operation Performed: Inferior vena cava filter placement Specimen/Specimens Removed: none Estimated Blood Loss: EBL {In ML}: 5 Post-Op Condition: Good Date of Surgery/Procedure: 09/02/17 Time of Surgery/Procedure: 15:48
--- NOTE | 2017-09-02 16:09 | CP.PCM.CON ---
History of Present Illness - History of Present Illness History of Present Illness: 82 y/o M presented for syncope - when got up to go to the bathroom and felt everything get dark and he slumped to the floor. Patient did not lose consciousness. Family checked patient's temperature which was 101. Patient had a urinary stent and crandall placed on by Dr. Noreen Wilson for BPH. Patient was found to have GRAM NEG SEPSIS WITH E COLI IN URINE AND BLOOD PMHx: CABG 2003, HTN, HLD, BPH Psurg: CABG 2003, urinary stent 08/27/17, indwelling crandall 08/27/17 Fam hx: father's side: CAD Social: 50 years of 1.5 packs of cigarettes per day - quit in 2003, no alcohol, no drugs, lives with in care home community performs ADLs home meds: morning: Isosorbide 30mg, Toprol XL 50mg. Noon: Plavix 75mg, diovan 80mg, ASA 162mg, Evening: flomax .4mg bedtime: lipitor 20mg nexium 40mg Review of Systems - Review of Systems All systems: reviewed and no additional remarkable complaints except - Constitutional Constitutional: As Per HPI - EENT Eyes: absent: As Per HPI, Blind Spots, Blurred Vision, Change in Vision, Decreased Night Vision, Diplopia, Discharge, Dry Eye, Exophthalmos, Floaters, Irritation, Itchy Eyes, Loss of Peripheral Vision, Pain, Photophobia, Requires Corrective Lenses, Sees Flashes, Spots in Vision, Tunnel Vision, Other Visual Disturbances, Loss of Vision, Other Ears: absent: As Per HPI, Decreased Hearing, Ear Discharge, Ear Pain, Tinnitus, Abnormal Hearing, Disequilibrium, Dizziness, Other Nose/Mouth/Throat: absent: As Per HPI, Epistaxis, Nasal Congestion, Nasal Discharge, Nasal Obstruction, Nasal Trauma, Nose Pain, Post Nasal Drip, Sinus Pain, Sinus Pressure, Bleeding Gums, Change in Voice, Dental Pain, Dry Mouth, Dysphagia, Halitosis, Hoarsness, Lip Swelling, Mouth Lesions, Mouth Pain, Odynophagia, Sore Throat, Throat Swelling, Tongue Swelling, Facial Pain, Neck Pain, Neck Mass, Other - Cardiovascular Cardiovascular: As Per HPI - Respiratory Respiratory: absent: As Per HPI, Cough, Dyspnea, Hemoptysis, Dyspnea on Exertion , Wheezing, Snoring, Stridor, Pain on Inspiration, Chest Congestion, Excessive Mucous Production, Change in Mucous Color, Pain with Coughing, Other - Gastrointestinal Gastrointestinal: absent: As Per HPI, Abdominal Pain, Belching, Bloating, Change in Bowel Habits, Change in Stool Character, Coffee Ground Emesis, Constipation, Cramping, Diarrhea, Dyspepsia, Dysphagia, Early Satiety, Excessive Flatus, Fecal Incontinence, Heartburn, Hematemesis, Hematochezia, Loose Stools, Melena, Nausea, Odynophagia, Temesmus, Vomiting, Other - Genitourinary Genitourinary: As Per HPI - Musculoskeletal Musculoskeletal: absent: As Per HPI, Abnormal Gait, Arthralgias, Atrophy, Back Pain, Deformity, Joint Swelling, Limited Range of Motion, Loss of Height, Muscle Cramps, Muscle Weakness, Myalgias, Neck Pain, Numbness, Radiating Pain into Limb, Stiffness, Tingling, Other - Integumentary Integumentary: absent: As Per HPI, Acne, Alopecia, Bleeding Lesions, Change in Hair, Change in Nails, Change in Pigmentation, Changing Lesions, Dry Skin, Erythema, Furuncle, Hirsutism, Lesions, New Lesions, Non-Healing Lesions, Photosensitivity, Pruritus, Rash, Skin Pain, Skin Ulcer, Sores, Striae, Swelling , Unusual Bruising, Wounds, Jaundice, Other - Neurological Neurological: As Per HPI - Psychiatric Psychiatric: absent: As Per HPI, Abnormal Sleep Pattern, Anhedonia, Anxiety, Auditory Hallucinations, Behavioral Changes, Change in Appetite, Change in Libido, Confusion, Depression, Difficulty Concentrating, Hallucinations, Homicidal Ideation, Hopelessness, Irritability, Memory Loss, Mood Swings, Panic Attacks, Paranoia, Suicidal Ideation, Visual Hallucinations, Tactile Hallucinations, Other - Endocrine Endocrine: absent: As Per HPI, Change in Body Appearance, Change in Libido, Cold Intolorance, Deepening of Voice, Excessive Sweating, Fatigue, Flushing, Heat Intolorance, Increase in Ring/Shoe/Hat Size, Palpitations, Polydipsia, Polyphagia, Polyuria, Other - Hematologic/Lymphatic Hematologic: absent: As Per HPI, Easy Bleeding, Easy Bruising, Lymphadenopathy, Other Past Patient History - Past Medical History & Family History Past Medical History?: Yes - Past Social History Smoking Status: Former Smoker - CARDIAC Hx Hypercholesterolemia: Yes Hx Hypertension: Yes - PULMONARY Hx Respiratory Disorders: No - NEUROLOGICAL Hx Neurological Disorder: Yes Hx Syncope: Yes - HEENT Hx HEENT Problems: Yes Hx Epistaxis: Yes - RENAL Hx Chronic Kidney Disease: No - ENDOCRINE/METABOLIC Hx Endocrine Disorders: No - HEMATOLOGICAL/ONCOLOGICAL Hx Blood Disorders: Yes Hx Anemia: Yes Hx Blood Transfusions: Yes Other/Comment: uncontrolled epistaxis 2017 - INTEGUMENTARY Hx Dermatological Problems: No - MUSCULOSKELETAL/RHEUMATOLOGICAL Hx Falls: No - GASTROINTESTINAL Hx Gastrointestinal Disorders: No - GENITOURINARY/GYNECOLOGICAL Hx Genitourinary Disorders: Yes Other/Comment: BPH,. unable to void for 36 hours -had FC inserted last by Dr. Wilson - PSYCHIATRIC Hx Substance Use: No - SURGICAL HISTORY Hx Surgeries: Yes Hx Open Heart Surgery: Yes (2004 bypass) - ANESTHESIA Hx Anesthesia: Yes Hx Anesthesia Reactions: No Meds Allergies/Adverse Reactions: Allergies Allergy/AdvReac Type Severity Reaction Status Date / Time No Known Allergies Allergy Verified 08/30/17 15:21 - Medications Medications: Current Medications Albuterol/Ipratropium (Duoneb 3 Mg/0.5 Mg (3 Ml) Ud) 3 ml INH RQ6 [facility] Stop: 09/03/17 02:01 Last Admin: 09/02/17 13:26 Dose: 3 ml Albuterol/Ipratropium (Duoneb 3 Mg/0.5 Mg (3 Ml) Ud) 3 ml INH RQ4 PRN PRN Reason: Shortness of Breath Aspirin (Aspirin Chewable) 162 mg PO DAILY [facility] Last Admin: 09/02/17 10:29 Dose: 162 mg Famotidine (Pepcid) 20 mg PO BID [facility] Last Admin: 09/02/17 10:29 Dose: 20 mg Imipenem/Cilastatin Sodium 500 (mg/ Sodium Chloride) 100 mls @ 100 mls/hr IVPB Q8H [facility] PRN Reason: Protocol Last Admin: 09/02/17 10:29 Dose: 100 mls/hr Heparin Sodium/Sodium Chloride (Heparin 58190 Units/250ml 1/2 Normal Saline) 25 ,000 units in 250 mls @ 9.434 mls/hr IV .Q24H PRN; Protocol; 14 UNITS/KG/HR PRN Reason: PROTOCOL Last Admin: 09/02/17 01:31 Dose: 15.58 units/kg/hr, 10.5 mls/hr Isosorbide Mononitrate (Imdur Er) 30 mg PO Q24H [facility] Last Admin: 09/01/17 18:27 Dose: 30 mg Losartan Potassium (Cozaar) 50 mg PO Q24H [facility] Last Admin: 09/01/17 14:04 Dose: 50 mg Metoprolol Succinate (Toprol Xl) 50 mg PO Q24H [facility] Last Admin: 09/02/17 06:20 Dose: 50 mg Rosuvastatin Calcium (Crestor) 10 mg PO HS [facility] Last Admin: 09/01/17 21:34 Dose: 10 mg Saccharomyces Boulardii (Florastor) 250 mg PO BID [facility] Last Admin: 09/02/17 10:29 Dose: 250 mg Tamsulosin HCl (Flomax) 0.4 mg PO BID [facility] Physical Exam - Constitutional Appears: Non-toxic, Chronically Ill - Head Exam Head Exam: NORMOCEPHALIC - Eye Exam Eye Exam: PERRL. absent: Scleral icterus - ENT Exam ENT Exam: Mucous Membranes Dry - Neck Exam Neck exam: Negative for: Lymphadenopathy - Respiratory Exam Respiratory Exam: Decreased Breath Sounds - Cardiovascular Exam Cardiovascular Exam: REGULAR RHYTHM - GI/Abdominal Exam GI & Abdominal Exam: Diminished Bowel Sounds, Soft. absent: Tenderness - Rectal Exam Rectal Exam: Deferred - Exam Exam: NORMAL INSPECTION - Extremities Exam Extremities exam: Negative for: pedal edema - Back Exam Back exam: absent: CVA tenderness (L), CVA tenderness (R), paraspinal tenderness - Neurological Exam Neurological exam: Alert, CN II-XII Intact, Oriented x3, Reflexes Normal - Psychiatric Exam Psychiatric exam: Depressed - Skin Skin Exam: Dry, Intact Results - Vital Signs Recent Vital Signs: Last Vital Signs Temp 98.4 F 09/02/17 12:00 Pulse 75 09/02/17 13:56 Resp 16 09/02/17 13:56 BP 163/63 H 09/02/17 13:56 Pulse Ox 95 09/02/17 13:56 - Labs Result Diagrams: 09/02/17 06:14 09/02/17 06:14 Labs: Laboratory Results - last 24 hr 09/02/17 09/02/17 09/02/17 06:14 06:14 06:14 WBC 5.1 RBC 3.20 L Hgb 9.6 L Hct 28.7 L MCV 89.7 MCH 29.9 MCHC 33.3 RDW 15.9 H Plt Count 122 L MPV 8.8 Neut % (Auto) 78.8 H Lymph % (Auto) 7.0 L [place] % (Auto) 13.8 H Eos % (Auto) 0.1 Baso % (Auto) 0.3 Neut # (Auto) 4.0 Lymph # (Auto) 0.4 L [place] # (Auto) 0.7 Eos # (Auto) 0.0 Baso # (Auto) 0.0 Neutrophils % (Manual) 77 H Band Neutrophils % 2 Lymphocytes % (Manual) 6 L Monocytes % (Manual) 15 H Platelet Estimate Slightly decreased L Hypochromasia (manual) Slight Poikilocytosis (manual Slight Anisocytosis (manual) Slight Target Cells Slight Ovalocytes Slight APTT 55 H Sodium Potassium Chloride Carbon Dioxide Anion Gap BUN Creatinine Est GFR ( Amer) Est GFR (Non-Af Amer) Random Glucose Calcium Phosphorus Magnesium Total Bilirubin AST ALT Alkaline Phosphatase Total Protein Albumin Globulin Albumin/Globulin Ratio Urine Color Sylvia Urine Clarity Hazy Urine pH 5.0 Ur Specific [place] 1.029 Urine Protein 2+ H Urine Glucose (UA) 1+ H Urine Ketones 1+ H Urine Blood 3+ H Urine Nitrate Negative Urine Bilirubin Negative Urine Urobilinogen 4.0 Ur Leukocyte Esterase Trace Urine WBC (Auto) 53 H Urine RBC (Auto) 1224 H Ur Squamous Epith Cells 1 Urine Bacteria Occ H Urine Yeast (Budding) Many H 09/02/17 06:14 WBC RBC Hgb Hct MCV MCH MCHC RDW Plt Count MPV Neut % (Auto) Lymph % (Auto) [place] % (Auto) Eos % (Auto) Baso % (Auto) Neut # (Auto) Lymph # (Auto) [place] # (Auto) Eos # (Auto) Baso # (Auto) Neutrophils % (Manual) Band Neutrophils % Lymphocytes % (Manual) Monocytes % (Manual) Platelet Estimate Hypochromasia (manual) Poikilocytosis (manual Anisocytosis (manual) Target Cells Ovalocytes APTT Sodium 139 Potassium 3.6 Chloride 102 Carbon Dioxide 27 Anion Gap 14 BUN 18 Creatinine 1.1 Est GFR ( Amer) > 60 Est GFR (Non-Af Amer) > 60 Random Glucose 79 Calcium 7.5 L Phosphorus 2.4 L Magnesium 2.3 Total Bilirubin 0.4 AST 67 H ALT 31 Alkaline Phosphatase 57 Total Protein 6.0 L Albumin 2.6 L Globulin 3.4 Albumin/Globulin Ratio 0.8 L Urine Color Urine Clarity Urine pH Ur Specific [place] Urine Protein Urine Glucose (UA) Urine Ketones Urine Blood Urine Nitrate Urine Bilirubin Urine Urobilinogen Ur Leukocyte Esterase Urine WBC (Auto) Urine RBC (Auto) Ur Squamous Epith Cells Urine Bacteria Urine Yeast (Budding) Assessment & Plan (1) E coli bacteremia Status: Acute (2) Sepsis Status: Acute (3) Deep vein thrombosis Status: Acute (4) NSTEMI (non-ST elevated myocardial infarction) Status: Acute (5) Pulmonary embolus Status: Acute (6) Syncope Status: Acute (7) Acute blood loss anemia Status: Acute - Assessment and Plan (Free Text) Assessment: E COLI SEPSIS WITH SYNCOPE AND NSTEMI WELL DVT S/P IVC FILTER S/P CYSTO / STENT' 1 WEEK AGO CONT IV RX FOR MIN 14 DAYS CARDIO EVAL AND FOLLOW UP FOR POSSIBLE CAth when stable
[2017-09-02] MEDS: Albuterol-Ipratrop 3 mg / 0.5 (3 ml) UD INH PRN (16:12)
--- NOTE | 2017-09-02 18:28 | MRI ---
PROCEDURE: Magnetic Resonance Angiography Brain HISTORY: syncope COMPARISON: None available. TECHNIQUE: 3D time of flight MR angiography of the intracranial arteries was performed. Rotating maximum intensity projection images were generated. FINDINGS: INTERNAL CAROTID ARTERIES: Atherosclerotic changes with mild narrowing can be seen in the intra cavernous portions of the internal carotid arteries bilaterally. There is also a short segment stenosis in the left internal carotid at the junction of the vertical and horizontal segments ANTERIOR CEREBRAL ARTERIES: Unremarkable. A1 and A2 segments are widely patent. Smaller distal branches unremarkable, as visualized. MIDDLE CEREBRAL ARTERIES: Unremarkable. M1 and M2 segments are widely patent. Perisylvian branches grossly symmetric. POSTERIOR CIRCULATION: Basilar Artery: Unremarkable. Distal Vertebral Arteries: Unremarkable. Posterior Cerebral Arteries: Unremarkable. Posterior Inferior Cerebellar Arteries: Unremarkable. ANEURYSM/ VASCULAR MALFORMATIONS: None. OTHER FINDINGS: None. IMPRESSION: Atherosclerotic changes with mild narrowing can be seen in the intra cavernous portions of the internal carotid arteries bilaterally. There is also a short segment stenosis in the left internal carotid at the junction of the vertical and horizontal segments
--- NOTE | 2017-09-02 18:31 | MRI ---
PROCEDURE: MR Angiography of the neck without contrast HISTORY: syncope COMPARISON: None available. TECHNIQUE: 3D [id number] angiography of the neck was performed. Rotating maximum intensity projection images of the cervical carotid and vertebral arteries were generated. The origins of the common carotid arteries were not visualized, which is a limitation inherent to the non-contrast time of flight technique. There is some motion artifact on the study FINDINGS: RIGHT CAROTID ARTERIES: Mild atherosclerotic changes are seen with no significant stenosis LEFT CAROTID ARTERIES: Mild atherosclerotic changes are seen with no significant stenosis VERTEBRAL ARTERIES: Right Vertebral Artery: Normal. Left Vertebral Artery: Normal. OTHER FINDINGS: None. IMPRESSION: No significant stenosis
--- NOTE | 2017-09-02 20:27 | PN ---
DATE: 09/02/2017 SUBJECTIVE: The patient denied any chest pain or shortness of breath. Venous Doppler of lower extremity reported acute deep venous thrombosis of the right peroneal vein and at the mid calf. CT angio of the chest reported bilateral pulmonary embolus. No evidence of pulmonary infiltrate or pulmonary infarction. Mild centrilobular pulmonary emphysema, cardiomegaly, CABG. PHYSICAL EXAMINATION: VITAL SIGNS: Blood pressure 189/84, pulse of 82, respirations 14, temperature 99.3. HEENT: Normocephalic. CHEST: Clear. HEART: S1 and S2, regular. EXTREMITIES: No edema. LABORATORY DATA: Today's hemoglobin and hematocrit 9.6 and 28.7. White count 5.1, platelet count 122,000. SMA-7 today is within normal limit. Calcium is 7.5. PTT 55. ASSESSMENT: 1. Right peroneal vein and deep venous thrombosis and bilateral pulmonary emboli. 2. Coronary artery disease, status post coronary artery bypass surgery in 2003. 3. Mild thrombocytopenia. 4. Anemia. 5. Gram-negative urosepsis. RECOMMENDATIONS: Case was discussed with Dr. Baldwin. The patient will undergo IVC filter placement today. In the meantime, the patient will be resumed on his antihypertensive agents including Cozaar at 50 mg once a day and will be resumed on aspirin 162 mg orally daily, Toprol-XL at 50 mg once a day, and IV imipenem at 500 mg intravenously every 8 hours. Klever Ron MD
[2017-09-03] MEDS: Albuterol-Ipratrop 3 mg / 0.5 (3 ml) UD INH SCH (01:43)
[2017-09-03] MEDS: Albuterol-Ipratrop 3 mg / 0.5 (3 ml) UD INH PRN ×3 (05:51→19:29)
[2017-09-03 06:17] LABS: BASO % 0.2 % (0.0-2.0); EOS % 0.6 % (0.0-4.0); LYMPH # 0.6 K/uL (1.0-4.3); LYMPH % 8.8 % (20.0-40.0); MEAN CELL VOLUME 88.9 fL (80.0-94.0); MEAN CORPUSCULAR HEMOGLOBIN 30.1 pg (27.0-31.0); MEAN CORPUSCULAR HGB CONC 33.9 g/dL (33.0-37.0); MEAN PLATELET VOLUME 8.8 fL (7.2-11.7); MONO # 0.9 K/uL (0.0-0.8); MONO % 12.9 % (0.0-10.0); NEUT # 5.2 K/uL (1.8-7.0); NEUT % 77.5 % (50.0-75.0); NRBC % 0.1 % (0.0-2.0); PLATELET COUNT 119 K/uL (130-400); RBC 3.33 Mil/uL (4.40-5.90); RED CELL DISTRIBUTION WIDTH 16.3 % (11.5-14.5); WHITE BLOOD COUNT 6.7 K/uL (4.8-10.8)
[2017-09-03] MEDS: Metoprolol Succinate 50 mg XL Tab PO SCH (06:29)
[2017-09-03 06:35] LABS: ALB/GLOB RATIO 0.8 (1.0-2.1); ALBUMIN 2.8 g/dL (3.5-5.0); ALT/SGPT 33 U/L (21-72); AST/SGOT 81 U/L (17-59); BLOOD UREA NITROGEN 15 mg/dL (9-20); CALCIUM 7.7 mg/dl (8.6-10.4); GFR AFRICAN-AMERICAN > 60; GFR NON-AFRICAN AMERICAN > 60
[2017-09-03 08:21] LABS: EOSINOPHIL 1 % (0-4); LYMPHOCYTE 8 % (20-40); MONOCYTE 11 % (0-10); NEUTROPHIL 79 % (50-75); REACTIVE LYMPHOCYTES 1 % (0-0); TOTAL CELLS COUNTED 100
[2017-09-03 08:22] LABS: ANISOCYTOSIS SLIGHT; PLATELET ESTIMATE SLIGHTLY DECREASED (NORMAL)
[2017-09-03] MEDS ORDERED: Potassium Chloride 10 mEq ER Tab PO ONE (08:33)
[2017-09-03] MEDS: Heparin25000 units/250ml 1/2NS 25,000 UNITS/250 ML BAG IV PRN (08:51)
--- NOTE | 2017-09-03 09:07 | CP.PCM.PN ---
Subjective - Date & Time of Evaluation Date of Evaluation: 09/03/17 Time of Evaluation: 07:00 - Subjective Subjective: Vascular Surgery- Dr. Baldwin Pt S&E at bedside this AM. No acute events overnight. tolerated procedure well yesterday. Denies pain at site of incision. Dressing C/D/I. No sign of hematoma formation Denies fevers, chills, chest pain, shortness of breath, numbness/tingling in extremities Objective - Vital Signs/Intake and Output Vital Signs (last 24 hours): Temp Pulse Resp BP Pulse Ox 100.1 F H 91 H 20 166/67 H 96 09/03/17 09:00 09/03/17 09:00 09/03/17 09:00 09/03/17 09:00 09/03/17 09:00 Intake and Output: 09/03/17 09/03/17 06:59 18:59 Intake Total 656.0 Output Total 1050 Balance -394.0 - Medications Medications: Current Medications Albuterol/Ipratropium (Duoneb 3 Mg/0.5 Mg (3 Ml) Ud) 3 ml INH RQ4 PRN PRN Reason: Shortness of Breath Last Admin: 09/03/17 08:23 Dose: 3 ml Aspirin (Aspirin Chewable) 162 mg PO DAILY [facility] Last Admin: 09/02/17 10:29 Dose: 162 mg Famotidine (Pepcid) 20 mg PO BID [facility] Last Admin: 09/02/17 18:19 Dose: 20 mg Imipenem/Cilastatin Sodium 500 (mg/ Sodium Chloride) 100 mls @ 100 mls/hr IVPB Q8H [facility] PRN Reason: Protocol Last Admin: 09/03/17 03:44 Dose: 100 mls/hr Heparin Sodium/Sodium Chloride (Heparin 75124 Units/250ml 1/2 Normal Saline) 25 ,000 units in 250 mls @ 9.434 mls/hr IV .Q24H PRN; Protocol; 14 UNITS/KG/HR PRN Reason: PROTOCOL Last Admin: 09/03/17 08:51 Dose: 15.58 units/kg/hr, 10.5 mls/hr Isosorbide Mononitrate (Imdur Er) 30 mg PO Q24H [facility] Last Admin: 09/02/17 18:19 Dose: 30 mg Losartan Potassium (Cozaar) 50 mg PO Q24H [facility] Last Admin: 09/02/17 16:58 Dose: 50 mg Metoprolol Succinate (Toprol Xl) 50 mg PO Q24H [facility] Last Admin: 09/03/17 06:29 Dose: 50 mg Rosuvastatin Calcium (Crestor) 10 mg PO HS [facility] Last Admin: 09/02/17 22:57 Dose: 10 mg Saccharomyces Boulardii (Florastor) 250 mg PO BID [facility] Last Admin: 09/02/17 18:19 Dose: 250 mg Tamsulosin HCl (Flomax) 0.4 mg PO BID [facility] Last Admin: 09/02/17 18:21 Dose: 0.4 mg - Labs Labs: 09/03/17 06:10 09/03/17 06:11 PT 16.0 SECONDS (9.7-12.2) H 08/30/17 16:50 INR 1.5 08/30/17 16:50 APTT 47 SECONDS (21-34) H D 09/03/17 06:10 - Constitutional Appears: Non-toxic, No Acute Distress - Head Exam Head Exam: ATRAUMATIC - Eye Exam Eye Exam: EOMI - Respiratory Exam Respiratory Exam: NORMAL BREATHING PATTERN. absent: Accessory Muscle Use, Respiratory Distress - Cardiovascular Exam Cardiovascular Exam: +S1, +S2. absent: Bradycardia, Tachycardia - GI/Abdominal Exam GI & Abdominal Exam: Soft. absent: Distended, Firm, Guarding, Rigid, Tenderness - Extremities Exam Extremities Exam: Normal Inspection. absent: Calf Tenderness Additional comments: Right groin dressing C/D/I. no signs of hematoma - Neurological Exam Neurological Exam: Alert, Awake, Oriented x3 - Psychiatric Exam Psychiatric exam: Normal Affect - Skin Skin Exam: Intact, Warm Assessment and Plan - Assessment and Plan (Free Text) Assessment: 82M s/p IVCF placement POD#1 Plan: - dressing site clean, dry, and intact - no sign of hematoma formation - ok for MRI - no further acute surgical intervention at this time - discussed w/ Dr. Baldwin surgical attending PGY1
[2017-09-03] MEDS: Saccharomyces Boulardi 250 mg Cap PO SCH ×2 (10:39→17:47)
--- NOTE | 2017-09-03 12:58 | CP.PCM.PN ---
Subjective - Date & Time of Evaluation Date of Evaluation: 09/03/17 Time of Evaluation: 13:00 - Subjective Subjective: Medical Attending Note: Patient seen and examined at bedside. patients and son in law present. Patient denies headache, denies chest pain, denies shortness of breathe, denies abdominal pain, denies nausea, reports he is working with physical therapy. patient refuses MRI; I have explained to him why we ordered MRI in his syncope workup but he does not want. Patient need his crandall re-inserted overnight due to urinary retention. Patient downgraded to the floor. I spoke with son-in law who will speak with patient and family in regards to subacute rehab for physical deconditioning and possible IV antibiotics. Patient received IVC filter yesterday given hx of PE and DVT. I have spoke with the lab, repeat urine culture is pending to show urinary tract infection has cleared. Objective - Vital Signs/Intake and Output Vital Signs (last 24 hours): Temp Pulse Resp BP Pulse Ox 100.1 F H 95 H 12 156/63 H 89 L 09/03/17 09:00 09/03/17 10:34 09/03/17 10:34 09/03/17 10:34 09/03/17 10:34 Intake and Output: 09/03/17 09/03/17 06:59 18:59 Intake Total 656.0 622.0 Output Total 1050 300 Balance -394.0 322.0 - Medications Medications: Current Medications Albuterol/Ipratropium (Duoneb 3 Mg/0.5 Mg (3 Ml) Ud) 3 ml INH RQ4 PRN PRN Reason: Shortness of Breath Last Admin: 09/03/17 08:23 Dose: 3 ml Aspirin (Aspirin Chewable) 162 mg PO DAILY [facility] Last Admin: 09/03/17 10:39 Dose: 162 mg Famotidine (Pepcid) 20 mg PO BID [facility] Last Admin: 09/03/17 10:34 Dose: 20 mg Imipenem/Cilastatin Sodium 500 (mg/ Sodium Chloride) 100 mls @ 100 mls/hr IVPB Q8H [facility] PRN Reason: Protocol Last Admin: 09/03/17 03:44 Dose: 100 mls/hr Heparin Sodium/Sodium Chloride (Heparin 00036 Units/250ml 1/2 Normal Saline) 25 ,000 units in 250 mls @ 9.434 mls/hr IV .Q24H PRN; Protocol; 14 UNITS/KG/HR PRN Reason: PROTOCOL Last Admin: 09/03/17 08:51 Dose: 15.58 units/kg/hr, 10.5 mls/hr Isosorbide Mononitrate (Imdur Er) 30 mg PO Q24H [facility] Last Admin: 09/02/17 18:19 Dose: 30 mg Losartan Potassium (Cozaar) 50 mg PO Q24H [facility] Last Admin: 09/02/17 16:58 Dose: 50 mg Metoprolol Succinate (Toprol Xl) 50 mg PO Q24H [facility] Last Admin: 09/03/17 06:29 Dose: 50 mg Rosuvastatin Calcium (Crestor) 10 mg PO HS [facility] Last Admin: 09/02/17 22:57 Dose: 10 mg Saccharomyces Boulardii (Florastor) 250 mg PO BID [facility] Last Admin: 09/03/17 10:39 Dose: 250 mg Tamsulosin HCl (Flomax) 0.4 mg PO BID [facility] Last Admin: 09/03/17 10:34 Dose: 0.4 mg - Labs Labs: 09/03/17 06:10 09/03/17 06:11 PT 16.0 SECONDS (9.7-12.2) H 08/30/17 16:50 INR 1.5 08/30/17 16:50 APTT 47 SECONDS (21-34) H D 09/03/17 06:10 - Constitutional Appears: Non-toxic, No Acute Distress - Head Exam Head Exam: NORMAL INSPECTION - Eye Exam Eye Exam: EOMI - ENT Exam ENT Exam: Mucous Membranes Moist - Respiratory Exam Respiratory Exam: Clear to Ausculation Bilateral, NORMAL BREATHING PATTERN. absent: Rales, Rhonchi, Wheezes - Cardiovascular Exam Cardiovascular Exam: REGULAR RHYTHM, +S1, +S2 - GI/Abdominal Exam GI & Abdominal Exam: Distended, Soft, Normal Bowel Sounds. absent: Firm, Guarding, Rigid, Tenderness, Rebound - Extremities Exam Extremities Exam: absent: Pedal Edema, Tenderness - Neurological Exam Neurological Exam: Alert, Awake, Oriented x3 - Psychiatric Exam Psychiatric exam: Normal Affect, Normal Mood - Skin Skin Exam: Dry, Intact, Normal Color, Warm Assessment and Plan (1) Pulmonary embolus Status: Acute (2) Deep vein thrombosis Status: Acute (3) Syncope Status: Acute (4) NSTEMI (non-ST elevated myocardial infarction) Status: Acute (5) CAD (coronary artery disease) Status: Chronic (6) History of coronary artery bypass graft Status: Chronic (7) Prophylactic measure Status: Acute Attending/Attestation - Attestation I have personally seen and examined this patient.: Yes I have fully participated in the care of the patient.: Yes I have reviewed all pertinent clinical information, including history, physical exam and plan: Yes Notes (Text): 1) Pulmonary Embolus Right LLE Deep Vein Thrombus Assessment/Plan * Pulmonary (Dr. Dsouza) on board-->help appreciated * CT head and neck (08/31/17): pulmonary emboli as detailed above. No evidence of occlusion however there is narrowing of both proximal internal cartoid arteries. further findings per report * CT Angio r/o PE (09/01/17): bilateral pulmonary embolism. No evidence of pulmonary infiltrate or pulmonary infarction. Mild centrilobular pulmonary emphysema. caridomegaly. cabg. * Echocardiogram (08/31/17): left ventricle is normal size, mild concentric left ventricular hypertrophy, EF: 55-60%, suspicious for PFO, mild valvular artoci stensosi, aortic valve moderately calcified, trace aortic regurgitation, moderate pulmonary hypertension * Dopplers venous: right peroneal DVT+ * On heparin drip--->will f/u with urology for clearance and cardiology * Risk: recent urologic procedure and fall 2) Neutropenia--->normalized Assessment/Plan * normalized today 3) Anemia Assessment/Plan * Stool occult blood: negative * Stable in the tens * Low iron, low TIBC, low iron saturation, ferritin normal * Will order for reticulocyte count * Noted: patient has hematuria; has had in office procedure with urology last 4) Mild Thrombocytopenia Assessment/Plan * Patient is on heparin drip for PE/DVT * Ordered for HIT and DALLIN since platelets are slowly coming down to rule out HIT 5) Sepsis E.Coli- Bacteremia Urinary Tract Infection-E.Coli * Criteria: 103.1 F, neutropenia source of infection: Bacteremia and urinary tract infection * ID consult: Dr. Contreras-->help appreciated * CXR: no acute process * Blood culture (08/30/17): E. Coli * Blood culture (09/02/17): no growth after 24hours X2 * Urine culture (08/30/17): Ecoli * Awaiting urine culture (09/02/17)---> to result today * Primaxin 500mg IV Q 8H * Echocardiogram (08/31/17): left ventricle is normal size, mild concentric left ventricular hypertrophy, EF: 55-60%, suspicious for PFO, mild valvular artoci stensosi, aortic valve moderately calcified, trace aortic regurgitation, moderate pulmonary hypertension 6) Syncope Assessment/Plan * Cardiology (Dr. Ron) on the case-->help appreciated * Neurology (Dr. Keane) on the case-->help appreciated * CT Head (08/30/17): no acute intracrnial hemorrhage, or large acute infract seen. Mild chronic perventricular white matter ischemic changes seen peripherally into the deep white matter both cerebral hemisphere. few scatter chronic bilateral basal nuclei lacunar type infarcts as well. * Troponins: 0.2820, 0.2200, 0.3200, 0.3240 * Patient is refusing Brain MRI-->does not want it discussed risks and benefits with patient-->09/03/17 * Head and Neck MRI (09/02/17): atherosclerotic changes w mild narrowing can be seen in the intracavernous portions of the internal cartoid arteries bilaterally. There is also a short segment stenosis in the left internal cartoid at the junction of the vertical and horizontal segments * Echocardiogram (08/31/17): left ventricle is normal size, mild concentric left ventricular hypertrophy, EF: 55-60%, suspicious for PFO, mild valvular artoci stensosi, aortic valve moderately calcified, trace aortic regurgitation, moderate pulmonary hypertension * TSH, Free T4 within normal limits * RPR * Vit B12: 917 * Folate: 5.0 * Fall precautions, seizure precautions 7) Nonstemi * Cardiology consulted, Dr. Ron, help appreciated * L atrial enlargement with incomplete RBBB on ekg unchanged from 06/18/17 * Heparin Drip * Troponins: 0.2820, 0.2200, 0.3200, 0.3240 * Aspirin 162mg PO daily (Home medication) * Cardiology advised to d/c Plavix 75mg PO daily * Has had a recent stress test in July 2017 completed-->copy in the chart * Echocardiogram (08/31/17): left ventricle is normal size, mild concentric left ventricular hypertrophy, EF: 55-60%, suspicious for PFO, mild valvular artoci stensosi, aortic valve moderately calcified, trace aortic regurgitation, moderate pulmonary hypertension 8) Hypertension * Cardiology (Dr. Ron) on the case-->help appreciated * Labetalol 5mg iv given in ED on admission * IMdur 30mg PO Q24H * Cozaar 50mg PO Q24H * Toprol XL 50mg PO24H 9) Hypokalemia * Normalized 10) Indwelling Crandall for Hx BPH/urinary retention Recent urologic procedure--->no stent placed * Urology consulted, Dr. Noreen Wilson, help appreciated * Discussed with urology--->patient does not have urologic stent. 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 Ron suggests for Eliquis Will need to f/u lab for final result for Urine culture to determine if PO option is available for patient if urine culture repeat shows clear of infection Discussed with case management to discuss rehab options with the family today.
--- NOTE | 2017-09-03 17:52 | CP.PCM.PN ---
Subjective - Date & Time of Evaluation Date of Evaluation: 09/03/17 Time of Evaluation: 08:00 - Subjective Subjective: WEAK LETHARGIC AND BEDRIDDEN' NO FEVER TODAY Objective - Vital Signs/Intake and Output Vital Signs (last 24 hours): Temp Pulse Resp BP Pulse Ox 100.1 F H 95 H 12 156/63 H 89 L 09/03/17 09:00 09/03/17 10:34 09/03/17 10:34 09/03/17 10:34 09/03/17 10:34 Intake and Output: 09/03/17 09/03/17 06:59 18:59 Intake Total 656.0 1684.5 Output Total 1050 300 Balance -394.0 1384.5 - Medications Medications: Current Medications Albuterol/Ipratropium (Duoneb 3 Mg/0.5 Mg (3 Ml) Ud) 3 ml INH RQ4 PRN PRN Reason: Shortness of Breath Last Admin: 09/03/17 08:23 Dose: 3 ml Apixaban (Eliquis) 10 mg PO BID [facility] Stop: 09/11/17 10:01 Aspirin (Aspirin Chewable) 162 mg PO DAILY [facility] Last Admin: 09/03/17 10:39 Dose: 162 mg Famotidine (Pepcid) 20 mg PO BID [facility] Last Admin: 09/03/17 17:39 Dose: 20 mg Imipenem/Cilastatin Sodium 500 (mg/ Sodium Chloride) 100 mls @ 100 mls/hr IVPB Q8H [facility] PRN Reason: Protocol Last Admin: 09/03/17 13:04 Dose: 100 mls/hr Heparin Sodium/Sodium Chloride (Heparin 01795 Units/250ml 1/2 Normal Saline) 25 ,000 units in 250 mls @ 9.434 mls/hr IV .Q24H PRN; Protocol; 14 UNITS/KG/HR PRN Reason: PROTOCOL Stop: 09/04/17 00:01 Last Admin: 09/03/17 08:51 Dose: 15.58 units/kg/hr, 10.5 mls/hr Isosorbide Mononitrate (Imdur Er) 30 mg PO Q24H [facility] Last Admin: 09/02/17 18:19 Dose: 30 mg Losartan Potassium (Cozaar) 50 mg PO Q24H [facility] Last Admin: 09/03/17 13:06 Dose: 50 mg Metoprolol Succinate (Toprol Xl) 50 mg PO Q24H [facility] Last Admin: 09/03/17 06:29 Dose: 50 mg Rosuvastatin Calcium (Crestor) 10 mg PO HS [facility] Last Admin: 09/02/17 22:57 Dose: 10 mg Saccharomyces Boulardii (Florastor) 250 mg PO BID [facility] Last Admin: 09/03/17 17:47 Dose: 250 mg Tamsulosin HCl (Flomax) 0.4 mg PO BID [facility] Last Admin: 09/03/17 17:40 Dose: 0.4 mg - Labs Labs: 09/03/17 06:10 09/03/17 06:11 PT 16.0 SECONDS (9.7-12.2) H 08/30/17 16:50 INR 1.5 08/30/17 16:50 APTT 47 SECONDS (21-34) H D 09/03/17 06:10 - Constitutional Appears: Non-toxic, Chronically Ill - Head Exam Head Exam: NORMOCEPHALIC - Eye Exam Eye Exam: PERRL - ENT Exam ENT Exam: Mucous Membranes Dry - Neck Exam Neck Exam: absent: Lymphadenopathy - Respiratory Exam Respiratory Exam: Decreased Breath Sounds, Rhonchi - Cardiovascular Exam Cardiovascular Exam: REGULAR RHYTHM, +S1, +S2 - GI/Abdominal Exam GI & Abdominal Exam: Distended, Soft. absent: Tenderness - Rectal Exam Rectal Exam: Deferred - Exam Exam: NORMAL INSPECTION - Extremities Exam Extremities Exam: absent: Pedal Edema - Back Exam Back Exam: absent: CVA tenderness (L), CVA tenderness (R) - Neurological Exam Neurological Exam: Alert, Awake, CN II-XII Intact, Oriented x3 - Psychiatric Exam Psychiatric exam: Normal Mood - Skin Skin Exam: Dry Assessment and Plan (1) E coli bacteremia Status: Acute (2) Sepsis Status: Acute (3) Deep vein thrombosis Status: Acute (4) NSTEMI (non-ST elevated myocardial infarction) Status: Acute (5) Pulmonary embolus Status: Acute (6) Syncope Status: Acute (7) Acute blood loss anemia Status: Acute - Assessment and Plan (Free Text) Assessment: CONT RX FOR E COLI BACTEREMIA MIN 14 DAYS
--- NOTE | 2017-09-03 18:35 | CP.PCM.CON ---
History of Present Illness - History of Present Illness History of Present Illness: Reason for consultation: pulmonary embolism 82 y/o M with PMHx of CABG 2003, HTN, HLD, BPH admitted presented with syncope. Admitted to ICU for evaluation and treatment of NSTEMI and PE. status post IVC filter placement for DVT and hematuria. Patient complaining of shortness of breath of breathon exertion and on and off wheezing. Patient being treated for bacteremia Review of Systems - Review of Systems All systems: reviewed and no additional remarkable complaints except (Shortness of breath) Past Patient History - Past Medical History & Family History Past Medical History?: Yes - Past Social History Smoking Status: Former Smoker - CARDIAC Hx Hypercholesterolemia: Yes Hx Hypertension: Yes - PULMONARY Hx Respiratory Disorders: No - NEUROLOGICAL Hx Neurological Disorder: Yes Hx Syncope: Yes - HEENT Hx HEENT Problems: Yes Hx Epistaxis: Yes - RENAL Hx Chronic Kidney Disease: No - ENDOCRINE/METABOLIC Hx Endocrine Disorders: No - HEMATOLOGICAL/ONCOLOGICAL Hx Blood Disorders: Yes Hx Anemia: Yes Hx Blood Transfusions: Yes Other/Comment: uncontrolled epistaxis 2017 - INTEGUMENTARY Hx Dermatological Problems: No - MUSCULOSKELETAL/RHEUMATOLOGICAL Hx Falls: No - GASTROINTESTINAL Hx Gastrointestinal Disorders: No - GENITOURINARY/GYNECOLOGICAL Hx Genitourinary Disorders: Yes Other/Comment: BPH,. unable to void for 36 hours -had FC inserted last by Dr. Wilson - PSYCHIATRIC Hx Substance Use: No - SURGICAL HISTORY Hx Surgeries: Yes Hx Open Heart Surgery: Yes (2003 bypass) - ANESTHESIA Hx Anesthesia: Yes Hx Anesthesia Reactions: No Meds Allergies/Adverse Reactions: Allergies Allergy/AdvReac Type Severity Reaction Status Date / Time No Known Allergies Allergy Verified 08/30/17 15:21 - Medications Medications: Current Medications Albuterol/Ipratropium (Duoneb 3 Mg/0.5 Mg (3 Ml) Ud) 3 ml INH RQ4 PRN PRN Reason: Shortness of Breath Last Admin: 09/03/17 08:23 Dose: 3 ml Apixaban (Eliquis) 10 mg PO BID [facility] Stop: 09/11/17 10:01 Aspirin (Aspirin Chewable) 162 mg PO DAILY [facility] Last Admin: 09/03/17 10:39 Dose: 162 mg Famotidine (Pepcid) 20 mg PO BID [facility] Last Admin: 09/03/17 17:39 Dose: 20 mg Heparin Sodium/Sodium Chloride (Heparin 98507 Units/250ml 1/2 Normal Saline) 25 ,000 units in 250 mls @ 9.434 mls/hr IV .Q24H PRN; Protocol; 14 UNITS/KG/HR PRN Reason: PROTOCOL Stop: 09/04/17 00:01 Last Admin: 09/03/17 08:51 Dose: 15.58 units/kg/hr, 10.5 mls/hr Cefepime HCl (Maxipime Iv 1 Gm Premix) 1 gm in 50 mls @ 100 mls/hr IVPB Q8H [facility] PRN Reason: Protocol Isosorbide Mononitrate (Imdur Er) 30 mg PO Q24H [facility] Last Admin: 09/02/17 18:19 Dose: 30 mg Losartan Potassium (Cozaar) 50 mg PO Q24H [facility] Last Admin: 09/03/17 13:06 Dose: 50 mg Metoprolol Succinate (Toprol Xl) 50 mg PO Q24H [facility] Last Admin: 09/03/17 06:29 Dose: 50 mg Rosuvastatin Calcium (Crestor) 10 mg PO HS [facility] Last Admin: 09/02/17 22:57 Dose: 10 mg Saccharomyces Boulardii (Florastor) 250 mg PO BID [facility] Last Admin: 09/03/17 17:47 Dose: 250 mg Tamsulosin HCl (Flomax) 0.4 mg PO BID [facility] Last Admin: 09/03/17 17:40 Dose: 0.4 mg Physical Exam - Head Exam Head Exam: ATRAUMATIC, NORMOCEPHALIC - Eye Exam Eye Exam: Normal appearance - ENT Exam ENT Exam: Mucous Membranes Moist - Neck Exam Neck exam: Positive for: Normal Inspection - Respiratory Exam Respiratory Exam: Rhonchi, Wheezes - Cardiovascular Exam Cardiovascular Exam: REGULAR RHYTHM - GI/Abdominal Exam GI & Abdominal Exam: Normal Bowel Sounds, Soft - Extremities Exam Extremities exam: Positive for: pedal edema - Neurological Exam Neurological exam: Alert, Oriented x3 Results - Vital Signs Recent Vital Signs: Last Vital Signs Temp 100.1 F H 09/03/17 09:00 Pulse 63 09/03/17 17:34 Resp 16 09/03/17 17:34 BP 165/67 H 09/03/17 17:34 Pulse Ox 98 09/03/17 17:34 - Labs Result Diagrams: 09/03/17 06:10 09/03/17 06:11 Labs: Laboratory Results - last 24 hr 09/03/17 09/03/17 09/03/17 06:10 06:10 06:11 WBC 6.7 RBC 3.33 L Hgb 10.0 L Hct 29.6 L MCV 88.9 MCH 30.1 MCHC 33.9 RDW 16.3 H Plt Count 119 L MPV 8.8 Neut % (Auto) 77.5 H Lymph % (Auto) 8.8 L [place] % (Auto) 12.9 H Eos % (Auto) 0.6 Baso % (Auto) 0.2 Neut # (Auto) 5.2 Lymph # (Auto) 0.6 L [place] # (Auto) 0.9 H Eos # (Auto) 0.0 Baso # (Auto) 0.0 Neutrophils % (Manual) 79 H Lymphocytes % (Manual) 8 L Reactive Lymphs % 1 H Monocytes % (Manual) 11 H Eosinophils % (Manual) 1 Platelet Estimate Slightly decreased L Anisocytosis (manual) Slight APTT 47 H D Sodium 141 Potassium 3.2 L Chloride 102 Carbon Dioxide 29 Anion Gap 14 BUN 15 Creatinine 1.0 Est GFR ( Amer) > 60 Est GFR (Non-Af Amer) > 60 Random Glucose 93 Calcium 7.7 L Phosphorus 2.4 L Magnesium 2.3 Total Bilirubin 0.5 AST 81 H D ALT 33 Alkaline Phosphatase 59 Total Protein 6.2 L Albumin 2.8 L Globulin 3.4 Albumin/Globulin Ratio 0.8 L Assessment & Plan (1) Pulmonary embolus Status: Acute Comment: on heparin drip. Switch to eliquis (2) Deep vein thrombosis Status: Acute Comment: Status post IVC filter placement (3) E coli bacteremia Assessment and Plan: continue antibiotics Status: Acute
--- NOTE | 2017-09-03 19:42 | PN ---
DATE: 09/03/2017 SUBJECTIVE: The patient denies any chest pain, dizziness, or shortness of breath. PHYSICAL EXAMINATION: VITAL SIGNS: Blood pressure 156/63, heart rate 95, respirations 12, temperature 100.1. HEENT: Normocephalic. CHEST: Clear. CARDIOPULMONARY: Heart sounds are regular. EXTREMITIES: No edema. LABORATORY DATA: Today's PTT 47. Today's SMA-7 is within normal limits except for potassium 3.2. Today's calcium is 7.7. Hemoglobin and hematocrit 10 and 29.6, white count 6.7, platelet count 119,000. Head MRA without contrast: Atherosclerotic changes with mild narrowing can be seen in the intracavernous portion of the internal carotid arteries bilaterally. There is short segmental stenosis in the left internal carotid artery at the junction of the vertical and horizontal segments. Neck MRA without contrast: No significant stenosis. ASSESSMENT: 1. Deep venous thrombosis and bilateral pulmonary embolus. 2. Coronary artery disease, status post triple bypass surgery in 2003. 3. Anemia. 4. Mild thrombocytopenia. RECOMMENDATIONS: Case was discussed with the primary physician, Dr. Partida. The echo was reviewed and study is suggestive of a small PFO, but not confirmatory. The findings do not justify proceeding with any further testing. The clinical scenario of recurrent falls and elevated troponin are established by the bilateral pulmonary emboli. The fact that there is no acute CVA either clinically or based on the initial head CT scan rules out the presence of definite or sizeable PFO. The patient can be switched to an oral anticoagulant agent at this time. Klever Ron MD
[2017-09-03] MEDS: Cefepime IV 1 gm in Dextrose 1 GM/50 ML BAG IVPB SCH (19:44)
[2017-09-04] MEDS ORDERED: Heparin25000 units/250ml 1/2NS 25,000 UNITS/250 ML BAG IV PRN (00:17)
[2017-09-04 01:20] VITALS: RESP 20
[2017-09-04] MEDS: Cefepime IV 1 gm in Dextrose 1 GM/50 ML BAG IVPB SCH ×2 (02:10→11:25)
[2017-09-04 07:09] LABS: INR 1.2; PROTHROMBIN TIME 12.9 SECONDS (9.7-12.2)
--- NOTE | 2017-09-04 07:59 | OP ---
PROCEDURE DATE: 09/02/2017 PREOPERATIVE DIAGNOSES: An 82-year-old man with deep vein thrombosis in right peroneal vein and a pulmonary embolism, who has low platelet counts and requires a filter for maintenance of his anticoagulation. OPERATIVE FINDINGS: Filter was deployed at the level of just below the renal veins in an upright position, without the tip being against the wall. The rest of the intraoperative findings were unremarkable. DESCRIPTION OF PROCEDURE: Using ultrasound guidance and micropuncture technique, the right common femoral vein was punctured under fluoroscopic control, a guidewire was advanced centrally. A sheath dilator was then passed over this to the level of the renal veins where the filter was deployed. It was deployed in an upright position. Subsequent picture was taken again to confirm the position of the filter which was then retracted. We then removed the sheath dilator system. It was above the confluence, above the renal veins. The operation carried out is placement of lead, removal of filter via the right femoral vein with c-arm fluoroscopy, ultrasound-guided puncture, and micropuncture technique. Ultrasound image of the groin showed, the vein was approximately 14 mm in diameter with normal compressibility and no evidence of intraluminal thrombosis. Jean Baldwin Jr., MD
[2017-09-04] MEDS: Metoprolol Succinate 50 mg XL Tab PO SCH (08:00)
[2017-09-04] MEDS: Saccharomyces Boulardi 250 mg Cap PO SCH (09:18)
[2017-09-04] MEDS ORDERED: Metoprolol Succinate 50 mg XL Tab PO SCH (11:53)
[2017-09-04] MEDS ORDERED: Metoprolol Succinate 50 mg XL Tab PO STA (13:21)
--- NOTE | 2017-09-04 13:24 | CP.PCM.PN ---
Subjective - Date & Time of Evaluation Date of Evaluation: 09/04/17 Time of Evaluation: 10:10 - Subjective Subjective: patient seen and examined Complaining of wheezing and shortness of breath Denies fever chills, denies chest pain The patient is off heparin drip Objective - Vital Signs/Intake and Output Vital Signs (last 24 hours): Temp Pulse Resp BP Pulse Ox 98.8 F 84 20 178/79 H 97 09/04/17 07:00 09/04/17 13:18 09/04/17 07:00 09/04/17 13:18 09/04/17 07:00 Intake and Output: 09/04/17 09/04/17 06:59 18:59 Intake Total 393.1 Output Total 2700 Balance -2306.9 - Medications Medications: Current Medications Albuterol/Ipratropium (Duoneb 3 Mg/0.5 Mg (3 Ml) Ud) 3 ml INH RQ4 PRN PRN Reason: Shortness of Breath Last Admin: 09/03/17 19:29 Dose: 3 ml Apixaban (Eliquis) 10 mg PO BID [facility] Stop: 09/11/17 10:01 Last Admin: 09/04/17 09:45 Dose: 10 mg Aspirin (Aspirin Chewable) 162 mg PO DAILY [facility] Last Admin: 09/04/17 09:17 Dose: 162 mg Famotidine (Pepcid) 20 mg PO BID [facility] Last Admin: 09/04/17 09:18 Dose: 20 mg Cefepime HCl (Maxipime Iv 1 Gm Premix) 1 gm in 50 mls @ 100 mls/hr IVPB Q8H [facility] PRN Reason: Protocol Last Admin: 09/04/17 11:25 Dose: 100 mls/hr Isosorbide Mononitrate (Imdur Er) 30 mg PO Q24H [facility] Last Admin: 09/03/17 19:45 Dose: 30 mg Losartan Potassium (Cozaar) 100 mg PO Q24H [facility] Last Admin: 09/04/17 13:19 Dose: 100 mg Metoprolol Succinate (Toprol Xl) 100 mg PO Q24H [facility] Rosuvastatin Calcium (Crestor) 10 mg PO HS [facility] Last Admin: 09/03/17 21:27 Dose: 10 mg Saccharomyces Boulardii (Florastor) 250 mg PO BID [facility] Last Admin: 09/04/17 09:18 Dose: 250 mg Tamsulosin HCl (Flomax) 0.4 mg PO BID [facility] Last Admin: 09/04/17 09:18 Dose: 0.4 mg - Labs Labs: 09/03/17 06:10 09/03/17 06:11 PT 12.9 SECONDS (9.7-12.2) H 09/04/17 06:52 INR 1.2 09/04/17 06:52 APTT 54 SECONDS (21-34) H D 09/04/17 06:52 - Head Exam Head Exam: ATRAUMATIC, NORMOCEPHALIC - Eye Exam Eye Exam: Normal appearance - ENT Exam ENT Exam: Mucous Membranes Moist - Neck Exam Neck Exam: Normal Inspection - Respiratory Exam Respiratory Exam: Rhonchi, Wheezes - GI/Abdominal Exam GI & Abdominal Exam: Soft, Normal Bowel Sounds Assessment and Plan (1) Pulmonary embolus Assessment & Plan: continue eliquis Continue nebulizer treatment for wheezing Status: Acute (2) Deep vein thrombosis Assessment & Plan: IVC filter placement Status: Acute (3) E coli bacteremia Status: Acute
[2017-09-04 14:02] VITALS: BP 178/65; PULSE 92
[2017-09-04 14:06] VITALS: TEMP 99.3; O2SAT 92
[2017-09-04] MEDS: Albuterol-Ipratrop 3 mg / 0.5 (3 ml) UD INH PRN (14:20)
--- NOTE | 2017-09-04 14:35 | PCM.URO ---
Urology Progress Note - General General: No Complaints, Tolerating Diet - Subjective Abdominal Pain: No Flank Pain: No Nausea: No Vomiting: No Voiding Well: No (retention 09/02) Hematuria: No Chest Pain: No Fever & Chills: No - Objective Lab Studies: Reviewed (creat=1.1) Lab Results Last 24 Hours: Laboratory Results - last 24 hr 09/04/17 06:52 PT 12.9 H INR 1.2 APTT 54 H D Intake & Output: Intake & Output 09/03/17 09/04/17 09/04/17 18:59 06:59 18:59 Intake Total 1895.0 393.1 Output Total 300 2700 Balance 1595.0 -2306.9 Intake: Intake, IV Amount 126.0 123.1 Right Antecubital 126.0 73.1 Right Distal Port Hand 50 Oral 1769 270 Output: Urine 300 2700 Urethral (Crandall) 300 2700 Other: # Bowel Movements 1 Vital Signs: Vital Signs - 24 hr 09/03/17 09/03/17 09/03/17 15:00 15:34 16:00 Temperature Pulse Rate 75 75 83 Respiratory 24 21 12 Rate Blood Pressure 150/57 L O2 Sat by Pulse 98 Oximetry 09/03/17 09/03/17 09/03/17 16:34 17:00 17:34 Temperature 98.7 F Pulse Rate 66 75 63 Respiratory 16 18 16 Rate Blood Pressure 178/63 H 165/67 H O2 Sat by Pulse 99 98 98 Oximetry 09/03/17 09/03/17 09/03/17 18:00 18:34 19:00 Temperature Pulse Rate 73 76 76 Respiratory 30 H 23 20 Rate Blood Pressure 176/62 H O2 Sat by Pulse 95 97 97 Oximetry 09/03/17 09/03/17 09/03/17 19:34 20:00 20:34 Temperature 99.3 F Pulse Rate 72 77 82 Respiratory 23 24 13 Rate Blood Pressure 190/73 H 176/72 H 173/69 H O2 Sat by Pulse 100 97 97 Oximetry 09/03/17 09/03/17 09/03/17 21:00 21:33 22:00 Temperature Pulse Rate 86 77 73 Respiratory 21 21 17 Rate Blood Pressure 179/71 H O2 Sat by Pulse 95 95 99 Oximetry 09/03/17 09/03/17 09/03/17 22:34 23:00 23:29 Temperature Pulse Rate 74 66 71 Respiratory 18 17 19 Rate Blood Pressure 180/73 H O2 Sat by Pulse 100 99 98 Oximetry 09/03/17 09/04/17 09/04/17 23:34 00:00 00:34 Temperature 100.3 F H Pulse Rate 70 81 84 Respiratory 22 20 11 L Rate Blood Pressure 171/83 H 171/83 H 180/75 H O2 Sat by Pulse 99 98 98 Oximetry 09/04/17 09/04/17 09/04/17 01:00 01:17 03:51 Temperature 99.3 F Pulse Rate 82 88 96 H Respiratory 20 Rate Blood Pressure 180/71 H O2 Sat by Pulse 96 Oximetry 09/04/17 09/04/17 09/04/17 04:30 07:00 08:00 Temperature 98.2 F 98.8 F Pulse Rate 73 72 77 Respiratory 20 20 Rate Blood Pressure 175/66 H 169/63 H 175/78 H O2 Sat by Pulse 97 97 Oximetry 09/04/17 09/04/17 13:18 14:01 Temperature 99.3 F Pulse Rate 84 92 H Respiratory 20 Rate Blood Pressure 178/79 H 178/65 H O2 Sat by Pulse 92 L Oximetry - Physical Exam Abdominal Exam: Soft, Non-Tender, Non-Distended Back: No CVA Tenderness Genitalia: Without Inflammation Urinary Catheter Draining Well: Yes Urine Color: Clear, Yellow - Male Phallus: Normal Scrotum: Normal Testes: Normal: Bilateral - Plan Catheter Care: Yes Intake & Output: Yes Additional Information: Imp: urinary retention. Pulm embolus. rec/p: crandall cath. Flomax. add finasteride. poss trial of voiding t/f. Discussed w pt, family, medical consultant and attending. outpt f/u - Date & Time of Note Date: 09/04/17 Time: 14:35
[2017-09-04] MEDS ORDERED: Metoprolol Succinate 50 mg XL Tab PO ONE (15:00)
--- NOTE | 2017-09-04 17:51 | PN ---
DATE: 09/04/2017 SUBJECTIVE: The patient ambulated today with the help of rehab physical therapy team. He denies any dizziness. No chest pain or leg pain. PHYSICAL EXAMINATION: VITAL SIGNS: Blood pressure 175/78, heart rate 89, temperature 98.8, respirations 20. HEENT: Pale conjunctivae. CHEST: Clear. HEART: S1 and S2, regular. EXTREMITIES: No edema. LABORATORY DATA: Today's INR is 1.2. PTT 55. ASSESSMENT: 1. Right lower extremity deep vein thrombosis and bilateral pulmonary embolus. 2. Coronary artery disease, status post triple bypass surgery in 2003. 3. Hypertension. 4. Prostatic hypertrophy. 5. Gram-negative bacteremia. RECOMMENDATION: Continue aspirin 162 mg once a day, Cozaar at 100 mg once a day, Crestor at 10 mg once a day, Eliquis was started at 10 mg p.o. twice a day today. Continue IV cefepime at 1 gm every 8 hours and Imdur at 30 mg once a day. Klever Ron MD
--- NOTE | 2017-09-04 17:55 | CP.PCM.DIS ---
Provider - Provider Date of Admission: 08/30/17 16:30 Attending physician: Mariposa Partida DO Primary care physician: Dr. York Consults: Typewriter Aligner (Suki) Cardio (Ariadne) ID (Diane) Neuro (Lakhwinder) Vascular Surgery (Barnes) Pulm (Meet) Uro (Steve) Time Spent in preparation of Discharge (in minutes): 50 Diagnosis - Discharge Diagnosis (1) Sepsis Status: Resolved (2) NSTEMI (non-ST elevated myocardial infarction) Status: Resolved (3) Pulmonary embolus Status: Acute (4) Deep vein thrombosis Status: Acute (5) Syncope Status: Resolved (6) History of coronary artery bypass graft Status: Chronic (7) CAD (coronary artery disease) Status: Chronic (8) Hyperlipidemia Status: Chronic (9) Hypertension Status: Chronic (10) GERD (gastroesophageal reflux disease) Status: Chronic Hospital Course - Lab Results Lab Results: Micro Results 09/02/17 Unknown Blood Blood Culture - Preliminary NO GROWTH AFTER 48 HOURS 09/02/17 Unknown Blood Blood Culture - Preliminary NO GROWTH AFTER 48 HOURS 09/02/17 06:20 Urine Urine Culture - Final No Growth (<1,000 CFU/ML) 08/30/17 16:10 Blood Blood Culture - Final Escherichia Coli 08/30/17 16:10 Blood Gram Stain - Final 08/30/17 15:30 Blood Blood Culture - Final Escherichia Coli 08/30/17 15:30 Blood Gram Stain - Final 08/30/17 19:35 Naris MRSA Culture (Admit) - Final MRSA NOT DETECTED 08/30/17 15:35 Urine,Catheterized Urine Culture - Final Escherichia Coli Most Recent Lab Values WBC 6.7 K/uL (4.8-10.8) 09/03/17 06:10 RBC 3.33 Mil/uL (4.40-5.90) L 09/03/17 06:10 Hgb 10.0 g/dL (12.0-18.0) L 09/03/17 06:10 Hct 29.6 % (35.0-51.0) L 09/03/17 06:10 MCV 88.9 fL (80.0-94.0) 09/03/17 06:10 MCH 30.1 pg (27.0-31.0) 09/03/17 06:10 MCHC 33.9 g/dL (33.0-37.0) 09/03/17 06:10 RDW 16.3 % (11.5-14.5) H 09/03/17 06:10 Plt Count 119 K/uL (130-400) L 09/03/17 06:10 MPV 8.8 fL (7.2-11.7) 09/03/17 06:10 Neut % (Auto) 77.5 % (50.0-75.0) H 09/03/17 06:10 Lymph % (Auto) 8.8 % (20.0-40.0) L 09/03/17 06:10 [place] % (Auto) 12.9 % (0.0-10.0) H 09/03/17 06:10 Eos % (Auto) 0.6 % (0.0-4.0) 09/03/17 06:10 Baso % (Auto) 0.2 % (0.0-2.0) 09/03/17 06:10 Neut # (Auto) 5.2 K/uL (1.8-7.0) 09/03/17 06:10 Lymph # (Auto) 0.6 K/uL (1.0-4.3) L 09/03/17 06:10 [place] # (Auto) 0.9 K/uL (0.0-0.8) H 09/03/17 06:10 Eos # (Auto) 0.0 K/uL (0.0-0.7) 09/03/17 06:10 Baso # (Auto) 0.0 K/uL (0.0-0.2) 09/03/17 06:10 Neutrophils % (Manual) 79 % (50-75) H 09/03/17 06:10 Band Neutrophils % 2 % (0-2) 09/02/17 06:14 Lymphocytes % (Manual) 8 % (20-40) L 09/03/17 06:10 Reactive Lymphs % 1 % (0-0) H 09/03/17 06:10 Monocytes % (Manual) 11 % (0-10) H 09/03/17 06:10 Eosinophils % (Manual) 1 % (0-4) 09/03/17 06:10 Platelet Estimate Slightly decreased (NORMAL) L 09/03/17 06:10 Large Platelets Present 08/30/17 15:36 Polychromasia Slight 08/30/17 15:36 Hypochromasia (manual) Slight 09/02/17 06:14 Poikilocytosis (manual Slight 09/02/17 06:14 Anisocytosis (manual) Slight 09/03/17 06:10 Target Cells Slight 09/02/17 06:14 Ovalocytes Slight 09/02/17 06:14 [place] Cells Slight 09/01/17 06:05 PT 12.9 SECONDS (9.7-12.2) H 09/04/17 06:52 INR 1.2 09/04/17 06:52 APTT 54 SECONDS (21-34) H D 09/04/17 06:52 pO2 35 mm/Hg (30-55) 08/30/17 15:39 VBG pH 7.43 (7.32-7.43) 08/30/17 15:39 VBG pCO2 39 mmHg (40-60) L 08/30/17 15:39 VBG HCO3 25.3 mmol/L 08/30/17 15:39 VBG Total CO2 27.1 mmol/L (22-28) 08/30/17 15:39 VBG O2 Sat (Calc) 72.7 % (40-65) H 08/30/17 15:39 VBG Base Excess 1.5 mmol/L (0.0-2.0) 08/30/17 15:39 VBG Potassium 3.0 mmol/L (3.6-5.2) L 08/30/17 15:39 Sodium 135.0 mmol/l (132-148) 08/30/17 15:39 Chloride 102.0 mmol/L (98-107) 08/30/17 15:39 Glucose 123 mg/dl (75-110) H 08/30/17 15:39 Lactate 1.4 mmol/L (0.7-2.1) 08/30/17 15:39 Sodium 141 mmol/L (132-148) 09/03/17 06:11 Potassium 3.2 mmol/L (3.6-5.2) L 09/03/17 06:11 Chloride 102 mmol/L (98-107) 09/03/17 06:11 Carbon Dioxide 29 mmol/L (22-30) 09/03/17 06:11 Anion Gap 14 (10-20) 09/03/17 06:11 BUN 15 mg/dL (9-20) 09/03/17 06:11 Creatinine 1.0 mg/dL (0.8-1.5) 09/03/17 06:11 Est GFR ( Amer) > 60 09/03/17 06:11 Est GFR (Non-Af Amer) > 60 09/03/17 06:11 Random Glucose 93 mg/dL (75-110) 09/03/17 06:11 Calcium 7.7 mg/dl (8.6-10.4) L 09/03/17 06:11 Phosphorus 2.4 mg/dL (2.5-4.5) L 09/03/17 06:11 Magnesium 2.3 mg/dL (1.6-2.3) 09/03/17 06:11 Iron 10 ug/dL (49-181) L 08/31/17 05:59 TIBC 208 ug/dL (250-450) L 08/31/17 05:59 % Saturation 5 (20-55) L 08/31/17 05:59 Ferritin 360.0 ng/mL 08/31/17 05:59 Total Bilirubin 0.5 mg/dL (0.2-1.3) 09/03/17 06:11 AST 81 U/L (17-59) H D 09/03/17 06:11 ALT 33 U/L (21-72) 09/03/17 06:11 Alkaline Phosphatase 59 U/L (38-126) 09/03/17 06:11 Total Creatine Kinase 1368 U/L (55-170) H 08/31/17 05:59 CK-MB (Mass) 4.48 ng/mL (0.0-3.38) H 08/31/17 05:59 Troponin I 0.3240 ng/mL (0.00-0.120) H* 08/31/17 05:59 NT-Pro-B Natriuret Pep 5550 pg/mL (0-900) H 08/30/17 16:17 Total Protein 6.2 g/dL (6.3-8.3) L 09/03/17 06:11 Albumin 2.8 g/dL (3.5-5.0) L 09/03/17 06:11 Globulin 3.4 gm/dL (2.2-3.9) 09/03/17 06:11 Albumin/Globulin Ratio 0.8 (1.0-2.1) L 09/03/17 06:11 Triglycerides 94 mg/dL (0-149) D 08/31/17 05:59 Cholesterol 86 mg/dL (0-199) 08/31/17 05:59 LDL Cholesterol Direct 37 mg/dL (0-129) 08/31/17 05:59 HDL Cholesterol 17 mg/dL (30-70) L 08/31/17 05:59 Vitamin B12 917 pg/mL (239-931) 08/30/17 21:02 Folate 5.0 ng/mL 08/31/17 05:59 Free T4 1.38 ng/dL (0.78-2.19) 08/31/17 05:59 TSH 3rd Generation 1.68 mIU/L (0.46-4.68) 08/30/17 21:02 Venous Blood Potassium 3.0 mmol/L (3.6-5.2) L 08/30/17 15:39 Urine Color Sylvia (YELLOW) 09/02/17 06:14 Urine Clarity Hazy (Clear) 09/02/17 06:14 Urine pH 5.0 (5.0-8.0) 09/02/17 06:14 Ur Specific [place] 1.029 (1.003-1.030) 09/02/17 06:14 Urine Protein 2+ mg/dL (NEGATIVE) H 09/02/17 06:14 Urine Glucose (UA) 1+ mg/dL (Normal) H 09/02/17 06:14 Urine Ketones 1+ mg/dL (NEGATIVE) H 09/02/17 06:14 Urine Blood 3+ (NEGATIVE) H 09/02/17 06:14 Urine Nitrate Negative (NEGATIVE) 09/02/17 06:14 Urine Bilirubin Negative (NEGATIVE) 09/02/17 06:14 Urine Urobilinogen 4.0 mg/dL (0.2-1.0) 09/02/17 06:14 Ur Leukocyte Esterase Trace Virginie/uL (Negative) 09/02/17 06:14 Urine WBC (Auto) 53 /hpf (0-5) H 09/02/17 06:14 Urine RBC (Auto) 1224 /hpf (0-3) H 09/02/17 06:14 Ur Squamous Epith Cells 1 /hpf (0-5) 09/02/17 06:14 Urine Bacteria Occ (<OCC) H 09/02/17 06:14 Urine Yeast (Budding) Many /hpf (NEGATIVE) H 09/02/17 06:14 Stool Occult Blood Negative (NEGATIVE) 08/31/17 14:28 RPR Nonreactive (NONREACTIVE) 08/31/17 05:59 Influenza Typ A,B (EIA) Negative for flu a/b (NEGATIVE) 08/30/17 20:14 - Hospital Course Hospital Course: HPI: "Patient is an 82 y/o M with PMHx of CABG 2003, HTN, HLD, BPH who presents today for syncope. Patient yesterday got up to go to the bathroom and felt everything get dark and he slumped to the floor. Patient did not lose consciousness. Today family was more worried about him and when he tried to get up from his chair at about noon they went over to help him and he lost consciousness for a few seconds and they helped get him down to the floor. Patient did not remember what happened. Patient says he was not dizzy or lightheaded before he passed out and says it just happened randomly. Family also checked patient's temperature today which was 101. Patient does not feel like he has been having any fevers or chills recently. Patient had a urinary stent and crandall placed on by Dr. Noreen Wilson for BPH. Patient says he has not noticed any hematuria. Patient had one loose stool this morning but said it was normal in color with no blood. Patient denies abdominal pain. Patient denies any shortness of breath, chest pain, palpitations, headaches, vision changes, nausea, vomiting, constipation. Patient did not eat anything today because he had no appetite." Patient was admitted for syncopal episode. Dr. Ron from Cardiology was consulted. Dr. Keane from Neurology was consulted. Head CT was done on 08/30 that showed no acute intracranial hemorrhage or large infarct. It also showed mild chronic perventricular white matter ischemic changes seen peripherally into the deep white matter of both cerebral hemispheres, as well as few scatter chronic bilateral basal nuclei lacunar type infarcts. A Head and Neck MRI was done on that showed atherosclerotic changes with mild narrowing that can be seen in the intracavernous portions of the internal carotid arteries bilaterally; as well as short segment stenosis in the left internal carotid at the junction of the vertical and horizontal segments. Patient was scheduled for a Brain MRI but refused it on 09/03 and cited that the the MRI made him uncomfortable. An echocardiogram was done 08/31 that showed that the left ventricle is normal size, mild concentric left ventricular hypertrophy, EF 55-60%, suspicious for PFO, mild valvular aortic stenosis, aortic valve moderately calcified, trace aortic regurgitation, moderate pulmonary hypertension. TSH and Free T4 were within normal limit. RPR was Negative. Vitamin B12 level was 917 and Folate was 5.0. The Pt was on fall and seizure precautions during his stay. In regards to the Pulmonary Embolus and Right LE Deep Vein Thrombus, Dr. Dsouza from Pulmonology, Dr. Baldwin from Vascular Surgery was consulted. CT head and neck on 08/31 showed several pulmonary emboli seen in the right middle and right lower lobe lobar and proximal segmental branches of the pulmonary arteries and filling defects seen within the left and lower lobe branches as well. There was no evidence of occlusion however there is narrowing of both proximal internal carotid arteries. A CT Angio was done on 09/01 that showed bilateral PE. No evidence of pulmonary infiltrate or pulmonary infarction. Mild Centrilobar pulmonary emphysema, cardiomegaly, CABG. An echocardiogram was done 08/31 that showed that the left ventricle is normal size, mild concentric left ventricular hypertrophy, EF 55-60%, suspicious for PFO, mild valvular aortic stenosis, aortic valve moderately calcified, trace aortic regurgitation, moderate pulmonary hypertension. A doppler venous showed Right Peroneal DVT. Patient was placed on Heparin Drip and it was stopped today 09/04 at 7AM and oral anticoagulation started. An IVC Filter was placed on 09/02. Patient was found to have an NSTEMI in the ED. Troponins 0.2820, 0.2200, 0.3200 , 0.3240. For the NSTEMI, Dr. Ron from Cardiology was consulted. EKG studies showed Left atrial enlargement with incomplete RBBB which was unchanged from 06/18. Pt was placed on Heparin Drip which was discontinued today 09/04 at 7AM. Pt troponins were found to be 0.2820, 0.2200, 0.3200, 0.3240. Pt was continued on home medication Aspirin 162mg PO QD. Cardiology advised to discontinue Plavix 75mg PO QD. A recent copy of a stress test done in July 2017 is copied and placed in the chart. An echocardiogram was done 08/31 that showed that the left ventricle is normal size, mild concentric left ventricular hypertrophy, EF 55-60%, suspicious for PFO, mild valvular aortic stenosis, aortic valve moderately calcified, trace aortic regurgitation, moderate pulmonary hypertension. During his stay he developed fever and Septic E.coli Bacteremia. Dr. Contreras from Infectious Disease, Dr. Wilson from Urology, and Dr. Cohn from ICU were consulted. Pt was found to have 103.1 and neutropenia. The source of infection was found to be e coli in both blood and urine cultures on 08/30. A chest Xray showed no acute processes. Pt was started on Primaxin 500 mg IV Q8H. A follow up blood culture showed no growth after 24 hours x2. A follow up urine culture on 09/02 was negative. An echocardiogram was done 08/31 that showed that the left ventricle is normal size, mild concentric left ventricular hypertrophy, EF 55-60 %, suspicious for PFO, mild valvular aortic stenosis, aortic valve moderately calcified, trace aortic regurgitation, moderate pulmonary hypertension. Patient was given Labetolol 5mg IV in the ED for Hypertension. Dr. Ron from Cardiology was consulted. Imdur 30 mg PO Q24, Cozaar 50 mg PO Q24, Toprol XL 50 mg PO Q24. Pt will need to follow up with his PMD for medication adjustment and management of his Hypertension. For the Indwelling Crandall for Hx of BPH/Urinary Retention, Dr. Wilson from Urology was consulted. Dr. Wilson stated that patient does not have urologic stent. Patient was treated with Flomax 0.4mg PO BID. For the Anemia, the pt stool occult blood was negative. His Hgb and Hct has remained stable in the 10's. His labs showed low iron, low TIBC, low iron saturation and further workup need to be done as outpatient. Patient's lipid panel was T, Cholesterol: 86, LDL: 37, HDL:17. Patient was started on Crestor 10mg PO HS because of known history of CABG/CAD. Recommend pt takes fish oil to increase HDL. For the history of CAD, Patient was given Aspirin 162 mg PO Daily, Imdur 30 mg PO Q24, Toprol XL 50 mg PO Q24, Crestor 10 mg PO HS Patient was given Pepcid 20 mg PO BID for GERD. For prophylaxis patient was given Florastor 250 mg BID, Pepcid 20 mg PO BID, and an IVC Filter was placed on 09/02. SCDS contraindicated secondary to DVT. Patient was kept on a heart healthy low sodium and low carb. This is a summary of the patient's hospital course, please see chart for full details. Discharge Exam - Additional Findings Additional findings: - Constitutional Appears: Non-toxic, No Acute Distress - Head Exam Head Exam: NORMAL INSPECTION - Eye Exam Eye Exam: EOMI - ENT Exam ENT Exam: Mucous Membranes Moist - Respiratory Exam Respiratory Exam: Clear to Ausculation Bilateral, NORMAL BREATHING PATTERN. absent: Rales, Rhonchi, Wheezes - Cardiovascular Exam Cardiovascular Exam: REGULAR RHYTHM, +S1, +S2 - GI/Abdominal Exam GI & Abdominal Exam: Distended, Soft, Normal Bowel Sounds. absent: Firm, Guarding, Rigid, Tenderness, Rebound - Extremities Exam Extremities Exam: absent: Pedal Edema, Tenderness - Neurological Exam Neurological Exam: Alert, Awake, Oriented x3 - Psychiatric Exam Psychiatric exam: Normal Affect, Normal Mood - Skin Skin Exam: Dry, Intact, Normal Color, Warm Discharge Plan - Discharge Medications Prescriptions: Apixaban [Eliquis] 5 mg PO BID #30 tablet Levofloxacin [Levaquin] 750 mg PO DAILY #14 tablet Valsartan 160 mg PO DAILY #30 tablet - Follow Up Plan Condition: FAIR Disposition: REHAB FACILITY/REHAB UNIT Instructions: Heart Healthy Diet, Heart Attack (DC), Pulmonary Embolism (Blood Clot in the Lungs) (DC), Sepsis, Adult (DC), Coronary Heart Disease (DC), Vena Cava Filter Placement Additional Instructions: Patient stable for discharge to [facility] as per Dr. Partida. Patient to take the following medications as prescribed: Eliquis 10mg twice a day for 7 days (then patient will need to take Eliquis 5mg by mouth twice a day lifelong) Aspirin 81 mg daily Isosorbide 30mg daily Toprol XL 100mg daily Florastor 250mg twice a day for one month Flomax .4mg daily Valsartan 160mg daily Atorvastatin 20mg daily Nexium 40mg daily Levaquin 750mg daily for 14 days Patient should STOP taking Plavix 75mg daily Toprol XL 50 mg daily(this was increased) Diovan 80 mg po daily (this was increased) Patient will need to follow up with Dr. York within (primary) 2 weeks. Please bring the discharge instructions with you. Patient should follow up with Dr. Wilson (urology) within 2 weeks. Patient should follow up with Dr. Ron (cardiology) within 2 weeks. Patient should follow up with Dr. Dsouza (pulmonology) within 2 weeks. Referrals: Devin Dsouza MD [Staff Provider] - Ned York [Staff Provider] - Klever Ron MD [Staff Provider] - Noreen Wilson MD [Staff Provider] - Mariposa Partida DO [Staff Provider] -
[2017-09-05] MEDS ORDERED: Metoprolol Succinate 100 mg XL Tab PO SCH (08:00)
== END 2017-09-04 15:51 | DRG 166 ==
LOC: C.ER 15:09 → C.9E 16:30 → C.9I 21:42 → C.6T 09-04 01:06
PROVIDERS: ADMIT Family Medicine; ATTEND Hospitalist
PROC: 06H03DZ Insertion of Intraluminal Device into Inferior Vena Cava, Percutaneous Approach (ICD-10-PCS; principal; 2017-09-02)
PROC: B54 Imaging, Veins, Ultrasonography (ICD-10-PCS; 2017-09-02)
DX: I26.99 Other pulmonary embolism without acute cor pulmonale (principal); I21.4 Non-ST elevation (NSTEMI) myocardial infarction; A41.51 Sepsis due to Escherichia coli [E. coli]; I82.491 Acute embolism and thrombosis of other specified deep vein of right lower extremity; D62 Acute posthemorrhagic anemia; N39.0 Urinary tract infection, site not specified; Q21.1 Atrial septal defect; I25.10 Atherosclerotic heart disease of native coronary artery without angina pectoris; Z95.1 Presence of aortocoronary bypass graft; R55 Syncope and collapse; I10 Essential (primary) hypertension; K21.9 Gastro-esophageal reflux disease without esophagitis; N40.0 Benign prostatic hyperplasia without lower urinary tract symptoms; E78.00 Pure hypercholesterolemia, unspecified; I45.10 Unspecified right bundle-branch block; I44.4 Left anterior fascicular block; Z82.49 Family history of ischemic heart disease and other diseases of the circulatory system; Z79.02 Long term (current) use of antithrombotics/antiplatelets; Z87.891 Personal history of nicotine dependence; I16.0 Hypertensive urgency; E87.6 Hypokalemia; I27.20 Pulmonary hypertension, unspecified; R29.6 Repeated falls; W19.XXXA Unspecified fall, initial encounter; Y93.9 Activity, unspecified; Y92.002 Bathroom of unspecified non-institutional (private) residence as the place of occurrence of the external cause; N32.0 Bladder-neck obstruction; R31.9 Hematuria, unspecified; D70.9 Neutropenia, unspecified; M19.91 Primary osteoarthritis, unspecified site; D69.6 Thrombocytopenia, unspecified; I35.0 Nonrheumatic aortic (valve) stenosis; J43.9 Emphysema, unspecified

== ENCOUNTER 2018-01-19 03:54 | Emergency (ER) | payer MEDICARE, OTHER | END 2018-01-19 04:40 | disposition home or self-care (01) | LOC: C.ER 03:54 | DX: R33.8 Other retention of urine (principal) ==

== ENCOUNTER 2018-04-05 07:06 | Inpatient (IN) | payer MEDICARE, OTHER ==
[2018-03-12 10:33] VITALS: BMI 25.9
[2018-04-05 08:04] VITALS: RESP 20
[2018-04-05] MEDS ORDERED: cefTRIAXone 1 gm 1 GM/100 ML BAG IVPB ONE (08:52)
[2018-04-05] MEDS ORDERED: Lidocaine 2% Jelly (Uro-Jet) ONE (08:52)
[2018-04-05] MEDS ORDERED: Gentamicin 80 mg in 0.9% NS 160 MG/200 ML BAG IVPB ONE (09:16)
[2018-04-05] MEDS ORDERED: Propofol 10 mg/ml Inj (20 ML) ONE (09:23)
--- NOTE | 2018-04-05 10:56 | PCM.SURG1 ---
Surgeon's Initial Post Op Note - Surgeon's Notes Surgeon: Cody Wilson [employer] Embossing Press Operator: none Type of Anesthesia: General Endo Pre-Operative Diagnosis: BPH. retention Operative Findings: same Post-Operative Diagnosis: same Operation Performed: TURP Specimen/Specimens Removed: urine. prostate Estimated Blood Loss: EBL {In ML}: 100 Blood Products Given: N/A Post-Op Condition: Good Date of Surgery/Procedure: 04/05/18 Time of Surgery/Procedure: 10:45
--- NOTE | 2018-04-05 11:22 | CP.PCM.HP ---
History of Present Illness - History of Present Illness History of Present Illness: PGY-1 Sonya Mcmahon D.O. H&P for Dr. 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 Marysol Wilson. He has a long-standing history of BPH with recent increased urinary retention. Patient reports using a Craft for the past 2-3 months as he was unable to void on his own. A nurse replaced the Craft every 3 weeks. He was experiencing occasional dysuria and hematuria as well. He denies F/C, diaphoresis, weakness, headache, dizziness, sore throat, chest pain, palpitations, SOB, abdominal pain, N/V, and D/C. PMH: CAD BPH HTN HLD GERD OA- b/l shoulders NSTEMI- 09/11 PE and CVT- 09/11 E. 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 Former smoker 75 pack yrs, quit in 2003 Denies alcohol Denies illicit drug use PMD: Jaylen Uro: Marysol Wilson No advanced directive Patient did not wish to discuss code status Medical proxy: daughter Holly [facility] [phone] Present on Admission - Present on Admission Any Indicators Present on Admission: Yes History of DVT/PE: Yes History of Uncontrolled Diabetes: No Urinary Catheter: Yes (Craft) Decubitus Ulcer Present: No History Surgical Site Infection Following: None Review of Systems - Constitutional Constitutional: absent: Chills, Fever, Weight Loss - EENT Eyes: absent: Change in Vision Ears: absent: Decreased Hearing Nose/Mouth/Throat: absent: Nasal Congestion - Cardiovascular Cardiovascular: absent: Chest Pain, Diaphoresis, Dyspnea, Edema - Respiratory Respiratory: absent: Cough, Dyspnea - Gastrointestinal Gastrointestinal: absent: Abdominal Pain, Bloating, Constipation, Diarrhea, Nausea, Vomiting - Genitourinary Genitourinary: Difficulty Urinating, Dysuria, Hematuria. absent: Flank Pain, Urinary Incontinence - Musculoskeletal Musculoskeletal: Arthralgias (b/l shoulder joints). absent: Numbness, Tingling - Integumentary Integumentary: absent: Lesions, Rash - Neurological Neurological: absent: Dizziness, Numbness, Frequent Falls, Headaches, Paresthesias, Tingling, Tremor, Weakness - Psychiatric Psychiatric: absent: Anxiety, Depression - Endocrine Endocrine: absent: Fatigue, Palpitations, Polydipsia, Polyphagia, Polyuria - Hematologic/Lymphatic Hematologic: absent: Easy Bleeding, Easy Bruising, Lymphadenopathy Past Patient History - Past Medical History & Family History Past Medical History?: Yes Past Family History: Reviewed and not pertinent - Past Social History Smoking Status: Former Smoker Chewing Tobacco Use: No Cigar Use: No Alcohol: None Drugs: Denies Home Situation {Lives}: With Family () - CARDIAC Hx Cardiac Disorders: Yes Hx Heart Attack: Yes Hx Hypercholesterolemia: Yes Hx Hypertension: Yes Other/Comment: CABG 2003 - PULMONARY Hx Respiratory Disorders: Yes Hx Pulmonary Embolism: Yes (AUGUST 2017) - NEUROLOGICAL Hx Neurological Disorder: Yes Hx Syncope: Yes - HEENT Hx HEENT Problems: Yes Hx Epistaxis: Yes - RENAL Hx Chronic Kidney Disease: No - ENDOCRINE/METABOLIC Hx Endocrine Disorders: No - HEMATOLOGICAL/ONCOLOGICAL Hx Blood Disorders: Yes Hx Anemia: Yes Hx Blood Transfusions: Yes Hx Blood Transfusion Reaction: No Other/Comment: Uncontrolled epistaxis 2017 - INTEGUMENTARY Hx Dermatological Problems: No - MUSCULOSKELETAL/RHEUMATOLOGICAL Hx Musculoskeletal Disorders: Yes Hx Falls: No Hx Osteoarthritis: Yes - GASTROINTESTINAL Hx Gastrointestinal Disorders: No - GENITOURINARY/GYNECOLOGICAL Hx Genitourinary Disorders: Yes Hx Prostate Problems: Yes Other/Comment: BPH,. Unable to void for 36 hours -had FC inserted last by Dr. Wilson - PSYCHIATRIC Hx Psychophysiologic Disorder: No Hx Substance Use: No - SURGICAL HISTORY Hx Surgeries: Yes Hx Open Heart Surgery: Yes (2003) Other/Comment: LOOP RECORDER INSERTION - ANESTHESIA Hx Anesthesia: Yes Hx Anesthesia Reactions: No Hx Malignant Hyperthermia: No Has any member of the family had a problem w/ anesthesia?: No Meds Allergies/Adverse Reactions: Allergies Allergy/AdvReac Type Severity Reaction Status Date / Time No Known Allergies Allergy Verified 08/30/17 15:21 Physical Exam - Constitutional Appears: No Acute Distress - Head Exam Head Exam: ATRAUMATIC, NORMAL INSPECTION, NORMOCEPHALIC - Eye Exam Eye Exam: EOMI, Normal appearance, PERRL - ENT Exam ENT Exam: Mucous Membranes Moist, Normal Exam - Neck Exam Neck exam: Positive for: Normal Inspection - Respiratory Exam Respiratory Exam: Clear to Auscultation Bilateral, NORMAL BREATHING PATTERN - Cardiovascular Exam Cardiovascular Exam: REGULAR RHYTHM, +S1, +S2 - GI/Abdominal Exam GI & Abdominal Exam: Normal Bowel Sounds, Soft. absent: Distended, Tenderness - Rectal Exam Rectal Exam: Deferred - Exam Additional comments: Craft with CBI- orange/red output - Extremities Exam Extremities exam: Positive for: normal inspection, pedal pulses present. Negative for: pedal edema, tenderness - Back Exam Back exam: NORMAL INSPECTION - Neurological Exam Neurological exam: Alert, CN II-XII Intact, Oriented x3 - Psychiatric Exam Psychiatric exam: Normal Affect, Normal Mood - Skin Skin Exam: Dry, Intact, Normal Color, Warm Results - Vital Signs Recent Vital Signs: Last Vital Signs Temp 97.6 F 04/05/18 07:18 Pulse 72 04/05/18 07:18 Resp 20 04/05/18 07:18 BP 189/67 H 04/05/18 07:18 Pulse Ox 100 04/05/18 07:18 - Labs Result Diagrams: 04/05/18 15:39 04/05/18 15:39 Labs: Laboratory Results - last 24 hr 04/05/18 10:27 Blood Type A POSITIVE Assessment & Plan - Assessment and Plan (Free Text) Assessment: Patient is an 82 yo male with history of BPH who presents s/p TURP today 04/[address] Marysol Wilson. Patient feels well post-op. Plan: Benign prostatic hypertrophy with hematuria- s/p TURP today 04/05 - Urine Cx pending - CBI - Hgb 10.8 - Monitor CBC - Finasteride 5 mg PO daily - Flomax 0.5 mg PO daily - Tylenol 650 mg PO Q6H PRN - Morphine 0.5 mg IV Q6H PRN - Colace 100 mg PO TID - Rocephin 1 g IV daily- started 04/05 - 20 mEq KCl in D51/2NS @ 75 mL/hr - Hold Eliquis as per urology- anemic and blood loss during procedure - Urology consulted (Marysol Wilson) Hypertension - Monitor vitals Q4H - Imdur 30 mg PO daily - Losartan 100 mg PO daily - Hydralazine 10 mg PO Q6H PRN Osteoarthritis- b/l shoulders - Prednisone taper as per outpatient physician- 7.5 mg PO daily GERD - Protonix 40 mg PO daily Hyperlipidemia - Crestor 10 mg PO QHS H/o PE and DVT- 08/2017 - s/p IVC filter 09/11 - Hold Eliquis as per urology CAD- s/p CABG 2003 - Echo 09/11: EF 55-60%, mod pulm HTN, mod aortic calcification, ?PFO - Heart healthy diet Ppx: VTE: SCD to LLE, RLU contraindicated due to h/o DVT, chemical anticoagulation contraindicated due to hematuria GI: Protonix 40 mg PO daily Code status: full code Case was discussed with attending, Dr. Earnest Matias.
[2018-04-05] MEDS: HYDROmorphone 0.5 mg/0.5 ml ISec IVP PRN ×2 (11:25→11:57)
[2018-04-05] MEDS: Pantoprazole 40 mg EC Tab PO SCH (14:44)
[2018-04-05] MEDS: Potassium Ch 20mEq in D5-1/2NS 1,000 ML IV SCH (15:24)
[2018-04-05 15:55] LABS: BASO % 0.3 % (0.0-2.0); EOS # 0.1 K/uL (0.0-0.7); HEMOGLOBIN 10.8 g/dL (12.0-18.0); LYMPH # 1.2 K/uL (1.0-4.3); LYMPH % 12.6 % (20.0-40.0); MEAN CELL VOLUME 89.6 fL (80.0-94.0); MEAN CORPUSCULAR HEMOGLOBIN 30.2 pg (27.0-31.0); MEAN CORPUSCULAR HGB CONC 33.7 g/dL (33.0-37.0); MEAN PLATELET VOLUME 7.9 fL (7.2-11.7); MONO # 0.8 K/uL (0.0-0.8); MONO % 8.3 % (0.0-10.0); NEUT # 7.2 K/uL (1.8-7.0); NEUT % 77.8 % (50.0-75.0); RBC 3.58 Mil/uL (4.40-5.90); WHITE BLOOD COUNT 9.3 K/uL (4.8-10.8)
[2018-04-05 16:13] LABS: ALB/GLOB RATIO 1.1 (1.0-2.1); ALBUMIN 3.6 g/dL (3.5-5.0); ALT/SGPT 24 U/L (21-72); AST/SGOT 32 U/L (17-59); BLOOD UREA NITROGEN 21 mg/dL (9-20); CALCIUM 8.4 mg/dl (8.6-10.4); GFR NON-AFRICAN AMERICAN > 60
[2018-04-06] MEDS: Potassium Ch 20mEq in D5-1/2NS 1,000 ML IV SCH ×3 (00:35→13:50)
[2018-04-06 06:29] LABS: BASO % 0.3 % (0.0-2.0); EOS # 0.1 K/uL (0.0-0.7); HEMOGLOBIN 11.8 g/dL (12.0-18.0); LYMPH # 0.7 K/uL (1.0-4.3); LYMPH % 6.3 % (20.0-40.0); MEAN CELL VOLUME 90.1 fL (80.0-94.0); MEAN CORPUSCULAR HEMOGLOBIN 29.8 pg (27.0-31.0); MEAN CORPUSCULAR HGB CONC 33.1 g/dL (33.0-37.0); MEAN PLATELET VOLUME 7.7 fL (7.2-11.7); MONO % 9.1 % (0.0-10.0); NEUT # 9.6 K/uL (1.8-7.0); NEUT % 83.3 % (50.0-75.0); PLATELET COUNT 213 K/uL (130-400); RBC 3.96 Mil/uL (4.40-5.90); RED CELL DISTRIBUTION WIDTH 18.7 % (11.5-14.5); WHITE BLOOD COUNT 11.5 K/uL (4.8-10.8)
--- NOTE | 2018-04-06 07:12 | CP.PCM.PN ---
Subjective - Date & Time of Evaluation Date of Evaluation: 04/06/18 Time of Evaluation: 07:10 - Subjective Subjective: PGY-1 Sonya Mcmahon D.O. Medicine progress note for Dr. Matias's service: Patient was seen and examined this morning. He is POD1 TURP. Objective - Vital Signs/Intake and Output Vital Signs (last 24 hours): Temp Pulse Resp BP Pulse Ox 98.1 F 81 20 174/65 H 94 L 04/06/18 00:00 04/06/18 00:00 04/06/18 00:00 04/06/18 00:00 04/06/18 00:00 Intake and Output: 04/06/18 04/06/18 06:59 18:59 Intake Total 9450 Output Total 3900 Balance 5550 - Medications Medications: Current Medications Acetaminophen (Tylenol 325mg Tab) 650 mg PO Q6 PRN PRN Reason: Pain, moderate (4-7) Docusate Sodium (Colace) 100 mg PO TID [facility] Last Admin: 04/05/18 19:14 Dose: 100 mg Finasteride (Proscar) 5 mg PO DAILY [facility] Hydralazine HCl (Apresoline) 10 mg PO Q6 PRN PRN Reason: Systolic Blood Pressure Last Admin: 04/05/18 18:09 Dose: 10 mg Potassium Chloride/Dextrose/Sod Cl (Potassium Chl 20 Meq In D5-1/2ns) 1,000 mls @ 75 mls/hr IV .[id number] [facility] Last Admin: 04/06/18 05:46 Dose: 75 mls/hr Ceftriaxone Sodium 1 gm/ (Sodium Chloride) 100 mls @ 100 mls/hr IVPB DAILY [facility]; Protocol Isosorbide Mononitrate (Imdur Er) 30 mg PO DAILY [facility] Losartan Potassium (Cozaar) 100 mg PO DAILY [facility] Morphine Sulfate (Morphine) 0.5 mg IVP Q6 PRN PRN Reason: Pain, severe (8-10) Pantoprazole Sodium (Protonix Ec Tab) 40 mg PO DAILY [facility] Last Admin: 04/05/18 14:44 Dose: 40 mg Prednisone (Prednisone Tab) 7.5 mg PO DAILY [facility] Rosuvastatin Calcium (Crestor) 10 mg PO HS [facility] Last Admin: 04/05/18 21:41 Dose: 10 mg Tamsulosin HCl (Flomax) 0.4 mg PO DAILY [facility] Last Admin: 04/05/18 14:45 Dose: 0.4 mg - Labs Labs: 04/06/18 06:18 04/05/18 15:39 - Additional Findings Additional findings: - Constitutional Appears: No Acute Distress - Head Exam Head Exam: ATRAUMATIC, NORMAL INSPECTION, NORMOCEPHALIC - Eye Exam Eye Exam: EOMI, Normal appearance, PERRL - ENT Exam ENT Exam: Mucous Membranes Moist, Normal Exam - Neck Exam Neck exam: Positive for: Normal Inspection - Respiratory Exam Respiratory Exam: Clear to Auscultation Bilateral, NORMAL BREATHING PATTERN - Cardiovascular Exam Cardiovascular Exam: REGULAR RHYTHM, +S1, +S2 - GI/Abdominal Exam GI & Abdominal Exam: Normal Bowel Sounds, Soft. absent: Distended, Tenderness - Rectal Exam Rectal Exam: Deferred - Exam Additional comments: Craft with CBI- orange/red output - Extremities Exam Extremities exam: Positive for: normal inspection, pedal pulses present. Negative for: pedal edema, tenderness - Back Exam Back exam: NORMAL INSPECTION - Neurological Exam Neurological exam: Alert, CN II-XII Intact, Oriented x3 - Psychiatric Exam Psychiatric exam: Normal Affect, Normal Mood - Skin Skin Exam: Dry, Intact, Normal Color, Warm Assessment and Plan - Assessment and Plan (Free Text) Assessment: Patient is an 82 yo male with history of BPH who presents s/p TURP 04/[address] Marysol Wilson (POD1). Patient feels well post-op. Plan: Benign prostatic hypertrophy with hematuria- POD1 TURP - Urine Cx pending - CBI - Hgb 10.8 - Monitor CBC - Finasteride 5 mg PO daily - Flomax 0.5 mg PO daily - Tylenol 650 mg PO Q6H PRN - Morphine 0.5 mg IV Q6H PRN - Colace 100 mg PO TID - Rocephin 1 g IV daily- started 04/05 - 20 mEq KCl in D51/2NS @ 75 mL/hr - Hold Eliquis as per urology- anemic and blood loss during procedure - Urology consulted (Marysol Wilson) Hypertension - Monitor vitals Q4H - Imdur 30 mg PO daily - Losartan 100 mg PO daily - Hydralazine 10 mg PO Q6H PRN Osteoarthritis- b/l shoulders - Prednisone taper as per outpatient physician- 7.5 mg PO daily GERD - Protonix 40 mg PO daily Hyperlipidemia - Crestor 10 mg PO QHS H/o PE and DVT- 08/2017 - s/p IVC filter 09/11 - Hold Eliquis as per urology CAD- s/p CABG 2003 - Echo 09/11: EF 55-60%, mod pulm HTN, mod aortic calcification, ?PFO - Heart healthy diet Ppx: VTE: SCD to LLE, RLU contraindicated due to h/o DVT, chemical anticoagulation contraindicated due to hematuria GI: Protonix 40 mg PO daily Code status: full code Case was discussed with attending, Dr. Earnest Matias.
[2018-04-06 07:32] LABS: ALBUMIN 3.5 g/dL (3.5-5.0); ALT/SGPT 22 U/L (21-72); AST/SGOT 33 U/L (17-59); BLOOD UREA NITROGEN 15 mg/dL (9-20); CALCIUM 8.2 mg/dl (8.6-10.4); GFR NON-AFRICAN AMERICAN > 60
[2018-04-06] MEDS ORDERED: Metoprolol Succinate 100 mg XL Tab PO SCH (08:00)
[2018-04-06 09:10] LABS: ANISOCYTOSIS SLIGHT; LYMPHOCYTE 7 % (20-40); MONOCYTE 8 % (0-10); NEUTROPHIL 85 % (50-75); PLATELET ESTIMATE NORMAL (NORMAL); TOTAL CELLS COUNTED 100
[2018-04-06 09:11] LABS: HYPOCHROMIC SLIGHT; POLYCHROMIC SLIGHT
[2018-04-06] MEDS: Pantoprazole 40 mg EC Tab PO SCH (09:28)
--- NOTE | 2018-04-06 14:47 | PCM.URO ---
Urology Progress Note - Objective Lab Studies: Reviewed (s/p turp routine post op care) Lab Results Last 24 Hours: Laboratory Results - last 24 hr 04/05/18 04/05/18 04/06/18 15:39 15:39 06:18 WBC 9.3 RBC 3.58 L Hgb 10.8 L Hct 32.1 L MCV 89.6 D MCH 30.2 MCHC 33.7 RDW 19.0 H Plt Count 214 MPV 7.9 Neut % (Auto) 77.8 H Lymph % (Auto) 12.6 L [place] % (Auto) 8.3 Eos % (Auto) 1.0 Baso % (Auto) 0.3 Neut # (Auto) 7.2 H Lymph # (Auto) 1.2 [place] # (Auto) 0.8 Eos # (Auto) 0.1 Baso # (Auto) 0.0 Neutrophils % (Manual) Lymphocytes % (Manual) Monocytes % (Manual) Platelet Estimate Polychromasia Hypochromasia (manual) Anisocytosis (manual) Sodium 137 131 L Potassium 4.3 4.4 Chloride 99 93 L Carbon Dioxide 32 H 29 Anion Gap 10 13 BUN 21 H 15 Creatinine 0.9 1.0 Est GFR ( Amer) > 60 > 60 Est GFR (Non-Af Amer) > 60 > 60 Random Glucose 95 110 Calcium 8.4 L 8.2 L Phosphorus 3.8 2.8 Magnesium 1.9 1.7 Total Bilirubin 0.4 0.6 AST 32 33 ALT 24 22 Alkaline Phosphatase 63 65 Total Protein 6.9 7.1 Albumin 3.6 3.5 Globulin 3.3 3.6 Albumin/Globulin Ratio 1.1 1.0 04/06/18 06:18 WBC 11.5 H RBC 3.96 L Hgb 11.8 L Hct 35.7 MCV 90.1 MCH 29.8 MCHC 33.1 RDW 18.7 H Plt Count 213 MPV 7.7 Neut % (Auto) 83.3 H Lymph % (Auto) 6.3 L [place] % (Auto) 9.1 Eos % (Auto) 1.0 Baso % (Auto) 0.3 Neut # (Auto) 9.6 H Lymph # (Auto) 0.7 L [place] # (Auto) 1.0 H Eos # (Auto) 0.1 Baso # (Auto) 0.0 Neutrophils % (Manual) 85 H Lymphocytes % (Manual) 7 L Monocytes % (Manual) 8 Platelet Estimate Normal Polychromasia Slight Hypochromasia (manual) Slight Anisocytosis (manual) Slight Sodium Potassium Chloride Carbon Dioxide Anion Gap BUN Creatinine Est GFR ( Amer) Est GFR (Non-Af Amer) Random Glucose Calcium Phosphorus Magnesium Total Bilirubin AST ALT Alkaline Phosphatase Total Protein Albumin Globulin Albumin/Globulin Ratio Intake & Output: Intake & Output 04/05/18 04/06/18 04/06/18 18:59 06:59 18:59 Intake Total 1840 9450 800 Output Total 2550 3900 550 Balance -710 5550 250 Intake: IV 1450 Intake, IV Amount 150 1200 800 Right Antecubital 150 1200 800 Oral 240 1000 Other 7250 Output: Urine 2550 3900 550 3-way Urethral 1750 2450 550 Stool 0 Other: Voiding Method 3-way Craft with CBI # Bowel Movements 1 Vital Signs: Vital Signs - 24 hr 04/05/18 04/05/18 04/06/18 16:00 19:15 00:00 Temperature 97.4 F L 98.1 F Pulse Rate 59 L 81 Respiratory 20 20 Rate Blood Pressure 177/68 H 168/78 H 174/65 H O2 Sat by Pulse 97 94 L Oximetry 04/06/18 07:58 Temperature 98 F Pulse Rate 87 Respiratory 20 Rate Blood Pressure 148/81 O2 Sat by Pulse 95 Oximetry
[2018-04-06] MEDS ORDERED: Magnesium Citrate Oral SOL (300 ml) PO ONE ×2 (15:01→17:00)
--- NOTE | 2018-04-06 15:16 | CP.PCM.DIS ---
Provider - Provider Date of Admission: 04/05/18 11:25 Attending physician: Earnest Matias MD Time Spent in preparation of Discharge (in minutes): 45 Hospital Course - Lab Results Lab Results: Most Recent Lab Values WBC 11.5 K/uL (4.8-10.8) H 04/06/18 06:18 RBC 3.96 Mil/uL (4.40-5.90) L 04/06/18 06:18 Hgb 11.8 g/dL (12.0-18.0) L 04/06/18 06:18 Hct 35.7 % (35.0-51.0) 04/06/18 06:18 MCV 90.1 fL (80.0-94.0) 04/06/18 06:18 MCH 29.8 pg (27.0-31.0) 04/06/18 06:18 MCHC 33.1 g/dL (33.0-37.0) 04/06/18 06:18 RDW 18.7 % (11.5-14.5) H 04/06/18 06:18 Plt Count 213 K/uL (130-400) 04/06/18 06:18 MPV 7.7 fL (7.2-11.7) 04/06/18 06:18 Neut % (Auto) 83.3 % (50.0-75.0) H 04/06/18 06:18 Lymph % (Auto) 6.3 % (20.0-40.0) L 04/06/18 06:18 [place] % (Auto) 9.1 % (0.0-10.0) 04/06/18 06:18 Eos % (Auto) 1.0 % (0.0-4.0) 04/06/18 06:18 Baso % (Auto) 0.3 % (0.0-2.0) 04/06/18 06:18 Neut # (Auto) 9.6 K/uL (1.8-7.0) H 04/06/18 06:18 Lymph # (Auto) 0.7 K/uL (1.0-4.3) L 04/06/18 06:18 [place] # (Auto) 1.0 K/uL (0.0-0.8) H 04/06/18 06:18 Eos # (Auto) 0.1 K/uL (0.0-0.7) 04/06/18 06:18 Baso # (Auto) 0.0 K/uL (0.0-0.2) 04/06/18 06:18 Neutrophils % (Manual) 85 % (50-75) H 04/06/18 06:18 Lymphocytes % (Manual) 7 % (20-40) L 04/06/18 06:18 Monocytes % (Manual) 8 % (0-10) 04/06/18 06:18 Platelet Estimate Normal (NORMAL) 04/06/18 06:18 Polychromasia Slight 04/06/18 06:18 Hypochromasia (manual) Slight 04/06/18 06:18 Anisocytosis (manual) Slight 04/06/18 06:18 Sodium 131 mmol/L (132-148) L 04/06/18 06:18 Potassium 4.4 mmol/L (3.6-5.2) 04/06/18 06:18 Chloride 93 mmol/L (98-107) L 04/06/18 06:18 Carbon Dioxide 29 mmol/L (22-30) 04/06/18 06:18 Anion Gap 13 (10-20) 04/06/18 06:18 BUN 15 mg/dL (9-20) 04/06/18 06:18 Creatinine 1.0 mg/dL (0.8-1.5) 04/06/18 06:18 Est GFR ( Amer) > 60 04/06/18 06:18 Est GFR (Non-Af Amer) > 60 04/06/18 06:18 Random Glucose 110 mg/dL (75-110) 04/06/18 06:18 Calcium 8.2 mg/dl (8.6-10.4) L 04/06/18 06:18 Phosphorus 2.8 mg/dL (2.5-4.5) 04/06/18 06:18 Magnesium 1.7 mg/dL (1.6-2.3) 04/06/18 06:18 Total Bilirubin 0.6 mg/dL (0.2-1.3) 04/06/18 06:18 AST 33 U/L (17-59) 04/06/18 06:18 ALT 22 U/L (21-72) 04/06/18 06:18 Alkaline Phosphatase 65 U/L (38-126) 04/06/18 06:18 Total Protein 7.1 g/dL (6.3-8.3) 04/06/18 06:18 Albumin 3.5 g/dL (3.5-5.0) 04/06/18 06:18 Globulin 3.6 gm/dL (2.2-3.9) 04/06/18 06:18 Albumin/Globulin Ratio 1.0 (1.0-2.1) 04/06/18 06:18 Blood Type A POSITIVE 04/05/18 10:27 Antibody Screen Negative 04/05/18 10:27 Discharge Exam - Head Exam Head Exam: ATRAUMATIC, NORMAL INSPECTION, NORMOCEPHALIC Discharge Plan - Follow Up Plan Condition: GOOD Disposition: HOME/ ROUTINE
--- NOTE | 2018-04-06 17:11 | CP.PCM.PN ---
Subjective - Date & Time of Evaluation Date of Evaluation: 04/06/18 Time of Evaluation: 09:30 - Subjective Subjective: PGY-1 Sonya Mcmahon D.O. Medicine progress note for Dr. Matias's service: Patient was seen and examined this morning. He has no acute complaints. He is still with CBI- dark yellow output. Patient denies abdominal pain. He is eating and sleeping well. Objective - Vital Signs/Intake and Output Vital Signs (last 24 hours): Temp Pulse Resp BP Pulse Ox 98.5 F 87 20 126/72 95 04/06/18 15:51 04/06/18 15:51 04/06/18 15:51 04/06/18 15:51 04/06/18 15:51 Intake and Output: 04/06/18 04/06/18 06:59 18:59 Intake Total 9450 800 Output Total 3900 550 Balance 5550 250 - Medications Medications: Current Medications Acetaminophen (Tylenol 325mg Tab) 650 mg PO Q6 PRN PRN Reason: Pain, moderate (4-7) Docusate Sodium (Colace) 100 mg PO TID [facility] Last Admin: 04/06/18 13:30 Dose: 100 mg Finasteride (Proscar) 5 mg PO DAILY [facility] Last Admin: 04/06/18 09:32 Dose: 5 mg Hydralazine HCl (Apresoline) 10 mg PO Q6 PRN PRN Reason: Systolic Blood Pressure Last Admin: 04/05/18 18:09 Dose: 10 mg Potassium Chloride/Dextrose/Sod Cl (Potassium Chl 20 Meq In D5-1/2ns) 1,000 mls @ 75 mls/hr IV .[id number] [facility] Last Admin: 04/06/18 13:50 Dose: Not Given Ceftriaxone Sodium 1 gm/ (Sodium Chloride) 100 mls @ 100 mls/hr IVPB DAILY [facility]; Protocol Last Admin: 04/06/18 09:26 Dose: 100 mls/hr Isosorbide Mononitrate (Imdur Er) 30 mg PO DAILY [facility] Last Admin: 04/06/18 09:28 Dose: 30 mg Losartan Potassium (Cozaar) 100 mg PO DAILY [facility] Last Admin: 04/06/18 09:28 Dose: 100 mg Morphine Sulfate (Morphine) 0.5 mg IVP Q6 PRN PRN Reason: Pain, severe (8-10) Last Admin: 04/06/18 16:36 Dose: 0.5 mg Oxybutynin Chloride (Ditropan Xl) 10 mg PO DAILY [facility] Pantoprazole Sodium (Protonix Ec Tab) 40 mg PO DAILY [facility] Last Admin: 04/06/18 09:28 Dose: 40 mg Phenazopyridine HCl (Pyridium) 200 mg PO TIDPC [facility] Prednisone (Prednisone Tab) 5 mg PO DAILY [facility] Last Admin: 04/06/18 10:48 Dose: 5 mg Prednisone (Prednisone) 2.5 mg PO DAILY [facility] Last Admin: 04/06/18 11:10 Dose: 2.5 mg Rosuvastatin Calcium (Crestor) 10 mg PO HS [facility] Last Admin: 04/05/18 21:41 Dose: 10 mg Tamsulosin HCl (Flomax) 0.4 mg PO DAILY [facility] Last Admin: 04/06/18 09:28 Dose: 0.4 mg - Labs Labs: 04/06/18 06:18 04/06/18 06:18 - Additional Findings Additional findings: - Constitutional Appears: No Acute Distress - Head Exam Head Exam: ATRAUMATIC, NORMAL INSPECTION, NORMOCEPHALIC - Eye Exam Eye Exam: EOMI, Normal appearance, PERRL - ENT Exam ENT Exam: Mucous Membranes Moist, Normal Exam - Neck Exam Neck exam: Positive for: Normal Inspection - Respiratory Exam Respiratory Exam: Clear to Auscultation Bilateral, NORMAL BREATHING PATTERN - Cardiovascular Exam Cardiovascular Exam: REGULAR RHYTHM, +S1, +S2 - GI/Abdominal Exam GI & Abdominal Exam: Normal Bowel Sounds, Soft. absent: Distended, Tenderness - Rectal Exam Rectal Exam: Deferred - Exam Additional comments: Craft with CBI- dark yellow output - Extremities Exam Extremities exam: Positive for: normal inspection, pedal pulses present. Negative for: pedal edema, tenderness - Back Exam Back exam: NORMAL INSPECTION - Neurological Exam Neurological exam: Alert, CN II-XII Intact, Oriented x3 - Psychiatric Exam Psychiatric exam: Normal Affect, Normal Mood - Skin Skin Exam: Dry, Intact, Normal Color, Warm Assessment and Plan - Assessment and Plan (Free Text) Assessment: Patient is an 82 yo male with history of BPH he is POD1 TURP by Dr. Noreen Wilson. Patient continues to have CBI but with decreaed gross blood. As per Dr. Steve, plan to discharge tomorrow.s Plan: Benign prostatic hypertrophy with hematuria- s/p TURP today 04/05 - Urine Cx pending - CBI - Hgb 10.8->11.8 - Monitor CBC - Finasteride 5 mg PO daily - Flomax 0.5 mg PO daily - Oxybutynin 10 mg PO daily - Phenazopyridine 200 mg PO TID - Tylenol 650 mg PO Q6H PRN - Morphine 0.5 mg IV Q6H PRN - Colace 100 mg PO TID - Rocephin 1 g IV daily- started 04/05 - Hold Eliquis as per urology- anemic and blood loss during procedure - Urology consulted (Marysol Wilson) Hypertension - Monitor vitals Q4H - Imdur 30 mg PO daily - Losartan 100 mg PO daily - Hydralazine 10 mg PO Q6H PRN Hyponatremia - Stop IVF - Monitor BMP Osteoarthritis- b/l shoulders - Prednisone taper as per outpatient physician- 7.5 mg PO daily GERD - Protonix 40 mg PO daily Hyperlipidemia - Crestor 10 mg PO QHS H/o PE and DVT- 08/2017 - s/p IVC filter 09/11 - Hold Eliquis as per urology CAD- s/p CABG 2003 - Echo 09/11: EF 55-60%, mod pulm HTN, mod aortic calcification, ?PFO - Heart healthy diet Ppx: VTE: SCD to LLE, RLU contraindicated due to h/o DVT, chemical anticoagulation contraindicated due to hematuria GI: Protonix 40 mg PO daily Code status: full code Case was discussed with attending, Dr. Earnest Matias.
[2018-04-06] MEDS: Oxybutynin XL 10 mg Tab PO SCH (17:15)
[2018-04-07 01:45] VITALS: TEMP 98.2
[2018-04-07 06:15] LABS: BASO % 0.1 % (0.0-2.0); EOS # 0.1 K/uL (0.0-0.7); EOS % 0.5 % (0.0-4.0); HEMOGLOBIN 10.9 g/dL (12.0-18.0); LYMPH # 1.1 K/uL (1.0-4.3); MEAN CELL VOLUME 87.1 fL (80.0-94.0); MEAN CORPUSCULAR HEMOGLOBIN 29.3 pg (27.0-31.0); MEAN CORPUSCULAR HGB CONC 33.6 g/dL (33.0-37.0); MEAN PLATELET VOLUME 7.8 fL (7.2-11.7); MONO # 1.1 K/uL (0.0-0.8); MONO % 9.6 % (0.0-10.0); NEUT % 79.8 % (50.0-75.0); RBC 3.73 Mil/uL (4.40-5.90); RED CELL DISTRIBUTION WIDTH 18.5 % (11.5-14.5); WHITE BLOOD COUNT 11.3 K/uL (4.8-10.8)
--- NOTE | 2018-04-07 06:28 | CP.PCM.DIS ---
Provider - Provider Date of Admission: 04/05/18 11:25 Attending physician: Earnest Matias MD Primary care physician: Jaylen Consults: urology Time Spent in preparation of Discharge (in minutes): 45 Diagnosis - Discharge Diagnosis (1) S/P TURP (status post transurethral resection of prostate) Status: Acute Priority: High (2) BPH (benign prostatic hyperplasia) Status: Chronic Priority: High Hospital Course - Lab Results Lab Results: Micro Results 04/05/18 12:39 Urine,Craft Urine Culture - Final MULTIPLE SPECIES. SUGGEST REPEAT SPECIMEN. Most Recent Lab Values WBC 11.3 K/uL (4.8-10.8) H 04/07/18 06:05 RBC 3.73 Mil/uL (4.40-5.90) L 04/07/18 06:05 Hgb 10.9 g/dL (12.0-18.0) L 04/07/18 06:05 Hct 32.5 % (35.0-51.0) L 04/07/18 06:05 MCV 87.1 fL (80.0-94.0) D 04/07/18 06:05 MCH 29.3 pg (27.0-31.0) 04/07/18 06:05 MCHC 33.6 g/dL (33.0-37.0) 04/07/18 06:05 RDW 18.5 % (11.5-14.5) H 04/07/18 06:05 Plt Count 199 K/uL (130-400) 04/07/18 06:05 MPV 7.8 fL (7.2-11.7) 04/07/18 06:05 Neut % (Auto) 79.8 % (50.0-75.0) H 04/07/18 06:05 Lymph % (Auto) 10.0 % (20.0-40.0) L 04/07/18 06:05 [place] % (Auto) 9.6 % (0.0-10.0) 04/07/18 06:05 Eos % (Auto) 0.5 % (0.0-4.0) 04/07/18 06:05 Baso % (Auto) 0.1 % (0.0-2.0) 04/07/18 06:05 Neut # (Auto) 9.0 K/uL (1.8-7.0) H 04/07/18 06:05 Lymph # (Auto) 1.1 K/uL (1.0-4.3) 04/07/18 06:05 [place] # (Auto) 1.1 K/uL (0.0-0.8) H 04/07/18 06:05 Eos # (Auto) 0.1 K/uL (0.0-0.7) 04/07/18 06:05 Baso # (Auto) 0.0 K/uL (0.0-0.2) 04/07/18 06:05 Neutrophils % (Manual) 85 % (50-75) H 04/06/18 06:18 Lymphocytes % (Manual) 7 % (20-40) L 04/06/18 06:18 Monocytes % (Manual) 8 % (0-10) 04/06/18 06:18 Platelet Estimate Normal (NORMAL) 04/06/18 06:18 Polychromasia Slight 04/06/18 06:18 Hypochromasia (manual) Slight 04/06/18 06:18 Anisocytosis (manual) Slight 04/06/18 06:18 Sodium 131 mmol/L (132-148) L 04/06/18 06:18 Potassium 4.4 mmol/L (3.6-5.2) 04/06/18 06:18 Chloride 93 mmol/L (98-107) L 04/06/18 06:18 Carbon Dioxide 29 mmol/L (22-30) 04/06/18 06:18 Anion Gap 13 (10-20) 04/06/18 06:18 BUN 15 mg/dL (9-20) 04/06/18 06:18 Creatinine 1.0 mg/dL (0.8-1.5) 04/06/18 06:18 Est GFR ( Amer) > 60 04/06/18 06:18 Est GFR (Non-Af Amer) > 60 04/06/18 06:18 Random Glucose 110 mg/dL (75-110) 04/06/18 06:18 Calcium 8.2 mg/dl (8.6-10.4) L 04/06/18 06:18 Phosphorus 2.8 mg/dL (2.5-4.5) 04/06/18 06:18 Magnesium 1.7 mg/dL (1.6-2.3) 04/06/18 06:18 Total Bilirubin 0.6 mg/dL (0.2-1.3) 04/06/18 06:18 AST 33 U/L (17-59) 04/06/18 06:18 ALT 22 U/L (21-72) 04/06/18 06:18 Alkaline Phosphatase 65 U/L (38-126) 04/06/18 06:18 Total Protein 7.1 g/dL (6.3-8.3) 04/06/18 06:18 Albumin 3.5 g/dL (3.5-5.0) 04/06/18 06:18 Globulin 3.6 gm/dL (2.2-3.9) 04/06/18 06:18 Albumin/Globulin Ratio 1.0 (1.0-2.1) 04/06/18 06:18 Blood Type A POSITIVE 04/05/18 10:27 Antibody Screen Negative 04/05/18 10:27 - Hospital Course Hospital Course: Patient is a 82 yo male with PMHx of BPH, CAD w/ CABG, 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 Marysol Wilson. He has a long-standing history of BPH with recent increased urinary retention. Patient reports using a Craft for the past 2-3 months as he was unable to void on his own. A nurse replaced the Craft every 3 weeks. He was experiencing occasional dysuria and hematuria as well. He denies F/C, diaphoresis, weakness, headache, dizziness, sore throat, chest pain, palpitations, SOB, abdominal pain, N/V, and D/C. Patient had TURP completed without major complications. Patient had CBI post-op for approximately 24 hrs. Initial output was bloody but this gradually decreased. CBI discontinued 04/06. Patient continues to have Craft with some dysuria. Patient had initial hypertension post-op. he was restarted on his home HTN meds, and it was better controlled. Dr. Wilson reported some bleeding during the surgery. Patient was not restarted on Eliquis during this hospitalization. Upon discharge, patient's vitals were stable. He did not have significant pain other than dysuria. He was instructed on Craft care. He will follow-up with urologist, Dr. Wilson in the office tomorrow (04/08). Discharge Exam - Head Exam Head Exam: ATRAUMATIC, NORMAL INSPECTION, NORMOCEPHALIC - Additional Findings Additional findings: - Constitutional Appears: No Acute Distress - Head Exam Head Exam: ATRAUMATIC, NORMAL INSPECTION, NORMOCEPHALIC - Eye Exam Eye Exam: EOMI, Normal appearance, PERRL - ENT Exam ENT Exam: Mucous Membranes Moist, Normal Exam - Neck Exam Neck exam: Positive for: Normal Inspection - Respiratory Exam Respiratory Exam: Clear to Auscultation Bilateral, NORMAL BREATHING PATTERN - Cardiovascular Exam Cardiovascular Exam: REGULAR RHYTHM, +S1, +S2 - GI/Abdominal Exam GI & Abdominal Exam: Normal Bowel Sounds, Soft. absent: Distended, Tenderness - Rectal Exam Rectal Exam: Deferred - Exam Additional comments: Craft with yellow output - Extremities Exam Extremities exam: Positive for: normal inspection, pedal pulses present. Negative for: pedal edema, tenderness - Back Exam Back exam: NORMAL INSPECTION - Neurological Exam Neurological exam: Alert, CN II-XII Intact, Oriented x3 - Psychiatric Exam Psychiatric exam: Normal Affect, Normal Mood - Skin Skin Exam: Dry, Intact, Normal Color, Warm Discharge Plan - Discharge Medications Prescriptions: Oxybutynin XL [Ditropan XL] 10 mg PO DAILY 30 Days #30 ter Phenazopyridine [Pyridium] 200 mg PO TIDPC 30 Days #90 tab - Follow Up Plan Condition: IMPROVED Disposition: HOME/ ROUTINE Patient education suggested?: Yes Instructions: How to Care for Your Craft Catheter, Male, Transurethral Resection of the Prostate (DC), Oxybutynin, Phenazopyridine Additional Instructions: Please follow-up with Dr. Noreen Wilson on 04/08 to remove Craft. Patient's daughter will call Dr. Wilson tomorrow 04/07 for follow-up instructions. Until then, follow nursing instructions on Craft care. Please follow-up with your primary care physician, Dr. York, within 1 week of discharge. You may continue all home medications EXCEPT Eliquis. Do not restart Eliquis until further instructed by Dr. Wilson. You will be given a prescription for 5 new prescriptions. Take as instructed. If symptoms recur, please return to the nearest emergency room. Referrals: Ned York [Staff Provider] - Noreen Wilson MD [Staff Provider] -
[2018-04-07 07:14] LABS: ALBUMIN 3.3 g/dL (3.5-5.0); ALT/SGPT 25 U/L (21-72); AST/SGOT 29 U/L (17-59); BLOOD UREA NITROGEN 13 mg/dL (9-20); CALCIUM 8.3 mg/dl (8.6-10.4); GFR NON-AFRICAN AMERICAN > 60
[2018-04-07 08:02] VITALS: BP 127/62; PULSE 87; O2SAT 95
[2018-04-07] MEDS: Pantoprazole 40 mg EC Tab PO SCH (09:32)
[2018-04-07] MEDS: Oxybutynin XL 10 mg Tab PO SCH (09:33)
--- NOTE | 2018-04-08 03:58 | CON ---
DATE: 04/07/2018 UROLOGY CONSULTATION Urology consultation is requested by Dr. Earnest Matias. Urology consultation filled by Dr. Noreen Wilson. REASON FOR CONSULTATION: Urinary retention. HISTORY OF PRESENT ILLNESS: The patient is an 82-year-old male with urinary retention. The patient is in otherwise fair health. The patient has a history of BPH for several years. The patient was treated with medications including tamsulosin and finasteride. The patient had been voiding with poor stream but has voiding. However, the patient subsequently developed urinary retention. The patient has had multiple trials of voiding; however, the retention has recurred. The patient had delayed of definitive surgery for his prostate due to medical issues and cardiovascular issues. The patient has a history of previous DVT with pulmonary embolus. The patient was treated with oral anticoagulation therapy. The patient has a history of hypertension. No chest pain. The patient has had cardiologic care and consultation as well. Mr. James lives with his . He reports fair appetite. He has normal bowel movements. The patient reports normal functional status. He ambulates well. He has good mentation. PHYSICAL EXAMINATION: GENERAL: The patient is a well-developed, well-nourished elderly male. The patient is awake and alert. ABDOMEN: Soft, nontender, nondistended. No mass or organomegaly. BACK: No CVA tenderness. GENITOURINARY: Urine is clear via the Craft catheter. Genitalia without inflammation. Previous rectal examination has revealed prostatic hypertrophy. The patient had previous CT scans as well confirming prostatic hypertrophy. IMPRESSION: An 82-year-old male with urinary retention, benign prostatic hypertrophy, atherosclerotic cardiovascular disease, history of deep venous thrombosis. The patient has been off his anticoagulants as per medical consultants. RECOMMENDATION AND PLAN: For cystoscopy and transurethral resection of prostate. Nature of surgery including risks, benefits, alternatives have been explained to the patient and his family. Noreen Wilson MD
--- NOTE | 2018-04-08 06:13 | OP ---
PROCEDURE DATE: 04/05/2018 PREOPERATIVE DIAGNOSES: 1. Urinary retention. 2. Enlarged prostate. POSTOPERATIVE DIAGNOSES: 1. Urinary retention. 2. Enlarged prostate. PROCEDURE: 1. Cystoscopy. 2. Transurethral resection of the prostate. OPERATING SURGEON: Dr. Noreen Wilson. PROCEDURE FOLLOWS: The patient received perioperative antibiotics. The patient was placed in lithotomy position. Anesthesia was applied by the anesthesiologist. The genitalia prepped and draped in a sterile fashion. A 26-Khmer continuous flow resectoscope sheath was introduced under direct vision. Procedure was performed under video endoscopic control. FINDINGS: There was no stricture in the anterior urethra. There was evidence of trilobar prostatic hypertrophy. There was predominantly lateral lobe hypertrophy. There is small intravesical middle lobe at the bladder neck. There was marked bladder trabeculation. There was no bladder tumor. There were few cellules in the bladder. The ureteral orifices were identified on the floor of the bladder and although close to the bladder neck, they were identified and spared throughout the resection. The resection of the prostate was performed as follows. The resection was begun at the bladder neck on the floor. Thereafter, the anterior roof tissue was resected. Subsequently,the lateral lobes were resected, first on the right side, then on the left side. Thereafter, the floor and apical prostatic tissue were resected with the surgeon's index finger within the O'[place]vany drape in the rectum. Hemostasis was achieved after each section of resection. The prostatic chips were removed after each section of the resection. The resectoscope was reinserted. There was no bleeding noted. There were no residual prostatic chips. The veru was identified and spared throughout the resection. The ureteral orifices were intact. The resectoscope and sheath were removed. A Craft catheter was inserted. Bladder irrigation was clear with mild traction applied. The patient was returned to supine position. The patient was transferred to recovery room in satisfactory condition. Noreen Wilson MD cc: Ned York MD
--- NOTE | 2018-04-08 06:50 | PCM.URO ---
Urology Progress Note - General General: No Complaints, Tolerating Diet - Subjective Abdominal Pain: No Flank Pain: No Nausea: No Vomiting: No Hematuria: No Dsypnea: No Chest Pain: No Fever & Chills: No - Objective Lab Studies: Reviewed Lab Results Last 24 Hours: Laboratory Results - last 24 hr 04/07/18 06:05 Sodium 131 L Potassium 4.1 Chloride 96 L Carbon Dioxide 29 Anion Gap 11 BUN 13 Creatinine 1.1 Est GFR ( Amer) > 60 Est GFR (Non-Af Amer) > 60 Random Glucose 91 Calcium 8.3 L Phosphorus 2.7 Magnesium 2.0 Total Bilirubin 0.6 AST 29 ALT 25 Alkaline Phosphatase 59 Total Protein 6.7 Albumin 3.3 L Globulin 3.4 Albumin/Globulin Ratio 1.0 Intake & Output: Intake & Output 04/07/18 04/07/18 04/08/18 06:59 18:59 06:59 Intake Total 240 Output Total 1600 Balance -1360 Intake: Oral 240 Output: Urine 1600 3-way Urethral 1600 Vital Signs: Vital Signs - 24 hr 04/07/18 07:57 Temperature 98.2 F Pulse Rate 87 Respiratory 20 Rate Blood Pressure 127/62 O2 Sat by Pulse 95 Oximetry - Physical Exam Abdominal Exam: Soft, Non-Tender, Non-Distended Back: No CVA Tenderness Genitalia: Without Inflammation Urinary Catheter Draining Well: Yes Urine Color: Clear, Yellow Extremities: Normal: Bilateral - Male Phallus: Normal Scrotum: Normal - Plan Catheter Care: Yes Ambulation - Out of Bed: Yes Intake & Output: Yes See Orders: Yes Additional Information: IMP: doing well, post-TURP. P?Rec: outpt f/u. crandall cath. antibiotic rx, colace. trial of voiding t/f. Discussed w pt, family, medical staff and nursing staff - Date & Time of Note Date: 04/07/18 Time: 09:30
== END 2018-04-07 13:05 | disposition home or self-care (01) | DRG 714 ==
LOC: C.SDS 07:06 → C.3T 11:25
PROVIDERS: ADMIT Family Medicine; ATTEND Family Medicine
PROC: 0VB08ZZ Excision of Prostate, Via Natural or Artificial Opening Endoscopic (ICD-10-PCS; 2018-04-05)
PROC: 0TJB8ZZ Inspection of Bladder, Via Natural or Artificial Opening Endoscopic (ICD-10-PCS; principal; 2018-04-05 09:00)
DX: N40.1 Benign prostatic hyperplasia with lower urinary tract symptoms (principal); R33.9 Retention of urine, unspecified; R33.8 Other retention of urine; Z86.711 Personal history of pulmonary embolism; Z87.891 Personal history of nicotine dependence; Z95.1 Presence of aortocoronary bypass graft; I97.3 Postprocedural hypertension; I10 Essential (primary) hypertension; I25.10 Atherosclerotic heart disease of native coronary artery without angina pectoris; E78.5 Hyperlipidemia, unspecified; Z86.718 Personal history of other venous thrombosis and embolism

== ENCOUNTER 2018-07-15 04:56 | Inpatient (IN) | payer MEDICARE, OTHER ==
[2018-07-15 04:58] VITALS: BMI 25.9
[2018-07-15] MEDS ORDERED: Albuterol-Ipratrop 3 mg / 0.5 (3 ml) UD INH STA (05:24)
[2018-07-15] MEDS ORDERED: Albuterol 0.083% Inhal Sol (2.5 mg/3 mL) UD IH STA (05:24)
--- NOTE | 2018-07-15 05:38 | C.PDOC ---
History Of Present Illness Patient presents to ED c/o worsening SOB since Thursday. He states dyspnea worsens with exertion, but is not associated with chest pain, palpitations. He does admit to fever, runny nose tonight, but denies productive cough, abdominal pain, nausea/vomiting, diarrhea, dysuria. Time Seen by Provider: 07/15/18 05:01 Chief Complaint (Nursing): Shortness Of Breath Past Medical History Reviewed: Historical Data, Nursing Documentation, Vital Signs Vital Signs: Last Vital Signs Temp 99.4 F 07/15/18 05:18 Pulse 120 H 07/15/18 05:18 Resp 11 L 07/15/18 05:18 BP 186/94 H 07/15/18 05:18 Pulse Ox 88 L 07/15/18 05:18 - Medical History PMH: Anemia, Benign Prostatic Hyperplasia, HTN, Hypercholesterolemia, Pulmonary Embolism (AUGUST 2017) - PF Management Services Procedures CONTROL BLEEDING IN RESPIRATORY TRACT, VIA OPENING (07/08/16) EXCISION OF PROSTATE, ENDO (04/05/18) INSERTION OF INTRALUM DEV INTO INF VENA CAVA, PERC APPROACH (08/30/17) INSPECTION OF BLADDER, ENDO (04/05/18) PACKING OF NASAL REGION USING PACKING MATERIAL (07/08/16) RESECTION OF NASAL TURBINATE, ENDO (07/08/16) TRANSFUSE NONAUT RED BLOOD CELLS IN PERIPH VEIN, PERC (07/08/16) ULTRASONOGRAPHY OF BILATERAL RENAL VEINS, GUIDANCE (08/30/17) Family History: States: No Known Family Hx - Social History Hx Tobacco Use: No Hx Alcohol Use: No Hx Substance Use: No - Immunization History Hx Tetanus Toxoid Vaccination: No Hx Influenza Vaccination: Yes Hx Pneumococcal Vaccination: No Review Of Systems Constitutional: Positive for: Fever, Chills Cardiovascular: Negative for: Chest Pain, Palpitations Respiratory: Positive for: Shortness of Breath, Wheezing Gastrointestinal: Negative for: Nausea, Vomiting, Abdominal Pain, Diarrhea Genitourinary: Negative for: Dysuria, Hematuria Skin: Negative for: Rash Physical Exam - Physical Exam Appears: Well, Non-toxic, In Acute Distress (in mild respiratory distress) Skin: Normal Color, Warm, Dry Oral Mucosa: Moist Cardiovascular: Rhythm Regular (tachycardic ) Respiratory: Accessory Muscle Use (mild), No Rales, No Rhonchi, Wheezing (diffuse expratory wheezing B/L ) Gastrointestinal/Abdominal: Normal Exam, Bowel Sounds, Soft, No Tenderness Extremity: Normal ROM, No Pedal Edema Neurological/Psych: Oriented x3 ED Course And Treatment - Laboratory Results Result Diagrams: 07/15/18 05:37 07/15/18 05:37 ECG: Interpreted By Me, Viewed By Me (sinus tachycardia 115bpm, left axis deviation, PVCs, no acute ST/ T wave changes) ECG Interpretation: Abnormal O2 Sat by Pulse Oximetry: 88 (RA) Pulse Ox Interpretation: Abnormal - Radiology CXR: Interpreted by Me, Viewed By Me (? developing infiltrates B/L) Progress Note: Blood work, EKG, CXR ordered and reviewed. Patient given IV solumedrol, albuterol neb treatments. 6:50- Patient states he is unable to be admitted because his has dementia and he needs to care for her. Will have him sign out against medical advice. 6:57- Patient now wants to stay in the hospital. Was already given PO Azithromycin, IV rocephin ordered to cover for possible pneumonia. Disposition Counseled Patient/Family Regarding: Studies Performed, Diagnosis, Need For Followup, Rx Given - Disposition Referrals: Ned York [Staff Provider] - Disposition Time: 18:50 Condition: STABLE Prescriptions: Albuterol HFA [Ventolin HFA 90 mcg/actuation (8 g)] 0.09 mg IH Q4 PRN #1 puff PRN Reason: Wheezing Azithromycin [Zithromax] 250 mg PO DAILY #4 tab predniSONE [predniSONE Tab] 40 mg PO DAILY #10 tab Print Language: MAORI - Clinical Impression Clinical Impression: Dyspnea, Wheezing, Acute bronchitis Physician Patient Turnover Patient Signed Over To: Jayesh Boogie Handoff Comments: pending call back from hospitalist, admission
[2018-07-15] MEDS ORDERED: Albuterol-Ipratrop 3 mg / 0.5 (3 ml) UD ONE (05:40)
[2018-07-15 05:44] LABS: BASO % 0.2 % (0.0-2.0); EOS % 0.1 % (0.0-4.0); HEMOGLOBIN 11.2 g/dL (12.0-18.0); LYMPH # 0.8 K/uL (1.0-4.3); LYMPH % 10.4 % (20.0-40.0); MEAN CELL VOLUME 91.7 fL (80.0-94.0); MEAN CORPUSCULAR HGB CONC 32.7 g/dL (33.0-37.0); MEAN PLATELET VOLUME 8.3 fL (7.2-11.7); MONO # 1.1 K/uL (0.0-0.8); MONO % 13.2 % (0.0-10.0); NEUT # 6.2 K/uL (1.8-7.0); NEUT % 76.1 % (50.0-75.0); RBC 3.72 Mil/uL (4.40-5.90); RED CELL DISTRIBUTION WIDTH 16.3 % (11.5-14.5); WHITE BLOOD COUNT 8.1 K/uL (4.8-10.8)
[2018-07-15 05:49] LABS: VENOUS BLOOD GAS PCO2 46 mmHg (40-60); VENOUS BLOOD GAS PO2 28 mm/Hg (30-55)
[2018-07-15 05:59] LABS: ALB/GLOB RATIO 1.1 (1.0-2.1); AST/SGOT 35 U/L (17-59); BLOOD UREA NITROGEN 25 mg/dL (9-20); CALCIUM 9.2 mg/dl (8.6-10.4); GFR NON-AFRICAN AMERICAN 48
[2018-07-15 06:00] LABS: ALT/SGPT < 6 U/L (21-72)
[2018-07-15 06:04] LABS: INR 1.4; PROTHROMBIN TIME 15.7 SECONDS (9.7-12.2)
[2018-07-15] MEDS ORDERED: Albuterol 0.083% Inhal Sol (2.5 mg/3 mL) UD ONE (06:10)
[2018-07-15 06:11] LABS: B-TYPE NATRIURETIC PEPTIDE 738 pg/mL (0-900); CK-MB 1.18 ng/mL (0.0-3.38)
[2018-07-15] MEDS ORDERED: Azithromycin 500 MG in Sodium Chloride 0.9% 250 ML IVPB STA (06:41)
[2018-07-15] MEDS ORDERED: cefTRIAXone IV 1 gm in Dextros 50 ML IV ONE ×2 (06:41→06:55)
--- NOTE | 2018-07-15 08:48 | CP.PCM.HP ---
History of Present Illness - History of Present Illness History of Present Illness: PGY -1 H&P note for Dr Saucedo hospitalist service cc: productive cough, Shortness of breath Patient is a 83 year old pleasant male with past medical history of CAD, BPH, HTN, HLD, GERD, PE diagnosed august 2017, came to the ED from home early this morning for worsening productive cough, chest tightness and shortness of breath. Patient states had all these symptoms on Thursday, for which he went to pharmacy and got robitussin, which did not helped. Patient noticed dark colored phlegm, which turned yellow. Patient states he could not sleep last night as he was coughing repeatedly and started to feel out of breath, and had subjective fever, chills and sweating. Patient took temperature at home and was recorded at 100.7 F. Patient states this is the first time he feels short of breath with worsening cough. Denies recent sickness, or recent travel outside of the [place]. Patient mentioned that several people that live in his residential building are sick with the cold/flu. Since coming to the ER and getting nebulizer treatment along with other pharmacological treatemtn, patient has been feeling better, with improvement of cough and shortness of breath. Patient denies fever, chills, weakness, headaches, chest pain, palpitations, abdominal pain, n/v/d/c, urinary complaints or leg swelling/pain. PMHX: CAD, BPH, HTN, HLD, GERD, PE (2018) Shx: IVC filter 2017, CABG 2004, TURD 2017 ALL: denies Meds:Elliquis 5mg PO BID, Metoprolol 100mg Po daily , Olmesartan 40mg PO daily Tamsulosin 0.4 mg PO daily, Finasteride 5 mg PO daily, Isosorbide mononitrate 30 mg PO daily, Atorvastatin 20 mg PO dailyASA 81 mg PO daily, esomeprazole 40 mg PO daily Sochx: Former smoker, quitted in 2014, smoked 1 pack a day for 40 years, no alcohol or drug use. Lives at senior [facility] building with , retired. Fhx: denies Present on Admission - Present on Admission Any Indicators Present on Admission: No Review of Systems - Review of Systems All systems: reviewed and no additional remarkable complaints except Review of Systems: as stated in HPI Past Patient History - Past Medical History & Family History Past Medical History?: Yes - Past Social History Smoking Status: Former Smoker - CARDIAC Hx Hypercholesterolemia: Yes Hx Hypertension: Yes - PULMONARY Hx Pulmonary Embolism: Yes (AUGUST 2017) - NEUROLOGICAL Hx Neurological Disorder: Yes Hx Syncope: Yes - HEENT Hx HEENT Problems: Yes Hx Epistaxis: Yes - RENAL Hx Chronic Kidney Disease: No - ENDOCRINE/METABOLIC Hx Endocrine Disorders: No - HEMATOLOGICAL/ONCOLOGICAL Hx Anemia: Yes - INTEGUMENTARY Hx Dermatological Problems: No - MUSCULOSKELETAL/RHEUMATOLOGICAL Hx Musculoskeletal Disorders: Yes Hx Falls: No Hx Osteoarthritis: Yes - GASTROINTESTINAL Hx Gastrointestinal Disorders: No - GENITOURINARY/GYNECOLOGICAL Hx Genitourinary Disorders: Yes (RETENTION) - PSYCHIATRIC Hx Substance Use: No - SURGICAL HISTORY Hx Surgeries: Yes Hx Open Heart Surgery: Yes (2004 bypass) Other/Comment: LOOP RECORDER INSERTION - ANESTHESIA Hx Anesthesia: Yes Hx Anesthesia Reactions: No Hx Malignant Hyperthermia: No Meds Home Medications: Home Medication List Medication Instructions Recorded Confirmed Type Albuterol HFA [Ventolin HFA 90 0.09 mg IH Q4 PRN #1 puff 07/15/18 Rx mcg/actuation (8 g)] Azithromycin [Zithromax] 250 mg PO DAILY #4 tab 07/15/18 Rx predniSONE [predniSONE Tab] 40 mg PO DAILY #10 tab 07/15/18 Rx Allergies/Adverse Reactions: Allergies Allergy/AdvReac Type Severity Reaction Status Date / Time No Known Allergies Allergy Verified 07/15/18 05:21 Physical Exam - Constitutional Appears: Non-toxic, No Acute Distress - Head Exam Head Exam: ATRAUMATIC, NORMAL INSPECTION, NORMOCEPHALIC - Eye Exam Eye Exam: EOMI, Normal appearance - ENT Exam ENT Exam: Mucous Membranes Moist, Normal Exam - Neck Exam Neck exam: Positive for: Normal Inspection - Respiratory Exam Respiratory Exam: Decreased Breath Sounds, Wheezes, NORMAL BREATHING PATTERN. absent: Accessory Muscle Use, Chest Wall Tenderness, Rales, Rhonchi - Cardiovascular Exam Cardiovascular Exam: REGULAR RHYTHM, +S1, +S2 - GI/Abdominal Exam GI & Abdominal Exam: Normal Bowel Sounds, Soft. absent: Distended, Tenderness - Extremities Exam Extremities exam: Positive for: full ROM, normal inspection, pedal pulses present. Negative for: pedal edema, tenderness - Back Exam Back exam: NORMAL INSPECTION - Neurological Exam Neurological exam: Alert, CN II-XII Intact, Oriented x3 - Psychiatric Exam Psychiatric exam: Normal Affect, Normal Mood - Skin Skin Exam: Dry, Intact, Normal Color, Warm Results - Vital Signs Recent Vital Signs: Last Vital Signs Temp 99.4 F 07/15/18 05:18 Pulse 94 H 07/15/18 07:15 Resp 22 07/15/18 07:15 BP 146/61 07/15/18 07:15 Pulse Ox 95 07/15/18 07:15 - Labs Result Diagrams: 07/15/18 05:37 07/15/18 05:37 Labs: Laboratory Results - last 24 hr 07/15/18 07/15/18 07/15/18 05:24 05:37 05:37 WBC 8.1 RBC 3.72 L Hgb 11.2 L Hct 34.2 L MCV 91.7 D MCH 30.0 MCHC 32.7 L RDW 16.3 H Plt Count 216 MPV 8.3 Neut % (Auto) 76.1 H Lymph % (Auto) 10.4 L [place] % (Auto) 13.2 H Eos % (Auto) 0.1 Baso % (Auto) 0.2 Neut # (Auto) 6.2 Lymph # (Auto) 0.8 L [place] # (Auto) 1.1 H Eos # (Auto) 0.0 Baso # (Auto) 0.0 PT 15.7 H INR 1.4 APTT 33 pO2 VBG pH VBG pCO2 VBG HCO3 VBG Total CO2 VBG O2 Sat (Calc) VBG Base Excess VBG Potassium Glucose Lactate Sodium Potassium Chloride Carbon Dioxide Anion Gap BUN Creatinine Est GFR ( Amer) Est GFR (Non-Af Amer) Random Glucose Calcium Total Bilirubin AST ALT Alkaline Phosphatase Total Creatine Kinase CK-MB (Mass) Troponin I NT-Pro-B Natriuret Pep Total Protein Albumin Globulin Albumin/Globulin Ratio Venous Blood Potassium Influenza Typ A,B (EIA) Negative for flu a/b 07/15/18 07/15/18 05:37 05:45 WBC RBC Hgb Hct MCV MCH MCHC RDW Plt Count MPV Neut % (Auto) Lymph % (Auto) [place] % (Auto) Eos % (Auto) Baso % (Auto) Neut # (Auto) Lymph # (Auto) [place] # (Auto) Eos # (Auto) Baso # (Auto) PT INR APTT pO2 28 L VBG pH 7.40 VBG pCO2 46 VBG HCO3 26.1 VBG Total CO2 29.9 H VBG O2 Sat (Calc) 56.1 VBG Base Excess 3.0 H VBG Potassium 3.9 Glucose 108 Lactate 1.4 Sodium 137 137.0 Potassium 4.0 Chloride 98 101.0 Carbon Dioxide 31 H Anion Gap 11 BUN 25 H Creatinine 1.4 Est GFR ( Amer) 58 Est GFR (Non-Af Amer) 48 Random Glucose 112 H D Calcium 9.2 Total Bilirubin 0.7 AST 35 ALT < 6 L D Alkaline Phosphatase 76 Total Creatine Kinase 221 H CK-MB (Mass) 1.18 Troponin I 0.0670 NT-Pro-B Natriuret Pep 738 Total Protein 7.6 Albumin 4.0 Globulin 3.6 Albumin/Globulin Ratio 1.1 Venous Blood Potassium 3.9 Influenza Typ A,B (EIA) Assessment & Plan - Assessment and Plan (Free Text) Assessment: 83 year old male with pmhx of CAD s/p CABG, BPH s/p TURP, PE s/p IVC filter, HTN, HLD that came to ED with shortness of breath, chest tightness and productive coughing since thursday, worsening symptoms last night, chest xray possible LL infiltrate, rule out PNA vs COPD exacerbation. Plan: Pneumonia - EKG 07/13- sinus tachy with premature vent complexes, left anterior fascicular block ( noted on previous EKG 09/10) - Chest xray 07/15 - concerning for LL infiltrate - official report shows mild pulm venous congestion, no active pulm disease - in The ED - Albuterol, Duoneb x 1, one dose of zithromax and ceftriaxone, solumedrol 125 mg IVP x 1 - Influenza negative - afebrile, vitals signs within normal limits - VGB - ph 7.40, PO2 28, CO2 46, CO3 26.1, lact 1.4 - WBC 8.1 - Blood culture - f/u - echo 08/2017 - left ventricle is normal size, mild concentric left ventricular hypertrophy, EF 55-60%, suspicious for PFO, mild valvular aortic stenosis, aortic valve moderately calcified, trace aortic regurgitation, moderate pulmonary hypertension. - Meds: - Continue Ceftriaxone 1gm IV QD - Continue Zithromax 500mg IV QD - Solumedrol 40 mg IV QD - Duonebs Q4H BIRGIT - CT chest ordered 07/15 - Multifocal small pathcy opacities as well as right middle lobe small airways disease. Possible infectious or inflammatory etiology. Subsegmental atelectasis left lower lobe and right middle lobe as described. Mild centrilobular pulmonary emphysema. Cardiomegaly. - will consider pulm consult if patient's symptoms recur or worsen Hypertension - on Telemetry - Imdur 30 mg PO Qdaily - Losartan 100 mg PO daily - converted from home med olmesartan medoxomil 50 mg PO daily as this medication is Non formulary - Metoprolol 100mg PO Daily GERD - Protonix 40 mg PO daily Hyperlipidemia - Crestor 10 mg PO QHS H/o PE and DVT s/p IV filter 09/11 - continue elliquis 5mg PO BID CAD- s/p CABG 2003 - Echo 09/11: EF 55-60%, mod pulm HTN, mod aortic calcification, ?PFO - Heart healthy diet - continue home meds: ASA, crestor, b-adrianne Benign prostatic hypertrophy s/p TURP 04/05 - continue Home meds - flomax 0.4 mg PO BID - Finasteride 5 mg PO Daily Ppx: VTE: eliquis, SCDs GI: Protonix 40 mg PO daily lactobacillus HHD Plan discussed with Dr Lewis Lewis, PGY-1 - Date & Time Date: 07/15/18 Time: 08:30
--- NOTE | 2018-07-15 10:27 | RAD ---
Date of service: 07/15/2018 PROCEDURE: CHEST RADIOGRAPH, 1 VIEW HISTORY: SOB COMPARISON: 03/12/2018. FINDINGS: LUNGS: The lungs are well inflated. There is mild pulmonary venous congestion. No focal consolidation. PLEURA: No pneumothorax or pleural effusion. CARDIOVASCULAR: There is persistent moderate cardiomegaly. Status post CABG. There are aortic atherosclerotic calcifications present. OSSEOUS STRUCTURES: Within normal limits for the patient's age. VISUALIZED UPPER ABDOMEN: Normal. OTHER FINDINGS: None. IMPRESSION: No active pulmonary disease.
[2018-07-15] MEDS: Metoprolol Succinate 100 mg XL Tab PO SCH (10:49)
--- NOTE | 2018-07-15 15:37 | CT ---
Date of service: 07/15/2018 PROCEDURE: CT Chest without contrast HISTORY: sob, coughing COMPARISON: 09/01/2017 TECHNIQUE: Contiguous axial images were obtained through the chest without intravenous contrast enhancement. Sagittal and coronal reconstructions were performed. Radiation dose (DLP): 263.33 mGy-cm. This CT exam was performed using one or more of the following dose reduction techniques: Automated exposure control, adjustment of the mA and/or kV according to patient size, and/or use of iterative reconstruction technique. FINDINGS: LUNGS: Subsegmental atelectasis posterior right lower lobe. Subsegmental atelectasis in the right middle lobe adjacent to the right heart border. Patchy opacity in the left lower lobe common nonspecific. Patchy opacity in the right middle lobe, nonspecific. Small patchy opacities in the right lower lobe. Moderate nonspecific small airways disease in the right middle lobe. The etiology these findings may be infectious or inflammatory. Mild centrilobular pulmonary emphysema predominantly in the upper lobes. MEDIASTINUM: Unremarkable thoracic aorta. No aneurysm. Cardiomegaly. Coronary arterial calcification. Main pulmonary artery unremarkable. No vascular congestion. No lymphadenopathy. There is atherosclerotic calcification of the thoracic aorta. PLEURA: No pleural fluid. No pneumothorax. BONES: Sternotomy wires. No acute fracture. UPPER ABDOMEN: Grossly unremarkable. OTHER FINDINGS: None. IMPRESSION: Multifocal small patchy opacities as well as right middle lobe small airways disease. Possible infectious or inflammatory etiology. Subsegmental atelectasis left lower lobe and right middle lobe as described. Mild centrilobular pulmonary emphysema. Cardiomegaly.
[2018-07-15] MEDS: Lactobacillus Acidophilus 500 MU Cap PO SCH (18:27)
[2018-07-15] MEDS: Albuterol-Ipratrop 3 mg / 0.5 (3 ml) UD INH SCH (19:06)
[2018-07-16] MEDS: Albuterol-Ipratrop 3 mg / 0.5 (3 ml) UD INH SCH ×3 (00:12→08:20)
[2018-07-16] MEDS ORDERED: Azithromycin 500 MG in Sodium Chloride 0.9% 250 ML IVPB SCH (06:00)
[2018-07-16 08:01] LABS: BASO % 0.1 % (0.0-2.0); HEMOGLOBIN 10.8 g/dL (12.0-18.0); LYMPH # 0.6 K/uL (1.0-4.3); LYMPH % 7.4 % (20.0-40.0); MEAN CELL VOLUME 91.5 fL (80.0-94.0); MEAN CORPUSCULAR HEMOGLOBIN 30.5 pg (27.0-31.0); MEAN CORPUSCULAR HGB CONC 33.3 g/dL (33.0-37.0); MEAN PLATELET VOLUME 8.7 fL (7.2-11.7); MONO # 0.9 K/uL (0.0-0.8); MONO % 10.8 % (0.0-10.0); NEUT # 6.8 K/uL (1.8-7.0); NEUT % 81.7 % (50.0-75.0); PLATELET COUNT 219 K/uL (130-400); RBC 3.54 Mil/uL (4.40-5.90); RED CELL DISTRIBUTION WIDTH 16.2 % (11.5-14.5); WHITE BLOOD COUNT 8.3 K/uL (4.8-10.8)
[2018-07-16] MEDS: Metoprolol Succinate 100 mg XL Tab PO SCH ×2 (08:14→10:25)
[2018-07-16 08:24] LABS: ALBUMIN 3.6 g/dL (3.5-5.0); CALCIUM 9.1 mg/dl (8.6-10.4)
[2018-07-16 08:25] VITALS: RESP 20; TEMP 97.6
[2018-07-16 09:31] LABS: LYMPHOCYTE 9 % (20-40); NEUTROPHIL 81 % (50-75); TOTAL CELLS COUNTED 100
[2018-07-16 09:32] LABS: ANISOCYTOSIS SLIGHT; HYPOCHROMIC SLIGHT; MONOCYTE 10 % (0-10); PLATELET ESTIMATE NORMAL (NORMAL); POIKILOCYTOSIS SLIGHT
[2018-07-16] MEDS ORDERED: MethylPREDNISolone 40 mg Vial IV SCH (10:00)
[2018-07-16] MEDS: Lactobacillus Acidophilus 500 MU Cap PO SCH (10:24)
--- NOTE | 2018-07-16 12:21 | CP.PCM.DIS ---
Provider - Provider Date of Admission: 07/15/18 07:27 Attending physician: Shelly Saucedo MD Consults: 07/15/18 12:08 Inpatient [employer] Core Measures Referral Routine Comment: Physician Instructions: Reason For Exam: hx AMI Time Spent in preparation of Discharge (in minutes): 180 Diagnosis - Discharge Diagnosis (1) Pneumonia Status: Acute (2) Hypertension Status: Chronic (3) CAD (coronary artery disease) Status: Chronic (4) BPH (benign prostatic hyperplasia) Status: Chronic (5) Hyperlipidemia Status: Chronic Hospital Course - Lab Results Lab Results: Micro Results 07/15/18 06:20 Blood Blood Culture - Preliminary NO GROWTH AFTER 24 HOURS 07/15/18 06:20 Blood Blood Culture - Preliminary NO GROWTH AFTER 24 HOURS Most Recent Lab Values WBC 8.3 K/uL (4.8-10.8) 07/16/18 07:52 RBC 3.54 Mil/uL (4.40-5.90) L 07/16/18 07:52 Hgb 10.8 g/dL (12.0-18.0) L 07/16/18 07:52 Hct 32.4 % (35.0-51.0) L 07/16/18 07:52 MCV 91.5 fL (80.0-94.0) 07/16/18 07:52 MCH 30.5 pg (27.0-31.0) 07/16/18 07:52 MCHC 33.3 g/dL (33.0-37.0) 07/16/18 07:52 RDW 16.2 % (11.5-14.5) H 07/16/18 07:52 Plt Count 219 K/uL (130-400) 07/16/18 07:52 MPV 8.7 fL (7.2-11.7) 07/16/18 07:52 Neut % (Auto) 81.7 % (50.0-75.0) H 07/16/18 07:52 Lymph % (Auto) 7.4 % (20.0-40.0) L 07/16/18 07:52 [place] % (Auto) 10.8 % (0.0-10.0) H 07/16/18 07:52 Eos % (Auto) 0.0 % (0.0-4.0) 07/16/18 07:52 Baso % (Auto) 0.1 % (0.0-2.0) 07/16/18 07:52 Neut # (Auto) 6.8 K/uL (1.8-7.0) 07/16/18 07:52 Lymph # (Auto) 0.6 K/uL (1.0-4.3) L 07/16/18 07:52 [place] # (Auto) 0.9 K/uL (0.0-0.8) H 07/16/18 07:52 Eos # (Auto) 0.0 K/uL (0.0-0.7) 07/16/18 07:52 Baso # (Auto) 0.0 K/uL (0.0-0.2) 07/16/18 07:52 Neutrophils % (Manual) 81 % (50-75) H 07/16/18 07:52 Lymphocytes % (Manual) 9 % (20-40) L 07/16/18 07:52 Monocytes % (Manual) 10 % (0-10) 07/16/18 07:52 Platelet Estimate Normal (NORMAL) 07/16/18 07:52 Hypochromasia (manual) Slight 07/16/18 07:52 Poikilocytosis (manual Slight 07/16/18 07:52 Anisocytosis (manual) Slight 07/16/18 07:52 PT 15.7 SECONDS (9.7-12.2) H 07/15/18 05:37 INR 1.4 07/15/18 05:37 APTT 33 SECONDS (21-34) 07/15/18 05:37 pO2 28 mm/Hg (30-55) L 07/15/18 05:45 VBG pH 7.40 (7.32-7.43) 07/15/18 05:45 VBG pCO2 46 mmHg (40-60) 07/15/18 05:45 VBG HCO3 26.1 mmol/L 07/15/18 05:45 VBG Total CO2 29.9 mmol/L (22-28) H 07/15/18 05:45 VBG O2 Sat (Calc) 56.1 % (40-65) 07/15/18 05:45 VBG Base Excess 3.0 mmol/L (0.0-2.0) H 07/15/18 05:45 VBG Potassium 3.9 mmol/L (3.6-5.2) 07/15/18 05:45 Sodium 137.0 mmol/l (132-148) 07/15/18 05:45 Chloride 101.0 mmol/L (98-107) 07/15/18 05:45 Glucose 108 mg/dl (75-110) 07/15/18 05:45 Lactate 1.4 mmol/L (0.7-2.1) 07/15/18 05:45 Sodium 137 mmol/L (132-148) 07/16/18 07:52 Potassium 4.3 mmol/L (3.6-5.2) 07/16/18 07:52 Chloride 100 mmol/L (98-107) 07/16/18 07:52 Carbon Dioxide 30 mmol/L (22-30) 07/16/18 07:52 Anion Gap 11 (10-20) 07/16/18 07:52 BUN 27 mg/dL (9-20) H 07/16/18 07:52 Creatinine 1.4 mg/dL (0.8-1.5) 07/16/18 07:52 Est GFR ( Amer) 58 07/16/18 07:52 Est GFR (Non-Af Amer) 48 07/16/18 07:52 Random Glucose 113 mg/dL (75-110) H 07/16/18 07:52 Calcium 9.1 mg/dl (8.6-10.4) 07/16/18 07:52 Total Bilirubin 0.3 mg/dL (0.2-1.3) 07/16/18 07:52 AST 29 U/L (17-59) 07/16/18 07:52 ALT 9 U/L (21-72) L D 07/16/18 07:52 Alkaline Phosphatase 74 U/L (38-126) 07/16/18 07:52 Total Creatine Kinase 221 U/L (55-170) H 07/15/18 05:37 CK-MB (Mass) 1.18 ng/mL (0.0-3.38) 07/15/18 05:37 Troponin I 0.0670 ng/mL (0.00-0.120) 07/15/18 05:37 NT-Pro-B Natriuret Pep 738 pg/mL (0-900) 07/15/18 05:37 Total Protein 7.2 g/dL (6.3-8.3) 07/16/18 07:52 Albumin 3.6 g/dL (3.5-5.0) 07/16/18 07:52 Globulin 3.7 gm/dL (2.2-3.9) 07/16/18 07:52 Albumin/Globulin Ratio 1.0 (1.0-2.1) 07/16/18 07:52 Venous Blood Potassium 3.9 mmol/L (3.6-5.2) 07/15/18 05:45 Influenza Typ A,B (EIA) Negative for flu a/b (NEGATIVE) 07/15/18 05:24 - Hospital Course Hospital Course: On admission: Patient is a 83 year old pleasant male with past medical history of CAD, BPH, HTN, HLD, GERD, PE diagnosed august 2017, came to the ED from home early this morning for worsening productive cough, chest tightness and shortness of breath. Patient states had all these symptoms on Thursday, for which he went to pharmacy and got robitussin, which did not helped. Patient noticed dark colored phlegm, which turned yellow. Patient states he could not sleep last night as he was coughing repeatedly and started to feel out of breath, and had subjective fever, chills and sweating. Patient took temperature at home and was recorded at 100.7 F. Patient states this is the first time he feels short of breath with worsening cough. Denies recent sickness, or recent travel outside of the [place]. Patient mentioned that several people that live in his residential building are sick with the cold/flu. Since coming to the ER and getting nebulizer treatment along with other pharmacological treatemtn, patient has been feeling better, with improvement of cough and shortness of breath. Patient denies fever, chills, weakness, headaches, chest pain, palpitations, abdominal pain, n/v/d/c, urinary complaints or leg swelling/pain. On hospitalization: Patient admitted to hospital for evaluation and treatment of pneumonia. patient received albuterol, one dose of zithormax and rocephin and solumedrol IVP in the ED. WBC was within normal limits. Patient afebrile at time of admission. Chest xray shows mild pulm venous congestion with no active pulm disease, CT chest shows Multifocal small pathcy opacities as well as right middle lobe small airways disease. Possible infectious or inflammatory etiology. Subsegmental atelectasis left lower lobe and right middle lobe as described. Mild centrilobular pulmonary emphysema. Cardiomegaly. Patient continued with IV abx rocephin zithromax, solumedrol 40 mg QD and duonebs. Patient symptoms improved. Patient continued home meds for HTN, imdur, metoprolol, losartan (converted from home med olmesartan as it was not formulary). Patient blood pressure was elevated on 07/16, patient was started on Norvasc 10mg, given one dose, blood pressure within normal limits before discharge. Patient continued statin medication for hx of HLD, continue home med eliqus for hx of PE s/p IVC, filter, continue flomax and finasteride for BPH s/p TURP. DVT ppx with eliquis and SCDs and GI ppx with protonix. On discharge: Patient is stable for discharge as per Dr Saucedo. Patient is to continue taking oral antibiotics - Zithromax 500mg one tablet once a day for 5 more days. please take antibiotic with yogurt or probiotic rich foods. Patient is to start taking norvasc 5 mg one tablet once a day for high blood pressure, dispense 30. 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 Patient is to make an appointment with Primary doctor Jaylen in 5-7 days after discharge. It is recommended you get a repeat chest xray in 3 weeks after discharge, please follow up with your PMD regarding getting the repeat xray Patient can resume regular activities Patient is recommended to drink plenty of fluids. If symptoms of shortness of breath, chest tightness, fever recur or worsen, please return to the ER immediately This is a brief summary of patient's hospitalization course. For more information, please refer to patient's EMR. - Date & Time of H&P Date of H&P: 07/15/18 Time of H&P: 08:48 Discharge Exam - Head Exam Head Exam: ATRAUMATIC, NORMAL INSPECTION, NORMOCEPHALIC - Eye Exam Eye Exam: EOMI, Normal appearance - ENT Exam ENT Exam: Normal Exam - Neck Exam Neck exam: Normal Inspection - Respiratory Exam Respiratory Exam: NORMAL BREATHING PATTERN. absent: Accessory Muscle Use, Chest Wall Tenderness, Rales, Rhonchi, Wheezes, Respiratory Distress - Cardiovascular Exam Cardiovascular Exam: REGULAR RHYTHM, +S1, +S2 - GI/Abdominal Exam GI & Abdominal Exam: Normal Bowel Sounds, Unremarkable. absent: Tenderness - Extremities Exam Extremities exam: full ROM - Back Exam Back exam: FULL ROM, NORMAL INSPECTION - Neurological Exam Neurological exam: Alert, Oriented x3 - Psychiatric Exam Psychiatric exam: Normal Affect, Normal Mood - Skin Skin Exam: Dry, Normal Color, Warm Discharge Plan - Discharge Medications Prescriptions: amLODIPine [Norvasc] 5 mg PO DAILY 30 Days #30 tab Azithromycin [Zithromax] 500 mg PO DAILY 5 Days #5 tab - Follow Up Plan Condition: STABLE Disposition: HOME/ ROUTINE Instructions: Azithromycin (Systemic), Acute Bronchitis, Adult (DC), Amlodipine Additional Instructions: Patient is stable for discharge as per Dr Saucedo Patient is to continue taking oral antibiotics - Zithromax 500mg one tablet once a day for 5 more days. please take antibiotic with yogurt or probiotic rich foods. Patient is to start taking norvasc 5 mg one tablet once a day for high blood pressure, dispense 30. 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 Patient is to make an appointment with Primary doctor Jaylen in 5-7 days after discharge. It is recommended you get a repeat chest xray in 3 weeks after discharge, please follow up with your PMD regarding getting the repeat xray Patient can resume regular activities Patient is recommended to drink plenty of fluids. if symptoms of shortness of breath, chest tightness, fever recur or worsen, please return to the ER immediately Referrals: Ned York [Staff Provider] -
[2018-07-16 13:35] VITALS: BP 138/72; PULSE 68; O2SAT 92
[2018-07-16] MEDS ORDERED: Albuterol-Ipratrop 3 mg / 0.5 (3 ml) UD INH SCH (14:00)
--- NOTE | 2018-07-18 20:28 | CARD ---
APPROVED REPORT Date of service: 07/15/2018 EKG Measurement Heart [id number] <Conclusion> Sinus tachycardia with occasional premature ventricular complexes Left anterior fascicular block Minimal voltage criteria for LVH, may be normal variant Abnormal ECG
== END 2018-07-16 13:53 | disposition home or self-care (01) | DRG 190 ==
LOC: C.ER 04:56 → C.9E 07:27 → C.5S 08:49
PROVIDERS: ADMIT Internal Medicine; ATTEND Internal Medicine
DX: J44.0 Chronic obstructive pulmonary disease with (acute) lower respiratory infection (principal); J18.9 Pneumonia, unspecified organism; J44.1 Chronic obstructive pulmonary disease with (acute) exacerbation; J20.9 Acute bronchitis, unspecified; E78.00 Pure hypercholesterolemia, unspecified; I25.10 Atherosclerotic heart disease of native coronary artery without angina pectoris; I10 Essential (primary) hypertension; N40.0 Benign prostatic hyperplasia without lower urinary tract symptoms; Z95.1 Presence of aortocoronary bypass graft; Z86.711 Personal history of pulmonary embolism; K21.9 Gastro-esophageal reflux disease without esophagitis; I27.20 Pulmonary hypertension, unspecified